=== PATIENT | male | born 1970 | race Caucasian/White ===

== ENCOUNTER → 2019-10-19 17:20 | Outpatient (REF) | payer OTHER, SELFPAY | LOC: ANHLAB 17:20 | PROVIDERS: Visit Provider Surgery Plastic and Reconstructive Surgery | DX: C43.59 Malignant melanoma of other part of trunk (principal) | CPT/HCPCS: 88305; 88342 ==

== ENCOUNTER 2019-11-26 06:32 | Outpatient (CLI) | payer OTHER, SELFPAY ==
--- NOTE | ~2019-11-26 | PE_ITS ---
EXAMINATION: PET whole body melanoma DATE: 11/26/2019 10:06 INDICATION: Malignant melanoma TECHNIQUE: Blood glucose level was 95 mg/dL. 9.778 mCi of 18-fluorodeoxyglucose (18-FDG) was administ ered i.v. Low dose computed tomography (CT) images were acquired from the vertex through the feet for attenuation correction and anatomic localization. Positron emission tomography (PET) images were acq uired in the same distribution beginning 61 minutes after injection. Images including fused PET/CT im ages were reconstructed in axial, coronal, and sagittal planes. Automated exposure control technique was employed. The dose-length product was 1191.40mGy-cm. COMPARISON: None FINDINGS: Head/neck: There is symmetric increased activity in the oral cavity, nares, palatine tonsils, bilateral sublingu al glands, laryngeal muscles and ocular muscles without CT correlate, likely physiologic. No patholog ically enlarged cervical lymphadenopathy or suspicious foci of increased FDG uptake in the visualized head or neck. Chest: There is mild stranding of the subcutaneous fat without significant FDG uptake posteriorly, slightly to the left of midline at the level of T7 which likely represent the site of excisional biopsy of a r eported melanoma. A postoperative minimal FDG uptake at the skin at the left axilla and along the mar gins of an underlying 2.4 x 6.3 cm likely seroma at the left axilla consistent with sequela of report ed prior sentinel lymph node dissection. Respiratory motion with mild dependent atelectasis in the kylah ngs. No suspicious pulmonary nodules or pleural effusion. Heart size is normal. There is focal increa sed FDG uptake at the lateral basilar segment of the left ventricle without radiologic correlate on C T with maximal SUV of 5.4 which is significantly higher than the remainder of the myocardium. No lydia cardial effusion. Thoracic aorta is normal in caliber. No pathologically enlarged or FDG avid thoraci c lymphadenopathy. Abdomen and pelvis: Physiologic renal accumulation and excretion of FDG activity in the kidneys, bladder and along portio ns of ureters. Normal degree and heterogenous pattern of increased uptake throughout the liver withou t radiologic correlate or dominant FDG avid lesion. The gallbladder, pancreas, spleen and bilateral a drenal glands are normal. Mild uptake scattered throughout the bowels without radiologic correlate, a lso likely physiologic. Likely phlebolith within a small fat-containing umbilical hernia. No other ab normal foci of increased FDG uptake or pathologically enlarged lymphadenopathy in the abdomen, pelvis or proximal thighs. Musculoskeletal: No suspicious lytic, blastic or FDG avid bone lesions. There is a focal region of moderate increased FDG uptake with maximal SUV of 6.8 cm within the plantar intrinsic musculature at the central aspect of the right forefoot without evident radiologic correlate. The region of increased FDG uptake measur es approximately 6 cm proximal to distal and 3 x 3 cm maximal orthogonal dimensions. IMPRESSION: 1. Focal region of increased myocardial FDG uptake at the lateral basilar segment of the left ventric le without radiologic correlate. Differential would include with coronary artery disease and metastat ic disease. Could consider further evaluation with pre and postcontrast cardiac MRI. 2. Region of increased FDG uptake within the plantar musculature of the right forefoot, also without radiologic correlate which could be traumatic, inflammatory or metastatic in etiology. Consider furth er evaluation with pre and postcontrast MRI. Reviewed, dictated and finalized at location A. IMPRESSION: 1. Focal region of increased myocardial FDG uptake at the lateral basilar segme nt of the left ve
--- NOTE | ~2019-11-26 | MR_ITS ---
EXAMINATION: MR brain/brain stem wo/w con EXAM DATE: 11/26/2019 07:54 INDICATION: Malignant melanoma. TECHNIQUE: Magnetic resonance imaging (MRI) of the brain/brain stem obtained without contrast. Sagit nixon T1, axial diffusion, gradient echo (T2*), T1, T2, FLAIR sequences obtained. Patient was then inj ected with 19 cc intravenous Multihance contrast. Axial and coronal postcontrast T1 weighted sequence s obtained. There is no prior study for comparison. FINDINGS: There are no areas of restricted diffusion to suggest acute infarction. There is no acute hemorrhage seen on the T2*, a hemosiderin sensitive sequence. No intraparenchymal brain mass. The ve ntricles are normal in size. There are no extra-axial collections. Flow voids are seen in the cereb ral arteries on the T2-weighted sequences consistent with their expected patency. The orbits are unr emarkable. Soft tissue is unremarkable. There are no areas of abnormal enhancement on the postcont rast images. IMPRESSION: Normal brain MRI examination. Reviewed, dictated and finalized at location B.
[2019-11-26 07:08] LABS: Estimated Glomerular Filt Rate > 60
[2019-11-26 07:53] LABS: Glucose Point of Care 95 (65-105)
== END 2019-11-26 06:33 | disposition home or self-care (01) ==
PROVIDERS: PCP Family Medicine; Visit Provider Family Medicine
DX: C43.9 Malignant melanoma of skin, unspecified (principal); L90.5 Scar conditions and fibrosis of skin; R93.89 Abnormal findings on diagnostic imaging of other specified body structures
CPT/HCPCS: 70553; 78816; A9552; A9577

== ENCOUNTER 2019-11-26 10:31 | Outpatient (CLI) | payer OTHER, SELFPAY ==
[2019-11-26 12:03] LABS: Basophils Absolute Auto 0.1 K/mm3 (0.0-0.1); Basophils Percent Auto 0.8 % (0.2-1.2); Eosinophils Absolute Auto 0.3 K/mm3 (0-0.3); Eosinophils Percent Auto 4.3 % (0-4.4); Hemoglobin 14.6 g/dL (14.0-18.0); Immature Granulocyte Absolute 0.02 K/mm3 (0.00-0.031); Immature Granulocyte Percent A 0.3 % (0-0.5); Lymphocytes Absolute Auto 1.73 K/mm3 (0.9-3.2); Lymphocytes Percent Auto 28.8 % (18.3-44.2); Mean Corpuscular HGB Conc 35.6 g/dl (32-36); Mean Corpuscular Volume 84.2 fl (80-100); Mean Platelet Volume 10.8 fl (7.4-10.4); Monocytes Absolute Auto 0.4 K/mm3 (0.1-0.6); Neutrophils Absolute Auto 3.5 K/mm3 (1.3-6.7); Neutrophils Percent Auto 58.8 % (45.5-73.1); Platelet Count Result 209 k/mm3 (150-375); Red Blood Count 4.87 M/mm3 (4.6-6.20); Red Cell Distribution Width 12.6 % (11.5-14.5)
[2019-11-26 12:27] LABS: Alanine Aminotransferase 29 U/L (4-50); Albumin Level 3.9 g/dL (3.5-5.1); Alkaline Phosphatase 58 U/L (38-126); Anion Gap 7 mmol/L (8-16); Aspartate Amino Transferase 27 U/L (17-59); Bilirubin,Total 0.5 mg/dL (0.2-1.3); Blood Urea Nitrogen 18 mg/dL (9-20); Calcium 8.6 mg/dL (8.4-10.2); Carbon Dioxide 28 mmol/L (22-30); Chloride 110 mmol/L (98-107); Estimated Glomerular Filt Rate > 60; Glucose 117 mg/dL (75-110); Potassium 4.1 mmol/L (3.4-5.0); Sodium 145 mmol/L (137-145)
[2019-11-26 12:54] LABS: Lactate Dehydrogenase 380 U/L (313-618)
== END 2019-11-26 10:32 | disposition home or self-care (01) ==
LOC: ANHLAB 10:33
PROVIDERS: PCP Family Medicine; Visit Provider Family Medicine
DX: C43.9 Malignant melanoma of skin, unspecified (principal); R53.83 Other fatigue
CPT/HCPCS: 36415; 80053; 83615; 85025

== ENCOUNTER 2019-12-11 06:46 | Outpatient (CLI) | payer OTHER, SELFPAY ==
[2019-12-11 07:21] LABS: Hematocrit 41.4 % (42.0-52.0); Hemoglobin 14.9 g/dL (14.0-18.0); Mean Corpuscular Hemoglobin 29.9 pg (26-34); Mean Corpuscular Volume 83.1 fl (80-100); Mean Platelet Volume 10.2 fl (7.4-10.4); Platelet Count Result 196 k/mm3 (150-375); Red Blood Count 4.98 M/mm3 (4.6-6.20); Red Cell Distribution Width 12.8 % (11.5-14.5); White Blood Count 6.2 K/mm3 (4.5-10.0)
[2019-12-11 07:29] LABS: Alanine Aminotransferase 36 U/L (4-50); Albumin Level 3.9 g/dL (3.5-5.1); Alkaline Phosphatase 54 U/L (38-126); Anion Gap 6 mmol/L (8-16); Aspartate Amino Transferase 30 U/L (17-59); Bilirubin,Total 0.5 mg/dL (0.2-1.3); Blood Urea Nitrogen 17 mg/dL (9-20); Calcium 8.6 mg/dL (8.4-10.2); Carbon Dioxide 29 mmol/L (22-30); Chloride 106 mmol/L (98-107); Estimated Glomerular Filt Rate > 60; Glucose 112 mg/dL (75-110); Lactate Dehydrogenase 355 U/L (313-618); Potassium 4.2 mmol/L (3.4-5.0); Sodium 141 mmol/L (137-145)
== END 2019-12-11 06:47 | disposition home or self-care (01) ==
PROVIDERS: PCP Family Medicine; Visit Provider Family Medicine
DX: C43.9 Malignant melanoma of skin, unspecified (principal); R53.83 Other fatigue
CPT/HCPCS: 36415; 80053; 83615; 84439; 84443; 85027

== ENCOUNTER 2020-01-07 07:00 | Outpatient (CLI) | payer OTHER, SELFPAY ==
[2020-01-07 07:36] LABS: Basophils Percent Auto 0.6 % (0.2-1.2); Eosinophils Absolute Auto 0.2 K/mm3 (0-0.3); Eosinophils Percent Auto 3.2 % (0-4.4); Hematocrit 45.1 % (42.0-52.0); Hemoglobin 15.9 g/dL (14.0-18.0); Immature Granulocyte Absolute 0.02 K/mm3 (0.00-0.031); Immature Granulocyte Percent A 0.4 % (0-0.5); Lymphocytes Absolute Auto 1.29 K/mm3 (0.9-3.2); Lymphocytes Percent Auto 26.1 % (18.3-44.2); Mean Corpuscular HGB Conc 35.3 g/dl (32-36); Mean Corpuscular Hemoglobin 30.6 pg (26-34); Mean Corpuscular Volume 86.9 fl (80-100); Mean Platelet Volume 9.9 fl (7.4-10.4); Monocytes Absolute Auto 0.4 K/mm3 (0.1-0.6); Monocytes Percent Auto 8.1 % (2.6-8.5); Neutrophils Percent Auto 61.6 % (45.5-73.1); Platelet Count Result 221 k/mm3 (150-375); Red Blood Count 5.19 M/mm3 (4.6-6.20); Red Cell Distribution Width 12.8 % (11.5-14.5); White Blood Count 4.9 K/mm3 (4.5-10.0)
[2020-01-07 07:52] LABS: Alanine Aminotransferase 44 U/L (4-50); Albumin Level 4.4 g/dL (3.5-5.1); Alkaline Phosphatase 59 U/L (38-126); Anion Gap 7 mmol/L (8-16); Aspartate Amino Transferase 38 U/L (17-59); Bilirubin,Total 0.9 mg/dL (0.2-1.3); Blood Urea Nitrogen 17 mg/dL (9-20); Calcium 9.3 mg/dL (8.4-10.2); Carbon Dioxide 32 mmol/L (22-30); Chloride 106 mmol/L (98-107); Estimated Glomerular Filt Rate > 60; Glucose 107 mg/dL (75-110); Lactate Dehydrogenase 412 U/L (313-618); Potassium 4.7 mmol/L (3.4-5.0); Sodium 145 mmol/L (137-145)
[2020-01-07 08:55] LABS: Free T4 Free Thyroxine 0.92 ng/mL (0.78-2.19)
== END 2020-01-07 07:01 | disposition home or self-care (01) ==
LOC: ANHLAB 07:03
PROVIDERS: PCP Family Medicine; Visit Provider Family Medicine
DX: C43.9 Malignant melanoma of skin, unspecified (principal)
CPT/HCPCS: 36415; 80053; 83615; 84439; 84443; 85025

== ENCOUNTER 2020-01-28 07:05 | Outpatient (CLI) | payer OTHER, SELFPAY ==
[2020-01-28 07:26] LABS: Basophils Absolute Auto 0.1 K/mm3 (0.0-0.1); Eosinophils Absolute Auto 0.2 K/mm3 (0-0.3); Hematocrit 41.5 % (42.0-52.0); Hemoglobin 14.7 g/dL (14.0-18.0); Immature Granulocyte Absolute 0.02 K/mm3 (0.00-0.031); Immature Granulocyte Percent A 0.4 % (0-0.5); Lymphocytes Absolute Auto 1.55 K/mm3 (0.9-3.2); Lymphocytes Percent Auto 29.9 % (18.3-44.2); Mean Corpuscular HGB Conc 35.4 g/dl (32-36); Mean Corpuscular Hemoglobin 30.1 pg (26-34); Mean Platelet Volume 10.4 fl (7.4-10.4); Monocytes Absolute Auto 0.5 K/mm3 (0.1-0.6); Neutrophils Absolute Auto 2.8 K/mm3 (1.3-6.7); Neutrophils Percent Auto 54.7 % (45.5-73.1); Platelet Count Result 198 k/mm3 (150-375); Red Blood Count 4.88 M/mm3 (4.6-6.20); Red Cell Distribution Width 12.6 % (11.5-14.5); White Blood Count 5.2 K/mm3 (4.5-10.0)
[2020-01-28 07:40] LABS: Alanine Aminotransferase 38 U/L (4-50); Albumin Level 3.9 g/dL (3.5-5.1); Alkaline Phosphatase 58 U/L (38-126); Anion Gap 3 mmol/L (8-16); Aspartate Amino Transferase 36 U/L (17-59); Bilirubin,Total 0.6 mg/dL (0.2-1.3); Blood Urea Nitrogen 18 mg/dL (9-20); Calcium 8.9 mg/dL (8.4-10.2); Carbon Dioxide 30 mmol/L (22-30); Chloride 108 mmol/L (98-107); Estimated Glomerular Filt Rate > 60; Glucose 105 mg/dL (75-110); Lactate Dehydrogenase 370 U/L (313-618); Potassium 4.6 mmol/L (3.4-5.0); Sodium 141 mmol/L (137-145)
[2020-01-28 08:16] LABS: Free T4 Free Thyroxine 0.77 ng/mL (0.78-2.19)
== END 2020-01-28 07:06 | disposition home or self-care (01) ==
PROVIDERS: PCP Family Medicine; Visit Provider Family Medicine
DX: C43.9 Malignant melanoma of skin, unspecified (principal); Z51.81 Encounter for therapeutic drug level monitoring; Z79.899 Other long term (current) drug therapy
CPT/HCPCS: 36415; 80053; 83615; 84439; 84443; 85025

== ENCOUNTER 2020-03-03 09:03 | Outpatient (CLI) | payer OTHER, SELFPAY ==
--- NOTE | ~2020-03-03 | PE_ITS ---
EXAMINATION: PET skull to mid thigh DATE: 03/03/2020 11:01 INDICATION: Malignant melanoma of the back. TECHNIQUE: Blood glucose level was 117 mg/dL. 10.075 mCi of 18-fluorodeoxyglucose (18-FDG) was admini stered i.v. Low dose computed tomography (CT) images were acquired from the base of the brain to the proximal thighs for attenuation correction and anatomic localization. Automated exposure control was employed. Dose-length product (DLP) was 768 mGy-cm. Positron emission tomography (PET) images were ac quired in the same distribution. COMPARISON: PET/CT 11/26/2019 FINDINGS: Head/neck: There is increased activity in the oral cavity, submandibular glands, and sublingual gland s without CT correlate, likely physiologic. There are no pathologically enlarged lymph nodes. Chest: The lungs demonstrate minimal atelectasis. No pleural effusion. There are right axillary lymph nodes measuring up to 1.7 x 1.3 cm with maximum SUV of 4.8, increased from 1.2 x 1.0 cm. The heart s ize is normal. No pericardial effusion. Abdomen/pelvis/proximal thighs: The liver, gallbladder, spleen, pancreas, adrenal glands, and kidneys are normal. There are no dilated loops of bowel. The appendix is normal. There are no pathologically enlarged lymph nodes. There is no free intraperitoneal fluid. There is no osseous malignancy. IMPRESSION: 1. Increased activity in right axillary lymph nodes, which are normal in size, but increased in size from 11/26/2019. These findings may be reactive lymphadenopathy or metastatic disease. Consider ultras ound-guided core needle biopsy. Reviewed, dictated and finalized at location A. [place] [employer] IMPRESSION: 1. Increased activity in right axillary lymph nodes, which are normal in size, but increased in size from 11/26/2019. These findings may be reactive lymphadeno [place] or metastatic disease. Consider ultrasound-guided core needle biopsy.
[2020-03-03 09:35] LABS: Glucose Point of Care 117 (65-105)
== END 2020-03-03 09:04 | disposition home or self-care (01) ==
PROVIDERS: PCP Family Medicine; Visit Provider Family Medicine
DX: C43.9 Malignant melanoma of skin, unspecified (principal); L90.5 Scar conditions and fibrosis of skin
CPT/HCPCS: 78815; A9552

== ENCOUNTER 2020-03-16 07:24 | Outpatient (CLI) | payer OTHER, SELFPAY ==
[2020-03-16 07:52] LABS: Basophils Absolute Auto 0.1 K/mm3 (0.0-0.1); Basophils Percent Auto 0.6 % (0.2-1.2); Eosinophils Absolute Auto 0.3 K/mm3 (0-0.3); Eosinophils Percent Auto 3.2 % (0-4.4); Hematocrit 43.2 % (42.0-52.0); Hemoglobin 15.4 g/dL (14.0-18.0); Immature Granulocyte Absolute 0.02 K/mm3 (0.00-0.031); Immature Granulocyte Percent A 0.2 % (0-0.5); Lymphocytes Percent Auto 16.2 % (18.3-44.2); Mean Corpuscular HGB Conc 35.6 g/dl (32-36); Mean Corpuscular Hemoglobin 30.6 pg (26-34); Mean Corpuscular Volume 85.7 fl (80-100); Monocytes Absolute Auto 0.7 K/mm3 (0.1-0.6); Monocytes Percent Auto 8.2 % (2.6-8.5); Neutrophils Absolute Auto 5.7 K/mm3 (1.3-6.7); Neutrophils Percent Auto 71.6 % (45.5-73.1); Platelet Count Result 209 k/mm3 (150-375); Red Blood Count 5.04 M/mm3 (4.6-6.20); Red Cell Distribution Width 12.6 % (11.5-14.5)
[2020-03-16 08:06] LABS: Alanine Aminotransferase 40 U/L (4-50); Albumin Level 3.8 g/dL (3.5-5.1); Alkaline Phosphatase 58 U/L (38-126); Anion Gap 4 mmol/L (8-16); Aspartate Amino Transferase 36 U/L (17-59); Bilirubin,Total 0.6 mg/dL (0.2-1.3); Blood Urea Nitrogen 18 mg/dL (9-20); Calcium 8.5 mg/dL (8.4-10.2); Carbon Dioxide 30 mmol/L (22-30); Chloride 106 mmol/L (98-107); Estimated Glomerular Filt Rate > 60; Glucose 105 mg/dL (75-110); Potassium 4.8 mmol/L (3.4-5.0); Sodium 140 mmol/L (137-145)
[2020-03-16 08:11] LABS: Lactate Dehydrogenase 404 U/L (313-618)
[2020-03-16 09:07] LABS: Free T4 Free Thyroxine 0.89 ng/mL (0.78-2.19)
== END 2020-03-16 07:25 | disposition home or self-care (01) ==
PROVIDERS: PCP Family Medicine; Visit Provider Family Medicine
DX: C43.9 Malignant melanoma of skin, unspecified (principal); Z51.81 Encounter for therapeutic drug level monitoring; Z79.899 Other long term (current) drug therapy
CPT/HCPCS: 36415; 80053; 83615; 84439; 84443; 85025

== ENCOUNTER 2020-03-24 07:07 | Outpatient (CLI) | payer OTHER, SELFPAY ==
[2020-03-24 07:41] LABS: Basophils Absolute Auto 0.1 K/mm3 (0.0-0.1); Basophils Percent Auto 1.1 % (0.2-1.2); Eosinophils Absolute Auto 0.3 K/mm3 (0-0.3); Eosinophils Percent Auto 4.9 % (0-4.4); Hematocrit 43.1 % (42.0-52.0); Hemoglobin 15.2 g/dL (14.0-18.0); Immature Granulocyte Absolute 0.03 K/mm3 (0.00-0.031); Immature Granulocyte Percent A 0.5 % (0-0.5); Lymphocytes Absolute Auto 1.47 K/mm3 (0.9-3.2); Lymphocytes Percent Auto 22.7 % (18.3-44.2); Mean Corpuscular HGB Conc 35.3 g/dl (32-36); Mean Corpuscular Hemoglobin 29.6 pg (26-34); Mean Corpuscular Volume 83.9 fl (80-100); Mean Platelet Volume 10.4 fl (7.4-10.4); Monocytes Absolute Auto 0.5 K/mm3 (0.1-0.6); Monocytes Percent Auto 8.3 % (2.6-8.5); Neutrophils Percent Auto 62.5 % (45.5-73.1); Platelet Count Result 225 k/mm3 (150-375); Red Blood Count 5.14 M/mm3 (4.6-6.20); Red Cell Distribution Width 12.3 % (11.5-14.5); White Blood Count 6.5 K/mm3 (4.5-10.0)
[2020-03-24 08:21] LABS: Alanine Aminotransferase 35 U/L (4-50); Alkaline Phosphatase 60 U/L (38-126); Anion Gap 3 mmol/L (8-16); Aspartate Amino Transferase 33 U/L (17-59); Bilirubin,Total 0.6 mg/dL (0.2-1.3); Blood Urea Nitrogen 15 mg/dL (9-20); Calcium 8.7 mg/dL (8.4-10.2); Carbon Dioxide 31 mmol/L (22-30); Chloride 108 mmol/L (98-107); Estimated Glomerular Filt Rate > 60; Glucose 106 mg/dL (75-110); Lactate Dehydrogenase 415 U/L (313-618); Potassium 4.6 mmol/L (3.4-5.0); Sodium 142 mmol/L (137-145)
[2020-03-24 09:16] LABS: Free T4 Free Thyroxine 0.86 ng/mL (0.78-2.19)
== END 2020-03-24 07:08 | disposition home or self-care (01) ==
PROVIDERS: PCP Family Medicine; Visit Provider Family Medicine
DX: C43.9 Malignant melanoma of skin, unspecified (principal)
CPT/HCPCS: 36415; 80053; 83615; 84439; 84443; 85025

== ENCOUNTER 2020-04-14 07:18 | Outpatient (CLI) | payer OTHER, SELFPAY ==
[2020-04-14 08:00] LABS: Basophils Absolute Auto 0.1 K/mm3 (0.0-0.1); Basophils Percent Auto 0.7 % (0.2-1.2); Eosinophils Absolute Auto 0.3 K/mm3 (0-0.3); Eosinophils Percent Auto 4.4 % (0-4.4); Hematocrit 42.5 % (42.0-52.0); Immature Granulocyte Absolute 0.02 K/mm3 (0.00-0.031); Immature Granulocyte Percent A 0.3 % (0-0.5); Lymphocytes Absolute Auto 1.37 K/mm3 (0.9-3.2); Lymphocytes Percent Auto 20.2 % (18.3-44.2); Mean Corpuscular HGB Conc 35.3 g/dl (32-36); Mean Corpuscular Hemoglobin 29.8 pg (26-34); Mean Corpuscular Volume 84.3 fl (80-100); Mean Platelet Volume 10.3 fl (7.4-10.4); Monocytes Absolute Auto 0.6 K/mm3 (0.1-0.6); Neutrophils Absolute Auto 4.4 K/mm3 (1.3-6.7); Neutrophils Percent Auto 65.4 % (45.5-73.1); Platelet Count Result 225 k/mm3 (150-375); Red Blood Count 5.04 M/mm3 (4.6-6.20); Red Cell Distribution Width 12.6 % (11.5-14.5); White Blood Count 6.8 K/mm3 (4.5-10.0)
[2020-04-14 08:11] LABS: Alanine Aminotransferase 37 U/L (4-50); Alkaline Phosphatase 54 U/L (38-126); Anion Gap 5 mmol/L (8-16); Aspartate Amino Transferase 33 U/L (17-59); Bilirubin,Total 0.6 mg/dL (0.2-1.3); Blood Urea Nitrogen 14 mg/dL (9-20); Calcium 8.7 mg/dL (8.4-10.2); Carbon Dioxide 29 mmol/L (22-30); Chloride 109 mmol/L (98-107); Estimated Glomerular Filt Rate > 60; Glucose 108 mg/dL (75-110); Potassium 4.5 mmol/L (3.4-5.0); Sodium 143 mmol/L (137-145)
[2020-04-14 08:58] LABS: Free T4 Free Thyroxine 0.97 ng/mL (0.78-2.19)
[2020-04-14 10:06] LABS: Lactate Dehydrogenase 391 U/L (313-618)
== END 2020-04-14 07:19 | disposition home or self-care (01) ==
PROVIDERS: PCP Family Medicine; Visit Provider Family Medicine
DX: C43.9 Malignant melanoma of skin, unspecified (principal)
CPT/HCPCS: 36415; 80053; 83615; 84439; 84443; 85025

== ENCOUNTER 2020-05-12 07:01 | Outpatient (CLI) | payer OTHER, SELFPAY ==
[2020-05-12 07:36] LABS: Basophils Percent Auto 0.7 % (0.2-1.2); Eosinophils Absolute Auto 0.2 K/mm3 (0-0.3); Eosinophils Percent Auto 3.7 % (0-4.4); Hematocrit 43.5 % (42.0-52.0); Hemoglobin 15.1 g/dL (14.0-18.0); Immature Granulocyte Absolute 0.02 K/mm3 (0.00-0.031); Immature Granulocyte Percent A 0.3 % (0-0.5); Lymphocytes Percent Auto 22.1 % (18.3-44.2); Mean Corpuscular HGB Conc 34.7 g/dl (32-36); Mean Corpuscular Hemoglobin 29.9 pg (26-34); Mean Corpuscular Volume 86.1 fl (80-100); Mean Platelet Volume 10.4 fl (7.4-10.4); Monocytes Absolute Auto 0.5 K/mm3 (0.1-0.6); Monocytes Percent Auto 9.2 % (2.6-8.5); Neutrophils Absolute Auto 3.8 K/mm3 (1.3-6.7); Platelet Count Result 209 k/mm3 (150-375); Red Blood Count 5.05 M/mm3 (4.6-6.20); White Blood Count 5.9 K/mm3 (4.5-10.0)
[2020-05-12 07:41] LABS: Alanine Aminotransferase 50 U/L (4-50); Albumin Level 3.7 g/dL (3.5-5.1); Alkaline Phosphatase 70 U/L (38-126); Anion Gap 4 mmol/L (8-16); Aspartate Amino Transferase 40 U/L (17-59); Bilirubin,Total 0.3 mg/dL (0.2-1.3); Blood Urea Nitrogen 17 mg/dL (9-20); Calcium 8.2 mg/dL (8.4-10.2); Carbon Dioxide 29 mmol/L (22-30); Chloride 109 mmol/L (98-107); Estimated Glomerular Filt Rate > 60; Glucose 128 mg/dL (75-110); Lactate Dehydrogenase 409 U/L (313-618); Potassium 4.3 mmol/L (3.4-5.0); Sodium 142 mmol/L (137-145)
[2020-05-12 08:44] LABS: Free T4 Free Thyroxine 0.79 ng/mL (0.78-2.19)
== END 2020-05-12 07:02 | disposition home or self-care (01) ==
PROVIDERS: PCP Family Medicine; Visit Provider Family Medicine
DX: C43.9 Malignant melanoma of skin, unspecified (principal); Z51.81 Encounter for therapeutic drug level monitoring; Z79.899 Other long term (current) drug therapy
CPT/HCPCS: 36415; 80053; 83615; 84439; 84443; 85025

== ENCOUNTER 2020-06-02 07:04 | Outpatient (CLI) | payer OTHER, SELFPAY ==
[2020-06-02 07:27] LABS: Basophils Absolute Auto 0.1 K/mm3 (0.0-0.1); Basophils Percent Auto 0.9 % (0.2-1.2); Eosinophils Absolute Auto 0.2 K/mm3 (0-0.3); Eosinophils Percent Auto 2.8 % (0-4.4); Hemoglobin 15.7 g/dL (14.0-18.0); Immature Granulocyte Absolute 0.01 K/mm3 (0.00-0.031); Immature Granulocyte Percent A 0.2 % (0-0.5); Lymphocytes Absolute Auto 1.51 K/mm3 (0.9-3.2); Lymphocytes Percent Auto 26.5 % (18.3-44.2); Mean Corpuscular HGB Conc 35.7 g/dl (32-36); Mean Corpuscular Hemoglobin 30.3 pg (26-34); Mean Corpuscular Volume 84.8 fl (80-100); Mean Platelet Volume 9.9 fl (7.4-10.4); Monocytes Absolute Auto 0.6 K/mm3 (0.1-0.6); Monocytes Percent Auto 9.7 % (2.6-8.5); Neutrophils Absolute Auto 3.4 K/mm3 (1.3-6.7); Neutrophils Percent Auto 59.9 % (45.5-73.1); Platelet Count Result 218 k/mm3 (150-375); Red Blood Count 5.19 M/mm3 (4.6-6.20); Red Cell Distribution Width 12.7 % (11.5-14.5); White Blood Count 5.7 K/mm3 (4.5-10.0)
[2020-06-02 07:29] LABS: Alanine Aminotransferase 40 U/L (4-50); Albumin Level 4.2 g/dL (3.5-5.1); Alkaline Phosphatase 56 U/L (38-126); Anion Gap 3 mmol/L (8-16); Aspartate Amino Transferase 35 U/L (17-59); Bilirubin,Total 0.5 mg/dL (0.2-1.3); Blood Urea Nitrogen 19 mg/dL (9-20); Calcium 8.8 mg/dL (8.4-10.2); Carbon Dioxide 31 mmol/L (22-30); Chloride 108 mmol/L (98-107); Estimated Glomerular Filt Rate > 60; Glucose 108 mg/dL (75-110); Lactate Dehydrogenase 370 U/L (313-618); Potassium 4.3 mmol/L (3.4-5.0); Sodium 142 mmol/L (137-145)
[2020-06-02 08:17] LABS: Free T4 Free Thyroxine 0.79 ng/mL (0.78-2.19)
== END 2020-06-02 07:05 | disposition home or self-care (01) ==
PROVIDERS: PCP Family Medicine; Visit Provider Family Medicine
DX: C43.9 Malignant melanoma of skin, unspecified (principal)
CPT/HCPCS: 36415; 80053; 83615; 84439; 84443; 85025

== ENCOUNTER 2020-06-09 08:18 | Outpatient (CLI) | payer OTHER, SELFPAY ==
--- NOTE | ~2020-06-09 | PE_ITS ---
EXAMINATION: PET skull to mid thigh DATE: 06/09/2020 10:02 INDICATION: Malignant melanoma. TECHNIQUE: Blood glucose level was 95 mg/dL. 11.336 mCi of 18-fluorodeoxyglucose (18-FDG) was adminis tered i.v. Low dose computed tomography (CT) images were acquired from the top of the head to the pro ximal thighs for attenuation correction and anatomic localization. Automated exposure control was emp loyed. Dose-length product (DLP) was 788 mGy-cm. Positron emission tomography (PET) images were acqui red in the same distribution. COMPARISON: PET/CT 03/03/2020 FINDINGS: Head/neck: There is increased activity in the oral cavity, oropharynx, major salivary glands, and shon ttis without CT correlate, likely physiologic. There are no pathologically enlarged lymph nodes. Chest: The lungs demonstrate mild atelectasis. No pleural effusion. The heart size is normal. No lydia cardial effusion. There are no pathologically enlarged lymph nodes. Abdomen/pelvis/proximal thighs: The liver, gallbladder, spleen, pancreas, adrenal glands, and kidneys are normal. There are no dilated loops of bowel. Prominent fat in left inguinal canal may be a small hernia. The prostate is mildly enlarged. A mass of fat in anterior abdominal wall in right lower osiris drant may be a lipoma or spigelian hernia. There are no pathologically enlarged lymph nodes. There is no free intraperitoneal fluid. There is no osseous malignancy. IMPRESSION: 1. No evidence of metastatic disease. Reviewed, dictated and finalized at location B.
[2020-06-09 08:48] LABS: Glucose Point of Care 95 (65-105)
== END 2020-06-09 08:19 | disposition home or self-care (01) ==
PROVIDERS: PCP Family Medicine; Visit Provider Family Medicine
DX: C43.59 Malignant melanoma of other part of trunk (principal); L90.5 Scar conditions and fibrosis of skin
CPT/HCPCS: 78815; 82948; A9552

== ENCOUNTER 2020-06-23 12:54 | Outpatient (CLI) | payer OTHER, SELFPAY ==
[2020-06-23 13:27] LABS: Basophils Absolute Auto 0.1 K/mm3 (0.0-0.1); Basophils Percent Auto 0.9 % (0.2-1.2); Eosinophils Absolute Auto 0.2 K/mm3 (0-0.3); Eosinophils Percent Auto 3.8 % (0-4.4); Hematocrit 43.9 % (42.0-52.0); Hemoglobin 15.3 g/dL (14.0-18.0); Immature Granulocyte Absolute 0.03 K/mm3 (0.00-0.031); Immature Granulocyte Percent A 0.5 % (0-0.5); Lymphocytes Absolute Auto 1.63 K/mm3 (0.9-3.2); Lymphocytes Percent Auto 28.2 % (18.3-44.2); Mean Corpuscular HGB Conc 34.9 g/dl (32-36); Mean Corpuscular Hemoglobin 29.9 pg (26-34); Mean Corpuscular Volume 85.7 fl (80-100); Mean Platelet Volume 10.3 fl (7.4-10.4); Monocytes Absolute Auto 0.5 K/mm3 (0.1-0.6); Monocytes Percent Auto 9.2 % (2.6-8.5); Neutrophils Absolute Auto 3.3 K/mm3 (1.3-6.7); Neutrophils Percent Auto 57.4 % (45.5-73.1); Platelet Count Result 209 k/mm3 (150-375); Red Blood Count 5.12 M/mm3 (4.6-6.20); Red Cell Distribution Width 12.9 % (11.5-14.5); White Blood Count 5.8 K/mm3 (4.5-10.0)
[2020-06-23 13:42] LABS: Potassium 3.9 mmol/L (3.4-5.0)
[2020-06-23 13:51] LABS: Alanine Aminotransferase 46 U/L (4-50); Albumin Level 4.1 g/dL (3.5-5.1); Alkaline Phosphatase 56 U/L (38-126); Anion Gap 4 mmol/L (8-16); Aspartate Amino Transferase 41 U/L (17-59); Bilirubin,Total 0.6 mg/dL (0.2-1.3); Blood Urea Nitrogen 14 mg/dL (9-20); Carbon Dioxide 30 mmol/L (22-30); Chloride 107 mmol/L (98-107); Estimated Glomerular Filt Rate > 60; Glucose 95 mg/dL (75-110); Lactate Dehydrogenase 424 U/L (313-618); Sodium 141 mmol/L (137-145)
[2020-06-23 14:29] LABS: Free T4 Free Thyroxine 0.82 ng/mL (0.78-2.19)
== END 2020-06-23 12:55 | disposition home or self-care (01) ==
PROVIDERS: PCP Family Medicine; Visit Provider Family Medicine
DX: C43.9 Malignant melanoma of skin, unspecified (principal)
CPT/HCPCS: 36415; 80053; 83615; 84439; 84443; 85025

== ENCOUNTER 2020-07-14 06:58 | Outpatient (CLI) | payer OTHER, SELFPAY ==
[2020-07-14 07:44] LABS: Basophils Absolute Auto 0.1 K/mm3 (0.0-0.1); Basophils Percent Auto 0.9 % (0.2-1.2); Eosinophils Absolute Auto 0.3 K/mm3 (0-0.3); Hematocrit 43.3 % (42.0-52.0); Hemoglobin 15.1 g/dL (14.0-18.0); Immature Granulocyte Absolute 0.02 K/mm3 (0.00-0.031); Immature Granulocyte Percent A 0.3 % (0-0.5); Lymphocytes Absolute Auto 1.56 K/mm3 (0.9-3.2); Lymphocytes Percent Auto 26.9 % (18.3-44.2); Mean Corpuscular HGB Conc 34.9 g/dl (32-36); Mean Corpuscular Hemoglobin 29.5 pg (26-34); Mean Corpuscular Volume 84.6 fl (80-100); Mean Platelet Volume 10.2 fl (7.4-10.4); Monocytes Absolute Auto 0.5 K/mm3 (0.1-0.6); Monocytes Percent Auto 8.6 % (2.6-8.5); Neutrophils Absolute Auto 3.4 K/mm3 (1.3-6.7); Neutrophils Percent Auto 58.3 % (45.5-73.1); Platelet Count Result 206 k/mm3 (150-375); Red Blood Count 5.12 M/mm3 (4.6-6.20); Red Cell Distribution Width 12.7 % (11.5-14.5); White Blood Count 5.8 K/mm3 (4.5-10.0)
[2020-07-14 07:58] LABS: Alanine Aminotransferase 38 U/L (4-50); Alkaline Phosphatase 54 U/L (38-126); Anion Gap 5 mmol/L (8-16); Aspartate Amino Transferase 33 U/L (17-59); Bilirubin,Total 0.8 mg/dL (0.2-1.3); Blood Urea Nitrogen 16 mg/dL (9-20); Calcium 8.9 mg/dL (8.4-10.2); Carbon Dioxide 28 mmol/L (22-30); Chloride 109 mmol/L (98-107); Estimated Glomerular Filt Rate > 60; Glucose 104 mg/dL (75-110); Lactate Dehydrogenase 356 U/L (313-618); Potassium 4.3 mmol/L (3.4-5.0); Sodium 142 mmol/L (137-145)
[2020-07-14 08:30] LABS: Free T4 Free Thyroxine 0.77 ng/mL (0.78-2.19)
== END 2020-07-14 06:59 | disposition home or self-care (01) ==
LOC: ANHLAB 07:00
PROVIDERS: PCP Family Medicine; Visit Provider Family Medicine
DX: C43.9 Malignant melanoma of skin, unspecified (principal); Z51.81 Encounter for therapeutic drug level monitoring; Z79.899 Other long term (current) drug therapy
CPT/HCPCS: 36415; 80053; 83615; 84439; 84443; 85025

== ENCOUNTER 2020-08-04 07:11 | Outpatient (CLI) | payer OTHER, SELFPAY ==
[2020-08-04 07:50] LABS: Alanine Aminotransferase 35 U/L (4-50); Albumin Level 4.1 g/dL (3.5-5.1); Alkaline Phosphatase 54 U/L (38-126); Anion Gap 9 mmol/L (8-16); Aspartate Amino Transferase 29 U/L (17-59); Bilirubin,Total 0.5 mg/dL (0.2-1.3); Blood Urea Nitrogen 18 mg/dL (9-20); Calcium 9.1 mg/dL (8.4-10.2); Carbon Dioxide 26 mmol/L (22-30); Chloride 109 mmol/L (98-107); Estimated Glomerular Filt Rate > 60; Glucose 105 mg/dL (75-110); Lactate Dehydrogenase 351 U/L (313-618); Potassium 4.5 mmol/L (3.4-5.0); Sodium 144 mmol/L (137-145)
[2020-08-04 07:59] LABS: Basophils Absolute Auto 0.1 K/mm3 (0.0-0.1); Basophils Percent Auto 0.9 % (0.2-1.2); Eosinophils Absolute Auto 0.2 K/mm3 (0-0.3); Eosinophils Percent Auto 3.8 % (0-4.4); Hematocrit 43.1 % (42.0-52.0); Hemoglobin 15.1 g/dL (14.0-18.0); Immature Granulocyte Absolute 0.02 K/mm3 (0.00-0.031); Immature Granulocyte Percent A 0.4 % (0-0.5); Lymphocytes Percent Auto 23.6 % (18.3-44.2); Mean Corpuscular Hemoglobin 29.9 pg (26-34); Mean Corpuscular Volume 85.3 fl (80-100); Mean Platelet Volume 10.4 fl (7.4-10.4); Monocytes Absolute Auto 0.6 K/mm3 (0.1-0.6); Monocytes Percent Auto 10.5 % (2.6-8.5); Neutrophils Absolute Auto 3.3 K/mm3 (1.3-6.7); Neutrophils Percent Auto 60.8 % (45.5-73.1); Platelet Count Result 194 k/mm3 (150-375); Red Blood Count 5.05 M/mm3 (4.6-6.20); Red Cell Distribution Width 12.9 % (11.5-14.5); White Blood Count 5.5 K/mm3 (4.5-10.0)
[2020-08-04 08:42] LABS: Free T4 Free Thyroxine 0.88 ng/mL (0.78-2.19)
== END 2020-08-04 07:12 | disposition home or self-care (01) ==
LOC: ANHLAB 07:14
PROVIDERS: PCP Family Medicine; Visit Provider Family Medicine
DX: C43.9 Malignant melanoma of skin, unspecified (principal)
CPT/HCPCS: 36415; 80053; 83615; 84439; 84443; 85025

== ENCOUNTER 2020-09-22 07:06 | Outpatient (CLI) | payer OTHER, SELFPAY ==
[2020-09-22 07:25] LABS: Basophils Absolute Auto 0.1 K/mm3 (0.0-0.1); Basophils Percent Auto 0.9 % (0.2-1.2); Eosinophils Absolute Auto 0.3 K/mm3 (0-0.3); Eosinophils Percent Auto 4.9 % (0-4.4); Hematocrit 43.4 % (42.0-52.0); Hemoglobin 15.1 g/dL (14.0-18.0); Immature Granulocyte Absolute 0.02 K/mm3 (0.00-0.031); Immature Granulocyte Percent A 0.4 % (0-0.5); Lymphocytes Absolute Auto 1.42 K/mm3 (0.9-3.2); Lymphocytes Percent Auto 26.5 % (18.3-44.2); Mean Corpuscular HGB Conc 34.8 g/dl (32-36); Mean Corpuscular Hemoglobin 29.5 pg (26-34); Mean Corpuscular Volume 84.8 fl (80-100); Mean Platelet Volume 10.4 fl (7.4-10.4); Monocytes Absolute Auto 0.5 K/mm3 (0.1-0.6); Monocytes Percent Auto 9.7 % (2.6-8.5); Neutrophils Absolute Auto 3.1 K/mm3 (1.3-6.7); Neutrophils Percent Auto 57.6 % (45.5-73.1); Platelet Count Result 209 k/mm3 (150-375); Red Blood Count 5.12 M/mm3 (4.6-6.20); Red Cell Distribution Width 12.5 % (11.5-14.5); White Blood Count 5.4 K/mm3 (4.5-10.0)
[2020-09-22 07:39] LABS: Alanine Aminotransferase 44 U/L (4-50); Albumin Level 3.9 g/dL (3.5-5.1); Alkaline Phosphatase 59 U/L (38-126); Anion Gap 6 mmol/L (8-16); Aspartate Amino Transferase 39 U/L (17-59); Bilirubin,Total 0.7 mg/dL (0.2-1.3); Blood Urea Nitrogen 15 mg/dL (9-20); Calcium 9.2 mg/dL (8.4-10.2); Carbon Dioxide 25 mmol/L (22-30); Chloride 109 mmol/L (98-107); Estimated Glomerular Filt Rate > 60; Glucose 98 mg/dL (65-110); Lactate Dehydrogenase 426 U/L (313-618); Potassium 4.4 mmol/L (3.4-5.0); Sodium 140 mmol/L (137-145)
[2020-09-22 08:49] LABS: Free T4 Free Thyroxine 0.87 ng/mL (0.78-2.19)
== END 2020-09-22 07:07 | disposition home or self-care (01) ==
PROVIDERS: PCP Family Medicine; Visit Provider Family Medicine
DX: C43.9 Malignant melanoma of skin, unspecified (principal)
CPT/HCPCS: 36415; 80053; 83615; 84439; 84443; 85025

== ENCOUNTER 2020-09-29 07:58 | Outpatient (CLI) | payer OTHER, SELFPAY ==
--- NOTE | ~2020-09-29 | PE_ITS ---
EXAMINATION: PET skull to mid thigh DATE: 09/29/2020 09:39 INDICATION: Malignant melanoma. TECHNIQUE: Blood glucose level was 86 mg/dL. 9.132 mCi of 18-fluorodeoxyglucose (18-FDG) was administ ered i.v. Low dose computed tomography (CT) images were acquired from the top of the head to the prox imal thighs for attenuation correction and anatomic localization. Automated exposure control was empl oyed. Dose-length product (DLP) was 938 mGy-cm. Positron emission tomography (PET) images were acquir ed in the same distribution. COMPARISON: PET CT 06/09/2020 FINDINGS: Head/neck: There are no pathologically enlarged lymph nodes. Chest: The lungs demonstrate minimal atelectasis. No pleural effusion. The heart size is normal. No p ericardial effusion. There are no pathologically enlarged lymph nodes. Abdomen/pelvis/proximal thighs: There is diffuse hepatic steatosis. The gallbladder, spleen, pancreas , adrenal glands, and kidneys are normal. There are no dilated loops of bowel. There are no pathologi [place] enlarged lymph nodes. There is no free intraperitoneal fluid. A mass of fat in anterior abdomin al wall in right lower quadrant may be a lipoma or spigelian hernia. Prominent fat in left inguinal c anal may be a small hernia. There is a benign bone island in proximal left femur. IMPRESSION: 1. No evidence of metastatic disease. Reviewed, dictated and finalized at location A.
[2020-09-29 08:16] LABS: Glucose Point of Care 86 mg/dl (65-105)
== END 2020-09-29 07:59 | disposition home or self-care (01) ==
LOC: ANHIMG 07:59
PROVIDERS: PCP Family Medicine; Visit Provider Family Medicine
DX: C49.9 Malignant neoplasm of connective and soft tissue, unspecified (principal)
CPT/HCPCS: 78815; A9552

== ENCOUNTER 2020-10-13 07:07 | Outpatient (CLI) | payer OTHER, SELFPAY ==
[2020-10-13 07:26] LABS: Basophils Absolute Auto 0.1 K/mm3 (0.0-0.1); Basophils Percent Auto 1.1 % (0.2-1.2); Eosinophils Absolute Auto 0.2 K/mm3 (0-0.3); Hematocrit 44.5 % (42.0-52.0); Hemoglobin 15.5 g/dL (14.0-18.0); Immature Granulocyte Absolute 0.02 K/mm3 (0.00-0.031); Immature Granulocyte Percent A 0.4 % (0-0.5); Lymphocytes Absolute Auto 1.54 K/mm3 (0.9-3.2); Lymphocytes Percent Auto 27.7 % (18.3-44.2); Mean Corpuscular HGB Conc 34.8 g/dl (32-36); Mean Corpuscular Hemoglobin 29.6 pg (26-34); Mean Corpuscular Volume 85.1 fl (80-100); Monocytes Absolute Auto 0.5 K/mm3 (0.1-0.6); Neutrophils Absolute Auto 3.2 K/mm3 (1.3-6.7); Neutrophils Percent Auto 57.8 % (45.5-73.1); Platelet Count Result 216 k/mm3 (150-375); Red Blood Count 5.23 M/mm3 (4.6-6.20); Red Cell Distribution Width 12.4 % (11.5-14.5); White Blood Count 5.6 K/mm3 (4.5-10.0)
[2020-10-13 08:04] LABS: Free T4 Free Thyroxine 0.91 ng/mL (0.78-2.19)
[2020-10-13 08:05] LABS: Alanine Aminotransferase 40 U/L (4-50); Albumin Level 4.2 g/dL (3.5-5.1); Alkaline Phosphatase 55 U/L (38-126); Anion Gap 6 mmol/L (8-16); Aspartate Amino Transferase 35 U/L (17-59); Bilirubin,Total 0.9 mg/dL (0.2-1.3); Blood Urea Nitrogen 15 mg/dL (9-20); Calcium 8.8 mg/dL (8.4-10.2); Carbon Dioxide 25 mmol/L (22-30); Chloride 109 mmol/L (98-107); Estimated Glomerular Filt Rate > 60; Glucose 107 mg/dL (65-110); Lactate Dehydrogenase 385 U/L (313-618); Potassium 4.2 mmol/L (3.4-5.0); Sodium 140 mmol/L (137-145)
== END 2020-10-13 07:08 | disposition home or self-care (01) ==
PROVIDERS: PCP Family Medicine; Visit Provider Family Medicine
DX: C43.9 Malignant melanoma of skin, unspecified (principal)
CPT/HCPCS: 36415; 80053; 83615; 84439; 84443; 85025

== ENCOUNTER 2020-11-03 07:24 | Outpatient (CLI) | payer OTHER, SELFPAY ==
[2020-11-03 07:42] LABS: Basophils Percent Auto 0.8 % (0.2-1.2); Eosinophils Absolute Auto 0.2 K/mm3 (0-0.3); Eosinophils Percent Auto 3.6 % (0-4.4); Hematocrit 45.8 % (42.0-52.0); Hemoglobin 15.6 g/dL (14.0-18.0); Immature Granulocyte Absolute 0.01 K/mm3 (0.00-0.031); Immature Granulocyte Percent A 0.2 % (0-0.5); Lymphocytes Absolute Auto 1.31 K/mm3 (0.9-3.2); Lymphocytes Percent Auto 25.9 % (18.3-44.2); Mean Corpuscular HGB Conc 34.1 g/dl (32-36); Mean Corpuscular Hemoglobin 29.8 pg (26-34); Mean Corpuscular Volume 87.6 fl (80-100); Monocytes Absolute Auto 0.5 K/mm3 (0.1-0.6); Monocytes Percent Auto 8.9 % (2.6-8.5); Neutrophils Absolute Auto 3.1 K/mm3 (1.3-6.7); Neutrophils Percent Auto 60.6 % (45.5-73.1); Platelet Count Result 205 k/mm3 (150-375); Red Blood Count 5.23 M/mm3 (4.6-6.20); Red Cell Distribution Width 12.6 % (11.5-14.5); White Blood Count 5.1 K/mm3 (4.5-10.0)
[2020-11-03 08:05] LABS: Alanine Aminotransferase 46 U/L (4-50); Albumin Level 4.4 g/dL (3.5-5.1); Alkaline Phosphatase 59 U/L (38-126); Anion Gap 9 mmol/L (8-16); Aspartate Amino Transferase 37 U/L (17-59); Bilirubin,Total 0.6 mg/dL (0.2-1.3); Blood Urea Nitrogen 17 mg/dL (9-20); Calcium 8.9 mg/dL (8.4-10.2); Carbon Dioxide 26 mmol/L (22-30); Chloride 107 mmol/L (98-107); Estimated Glomerular Filt Rate > 60; Glucose 108 mg/dL (65-110); Lactate Dehydrogenase 415 U/L (313-618); Potassium 4.6 mmol/L (3.4-5.0); Sodium 142 mmol/L (137-145)
[2020-11-03 08:55] LABS: Free T4 Free Thyroxine 0.86 ng/mL (0.78-2.19)
== END 2020-11-03 07:25 | disposition home or self-care (01) ==
LOC: ANHLAB 07:26
PROVIDERS: PCP Family Medicine; Visit Provider Family Medicine
DX: C43.9 Malignant melanoma of skin, unspecified (principal)
CPT/HCPCS: 36415; 80053; 83615; 84439; 84443; 85025

== ENCOUNTER 2020-11-21 17:13 | Outpatient (CLI) | payer OTHER, SELFPAY ==
[2020-11-21 17:44] LABS: Basophils Percent Auto 0.5 % (0.2-1.2); Eosinophils Absolute Auto 0.2 K/mm3 (0-0.3); Eosinophils Percent Auto 3.3 % (0-4.4); Hematocrit 42.1 % (42.0-52.0); Hemoglobin 14.9 g/dL (14.0-18.0); Immature Granulocyte Absolute 0.02 K/mm3 (0.00-0.031); Immature Granulocyte Percent A 0.3 % (0-0.5); Lymphocytes Absolute Auto 1.79 K/mm3 (0.9-3.2); Lymphocytes Percent Auto 29.8 % (18.3-44.2); Mean Corpuscular HGB Conc 35.4 g/dl (32-36); Mean Corpuscular Volume 84.9 fl (80-100); Mean Platelet Volume 9.9 fl (7.4-10.4); Monocytes Absolute Auto 0.6 K/mm3 (0.1-0.6); Neutrophils Absolute Auto 3.4 K/mm3 (1.3-6.7); Neutrophils Percent Auto 56.1 % (45.5-73.1); Platelet Count Result 213 k/mm3 (150-375); Red Blood Count 4.96 M/mm3 (4.6-6.20); Red Cell Distribution Width 12.4 % (11.5-14.5)
[2020-11-21 17:59] LABS: Alanine Aminotransferase 40 U/L (4-50); Albumin Level 4.6 g/dL (3.5-5.1); Alkaline Phosphatase 56 U/L (38-126); Anion Gap 6 mmol/L (8-16); Aspartate Amino Transferase 39 U/L (17-59); Bilirubin,Total 0.6 mg/dL (0.2-1.3); Blood Urea Nitrogen 21 mg/dL (9-20); Carbon Dioxide 30 mmol/L (22-30); Chloride 107 mmol/L (98-107); Estimated Glomerular Filt Rate 54; Glucose 90 mg/dL (65-110); Potassium 4.4 mmol/L (3.4-5.0); Sodium 143 mmol/L (137-145)
[2020-11-21 18:47] LABS: Lactate Dehydrogenase 412 U/L (313-618)
[2020-11-21 19:24] LABS: Free T4 Free Thyroxine 0.89 ng/mL (0.78-2.19)
== END 2020-11-21 17:14 | disposition home or self-care (01) ==
PROVIDERS: PCP Family Medicine; Visit Provider Family Medicine
DX: C43.9 Malignant melanoma of skin, unspecified (principal)
CPT/HCPCS: 36415; 80053; 83615; 84439; 84443; 85025

== ENCOUNTER 2020-12-13 17:06 | Outpatient (CLI) | payer OTHER, SELFPAY ==
[2020-12-13 17:26] LABS: Basophils Percent Auto 0.7 % (0.2-1.2); Eosinophils Absolute Auto 0.2 K/mm3 (0-0.3); Eosinophils Percent Auto 3.3 % (0-4.4); Hemoglobin 15.4 g/dL (14.0-18.0); Immature Granulocyte Absolute 0.02 K/mm3 (0.00-0.031); Immature Granulocyte Percent A 0.3 % (0-0.5); Lymphocytes Absolute Auto 1.52 K/mm3 (0.9-3.2); Lymphocytes Percent Auto 25.2 % (18.3-44.2); Mean Corpuscular HGB Conc 34.2 g/dl (32-36); Mean Corpuscular Volume 87.7 fl (80-100); Monocytes Absolute Auto 0.6 K/mm3 (0.1-0.6); Monocytes Percent Auto 9.8 % (2.6-8.5); Neutrophils Absolute Auto 3.7 K/mm3 (1.3-6.7); Neutrophils Percent Auto 60.7 % (45.5-73.1); Platelet Count Result 208 k/mm3 (150-375); Red Blood Count 5.13 M/mm3 (4.6-6.20); Red Cell Distribution Width 12.9 % (11.5-14.5)
[2020-12-13 17:38] LABS: Alanine Aminotransferase 51 U/L (4-50); Albumin Level 4.3 g/dL (3.5-5.1); Alkaline Phosphatase 55 U/L (38-126); Anion Gap 6 mmol/L (8-16); Aspartate Amino Transferase 36 U/L (17-59); Bilirubin,Total 0.7 mg/dL (0.2-1.3); Blood Urea Nitrogen 16 mg/dL (9-20); Calcium 9.1 mg/dL (8.4-10.2); Carbon Dioxide 29 mmol/L (22-30); Chloride 107 mmol/L (98-107); Estimated Glomerular Filt Rate 59; Glucose 94 mg/dL (65-110); Lactate Dehydrogenase 407 U/L (313-618); Potassium 4.2 mmol/L (3.4-5.0); Sodium 142 mmol/L (137-145)
[2020-12-13 18:17] LABS: Free T4 Free Thyroxine 0.79 ng/mL (0.78-2.19)
== END 2020-12-13 17:07 | disposition home or self-care (01) ==
LOC: ANHLAB 17:08
PROVIDERS: PCP Family Medicine; Visit Provider Family Medicine
DX: C43.9 Malignant melanoma of skin, unspecified (principal)
CPT/HCPCS: 36415; 80053; 83615; 84439; 84443; 85025

== ENCOUNTER 2021-01-05 07:14 | Outpatient (CLI) | payer OTHER, SELFPAY ==
[2021-01-05 07:44] LABS: Basophils Absolute Auto 0.1 K/mm3 (0.0-0.1); Basophils Percent Auto 0.9 % (0.2-1.2); Eosinophils Absolute Auto 0.2 K/mm3 (0-0.3); Eosinophils Percent Auto 3.8 % (0-4.4); Hematocrit 42.9 % (42.0-52.0); Hemoglobin 15.3 g/dL (14.0-18.0); Immature Granulocyte Absolute 0.01 K/mm3 (0.00-0.031); Immature Granulocyte Percent A 0.2 % (0-0.5); Lymphocytes Absolute Auto 1.31 K/mm3 (0.9-3.2); Lymphocytes Percent Auto 24.9 % (18.3-44.2); Mean Corpuscular HGB Conc 35.7 g/dl (32-36); Mean Corpuscular Hemoglobin 30.1 pg (26-34); Mean Corpuscular Volume 84.3 fl (80-100); Mean Platelet Volume 10.2 fl (7.4-10.4); Monocytes Absolute Auto 0.4 K/mm3 (0.1-0.6); Monocytes Percent Auto 8.3 % (2.6-8.5); Neutrophils Absolute Auto 3.3 K/mm3 (1.3-6.7); Neutrophils Percent Auto 61.9 % (45.5-73.1); Platelet Count Result 219 k/mm3 (150-375); Red Blood Count 5.09 M/mm3 (4.6-6.20); Red Cell Distribution Width 12.3 % (11.5-14.5); White Blood Count 5.3 K/mm3 (4.5-10.0)
[2021-01-05 08:30] LABS: Alanine Aminotransferase 43 U/L (4-50); Albumin Level 4.2 g/dL (3.5-5.1); Alkaline Phosphatase 55 U/L (38-126); Anion Gap 5 mmol/L (8-16); Aspartate Amino Transferase 32 U/L (17-59); Bilirubin,Total 0.6 mg/dL (0.2-1.3); Blood Urea Nitrogen 17 mg/dL (9-20); Calcium 9.2 mg/dL (8.4-10.2); Carbon Dioxide 29 mmol/L (22-30); Chloride 107 mmol/L (98-107); Estimated Glomerular Filt Rate > 60; Glucose 114 mg/dL (65-110); Lactate Dehydrogenase 390 U/L (313-618); Potassium 4.4 mmol/L (3.4-5.0); Sodium 141 mmol/L (137-145)
== END 2021-01-05 07:15 | disposition home or self-care (01) ==
PROVIDERS: PCP Family Medicine; Visit Provider Family Medicine
DX: C43.9 Malignant melanoma of skin, unspecified (principal)
CPT/HCPCS: 36415; 80053; 83615; 84439; 84443; 85025

== ENCOUNTER 2021-01-10 07:24 | Outpatient (CLI) | payer OTHER, SELFPAY ==
--- NOTE | ~2021-01-10 | PE_ITS ---
EXAMINATION: PET skull to mid thigh DATE: 01/10/2021 09:08 INDICATION: Malignant melanoma TECHNIQUE: Blood glucose level was 86 mg/dL. 9.132 mCi of 18-fluorodeoxyglucose (18-FDG) was administ ered i.v. Low dose computed tomography (CT) images were acquired from the base of the brain to the pr oximal thighs for attenuation correction and anatomic localization. Positron emission tomography (PET ) images were acquired in the same distribution beginning 34 minutes after injection. Images includin g fused PET/CT images were reconstructed in axial, coronal, and sagittal planes. Automated exposure c ontrol technique was employed. The dose-length product was 799.13mGy-cm. COMPARISON: 09/29/2020 and 11/26/2019 FINDINGS: Head/neck: There is symmetric increased activity in the nares and oral cavity, laryngeal muscles and ocular musc les without CT correlate, likely physiologic. No pathologically enlarged cervical lymphadenopathy or suspicious foci of increased FDG uptake in the visualized head or neck. Chest: Small amount respiratory motion and mild dependent atelectasis in the bilateral lungs. Heart size is normal. No pericardial or pleural effusion. No pathologically enlarged thoracic lymphadenopathy or ab normal FDG avid lesions in the thorax. Abdomen/pelvis/proximal thighs: Physiologic renal accumulation and excretion of FDG activity in the kidneys, bladder and along portio ns of ureters. Diffuse hepatic steatosis with normal degree and heterogenous pattern of mild increase d uptake throughout the liver without radiologic correlate or dominant FDG avid lesion. Unchanged 1 c m low-attenuation and photopenic hepatic cyst at the caudal tip of the right hepatic lobe. The gallbl adder, pancreas, spleen and bilateral adrenal glands are normal. Mild uptake scattered throughout the bowels without radiologic correlate, also likely physiologic. Normal appendix. Small umbilical herni a containing fat and tiny heterotopic ossicle. Unchanged homogeneous fat attenuation mass in the ante rior right pelvic wall which could represent either a lipoma or spigelian hernia. No other abnormal f oci of increased FDG uptake or pathologically enlarged lymphadenopathy in the abdomen, pelvis or prox imal thighs. Musculoskeletal: Bone island in the proximal left femur. No other suspicious lytic, blastic or FDG avid bone lesions. IMPRESSION: 1. No evident metastatic disease. Reviewed, dictated and finalized at location A. ET BINDER
[2021-01-10 07:46] LABS: Glucose Point of Care 109 mg/dl (65-105)
== END 2021-01-10 07:25 | disposition home or self-care (01) ==
LOC: ANHIMG 07:25
PROVIDERS: PCP Family Medicine; Visit Provider Family Medicine
DX: C43.9 Malignant melanoma of skin, unspecified (principal)
CPT/HCPCS: 78815; A9552

== ENCOUNTER 2021-02-03 08:28 | Outpatient (CLI) | payer OTHER, SELFPAY ==
--- NOTE | ~2021-02-03 | MR_ITS ---
EXAMINATION: MR brain/brain stem wo/w con DATE: 02/03/2021 09:40 INDICATION: Malignant melanoma. TECHNIQUE: Magnetic resonance imaging (MRI) of the brain and brainstem was performed without and with 19 mL MultiHance intravenous contrast. Sequences included sagittal and axial T1-weighted FSE, axial diffusion-weighted FS EPI, axial T2*-weighted GRE, axial T2-weighted FLAIR Propeller, and axial T2-we ighted Propeller. Postcontrast sequences included axial, sagittal, and coronal T1-weighted FSE. Appar ent diffusion coefficient (ADC) maps were created. COMPARISON: Brain MRI 11/26/2019 FINDINGS: There is no intracranial hemorrhage, acute infarction, or abnormal intracranial mass lesion . The ventricles are normal in size. The orbits are normal. There is mild mucosal thickening in the e thmoid sinuses. There is a trace right mastoid effusion. IMPRESSION: 1. Normal brain. Reviewed, dictated and finalized at location A. [place] TECHNICIAN IMPRESSION: 1. Normal brain.
[2021-02-03 09:11] LABS: Estimated Glomerular Filt Rate > 60
== END 2021-02-03 08:29 | disposition home or self-care (01) ==
LOC: ANHIMG 08:33
PROVIDERS: PCP Family Medicine; Visit Provider Family Medicine
DX: C43.9 Malignant melanoma of skin, unspecified (principal)
CPT/HCPCS: 70553; A9577

== ENCOUNTER 2021-03-31 13:38 | Outpatient (CLI) | payer OTHER, SELFPAY ==
--- NOTE | ~2021-03-31 | CT_ITS ---
EXAMINATION: CT chest abdomen pelvis w con DATE: 03/31/2021 14:11 INDICATION: Metastatic melanoma restaging TECHNIQUE: Computed tomography (CT) of the chest, abdomen, and pelvis was performed with 100 cc Omnip aque 350 intravenous contrast. Automated exposure control and iterative reconstruction technique were employed. Exam dose: 1027.99 mGy-cm total exam DLP. COMPARISON: 01/10/2021 PET/CT scan FINDINGS: CHEST CT: The lungs are clear of infiltrate or consolidation. 2.7 mm right upper lobe ground glass nodule (series 4 image 55). 2.8 mm middle lobe nodule (image 67). No hilar or mediastinal mass lesion or lymphadenopathy. No pericardial or pleural effusion. No thoracic aortic aneurysm or dissection. Small sliding hiatal hernia. ABDOMEN/PELVIS CT: 11.8 mm inferior right hepatic cyst. Indeterminate 3 mm hypoechoic enhancing lesion of the anterolateral aspect of the lateral segment lef t hepatic lobe, too small to definitively characterize. Normal splenic size. No pancreatic mass lesion, calcification or ductal dilatation. The gallbladder is unremarkable. No bile duct dilatation. No adrenal mass lesion. No renal mass lesion or scarring or urinary tract calculus or hydroureteronep hrosis. Normal caliber of the abdominal aorta. No intraperitoneal or retroperitoneal or pelvic mass lesion or adenopathy or ascites. Normal appendix. No bowel obstruction, bowel wall thickening, pneumatosis or intraperitoneal free air. Small fat-containing umbilical hernia with neck up to 2.1 cm. A small bowel segment extends slightly into the hernia without obstruction or strangulation. No suspicious osteolytic or osteoblastic lesions. IMPRESSION: There are 2 smaller than 3 mm groundglass nodules of the right lung; six-month follow-up CT is recommended. 3 mm indeterminate hypoenhancing lesion of the lateral segment of the liver tibial recommend attentio n to this area at 6 month follow-up Lumbar millimeter right hepatic cyst Reviewed, dictated and finalized at Location A. Reviewed, dictated and finalized at location A. [employer] ASSOCIATE IMPRESSION: There are 2 smaller than 3 mm groundglass nodules of the right patti g; six-month follow-up CT is recommended. 3 mm indeterminate hypoenhancing lesion of the lateral segment of the liver tib ial recommend attention to this area at 6 month follow-up Lumbar millimeter right hepatic cyst
[2021-03-31 14:06] LABS: Estimated Glomerular Filt Rate > 60
== END 2021-03-31 13:39 | disposition home or self-care (01) ==
LOC: ANHIMG 13:41
PROVIDERS: PCP Family Medicine; Visit Provider Family Medicine
DX: C79.89 Secondary malignant neoplasm of other specified sites (principal); R91.8 Other nonspecific abnormal finding of lung field; K76.89 Other specified diseases of liver
CPT/HCPCS: 71260; 74177; Q9967

== ENCOUNTER 2021-04-13 07:16 | Outpatient (CLI) | payer OTHER, SELFPAY ==
--- NOTE | ~2021-04-13 | PE_ITS ---
EXAMINATION: PET skull to mid thigh DATE: 04/13/2021 09:14 INDICATION: Metastatic melanoma TECHNIQUE: Blood glucose level was 104 mg/dL. 11.842 mCi of 18-fluorodeoxyglucose (18-FDG) was admini stered i.v. Low dose computed tomography (CT) images were acquired from the base of the brain to the proximal thighs for attenuation correction and anatomic localization. Positron emission tomography (P ET) images were acquired in the same distribution beginning 62 minutes after injection. Images includ ing fused PET/CT images were reconstructed in axial, coronal, and sagittal planes. Automated exposure control technique was employed. The dose-length product was 829.28 mGy-cm. COMPARISON: PET CT studies dated 01/10/2021 and 03/03/2020 FINDINGS: Head/neck: There is symmetric increased activity in the nares, oral cavity, laryngeal muscles and ocular muscles without CT correlate, likely physiologic. No pathologically enlarged cervical lymphadenopathy or yumi picious foci of increased FDG uptake in the visualized head or neck. Chest: Again seen are a couple 3 mm groundglass nodules in the right upper and middle lobes as described on the prior CT which are without discernible FDG uptake and without interval change since 03/03/2020. No other suspicious pulmonary nodules, pneumonia, pulmonary edema or pleural effusion. Heart size is no rmal. No pericardial effusion. Atherosclerotic aorta is normal in caliber. No pathologically enlarged or FDG avid thoracic lymphadenopathy. Small sliding-type hiatal hernia. Abdomen/pelvis/proximal thighs: Physiologic renal accumulation and excretion of FDG activity in the kidneys, bladder and along portio ns of ureters. Diffuse hepatic steatosis with 100 chronic low-attenuation hepatic cyst in segment 6 o f the liver which is without abnormal increased FDG uptake. Normal degree and heterogenous pattern of increased uptake throughout the liver without radiologic correlate or dominant FDG avid lesion. The gallbladder, pancreas, spleen and bilateral adrenal glands are normal. There are few scattered clonic diverticula without adjacent inflammatory change to suggest diverticulitis. Mild uptake scattered th roughout the bowels without radiologic correlate, also likely physiologic. Small umbilical hernia con taining fat and a tiny heterotopic ossicle. No other abnormal foci of increased FDG uptake or patholo gically enlarged lymphadenopathy in the abdomen, pelvis or proximal thighs. Musculoskeletal: Unchanged homogeneous fat attenuation mass in the anterior right pelvic wall which could represent ei ther a lipoma or spigelian hernia. 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 Bone island in the proximal left femur. No suspicious lytic, blastic or FDG avid bone lesions. IMPRESSION: 1. No evident metastatic disease. Reviewed, dictated and finalized at location A. [employer]
[2021-04-13 07:49] LABS: Glucose Point of Care 104 mg/dl (65-105)
== END 2021-04-13 07:17 | disposition home or self-care (01) ==
LOC: ANHIMG 07:20
PROVIDERS: PCP Family Medicine; Visit Provider Family Medicine
DX: C43.9 Malignant melanoma of skin, unspecified (principal); L90.5 Scar conditions and fibrosis of skin; C79.2 Secondary malignant neoplasm of skin
CPT/HCPCS: 78815; A9552

== ENCOUNTER 2021-07-28 08:05 | Outpatient (CLI) | payer OTHER, SELFPAY ==
--- NOTE | ~2021-07-28 | CT_ITS ---
EXAMINATION: CT chest abdomen pelvis wo con DATE: 07/28/2021 08:26 INDICATION: Malignant melanoma of skin TECHNIQUE: Computed tomography (CT) of the chest, abdomen, and pelvis was performed without intraveno us contrast. Automated exposure control and iterative reconstruction technique were employed. Exam do se: 1085.48 mGy-cm total exam DLP. COMPARISON: April 13, 2021 PET/CT scan FINDINGS: CHEST CT: Normal size and density of the thyroid gland. Normal size of the thoracic aorta; no evidence of thora cic aortic aneurysm. Normal heart size. No pericardial effusion. No hilar or mediastinal or axillary mass lesion or lymphadenopathy. 3 mm groundglass nodule, anterolateral right upper lobe (series 4 image 58) 3.2 mm soft tissue nodule in the region of minor fissure suggesting small fissural node (series 4 anurag ge 69; coronal reconstruction image 45 series 601).. Small sliding hiatal hernia. ABDOMEN/PELVIS CT: Approximately 12 mm lower right hepatic lobe cyst. The liver, gallbladder, bile ducts, spleen, pancre as, pancreatic duct, and adrenal glands and kidneys are otherwise unremarkable. No urinary tract calc ulus or hydroureteronephrosis. The urinary bladder and prostate gland are unremarkable. Normal appendix. Occasional diverticula of the sigmoid colon; no CT evidence of diverticulitis. No [place] wel obstruction, bowel wall thickening, pneumatosis or intraperitoneal free air. All fat-containing u mbilical hernia. No suspicious osteolytic or osteoblastic lesions. IMPRESSION: Small likely benign minor fissure fissural node and 3 mm groundglass right upper lobe no dule Small sliding hiatal hernia Occasional sigmoid diverticula; no evidence of diverticulitis 12 mm right hepatic cyst Reviewed, dictated and finalized at Location A. Reviewed, dictated and finalized at location A. IMPRESSION: Small likely benign minor fissure fissural node and 3 mm groundgla ss right upper lobe nodule Small sliding hiatal hernia Occasional sigmoid diverticula; no evidence of diverticulitis 12 mm right hepatic cyst
== END 2021-07-28 08:06 | disposition home or self-care (01) ==
PROVIDERS: PCP Family Medicine; Visit Provider Family Medicine
DX: C43.9 Malignant melanoma of skin, unspecified (principal); R91.8 Other nonspecific abnormal finding of lung field; K44.9 Diaphragmatic hernia without obstruction or gangrene; K57.30 Diverticulosis of large intestine without perforation or abscess without bleeding; K76.89 Other specified diseases of liver
CPT/HCPCS: 71250; 74176

== ENCOUNTER 2021-09-28 07:28 | Outpatient (CLI) | payer OTHER, SELFPAY ==
[2021-09-28 07:59] LABS: Alanine Aminotransferase 45 U/L (6-50); Albumin Level 4.1 g/dL (3.5-5.1); Alkaline Phosphatase 58 U/L (38-126); Anion Gap 9 mmol/L (8-16); Aspartate Amino Transferase 37 U/L (17-59); Bilirubin,Total 0.7 mg/dL (0.2-1.3); Blood Urea Nitrogen 17 mg/dL (9-20); Carbon Dioxide 27 mmol/L (22-30); Chloride 105 mmol/L (98-107); Estimated Glomerular Filt Rate > 60; Glucose 118 mg/dL (65-110); Lactate Dehydrogenase 165 U/L (120-246); Potassium 4.6 mmol/L (3.4-5.0); Sodium 141 mmol/L (137-145)
== END 2021-09-28 07:29 | disposition home or self-care (01) ==
LOC: ANHLAB 07:30
PROVIDERS: PCP Family Medicine; Visit Provider Family Medicine
DX: C43.9 Malignant melanoma of skin, unspecified (principal)
CPT/HCPCS: 36415; 80053; 83615

== ENCOUNTER 2021-10-27 08:43 | Outpatient (CLI) | payer OTHER, SELFPAY ==
--- NOTE | ~2021-10-27 | XR_ITS ---
EXAMINATION: XR foot RT min 3V DATE: 10/27/2021 09:04 INDICATION: Right foot pain. TECHNIQUE: 4 views of right foot were obtained. COMPARISON: None. FINDINGS: Bone alignment is normal. No fracture. Joint spaces are well maintained. IMPRESSION: 1. Normal right foot. Reviewed, dictated and finalized at location A. IMPRESSION: 1. Normal right foot.
== END 2021-10-27 08:44 | disposition home or self-care (01) ==
PROVIDERS: PCP Family Medicine; Visit Provider Family Medicine
DX: M79.671 Pain in right foot (principal)
CPT/HCPCS: 73630

== ENCOUNTER 2021-11-03 06:54 | Outpatient (CLI) | payer OTHER, SELFPAY ==
--- NOTE | ~2021-11-03 | CT_ITS ---
EXAMINATION: CT chest abdomen pelvis w con DATE: 11/03/2021 07:18 INDICATION: Malignant melanoma TECHNIQUE: Transaxial computed tomographic images of the chest, abdomen, and pelvis were obtained aft er the administration of 100 cc of Omnipaque 350 intravenous contrast. The dose-length product (DLP) was 1208.99 mGy-cm. Automated exposure control and iterative reconstruction technique were employed. COMPARISON: 07/28/2021 FINDINGS: CHEST CT: There are stable small lymph nodes of the major fissures. There is a stable 2 mm nodule in the left l albin apex. The lungs are free of acute opacities. No pleural effusion or pneumothorax. No pathological ly enlarged thoracic lymph nodes are identified. The heart size is normal. ABDOMEN/PELVIS CT: There is a 12 mm cyst of the right hepatic lobe. The spleen, pancreas, gallbladder, and adrenal gland s are normal. The kidneys are unremarkable. No pathologically enlarged abdominal or pelvic lymph node s are identified. There is no free intraperitoneal gas or evidence of bowel obstruction. The appendix is normal. There is an umbilical hernia containing fat. IMPRESSION: 1. No evidence of metastatic disease. Reviewed, dictated and finalized at location B.
[2021-11-03 07:14] LABS: Estimated Glomerular Filt Rate 58
== END 2021-11-03 06:55 | disposition home or self-care (01) ==
LOC: ANHIMG 06:58
PROVIDERS: PCP Family Medicine; Visit Provider Family Medicine
DX: C80.1 Malignant (primary) neoplasm, unspecified (principal); C43.9 Malignant melanoma of skin, unspecified; K76.89 Other specified diseases of liver
CPT/HCPCS: 71260; 74177; Q9967

== ENCOUNTER 2021-12-22 01:25 | Day surgery (SDC) | payer OTHER, SELFPAY ==
[2021-12-15 09:00] VITALS: BMI 30.9
--- NOTE | 2021-12-21 15:11 | PM.HPGS ---
History of Present Illness History of Present Illness Consent: Risks, benefits, and alternatives have been discussed and questions answered. Patient agrees to proceed with procedure. Chief complaint: GERD, neoplasm screening Narrative: Matt Bean is a 51 year old male Referred for colon cancer screening investigation of chronic acid reflux symptoms, to rule out Hernández's esophagus. He has long history of heartburn for which she has been on PPIs for many years. He denies dysphagia. Review of Systems Review of Systems: All systems reviewed & are unremarkable except as noted in HPI and below PMFSH Past Medical History Medical History GERD (gastroesophageal reflux disease) Hypertension Surgical History Surgical History History of tonsillectomy History of vasectomy Family History Family History Father Hypertension Social History Social History Smoking status: Never smoker Alcohol intake: current Alcohol use details: socially Substance use: never Substance use type: does not use Living arrangements: with family Spiritual care concerns: No Meds Home Medications and Allergies Home Medications Medication Instructions Recorded Confirmed Type nebivolol 10 mg tablet (Bystolic) 10 mg PO DAILY #90 tabs 09/21/20 12/15/21 Rx tadalafil 5 mg tablet 5 mg PO DAILY #90 tabs 05/10/21 12/15/21 Rx amlodipine 5 mg tablet 5 mg PO DAILY #90 tabs 06/15/21 12/15/21 Rx bupropion HCl 150 mg 24 hr tablet, 150 mg PO QAM #90 tabs 06/15/21 12/15/21 Rx extended release (Wellbutrin XL) olmesartan 40 mg tablet 40 mg PO DAILY #90 tabs 06/15/21 12/15/21 Rx pantoprazole 40 mg tablet,delayed 40 mg PO QAM #90 tabs 06/15/21 12/15/21 Rx release (Protonix) Allergies Allergy/AdvReac Type Severity Reaction Status Date / Time minocycline Allergy Unknown Verified 12/22/21 07:49 Exam Const: General: alert Orientation/consciousness: patient oriented x3 Resp: Auscultation: clear to auscultation bilaterally Cardio: Rhythm: regular rhythm GI: GI Palp: Yes Soft to palpation and No Tenderness to palpation present (GI) Neuro: General: patient oriented x3 Assessment and Plan Assessment and plan (1) GERD (gastroesophageal reflux disease): Code(s): K21.9 - Gastro-esophageal reflux disease without esophagitis Status: Acute Assessment and Plan: EGD with possible biopsy or dilatation or cautery. (2) Colon cancer screening: Code(s): Z12.11 - Encounter for screening for malignant neoplasm of colon Status: Acute Assessment and Plan: Colonoscopy with possible biopsy or polypectomy or cautery or injection of substances.
[2021-12-22 07:39] VITALS: BP 142/92; PULSE 52; RESP 18; TEMP 36.3; O2SAT 99
[2021-12-22] MEDS: LACTATED RINGERS 1,000 ML 150 ML IV CONT (07:47)
--- NOTE | 2021-12-22 08:02 | P.PNAN_ITS ---
Anes - Initial Pre Proc Eval Procedure: Operation Date: 12/22/21 08:30 Proposed Procedures p Esophagogastroduodenoscopy & Screening Colonoscopy - Marshall Haynes MD Date/Time: 12/22/21 08:02 Surgeon: Marshall Haynes MD Pre Op Diagnosis: GERD, neoplasm screening Patient Data Age: 51 Gender: M Height: 1.78 m Weight: 96.3 kg Last Vital Signs Temp 97.3 F L 12/22/21 07:39 Pulse 52 L 12/22/21 07:39 Resp 18 12/22/21 07:39 BP 142/92 H 12/22/21 07:39 Pulse Ox 99 12/22/21 07:39 O2 Del Method Room Air 12/22/21 07:39 Allergies Allergy/AdvReac Type Severity Reaction Status Date / Time minocycline Allergy Unknown Verified 12/22/21 07:49 Home Medications Medication Instructions Recorded Confirmed Type nebivolol 10 mg tablet (Bystolic) 10 mg PO DAILY #90 tabs 09/21/20 12/15/21 Rx tadalafil 5 mg tablet 5 mg PO DAILY #90 tabs 05/10/21 12/15/21 Rx amlodipine 5 mg tablet 5 mg PO DAILY #90 tabs 06/15/21 12/15/21 Rx bupropion HCl 150 mg 24 hr tablet, 150 mg PO QAM #90 tabs 06/15/21 12/15/21 Rx extended release (Wellbutrin XL) olmesartan 40 mg tablet 40 mg PO DAILY #90 tabs 06/15/21 12/15/21 Rx pantoprazole 40 mg tablet,delayed 40 mg PO QAM #90 tabs 06/15/21 12/15/21 Rx release (Protonix) Patient hx anesthesia problems: none Family hx anesthesia problems: none Results Review: All pre-operative results and documents have been reviewed as part of the pre- operative evaluation. [facility] Past Medical History Medical History GERD (gastroesophageal reflux disease) Hypertension Surgical History Surgical History History of tonsillectomy History of vasectomy Family History Family History Father Hypertension Social History Social History Smoking status: Never smoker Alcohol intake: current Alcohol use details: socially Substance use: never Substance use type: does not use Living arrangements: with family Spiritual care concerns: No Anes - Eval Final PreProcedure Day of Procedure 12/22/21 08:02 Patient weight: normal Heart: regular rate and rhythm Lungs: clear to auscultation Airway: Mallampati scale class II Neurological: alert and oriented Last oral intake: >/= 8 hours ASA classification: II Emergent: no Anesthetic plan: proceed Anesthesia type and monitoring: general GIVS and standard monitoring Results Review: All pre-operative results and documents have been reviewed as part of the pre- operative evaluation. Informed Consent: The patient's anesthetic plan and its attendant risks and benefits were discussed with the patient/family/POA. Questions were solicited and answers provided to the satisfaction of the patient/family/POA.
--- NOTE | 2021-12-22 08:43 | SUR.OPER ---
EGD end 837 COLONOSCOPY start 843
[2021-12-22 09:00] VITALS: BP 111/76; PULSE 60; RESP 17; O2SAT 97
[2021-12-22 09:10] VITALS: BP 129/85; PULSE 56; RESP 16; O2SAT 99
[2021-12-22 09:20] VITALS: BP 121/87; PULSE 52; RESP 15; O2SAT 100
== END 2021-12-22 09:22 | disposition home or self-care (01) ==
PROVIDERS: PCP Family Medicine; Visit Provider Internal Medicine Gastroenterology
PROC: 0DJ08ZZ Inspection of Upper Intestinal Tract, Via Natural or Artificial Opening Endoscopic (ICD-10-PCS; CPT 43235; principal; 2021-12-22 08:30)
DX: Z12.11 Encounter for screening for malignant neoplasm of colon (principal); D17.5 Benign lipomatous neoplasm of intra-abdominal organs; K21.9 Gastro-esophageal reflux disease without esophagitis; K29.70 Gastritis, unspecified, without bleeding; I10 Essential (primary) hypertension
CPT/HCPCS: 43239; 45380; 87081; 88304; 88305; J2001; J2704; J7120

== ENCOUNTER 2022-01-12 07:00 | Outpatient (CLI) | payer OTHER, SELFPAY ==
--- NOTE | ~2022-01-12 | CT_ITS ---
EXAMINATION: CT chest abdomen pelvis w con DATE: 01/12/2022 09:22 INDICATION: Metastatic melanoma. TECHNIQUE: Computed tomography (CT) of the chest, abdomen, and pelvis was performed with 100 mL Omnip aque 350 intravenous contrast. Automated exposure control and iterative reconstruction technique were employed. The dose-length product was 921.78 mGy-cm. COMPARISON: CT 11/03/2021, 03/31/2021, PET/CT 06/09/2020 FINDINGS: CHEST CT: There is a 3 mm nodule in right upper lobe, stable from 06/09/20, likely benign. There is a 4 mm nodul e right middle lobe, stable from 06/09/20, likely benign. No pleural effusion. The heart size is holly l. No pericardial effusion. There is a small sliding hiatal hernia. There are no pathologically enlar ged lymph nodes. There is mild thoracic spondylosis. ABDOMEN/PELVIS CT: There is a 16 mm cyst in the liver. The gallbladder, spleen, pancreas, adrenal glands, and kidneys ar e normal. There is an umbilical hernia containing fat. The prostate is mildly enlarged. There are no dilated loops of bowel. The appendix is normal. There are no pathologically enlarged lymph nodes. The re is no free intraperitoneal fluid. There is mild lumbar spondylosis. IMPRESSION: 1. No evidence of metastatic disease. Reviewed, dictated and finalized at location A. [facility]
[2022-01-12 07:21] LABS: Hematocrit 45.6 % (42.0-52.0); Hemoglobin 16.3 g/dL (14.0-18.0); Mean Corpuscular HGB Conc 35.7 g/dl (32-36); Mean Corpuscular Hemoglobin 30.6 pg (26-34); Mean Corpuscular Volume 85.6 fl (80-100); Mean Platelet Volume 9.7 fl (7.4-10.4); Platelet Count Result 206 k/mm3 (150-375); Red Blood Count 5.33 M/mm3 (4.6-6.20); Red Cell Distribution Width 12.6 % (11.5-14.5); White Blood Count 6.2 K/mm3 (4.5-10.0)
[2022-01-12 07:42] LABS: Alanine Aminotransferase 36 U/L (6-50); Albumin Level 4.4 g/dL (3.5-5.1); Alkaline Phosphatase 61 U/L (38-126); Anion Gap 9 mmol/L (8-16); Aspartate Amino Transferase 29 U/L (17-59); Bilirubin,Total 0.5 mg/dL (0.2-1.3); Blood Urea Nitrogen 15 mg/dL (9-20); Calcium 8.6 mg/dL (8.4-10.2); Carbon Dioxide 28 mmol/L (22-30); Chloride 106 mmol/L (98-107); Cholesterol 141 mg/dL (0-200); Estimated Glomerular Filt Rate > 60; Glucose 116 mg/dL (65-110); HDL Direct 38 mg/dL; Lactate Dehydrogenase 178 U/L (120-246); Potassium 4.3 mmol/L (3.4-5.0); Sodium 143 mmol/L (137-145); Triglycerides 139 mg/dL (<150)
[2022-01-12 07:53] LABS: LDL Cholesterol Direct 80 mg/dL
[2022-01-16 22:22] LABS: PSA, Free 0.08 ng/mL; PSA, Total 0.3 ng/mL (<=4.0)
== END 2022-01-12 07:01 | disposition home or self-care (01) ==
LOC: ANHIMG 07:02
PROVIDERS: PCP Family Medicine; Visit Provider Family Medicine
DX: E03.9 Hypothyroidism, unspecified (principal); N40.1 Benign prostatic hyperplasia with lower urinary tract symptoms; I10 Essential (primary) hypertension; E78.2 Mixed hyperlipidemia; D49.2 Neoplasm of unspecified behavior of bone, soft tissue, and skin; C43.9 Malignant melanoma of skin, unspecified
CPT/HCPCS: 36415; 71260; 74177; 80053; 80061; 83615; 84153; 84154; 84443; 85027; Q9967

== ENCOUNTER 2022-04-19 06:56 | Outpatient (CLI) | payer OTHER, SELFPAY ==
[2022-04-19 07:47] LABS: Alanine Aminotransferase 37 U/L (6-50); Albumin Level 4.2 g/dL (3.5-5.1); Alkaline Phosphatase 51 U/L (38-126); Anion Gap 6 mmol/L (8-16); Aspartate Amino Transferase 30 U/L (17-59); Bilirubin,Total 0.8 mg/dL (0.2-1.3); Blood Urea Nitrogen 17 mg/dL (9-20); Calcium 8.3 mg/dL (8.4-10.2); Carbon Dioxide 28 mmol/L (22-30); Chloride 105 mmol/L (98-107); Estimated Glomerular Filt Rate > 60; Glucose 103 mg/dL (65-110); Lactate Dehydrogenase 206 U/L (120-246); Potassium 4.2 mmol/L (3.4-5.0); Sodium 139 mmol/L (137-145)
== END 2022-04-19 06:57 | disposition home or self-care (01) ==
LOC: ANHLAB 06:58
PROVIDERS: PCP Family Medicine; Visit Provider Family Medicine
DX: C43.9 Malignant melanoma of skin, unspecified (principal)
CPT/HCPCS: 36415; 80053; 83615

== ENCOUNTER 2022-04-20 06:55 | Outpatient (CLI) | payer OTHER, SELFPAY ==
--- NOTE | ~2022-04-20 | CT_ITS ---
Clinical Indication: Melanoma CT Scan of the Chest, Abdomen, and Pelvis with Contrast: Technique: Contiguous sections were acquired throughout the chest, abdomen, and pelvis after intraven ous administration of 100 cc of Omnipaque 350. Dose reduction technique was used on this scan by kathy ramos automated exposure control and iterative reconstruction technique. The dose-length product (DL P) was 1323.80 mGy-cm. COMPARISON: 01/12/2022 Findings: There is no evidence of any significant mediastinal, hilar or axillary lymphadenopathy. The mediastin al soft tissues and vascular structures appear normal. There is no evidence of pleural or pericardial effusion. The lungs are clear. No pulmonary nodules or infiltrates are noted. Stable small probable inferior right hepatic lobe cyst. The spleen, pancreas, gallbladder, adrenals a nd kidneys are within normal limits. No evidence of aortic aneurysm. No lymphadenopathy. No bowel obstruction or bowel wall thickening. There is no evidence to suggest acute appendicitis. Sm all fat-containing umbilical hernia noted. Urinary bladder is unremarkable. Prostate gland and seminal vesicles are unremarkable. Impression: No evidence for active malignancy or metastatic disease. Small fat-containing umbilical hernia. Reviewed, dictated and finalized at location . 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 Small fat-containing umbilical hernia.
== END 2022-04-20 06:56 | disposition home or self-care (01) ==
PROVIDERS: PCP Family Medicine; Visit Provider Family Medicine
DX: C43.9 Malignant melanoma of skin, unspecified (principal); K42.9 Umbilical hernia without obstruction or gangrene
CPT/HCPCS: 71260; 74177; Q9967

== ENCOUNTER 2022-05-11 13:50 | Outpatient (CLI) | payer OTHER, SELFPAY ==
--- NOTE | ~2022-05-11 | MR_ITS ---
EXAMINATION: MR foot RT wo con DATE: 05/11/2022 14:37 INDICATION: Right foot pain. TECHNIQUE: Magnetic resonance imaging (MRI) of the right foot was performed without intravenous contr ast. COMPARISON: Right foot radiographs 10/27/2021 FINDINGS: Bone alignment is normal. No fracture. There is mild osteoarthritis of first metatarsophala ngeal joint. There is a small effusion of first metatarsophalangeal joint. There is a skin marker prasad ntar to the second and third metacarpophalangeal joints. Lisfranc ligament is normal. The flexor and extensor tendons are normal. There is no Black neuroma. IMPRESSION: 1. Mild osteoarthritis of first metatarsophalangeal joint with small joint effusion. Reviewed, dictated and finalized at location A. IMPRESSION: 1. Mild osteoarthritis of first metatarsophalangeal joint with small joint effu celia.
== END 2022-05-11 13:51 | disposition home or self-care (01) ==
LOC: ANHIMG 13:59
PROVIDERS: PCP Family Medicine; Visit Provider Podiatrist Foot & Ankle Surgery
DX: S92.309D Fracture of unspecified metatarsal bone(s), unspecified foot, subsequent encounter for fracture with routine healing (principal); M19.071 Primary osteoarthritis, right ankle and foot; M25.474 Effusion, right foot
CPT/HCPCS: 73718

== ENCOUNTER 2022-08-02 06:54 | Outpatient (CLI) | payer OTHER, SELFPAY ==
[2022-08-02 07:17] LABS: Basophils Percent Auto 0.8 % (0.2-1.2); Eosinophils Absolute Auto 0.2 K/mm3 (0-0.3); Eosinophils Percent Auto 2.8 % (0-4.4); Hematocrit 44.2 % (42.0-52.0); Hemoglobin 15.7 g/dL (14.0-18.0); Immature Granulocyte Absolute 0.02 K/mm3 (0.00-0.031); Immature Granulocyte Percent A 0.4 % (0-0.5); Lymphocytes Absolute Auto 1.41 K/mm3 (0.9-3.2); Lymphocytes Percent Auto 26.8 % (18.3-44.2); Mean Corpuscular HGB Conc 35.5 g/dl (32-36); Mean Corpuscular Hemoglobin 30.3 pg (26-34); Mean Corpuscular Volume 85.3 fl (80-100); Monocytes Absolute Auto 0.5 K/mm3 (0.1-0.6); Monocytes Percent Auto 8.9 % (2.6-8.5); Neutrophils Absolute Auto 3.2 K/mm3 (1.3-6.7); Neutrophils Percent Auto 60.3 % (45.5-73.1); Platelet Count Result 207 k/mm3 (150-375); Red Blood Count 5.18 M/mm3 (4.6-6.20); Red Cell Distribution Width 12.7 % (11.5-14.5); White Blood Count 5.3 K/mm3 (4.5-10.0)
[2022-08-02 09:27] LABS: Lactate Dehydrogenase 165 U/L (120-246)
== END 2022-08-02 06:55 | disposition home or self-care (01) ==
PROVIDERS: PCP Family Medicine; Visit Provider Family Medicine
DX: C43.9 Malignant melanoma of skin, unspecified (principal)
CPT/HCPCS: 36415; 83615; 85025

== ENCOUNTER 2022-08-03 06:35 | Outpatient (CLI) | payer OTHER, SELFPAY ==
--- NOTE | ~2022-08-03 | CT_ITS ---
EXAMINATION: CT chest abdomen pelvis w con DATE: 08/03/2022 07:19 INDICATION: Malignant melanoma of the skin TECHNIQUE: Transaxial computed tomographic images of the chest, abdomen, and pelvis were obtained aft er the administration of 100 cc of Omnipaque 350 intravenous contrast. The dose-length product (DLP) was 1109.27 mGy-cm. Automated exposure control and iterative reconstruction technique were employed. COMPARISON: 04/20/2022, 01/12/2022 FINDINGS: CHEST CT: No pathologically enlarged thoracic lymph nodes are identified. The heart size is normal. There is st able nodules in association with the fissures, consistent with fissural lymph nodes. There is mild th oracic spondylosis. ABDOMEN/PELVIS CT: There is a small sliding hiatal hernia. Cysts of the liver measure up to 13 mm. The spleen, pancreas, gallbladder, and adrenal glands are normal. The kidneys are unremarkable. No pathologically enlarged abdominal or pelvic lymph nodes are identified. No free intraperitoneal gas or evidence of bowel obs truction. There is a small umbilical hernia containing fat. The appendix is normal. There is mild lum bar spondylosis. IMPRESSION: 1. No evidence of metastatic disease. Reviewed, dictated and finalized at location A.
[2022-08-03 07:12] LABS: Estimated Glomerular Filt Rate > 60
== END 2022-08-03 06:36 | disposition home or self-care (01) ==
PROVIDERS: PCP Family Medicine; Visit Provider Family Medicine
DX: C43.9 Malignant melanoma of skin, unspecified (principal)
CPT/HCPCS: 71260; 74177; Q9967

== ENCOUNTER 2022-11-09 07:07 | Outpatient (CLI) | payer OTHER, SELFPAY ==
[2022-11-09 07:28] LABS: Hematocrit 45.1 % (42.0-52.0); Hemoglobin 15.8 g/dL (14.0-18.0); Mean Corpuscular Hemoglobin 30.3 pg (26-34); Mean Corpuscular Volume 86.4 fl (80-100); Platelet Count Result 204 k/mm3 (150-375); Red Blood Count 5.22 M/mm3 (4.6-6.20); Red Cell Distribution Width 12.4 % (11.5-14.5); White Blood Count 5.7 K/mm3 (4.5-10.0)
[2022-11-09 07:38] LABS: Alanine Aminotransferase 43 U/L (6-50); Albumin Level 4.3 g/dL (3.5-5.1); Alkaline Phosphatase 56 U/L (38-126); Anion Gap 5 mmol/L (8-16); Aspartate Amino Transferase 31 U/L (17-59); Bilirubin,Total 0.7 mg/dL (0.2-1.3); Blood Urea Nitrogen 16 mg/dL (9-20); Calcium 8.6 mg/dL (8.4-10.2); Carbon Dioxide 29 mmol/L (22-30); Chloride 107 mmol/L (98-107); Cholesterol 141 mg/dL (0-200); Estimated Glomerular Filt Rate > 60; Glucose 108 mg/dL (65-110); HDL Direct 35 mg/dL; Lactate Dehydrogenase 168 U/L (120-246); Potassium 4.4 mmol/L (3.4-5.0); Sodium 141 mmol/L (137-145); Triglycerides 93 mg/dL (<150)
[2022-11-09 07:50] LABS: LDL Cholesterol Direct 88 mg/dL
[2022-11-12 20:36] LABS: PSA, Free 0.09 ng/mL; PSA, Total 0.4 ng/mL (<=4.0)
== END 2022-11-09 07:08 | disposition home or self-care (01) ==
LOC: ANHLAB 07:10
PROVIDERS: PCP Family Medicine; Visit Provider Family Medicine
DX: Z00.00 Encounter for general adult medical examination without abnormal findings (principal); C43.9 Malignant melanoma of skin, unspecified; I10 Essential (primary) hypertension; N40.1 Benign prostatic hyperplasia with lower urinary tract symptoms; E03.9 Hypothyroidism, unspecified; E78.2 Mixed hyperlipidemia
CPT/HCPCS: 36415; 80053; 80061; 83615; 84153; 84154; 84443; 85027

== ENCOUNTER 2022-11-15 13:40 | Outpatient (CLI) | payer OTHER, SELFPAY ==
--- NOTE | ~2022-11-15 | CT_ITS ---
EXAMINATION: CT chest abdomen pelvis w con DATE: 11/15/2022 14:08 INDICATION: Malignant melanoma of skin, unspecified. TECHNIQUE: Computed tomography (CT) of the chest, abdomen, and pelvis was performed with 100 mL Omnip aque 350 intravenous contrast. Automated exposure control and iterative reconstruction technique were employed. The dose-length product was 1358.56 mGy-cm. COMPARISON: CT chest, abdomen, and pelvis 08/03/2022 FINDINGS: CHEST CT: There is minimal atelectasis bilaterally. No pleural effusion. The heart size is normal. No pericardi al effusion. There are no pathologically enlarged lymph nodes. There is mild thoracic spondylosis. ABDOMEN/PELVIS CT: There is a 15 mm cyst in the liver. The gallbladder, spleen, pancreas, adrenal glands, and kidneys ar e normal. There is an umbilical hernia containing fat. There is a right-sided spigelian hernia contai chapo fat. There is a left inguinal hernia containing fat. The prostate is mildly enlarged. There are no dilated loops of bowel. The appendix is normal. There is a chronic left L5 pars defect. There is m ild lumbar spondylosis. IMPRESSION: 1. No evidence of metastatic disease. Reviewed, dictated and finalized at location E.
== END 2022-11-15 13:41 | disposition home or self-care (01) ==
LOC: ANHIMG 13:41
PROVIDERS: PCP Family Medicine; Visit Provider Family Medicine
DX: C43.9 Malignant melanoma of skin, unspecified (principal)
CPT/HCPCS: 71260; 74177; Q9967

== ENCOUNTER 2023-05-30 07:09 | Outpatient (CLI) | payer OTHER, SELFPAY ==
[2023-05-30 07:30] LABS: Basophils Absolute Auto 0.1 K/mm3 (0.0-0.1); Basophils Percent Auto 0.8 % (0.2-1.2); Eosinophils Absolute Auto 0.3 K/mm3 (0-0.3); Eosinophils Percent Auto 4.7 % (0-4.4); Hematocrit 46.6 % (42.0-52.0); Hemoglobin 16.1 g/dL (14.0-18.0); Immature Granulocyte Absolute 0.03 K/mm3 (0.00-0.031); Immature Granulocyte Percent A 0.5 % (0-0.5); Lymphocytes Absolute Auto 1.54 K/mm3 (0.9-3.2); Lymphocytes Percent Auto 24.3 % (18.3-44.2); Mean Corpuscular HGB Conc 34.5 g/dl (32-36); Mean Corpuscular Volume 86.8 fl (80-100); Mean Platelet Volume 10.1 fl (7.4-10.4); Monocytes Absolute Auto 0.5 K/mm3 (0.1-0.6); Monocytes Percent Auto 7.6 % (2.6-8.5); Neutrophils Percent Auto 62.1 % (45.5-73.1); Platelet Count Result 212 k/mm3 (150-375); Red Blood Count 5.37 M/mm3 (4.6-6.20); Red Cell Distribution Width 12.7 % (11.5-14.5); White Blood Count 6.4 K/mm3 (4.5-10.0)
[2023-05-30 07:51] LABS: Alanine Aminotransferase 48 U/L (6-50); Albumin Level 4.3 g/dL (3.5-5.1); Alkaline Phosphatase 64 U/L (38-126); Anion Gap 6 mmol/L (4-12); Aspartate Amino Transferase 35 U/L (17-59); Bilirubin,Total 0.6 mg/dL (0.2-1.3); Blood Urea Nitrogen 19 mg/dL (9-20); Calcium 9.3 mg/dL (8.4-10.2); Carbon Dioxide 27 mmol/L (22-30); Chloride 109 mmol/L (98-107); Estimated Glomerular Filt Rate > 60; Glucose 117 mg/dL (65-110); Lactate Dehydrogenase 178 U/L (120-246); Potassium 4.3 mmol/L (3.4-5.0); Sodium 142 mmol/L (137-145)
== END 2023-05-30 07:10 | disposition home or self-care (01) ==
LOC: ANHLAB 07:10
PROVIDERS: PCP Family Medicine; Visit Provider Family Medicine
DX: C43.9 Malignant melanoma of skin, unspecified (principal)
CPT/HCPCS: 36415; 80053; 83615; 85025

== ENCOUNTER 2023-05-31 06:59 | Outpatient (CLI) | payer OTHER, SELFPAY ==
--- NOTE | ~2023-05-31 | CT_ITS ---
EXAMINATION: CT chest abdomen pelvis w con DATE: 05/31/2023 07:16 INDICATION: Malignant melanoma of skin TECHNIQUE: Computed tomography (CT) of the chest, abdomen, and pelvis was performed with 100 mL Omnip aque-350 intravenous contrast. Automated exposure control and iterative reconstruction technique were employed. The dose-length product was 1293.84 mGy-cm. COMPARISON: 11/15/2022 FINDINGS: CHEST CT: Unchanged small lenticular likely intrafissural lymph node along the right major fissure measuring up to 3 mm in maximal length. No other suspicious pulmonary nodules, pneumonia, pulmonary edema or pleu ral effusion. Heart size is normal. No pericardial effusion. Thoracic aorta is normal in caliber with no dissection. No pathologically enlarged thoracic lymphadenopathy. Bones are unremarkable. ABDOMEN/PELVIS CT: Unchanged 1.5 cm cyst at the caudal tip of the right hepatic lobe. Gallbladder, spleen, pancreas, leana ateral adrenal glands and kidneys are normal. Bowels including the appendix are normal. Bladder is no rmal. Small fat-containing umbilical and left inguinal hernias. Mild lumbar spondylosis. Chronic left -sided L5 pars intra-articular is defect with likely developmental nonfusion of the right lamina with the spinous process. IMPRESSION: 1. No evident metastatic disease. Reviewed, dictated and finalized at location B.
== END 2023-05-31 07:00 | disposition home or self-care (01) ==
PROVIDERS: PCP Family Medicine; Visit Provider Family Medicine
DX: C43.9 Malignant melanoma of skin, unspecified (principal)
CPT/HCPCS: 71260; 74177; Q9967

== ENCOUNTER 2023-09-26 07:22 | Outpatient (CLI) | payer OTHER, SELFPAY ==
--- NOTE | ~2023-09-26 | MR_ITS ---
MRI of the right shoulder Technique: Axial proton-density fat-sat images, coronal proton density fat-sat and T2 fat-sat images, and sagittal T1-weighted and T2 fat-sat images were acquired. Clinical History: Arm weakness Findings: There is minimal AC joint degenerative change. Coracoclavicular, coracoacromial, and coraco humeral ligaments are intact. There is a 5 mm linear low-grade articular surface partial tear at the distal supraspinatus tendon in sertion. No high-grade partial or full-thickness tear is seen. There is moderate supraspinatus and in fraspinatus tendinosis. Subscapularis tendon intact, with moderate to advanced tendinosis. Tendon of the long head of the biceps is intact. No labral tear evident. Inferior glenohumeral ligament is intact. No significant degenerative change or effusion of the gleno humeral joint. There is mild fluid distention of the subacromial/subdeltoid bursa. No muscle atrophy or edema. Impression: 5 mm linear low-grade articular surface partial tear of the distal supraspinatus tendon insertion. Ba ckground rotator cuff tendinosis, as above. Mild subacromial/subdeltoid bursitis. Reviewed, dictated and finalized at location . Impression: 5 mm linear low-grade articular surface partial tear of the distal supraspinatu s tendon insertion. Background rotator cuff tendinosis, as above. Mild subacromial/subdeltoid bursitis.
== END 2023-09-26 07:23 | disposition home or self-care (01) ==
PROVIDERS: PCP Family Medicine; Visit Provider Family Medicine
DX: M75.41 Impingement syndrome of right shoulder (principal); M75.111 Incomplete rotator cuff tear or rupture of right shoulder, not specified as traumatic; M75.51 Bursitis of right shoulder; M75.31 Calcific tendinitis of right shoulder; C43.9 Malignant melanoma of skin, unspecified
CPT/HCPCS: 73221

== ENCOUNTER 2023-11-01 07:26 | Outpatient (CLI) | payer OTHER, SELFPAY ==
[2023-11-01 07:51] LABS: Basophils Absolute Auto 0.1 K/mm3 (0.0-0.1); Eosinophils Absolute Auto 0.2 K/mm3 (0-0.3); Hematocrit 45.3 % (42.0-52.0); Immature Granulocyte Absolute 0.02 K/mm3 (0.00-0.031); Immature Granulocyte Percent A 0.3 % (0-0.5); Lymphocytes Absolute Auto 1.54 K/mm3 (0.9-3.2); Lymphocytes Percent Auto 25.6 % (18.3-44.2); Mean Corpuscular HGB Conc 35.3 g/dl (32-36); Mean Corpuscular Hemoglobin 30.6 pg (26-34); Mean Corpuscular Volume 86.6 fl (80-100); Mean Platelet Volume 9.8 fl (7.4-10.4); Monocytes Absolute Auto 0.5 K/mm3 (0.1-0.6); Monocytes Percent Auto 8.2 % (2.6-8.5); Neutrophils Absolute Auto 3.7 K/mm3 (1.3-6.7); Neutrophils Percent Auto 60.9 % (45.5-73.1); Platelet Count Result 202 k/mm3 (150-375); Red Blood Count 5.23 M/mm3 (4.6-6.20); Red Cell Distribution Width 12.4 % (11.5-14.5)
[2023-11-01 08:37] LABS: Alanine Aminotransferase 46 U/L (6-50); Albumin Level 4.2 g/dL (3.5-5.1); Alkaline Phosphatase 53 U/L (38-126); Anion Gap 7 mmol/L (4-12); Aspartate Amino Transferase 32 U/L (17-59); Bilirubin,Total 0.7 mg/dL (0.2-1.3); Blood Urea Nitrogen 19 mg/dL (9-20); Calcium 8.7 mg/dL (8.4-10.2); Carbon Dioxide 29 mmol/L (22-30); Chloride 104 mmol/L (98-107); Estimated Glomerular Filt Rate > 60; Glucose 114 mg/dL (65-110); Lactate Dehydrogenase 166 U/L (120-246); Potassium 4.3 mmol/L (3.4-5.0); Sodium 140 mmol/L (137-145)
== END 2023-11-01 07:27 | disposition home or self-care (01) ==
LOC: ANHLAB 07:27
PROVIDERS: PCP Family Medicine; Visit Provider Family Medicine
DX: C43.9 Malignant melanoma of skin, unspecified (principal); I10 Essential (primary) hypertension
CPT/HCPCS: 36415; 80053; 83615; 85025

== ENCOUNTER 2023-11-22 08:36 | Outpatient (CLI) | payer OTHER, SELFPAY ==
--- NOTE | ~2023-11-22 | CT_ITS ---
Clinical Indication: Malignant melanoma CT Scan of the Chest, Abdomen, and Pelvis with Contrast: Technique: Contiguous sections were acquired throughout the chest, abdomen, and pelvis after intraven ous administration of 100 cc of Omnipaque 350. Dose reduction technique was used on this scan by kathy pachecoing automated exposure control and iterative reconstruction technique. The dose-length product (DL P) was 1274.25 mGy-cm. Comparison: 05/31/2023 Findings: There is no evidence of any significant mediastinal, hilar or axillary lymphadenopathy. The mediastin al soft tissues and vascular structures appear normal. There is no evidence of pleural or pericardial effusion. Stable 2 mm right upper lobe pulmonary nodule (axial image 72). There is diffuse hepatic steatosis. Stable inferior right hepatic lobe cyst. The spleen, pancreas, ga llbladder, adrenals and kidneys are within normal limits. No evidence of aortic aneurysm. No lympha denopathy. No bowel obstruction or bowel wall thickening. There is no evidence to suggest acute appendicitis. Sm all fat-containing umbilical hernia noted. Urinary bladder is unremarkable. No pelvic mass seen. No ascites. Impression: No evidence for active malignancy or metastatic disease. Diffuse hepatic steatosis. Reviewed, dictated and finalized at location . Impression: No evidence for active malignancy or metastatic disease. Diffuse hepatic steatosis.
== END 2023-11-22 08:37 | disposition home or self-care (01) ==
PROVIDERS: PCP Family Medicine; Visit Provider Family Medicine
DX: C43.9 Malignant melanoma of skin, unspecified (principal); K76.0 Fatty (change of) liver, not elsewhere classified
CPT/HCPCS: 71260; 74177; Q9967

== ENCOUNTER 2024-01-13 00:09 | Day surgery (SDC) | payer OTHER, SELFPAY ==
[2024-01-07 08:12] VITALS: BMI 32.3
--- NOTE | 2024-01-07 08:13 | PC.NURSE ---
Report to the Outpatient Waiting Room, entrance under the green pavilion located off [facility], at time _1000_ on date _[id number]_. Planned Procedure Time: _1200_.? Time changes happen often and if your time is changed the preop area will call you the afternoon before. - You and your visitor will be asked to self-screen and do not enter if you have any COVID symptoms. Please call surgeon if you need to reschedule. - A mask is optional within the hospital at this time. Patients may have clear liquids (water, carbonated beverages, clear teas, apple juice) until 3 hours prior to surgery with a maximum of 20 ounces. - No food from midnight until time of surgery and no smoking. This includes no chewing gum, candy or mints. Take only the following medications with a SIP of water on the morning of surgery: __Amlodipine, Bupropion and Nebivolol____ DO NOT STOP ANY OF YOUR OTHER PRESCRIPTION MEDICATIONS PRIOR TO SURGERY EXCEPT THE FOLLOWING Medications to discontinue per physician ___None____ Please no make-up, nail indonesian, hairspray, perfume, deodorant, or body powder the day of surgery.? No jewelry (including any body piercings) or valuables the day of surgery, leave them at home.? Please take a shower or bath the night before, or the morning of, surgery with an antibacterial soap.? Wear comfortable, loose fitting clothing.? - Jewelry must be removed prior to entering the operating room.? Rings and piercings that are not removed may be cut off. - The hospital will not accept responsibility for valuables.? - Please leave all valuables, including medications, at home the day of surgery. If you are going home after surgery, a licensed truck driver teamster must drive you home.? - NO public transportation without another adult if you receive anesthesia. - We recommend that an adult stay with you for 24 hours following discharge. - We also recommend that you do not drive, make important decision, drink alcoholic beverages, or take any drugs that were not prescribed by your health care provider for at least 24 hours after your discharge time. Follow any additional instructions given to you from your surgeon. Telephone instructions given to _Dr Matt Bean__and asked if any additional questions and then verbalized understanding. Patient advised to call surgeon office or pre surgery nurse liaison [phone] if any additional questions.
[2024-01-13] VITALS (9 sets, daily range): BP systolic 119–141; BP diastolic 75–98; PULSE 69–98; RESP 12–20; TEMP 36.3–36.6; O2SAT 92–100; BMI 32.5
[2024-01-13] MEDS: ACETAMINOPHEN 500 MG TABLET 1000 MG PO (10:42)
[2024-01-13] MEDS: KETOROLAC 15 MG/ML VIAL (*BKC) IV PUSH (10:43)
[2024-01-13] MEDS: LACTATED RINGERS 1,000 ML 30 ML IV CONT ×2 (10:48→14:06)
--- NOTE | 2024-01-13 11:51 | P.PNAN_ITS ---
Anes - Initial Pre Proc Eval Procedure: Operation Date: 01/13/24 12:00 Proposed Procedures p Right Shoulder Arthroscopic Rotator Cuff Repair with Subacromial Decompression - Alfa Barnett MD Date/Time: 01/13/24 11:51 Surgeon: Alfa Barnett MD Pre Op Diagnosis: Partial Thickness Right Rot Cuff Tear Patient Data Age: 53 Gender: M Height: 1.78 m Weight: 102.3 kg Allergies Allergy/AdvReac Type Severity Reaction Status Date / Time minocycline Allergy Unknown Verified 01/07/24 08:08 Home Medications Medication Instructions Recorded Confirmed Type tadalafil 5 mg tablet 5 mg PO DAILY #90 tabs 10/09/22 01/13/24 Rx amlodipine 5 mg tablet See Rx Instructions .Route 03/12/23 01/13/24 Rx .COMPLEX #90 tabs nebivolol 10 mg tablet (Bystolic) 10 mg PO DAILY #90 tabs 04/30/23 01/13/24 Rx bupropion HCl 150 mg 24 hr tablet, See Rx Instructions .Route 06/25/23 01/13/24 Rx extended release .COMPLEX #90 tabs olmesartan 40 mg tablet See Rx Instructions .Route 06/25/23 01/13/24 Rx .COMPLEX #90 tabs pantoprazole 40 mg tablet,delayed See Rx Instructions .Route 06/25/23 01/13/24 Rx release .COMPLEX #90 tabs Patient hx anesthesia problems: none Family hx anesthesia problems: none Results Review: All pre-operative results and documents have been reviewed as part of the pre- operative evaluation. [facility] Past Medical History Medical History GERD (gastroesophageal reflux disease) Hypertension Surgical History Surgical History History of tonsillectomy History of vasectomy Family History Family History Father Hypertension Social History Social History Smoking status: Never smoker Alcohol intake: current Drinks per week: 6 Alcohol use details: socially Substance use: never Substance use type: does not use Living arrangements: with family Spiritual care concerns: No Anes - Eval Final PreProcedure Day of Procedure 01/13/24 11:51 Patient weight: obese Heart: regular rate and rhythm Lungs: clear to auscultation Airway: Mallampati scale class II Neurological: alert and oriented Last oral intake: >/= 8 hours ASA classification: II Emergent: no Anesthetic plan: proceed Anesthesia type and monitoring: general ETT and standard monitoring Results Review: All pre-operative results and documents have been reviewed as part of the pre- operative evaluation. HTN on multiple meds, no known CAD. Pt and recently were hiking in [place] at elevation, no cp or sob. Informed Consent: The patient's anesthetic plan and its attendant risks and benefits were discussed with the patient/family/POA. Questions were solicited and answers provided to the satisfaction of the patient/family/POA.
--- NOTE | 2024-01-13 12:07 | WPDHPUPDATE1 ---
History and Physical Update Update Date/Time: 01/13/24 12:07 History and Physical has been reviewed, including an updated exam of the patient. There are NO changes in the patient's condition. Risks, benefits, and alternatives have been discussed and questions answered. Patient agrees to proceed with procedure.
[2024-01-13] MEDS: ceFAZolin 2 GM/D5W 50 ML 2 GM/50 ML BAG IVPB (12:22)
--- NOTE | 2024-01-13 12:22 | WPDANESPNB ---
Anes - Peripheral Nerve Block Date/Time: 01/13/24 12:22 I have discussed with the patient/family/POA the placement of a peripheral nerve block for post-operative pain management, including associated risks, benefits, complications, and side effects. Alternative methods of post-operative analgesia were detailed. Questions were solicited and answers provided to the satisfaction of the patient/family/POA. Time-Out: A pre-procedural Time-Out was completed immediately before starting the procedure and confirmed: Patient Identification, Site, Procedure, Patient Position and the Availability of Requisite Equipment. Clinical Indications: Acute post-operative pain management requested by the operative surgeon. Nerve Block Insertion Note Anes-nerve block: interscalene right Patient position: supine Skin prep: chlorhexidine Needle: 22 gauge, stimulating, insulated echogenic needle. Needle length: 80 mm Technique: ultrasound Injectate: other (Bupiv 0.5% 15 mls. ) Observations: tolerated well Complications: none Procedure start time:: 1210 Procedure end time:: 1217
[2024-01-13] MEDS: TRANEXAMIC ACID 1,000 MG/10 ML AMPUL 1000 MG IV PUSH (13:04)
--- NOTE | 2024-01-13 14:05 | W.PM.PROC2 ---
Procedure Note - Detailed Date of Procedure 01/13/24 Pre-op Diagnosis Partial Thickness Right Rotator Cuff Tear Post-op Diagnosis Other (Right shoulder 1. Partial thickness rotator cuff tear 2. Subacromial impingement) Procedure Performed Right shoulder 1. Arthroscopic rotator cuff repair 2. Arthroscopic subacromial decompression Surgeon Alfa Barnett MD Barrel Dedenting Machine Operator Riana Vergara PA-C Anesthesia General and Regional ( interscalene block) Findings Low to mid grade articular side tear of the anterior supraspinatus with intratendon extension. Bursal fraying with evidence for subacromial impingement. Rotator cuff tendon hyperemia without capsule contracture. Description of Procedure Preoperative antibiotics were given. An interscalene block was administered in the preoperative area. The patient was bought brought to the operating room. A general anesthetic was administered. The patient was carefully positioned in the beach chair position. The head and neck were carefully positioned. The non operative extremity was also carefully positioned. The shoulder was prepped and draped in the usual sterile fashion. Examination was performed. Standard posterior and anterior arthroscopic portals were established. Inflow achieved with the arthroscopic pump using saline and epinephrine. The glenohumeral joint was carefully inspected. The cartilage was normal. All structures were normal except the anterior supraspinatus, which had a low to mid approximately 15 percent tear. However, the tear extended mildly into the more posterior tendon. There was hyperemia of the tendon, but the overall quality appeared very good. The torn tissue was gently debrided. Attention was turned to the subacromial space. A complete bursectomy was performed. There was a small area of bursal fraying on the supraspinatus, and hyperemia of the tendon consistent with the tendinosis seen on the MRI. The anterolateral acromion was prominent, creating a tight appearing subacromial space. An acromioplasty was performed. The tendon was repaired with the large Regeneten graft, 6 CHRISTI anchors, and 2 PEEK bone anchors. The arthroscopic instruments were removed. The wounds were closed with 3-0 Monocryl subcuticular suture and steri strips. There were no complications. A sling was applied and the patient brought to the recovery room. Physician registered medical assistant, Riana Vergara PA-C, required for surgery; including patient positioning, draping, arthroscopic camera operation, maintaining instrument position, implant positioning, anchor placement, wound closure, and dressing sling placement. Implants Regeneten large collagen implant. 6 CHRISTI soft tissue anchors. 2 PEEK bone anchors. Estimated Blood Loss 30 Pathology None sent Complications No immediate complications Condition Stable Disposition PACU [facility] Billing Surgery - Charge Forward: Surgery Billing
--- NOTE | 2024-01-13 14:33 | SUR.PHASEI ---
1432: Simple mask removed.
== END 2024-01-13 15:58 | disposition home or self-care (01) ==
PROVIDERS: PCP Family Medicine; Visit Provider Orthopaedic Surgery
PROC: (CPT 29805; principal; 2024-01-13 12:00)
DX: M75.111 Incomplete rotator cuff tear or rupture of right shoulder, not specified as traumatic (principal); M75.41 Impingement syndrome of right shoulder; G89.18 Other acute postprocedural pain; I10 Essential (primary) hypertension; K21.9 Gastro-esophageal reflux disease without esophagitis; E66.9 Obesity, unspecified; Z68.32 Body mass index [BMI] 32.0-32.9, adult
CPT/HCPCS: 29827; 29826; 64415; A4565; A9270; C1713; J0171; J0690; J1100; J1885; J2003; J2250; J2371; J2405; J2704; J3010; J7120

== ENCOUNTER 2024-02-20 07:17 | Outpatient (CLI) | payer OTHER, SELFPAY ==
[2024-02-20 08:22] LABS: Cholesterol 137 mg/dL (0-200); HDL Direct 36 mg/dL; Triglycerides 128 mg/dL (<150)
[2024-02-20 08:32] LABS: LDL Cholesterol Direct 72 mg/dL
[2024-02-20 10:33] LABS: Hemoglobin A1C 5.3 % (<5.7)
[2024-02-24 14:34] LABS: PSA, Free 0.1 ng/mL; PSA, Total 0.4 ng/mL (< OR = 4.0); Percent Free Prostate Spec Ag 25 % (calc) (>25)
== END 2024-02-20 07:18 | disposition home or self-care (01) ==
LOC: ANHLAB 07:19
PROVIDERS: PCP Family Medicine; Visit Provider Family Medicine
DX: Z00.00 Encounter for general adult medical examination without abnormal findings (principal)
CPT/HCPCS: 36415; 80061; 82652; 83036; 84153; 84154; 84402; 84403; 84443

== ENCOUNTER 2024-03-20 15:30 | Outpatient (RCR) | payer OTHER, SELFPAY ==
[2024-01-23 15:35] VITALS: BP_SYST 155
--- NOTE | 2024-01-23 16:18 | OPREHPOC ---
Outpatient Therapy Plan of Care This is a Multidisciplinary Plan of Care that may contain components documented by all disciplines (PT, OT, and ST.) PT Problem 1 PT Problem #1 Knowledge Deficit PT Goal 1 Goal / Goal Update *indep with HEP Target Visit 8 PT Goal 2 Goal / Goal Update * correct shoulder position with exercises Target Visit 8 PT Problem 2 PT Problem #2 Pain PT Goal 1 Goal / Goal Update * pt report pain at worst of 3/10 with increased activity Target Visit 8 PT Problem 3 PT Problem #3 Impaired Range of Motion PT Goal 1 Goal / Goal Update *increase R shoulder ROM to improve use of R arm for home and work tasks: standing active: 1* flexion 155' 2* abduction 155; Target Visit 8 PT Problem 4 PT Problem #4 Impaired Strength PT Goal 1 Goal / Goal Update * increase strength of R shoulder, to return to prior activity level and use of R arm: pt perform in standing, 5 reps with hand weight 1* flexion to 90' with 3# 2* abduction to 90' with 3# 3* elbow flexion/extension with 10# Target Visit 8
--- NOTE | 2024-01-23 16:18 | PTOPEVAL1 ---
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 Bean is s/p R rotator cuff repair with collagen patch and subacromial decompression. Self assessment with Quick DASH rating of 41% limitation in activity level. 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 With the evaluation: R shoulder ROM: active/ passive: flexion 115'/ 155'; abduction 130'/ 155' standing IR- reach behind back, palm to above waist; ER- reaching behind head, palm to neck; Most pain reported with IR. Skilled PT is indicated for modalities to decrease pain, therapeutic exercises to increase ROM and strength of R shoulder, with education for HEP. Plan of Care Interventions Electrical Stimulation,Hot Pack/Cold Pack,Manual Therapy,Neuro Re-education,Patient Education,Therapeutic Activities,Therapeutic Exercise,Ultrasound,Other Other Interventions taping PT Services Indicated Yes Treatment Frequency and 1-2x/wk for 8 visits Duration These treatments will address the objective and functional deficits as defined above. The patient will be advanced safely and appropriately in order for the patient to progress towards his/her prior level of function. Additional exercises will be introduced and as well as a comprehensive home exercise program upon discharge, if needed, ?to ensure carryover of functional gains achieved in the clinic. This treatment plan has been reviewed and agreement upon by the patient.
--- NOTE | 2024-03-20 16:07 | PTOPDC ---
Assessment and note entered by Jodi Ko, PT Assessment Status Discharge ICD-10 Condition Codes (PT) Pain in right shoulder M25.511,Encounter for other orthopedic aftercare Z47.89 Onset 01-13-24 Subjective Information shoulder is doing well; have been doing the strengthening and stretching at home; saw and he released me, call if need something and increase strength as tolerated; have returned to full work and doing everything at home, but not heavy lifting, have carried bag of dog food to back of house. agree with discharge from PT and continue exercises at home. Reported Pain Level Pain Score Self Report Additional Pain Score Comments pain range of 0-3/10; sore on top of GH joint; with sleeping, some problems getting comfortable for falling asleep--tend to have R arm abducted to 90 and lie on R side; use ice PRN and tylenol PRN-- not very often Assessment PT Clinical Summary Dr. Bean has received 7 PT sessions. He has improved with strength and ROM of R shoulder, with shoulder IR motion reports feel a little , decreased pain to 3/10 at worst, has returned to full work and home tasks, except heavy lifting; he has good posture and body mechanics with the exercises. Education completed for HEP. The goals were achieved. Discharge PT. He is to continue with the HEP and progression of strengthening and lifting as tolerated. Plan of Care PT Services Indicated No
== END 2024-03-23 09:55 | disposition home or self-care (01) ==
LOC: ANHPT 15:30
PROVIDERS: PCP Family Medicine; Visit Provider Orthopaedic Surgery
DX: Z47.89 Encounter for other orthopedic aftercare (principal); M25.511 Pain in right shoulder
CPT/HCPCS: 97110; 97140; 97161; 97530

== ENCOUNTER 2024-05-08 07:08 | Outpatient (CLI) | payer OTHER, SELFPAY ==
[2024-05-08 08:12] LABS: Basophils Percent Auto 0.6 % (0.2-1.2); Eosinophils Absolute Auto 0.2 K/mm3 (0-0.3); Eosinophils Percent Auto 3.8 % (0-4.4); Hematocrit 44.5 % (42.0-52.0); Hemoglobin 15.7 g/dL (14.0-18.0); Immature Granulocyte Absolute 0.02 K/mm3 (0.00-0.031); Immature Granulocyte Percent A 0.4 % (0-0.5); Lymphocytes Absolute Auto 1.31 K/mm3 (0.9-3.2); Lymphocytes Percent Auto 26.3 % (18.3-44.2); Mean Corpuscular HGB Conc 35.3 g/dl (32-36); Mean Corpuscular Hemoglobin 29.9 pg (26-34); Mean Corpuscular Volume 84.8 fl (80-100); Mean Platelet Volume 10.4 fl (7.4-10.4); Monocytes Absolute Auto 0.5 K/mm3 (0.1-0.6); Monocytes Percent Auto 9.2 % (2.6-8.5); Neutrophils Percent Auto 59.7 % (45.5-73.1); Platelet Count Result 206 k/mm3 (150-375); Red Blood Count 5.25 M/mm3 (4.6-6.20); Red Cell Distribution Width 12.6 % (11.5-14.5)
[2024-05-08 08:32] LABS: Alanine Aminotransferase 56 U/L (6-50); Albumin Level 4.3 g/dL (3.5-5.1); Alkaline Phosphatase 62 U/L (38-126); Anion Gap 8 mmol/L (4-12); Aspartate Amino Transferase 33 U/L (17-59); Bilirubin,Total 0.6 mg/dL (0.2-1.3); Blood Urea Nitrogen 14 mg/dL (9-20); Calcium 8.7 mg/dL (8.4-10.2); Carbon Dioxide 28 mmol/L (22-30); Chloride 107 mmol/L (98-107); Estimated Glomerular Filt Rate > 60; Glucose 109 mg/dL (65-110); Lactate Dehydrogenase 191 U/L (120-246); Sodium 143 mmol/L (137-145)
== END 2024-05-08 07:09 | disposition home or self-care (01) ==
PROVIDERS: PCP Family Medicine; Visit Provider Family Medicine
DX: C43.9 Malignant melanoma of skin, unspecified (principal)
CPT/HCPCS: 36415; 80053; 83615; 85025

== ENCOUNTER 2024-05-15 13:28 | Outpatient (CLI) | payer OTHER, SELFPAY ==
--- NOTE | ~2024-05-15 | CT_ITS ---
Clinical Indication: Right tongue elevation, malignant melanoma CT Scan of the Neck, Chest, Abdomen, and Pelvis with Contrast: Technique: Contiguous sections were acquired throughout the chest, abdomen, and pelvis after intraven ous administration of 100 cc of Omnipaque 350. Dose reduction technique was used on this scan by kathy pachecoing automated exposure control and iterative reconstruction technique. The dose-length product (DL P) was 2138.59 mGy-cm. Findings: No soft tissue mass or lymphadenopathy seen in the neck. Parapharyngeal fat preserved bilat erally. Parotid and submandibular glands are unremarkable. Visualized aerodigestive tract unremarkabl e. Thyroid gland unremarkable. Vascular structures enhance normally. There is no evidence of any significant mediastinal, hilar or axillary lymphadenopathy. The mediastin al soft tissues and vascular structures appear normal. There is no evidence of pleural or pericardial effusion. The lungs are clear. No pulmonary nodules or infiltrates are noted. There is probable diffuse hepatic steatosis. Small inferior right hepatic lobe cyst present. The sple en, pancreas, gallbladder, adrenals and kidneys are within normal limits. No evidence of aortic aneu rysm. No lymphadenopathy. No bowel obstruction or bowel wall thickening. There is no evidence to suggest acute appendicitis. Sm all fat-containing umbilical hernia present. Urinary bladder is unremarkable. No pelvic mass seen. No ascites. Impression: No evidence of metastatic disease. Diffuse hepatic steatosis. Small fat-containing umbilical hernia. Reviewed, dictated and finalized at [facility]. Impression: No evidence of metastatic disease. Diffuse hepatic steatosis. Small fat-containing umbilical hernia.
--- OUTSIDE RECORDS SUMMARY | 2024-05-15 13:38 | XMS_ITS | Encounter Summary ---
Author Organization [facility] Address [address] [place] [address] Phone Care Team Providers Care Credit Specialist Name Role Phone Ciara Ho MD Primary Care Provider Sanjiv Alvarez MD Unavailable [phone] Marco Chong MD Unavailable Shilo Benitez DO Unavailable [phone] Jordon Murcia MD Unavailable [phone] Encounter Details Date Type Department Care Team (Latest Contact Info) Description 06/09/2020 Orders Only [facility] Scanning, Provider Social History Tobacco Use Types Packs/Day Years Used Date Smoking Tobacco: Never Smokeless Tobacco: Never Alcohol Use Standard Drinks/Week Comments Yes 5 (1 standard drink = 0.6 oz pur e alcohol) Sex and Gender Information Value Date Recorded Sex Assigned at Not on file 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 Gender Identity Not on file Sexual Orientation Not on file documented as of this encounter Plan of Treatment Not on file documented as of this encounter Procedures Procedure Name Priority Date/Time Associated Diagnosis Comments SCAN - RADIOLOGY/IMAGING 06/09/2020 documented in this encounter Results * SCAN - RADIOLOGY/IMAGING (06/09/2020) Anatomical Region Laterality Modality Other us Provider Scanning Edited Result - Final documented in this encounter Visit Diagnoses Not on filedocumented in this encounter Care Teams Credit Specialist Relationship Specialty Start Date End Date Ciara Ho MD [address] [place] [address] PCP - General Family Medicine 10/27/19 Sanjiv Alvarez MD [address] [place] [address] Referring Physician Plastic Surgery 10/29/19 Marco Chong MD [address] [place] [address] Medical Oncologist/Display Coordinator Medical Oncology 03/03/20 11/03/20 Shilo Benitez DO [address] [place] [address] Medical Oncologist/Display Coordinator Hematology and Oncology 09/16/20 Jordon Murcia MD [address] [place] [address] Supervisor Drying And Winding Dermatology 11/04/20 documented as of this encounter
--- OUTSIDE RECORDS SUMMARY | 2024-05-15 13:38 | XMS_ITS | Clinical Summary ---
Author Organization [facility] [place] [address] Address [address] [place] [address] Care Team Providers Care Assortment Planner Name Role Phone Ciara Ho MD Primary Care Provider Sanjiv Alvarez MD Unavailable [phone] Shilo Benitez DO Unavailable [phone] Jordon Murcia MD Unavailable [phone] Allergies Active Allergy Reactions Criticality Noted Date Comments Minocycline Rash Medium 02/02/2019 Medications olmesartan (BENICAR) 40 mg tabletIndications :hypertension Take 1 tablet (40 mg total) by mouth daily before breakfast [address] (PROTONIX) 40 mg EC tabletIndications :Treatment of Non-Bleeding Gastric Disorder Take 1 tablet (40 mg total) by mouth daily before breakfast 3 9 Active buPROPion XL (WELLBUTRIN XL) 150 mg 24 hr tabletIndications :Anxiety with Depression Take 1 tablet (150 mg total) by mouth every morning 3 9 Active nebivolol (BYSTOLIC) 10 mg tabletIndications :Essential hypertension Take 1 tablet (10 mg total) by mouth daily 30 tablet 11 9 Active amLODIPine (NORVASC) 5 mg tabletIndications :Essential hypertension Take 1 tablet (5 mg total) by mouth daily 30 tablet 11 0 Active tadalafiL (CIALIS) 5 mg tablet Take 1 tablet (5 mg total) by mouth daily 3 Active Active Problems Problem Noted Date Diagnosed Date 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 Staging:Clinical stage from 11/13/2019:Stage III(cT2b, cN1a, cM0) - Signed by Shilo Benitez DO on 09/23/2020 Essential hypertension 02/02/2019 GERD without esophagitis 02/02/2019 Immunizations Immunization Administration Dates Next Due Influenza, Trivalent, IM (MDV) 11/17/2018 Influenza, Unspecified 12/07/2022,01/12/2021 Pfizer SARS-CoV-2 Monovalent Vaccination (12+ Yrs) PURPLE 12/23/2020,02/29/2020,02/08/2020 Surgical History Surgery Date Site/Laterality Comments TONSILLECTOMY VASECTOMY Medical History Medical History Date Comments Hypertension Acid indigestion Melanoma of back (HCC) 10/29/2019 GERD (gastroesophageal reflux disease) Family History Medical History Relation Name Comments Cancer Father Lam Hyperlipidemia Father Lam Hypertension Father Lam No Known Problems Mother Anesthesia problems Neg Hx Relation Name Status Comments Father Lam Alive Mother Alive Social History Tobacco Use Types Packs/Day Years Used Date Smoking Tobacco: Never Smokeless Tobacco: Never Tobacco Cessation:Counseling Given: Not Answered Alcohol Use Standard Drinks/Week Comments Yes 5 (1 standard drink = 0.6 oz pur e alcohol) Sex and Gender Information Value Date Recorded Sex Assigned at Not on file Legal Sex Male 2:33 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 Gender Identity Not on file Sexual Orientation Not on file Obstetrics History Last Filed Vital Signs Vital Sign Reading Time Taken Comments Blood Pressure 120/82 12/27/2023 8:12 AM REGISTERED RESPIRATORY TECHNICIAN Pulse 67 12/27/2023 8:12 AM REGISTERED RESPIRATORY TECHNICIAN Temperature 36.9 C (98.4 F) 12/06/2023 9:04 AM CDT Respiratory Rate 16 12/06/2023 9:04 AM CDT Oxygen Saturation 97% 12/27/2023 8:12 AM REGISTERED RESPIRATORY TECHNICIAN Inhaled Oxygen Concentration - - Weight 104.7 kg (230 lb 12.8 oz) 12/27/2023 8:12 AM REGISTERED RESPIRATORY TECHNICIAN Height 180.3 cm (5' 11 ) 12/27/2023 8:12 AM REGISTERED RESPIRATORY TECHNICIAN Body Mass Index 32.19 12/27/2023 8:12 AM REGISTERED RESPIRATORY TECHNICIAN Plan of Treatment Health Maintenance Due Date Last Done Comments Colon Cancer Screening-Colonoscopy 1970 Depression Screening 1970 Hepatitis C Screening 1970 Prostate Cancer Screening-PSA 1970 DTaP/Tdap/Td Vaccine (1 - Tdap) 1981 Hepatitis B Screening 1988 Regular Well Visit/Exam 18-64 1988 Pneumococcal vaccine <65 (1 of 2 - PCV) 1989 Zoster Vaccine (1 of 2) 1989 Covid-19 Vaccine (4 - season) 2023 12/23/2020, 02/29/2020, 02/08/2020 Influenza Vaccine (#1) 2023 , 01/12/2021, 11/17/2018 Insurance [facility] Address: [address] [address] [facility]/PPO Address: [address] [address] [place] [address] R [facility] Address: [address] [address] [place] [address] Care Teams Assortment Planner Relationship Specialty Start Date End Date Ciara Ho MD [address] [place] [address] PCP - General Family Medicine 10/27/19 Sanjiv Alvarez MD [address] [place] [address] Referring Physician Plastic Surgery 10/29/19 Shilo Benitez DO [address] [place] [address] Medical Oncologist/Store Facility Technician Hematology and Oncology 09/16/20 Jordon Murcia MD [address] [place] [address] Puller Machine Dermatology 11/04/20
--- OUTSIDE RECORDS SUMMARY | 2024-05-15 13:38 | XMS_ITS ---
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 Past Treatment and Therapy Plans Oncology Chemotherapy Treatment Plan Name Start Date Discontinue Date Treatment Medications Discontinue Reason Plan Provider Cycles Pembrolizumab 21 Day Cycles 12/14/19 20 01/20/2021 pembrolizumab (KEYTRUDA)pembr olizumab (KEYTRUDA) IVPB in 100 mL Therapy Complete Shilo Benitez DO 18 of 24 cycles started Oncology Supportive Care Plan Name Start Date Discontinue Date Treatment Medications Discontinue Reason Plan Provider IV Maintenance Therapy Plan 0 04/30/2023 No medications scheduled. Automatic discontinuation of dormant plans Marco Chong MD
--- OUTSIDE RECORDS SUMMARY | 2024-05-15 13:38 | XMS_ITS | Encounter Summary ---
Author Organization [facility] Address [address] [place] [address] Care Team Providers Care Airplane Electrical Repairer Name Role Phone Ciara Ho MD Primary Care Provider Sanjiv Alvarez MD Unavailable [phone] Marco Chong MD Unavailable Shilo Benitez DO Unavailable [phone] Jordon Murcia MD Unavailable [phone] Encounter Details Date Type Department Care Team (Late st Contact Info) Description 07/07/2020 Telephone [facility] [address] [place] [address] Elodia Malone, Social History Tobacco Use Types Packs/Day Years Used Date Smoking Tobacco: Never Smokeless Tobacco: Never Alcohol Use Standard Drinks/Week Comments Yes 5 (1 standard drink = 0.6 oz pur e alcohol) Sex and Gender Information Value Date Recorded Sex Assigned at Not on file 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 Gender Identity Not on file Sexual Orientation Not on file documented as of this encounter Plan of Treatment Not on file documented as of this encounter Visit Diagnoses Not on filedocumented in this encounter Care Teams Airplane Electrical Repairer Relationship Specialty Start Date End Date Ciara Ho MD [address] [facility] [address] [place] [address] PCP - General Family Medicine 10/27/19 Sanjiv Alvarez MD [address] [place] [address] Referring Physician Plastic Surgery 10/29/19 Marco Chong MD [address] [place] [address] Medical Oncologist/Research Development Manager Medical Oncology 03/03/20 11/03/20 Shilo Benitez DO [address] [place] [id number] Medical Oncologist/Research Development Manager Hematology and Oncology 09/16/20 Jordon Murcia MD [address] [place] [address] Jewel Bearing Turner Dermatology 11/04/20 documented as of this encounter
--- OUTSIDE RECORDS SUMMARY | 2024-05-15 13:38 | XMS_ITS | Referral Summary ---
Author Organization [facility] [place] [address] Address [address] [place] [address] Care Team Providers Care Roll Press Operator Name Role Phone Ciara Ho MD Primary Care Provider Sanjiv Alvarez MD Unavailable [phone] Shilo Benitez DO Unavailable [phone] Jordon Murcia MD Unavailable [phone] Allergies Active Allergy Reactions Criticality Noted Date [...] SARS-CoV-2 Monovalent Vaccination (12+ Yrs) PURPLE 12/23/2020,02/29/2020,02/08/2020 Social History Tobacco Use Types Packs/Day Years Used Date Smoking Tobacco: Never Smokeless Tobacco: Never Tobacco Cessation:Counseling Given: Not Answered Alcohol Use Standard Drinks/Week Comments Yes 5 (1 standard drink = 0.6 oz pur e alcohol) Sex and Gender Information Value Date Recorded Sex Assigned at Not on file Legal Sex Male 2:33 PM HEAD BUTLER Gender Identity Not on file Sexual Orientation Not on file Last Filed Vital Signs Vital Sign Reading Time Taken Comments Blood Pressure 120/82 12/27/2023 8:12 AM HEAD BUTLER Pulse 67 12/27/2023 8:12 AM HEAD BUTLER Temperature 36.9 C (98.4 F) 12/06/2023 9:04 AM CDT Respiratory Rate 16 12/06/2023 9:04 AM CDT Oxygen Saturation 97% 12/27/2023 8:12 AM HEAD BUTLER Inhaled Oxygen Concentration - - Weight 104.7 kg (230 lb 12.8 oz) 12/27/2023 8:12 AM HEAD BUTLER Height 180.3 cm (5' 11 ) 12/27/2023 8:12 AM HEAD BUTLER Body Mass Index 32.19 12/27/2023 8:12 AM HEAD BUTLER Plan of Treatment Not on file Insurance [facility] Care Teams Roll Press Operator Relationship Specialty Start Date End Date Ciara Ho MD [address] [facility] [address] [place] [address] PCP - General Family Medicine [facility]27[facility]19 [facility] [address] [place] [id number] Referring Physician Plastic Surgery 10/29/19 Shilo Benitez DO [address] [place] [id number] Medical Oncologist/Payroll Auditor Hematology and Oncology 09/16/20 Jordon Murcia MD [address] [place] [id number] Joint Creaser Dermatology 11/04/20
== END 2024-05-15 13:29 | disposition home or self-care (01) ==
PROVIDERS: PCP Family Medicine; Visit Provider Family Medicine
DX: C43.9 Malignant melanoma of skin, unspecified (principal); Q38.3 Other congenital malformations of tongue; K76.0 Fatty (change of) liver, not elsewhere classified; K42.9 Umbilical hernia without obstruction or gangrene
CPT/HCPCS: 70491; 71260; 74177; Q9967

== ENCOUNTER 2024-10-01 07:08 | Outpatient (CLI) | payer OTHER, SELFPAY ==
--- NOTE | ~2024-10-01 | PE_ITS ---
EXAMINATION: PET skull to mid thigh DATE: 10/01/2024 14:22 INDICATION: Left axillary swelling TECHNIQUE: Blood glucose level was 98 mg/dL. 9.984 mCi of 18-fluorodeoxyglucose (18-FDG) was administ ered i.v. Low dose computed tomography (CT) images were acquired from the base of the brain to the pr oximal thighs for attenuation correction and anatomic localization. Positron emission tomography (PET ) images were acquired in the same distribution beginning 43 minutes after injection. Images includin g fused PET/CT images were reconstructed in axial, coronal, and sagittal planes. Automated exposure c ontrol technique was employed. The dose-length product was 1679.50mGy-cm. COMPARISON: CT dated 05/15/2024 and 12/11 and PET/CT dated 04/13/2021 FINDINGS: Head/neck: There is symmetric increased activity in the oral cavity, palatine tonsils and ocular muscles without CT correlate, likely physiologic. No pathologically enlarged cervical lymphadenopathy or suspicious foci of increased FDG uptake in the visualized head or neck. Chest: Lungs are clear with no suspicious pulmonary nodules or other pulmonary infiltrates. No pleural effus ion. Heart size is normal. No pericardial effusion. Thoracic aorta is normal in caliber. There is str anding at the left axilla surrounding a 5.8 x 6.2 x 4.1 cm FDG avid mass likely representing a conglo meration of metastatic lymph nodes with maximal SUV of 25.1. No other pathologically enlarged or abno rmally FDG avid thoracic lymphadenopathy. Abdomen/pelvis/proximal thighs: Physiologic renal accumulation and excretion of FDG activity in the kidneys, bladder and along portio ns of ureters. Normal degree and heterogenous pattern of increased uptake throughout the liver withou t radiologic correlate or dominant FDG avid lesion. The gallbladder, pancreas, spleen and bilateral a drenal glands are normal. Mild uptake scattered throughout the bowels without radiologic correlate, a lso likely physiologic. Small fat-containing umbilical and left inguinal hernias. No other abnormal f oci of increased FDG uptake or pathologically enlarged lymphadenopathy in the abdomen, pelvis or prox imal thighs. Musculoskeletal: Chronic bone islands at the intratrochanteric left femur and left iliac wing. No suspicious lytic, bl astic or abnormally FDG avid bone lesions. IMPRESSION: 1. 5.8 x 6.2 x 4.1 cm FDG avid mass with surrounding stranding at the left axilla concerning for recu rrent metastatic disease. No other lesions concerning for malignancy/metastatic disease throughout th e remainder of the neck, chest, abdomen or pelvis. Reviewed, dictated and finalized at location A. IMPRESSION: 1. 5.8 x 6.2 x 4.1 cm FDG avid mass with surrounding stranding at the left axil la concerning for recurrent metastatic disease. No other lesions concerning for malignancy/metastatic disease throughout the remainder of the neck, chest, abd omen or pelvis.
--- OUTSIDE RECORDS SUMMARY | 2024-10-01 07:11 | XMS_ITS ---
Author Organization [facility] [place] [address] Address [address] [place] [address] Care Team Providers Care Helper Coordinator Name Role Phone Shilo Benitez DO Unavailable [phone] Jordon Murcia MD Unavailable [phone] Hugo Lara MD Primary Care Provider [phone] Active Problems Problem Noted Date Diagnosed Date [...] of 24 cycles started Oncology Supportive Care Therapy Plan Plan Name Start Date Discontinue Date Treatment Medications Discontinue Reason Plan Provider IV Maintenance Therapy Plan 0 04/30/2023 No medications scheduled. Automatic discontinuation of dormant plans Marco Chong MD
--- OUTSIDE RECORDS SUMMARY | 2024-10-01 07:11 | XMS_ITS | Clinical Summary ---
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 Gender Identity Not on file Sexual Orientation Not on file Obstetrics History Last Filed Vital Signs Vital Sign Reading Time Taken Comments Blood Pressure 122/82 06/05/2024 1:53 PM CDT Pulse 66 06/05/2024 1:53 PM CDT Temperature 36.4 C (97.5 F) 06/05/2024 1:53 PM CDT Respiratory Rate 16 06/05/2024 1:53 PM CDT Oxygen Saturation 98% 06/05/2024 1:5 3 PM CDT Inhaled Oxygen Concentration - - Weight 107.4 kg (236 lb 12.8 oz) 06/05/2024 1:53 PM CDT Height 181.6 cm (5' 11.5) 06/05/2024 1 :53 PM CDT pt refused to remove shoes Body Mass Index 32.57 06/05/2024 1:53 PM CDT Plan of Treatment Health Maintenance Due Date [...] 2023 12/23/2020, 02/29/2020, 02/08/2020 Influenza Vaccine (#1) 2024 , 01/12/2021, 11/17/2018 Insurance [facility] Care Teams Drilling Inspector Relationship Specialty Start Date End Date Hugo Lara MD [address] [place] [address] PCP - General Family Medicine 06/05/24 Shilo Benitez DO Medical Oncologist/Sustainability Analyst Hematology and Oncology 09/16/20 Jordon Murcia MD Record Clerk Dermatology 11/04/20
--- OUTSIDE RECORDS SUMMARY | 2024-10-01 07:11 | XMS_ITS | Encounter Summary ---
Author Organization [facility] Address [address] [place] [address] Care Team Providers Care Marine Mammal Trainer Name Role Phone Sanjiv Alvarez MD Unavailable [phone] Marco Chong MD Unavailable Shilo Benitez DO Unavailable [phone] Jordon Murcia MD Unavailable [phone] Hugo Lara MD Primary Care Provider + [phone] Encounter Details Date Type Department Care Team (Late st Contact Info) Description 07/07/2020 Telephone [facility] [address] [place], [place] [id number] Elodia Malone, RT Social History Tobacco Use Types Packs/Day Years Used Date Smoking Tobacco: Never Smokeless Tobacco: Never Alcohol Use Standard Drinks/Week Comments Yes 5 (1 standard drink = 0.6 oz pur e alcohol) Sex and Gender Information Value Date Recorded Sex Assigned at Not on file 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 Gender Identity Not on file Sexual Orientation Not on file documented as of this encounter Plan of Treatment Not on file documented as of this encounter Visit Diagnoses Not on filedocumented in this encounter Care Teams Marine Mammal Trainer Relationship Specialty Start Date End Date Hugo Lara MD [address] [place] [address] [place] [address] PCP - General Family Medicine 06/05/24 Sanjiv Alvarez MD [address] [place] [address] [place] [address] Referring Physician Plastic Surgery 10/29/19 06/04/24 Marco Chong MD [address] [place] [address] [place] [address] [place] [address] Medical Oncologist/Munitions Handler Medical Oncology 03/03/20 11/03/20 Shilo Benitez DO [address] [place] [address] [place] [address] Medical Oncologist/Munitions Handler Hematology and Oncology 09/16/20 Jordon Murcia MD [address] [place] [address] [place] [place] [address] Brim Buster Dermatology 11/04/20 documented as of this encounter
--- OUTSIDE RECORDS SUMMARY | 2024-10-01 07:12 | XMS_ITS | Encounter Summary ---
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 Gender Identity Not on file Sexual Orientation [...] on filedocumented in this encounter Care Teams Derivatives Trader Relationship Specialty Start Date End Date Hugo Lara MD [address] [place] [address] PCP - General Family Medicine 06/05/24 Sanjiv Alvarez MD [address] [address] [place] [address] Referring Physician Plastic Surgery 10/29/19 06/04/24 Marco Chong MD [address] [place] [address] [place] [address] Medical Oncologist/Industrial Electrician Medical Oncology 03/03/20 11/03/20 Shilo Benitez DO [address] [place] [address] [place] [address] Medical Oncologist/Industrial Electrician Hematology and Oncology 09/16/20 Jordon Murcia MD [address] [place] [address] [place] [address] Director General Dermatology 11/04/20 documented as of this encounter
[2024-10-01 08:23] LABS: Hematocrit 43.6 % (42.0-52.0); Hemoglobin 14.3 g/dL (14.0-18.0); Immature Granulocyte Percent A 0.6 % (0-0.5); Lymphocytes Absolute Auto 1.16 K/mm3 (0.9-3.2); Mean Corpuscular HGB Conc 32.8 g/dl (32-36); Mean Corpuscular Hemoglobin 27.9 pg (26-34); Mean Corpuscular Volume 85.0 fl (80-100); Nucleated Red Blood Cells Absolute Auto 0.000 K/mm3 (0.0-0.012); Nucleated Red Blood Cells Perc 0.0 % (0.0-0.2); Platelet Count Result 314 k/mm3 (150-375); Red Blood Count 5.13 M/mm3 (4.6-6.20); White Blood Count 7.3 K/mm3 (4.5-10.0)
[2024-10-01 08:46] LABS: Alanine Aminotransferase 25 U/L (6-50); Albumin Level 3.5 g/dL (3.5-5.1); Alkaline Phosphatase 69 U/L (38-126); Anion Gap 5 mmol/L (4-12); Aspartate Amino Transferase 30 U/L (17-59); Bilirubin,Total 0.4 mg/dL (0.2-1.3); Blood Urea Nitrogen 16 mg/dL (9-20); Calcium 8.6 mg/dL (8.4-10.2); Carbon Dioxide 29 mmol/L (22-30); Chloride 106 mmol/L (98-107); Estimated Glomerular Filt Rate > 60; Glucose 150 mg/dL (65-110); Potassium 4.0 mmol/L (3.4-5.0); Sodium 140 mmol/L (137-145); Total Protein 6.8 g/dL (6.3-8.2)
== END 2024-10-01 07:09 | disposition home or self-care (01) ==
LOC: ANHIMG 07:09
PROVIDERS: PCP Family Medicine; Visit Provider Family Medicine
DX: C43.59 Malignant melanoma of other part of trunk (principal); C43.9 Malignant melanoma of skin, unspecified
CPT/HCPCS: 36415; 78815; 80053; 83615; 85025; A9552

== ENCOUNTER 2024-10-07 07:09 | Outpatient (CLI) | payer OTHER, SELFPAY ==
[2024-10-07 08:20] LABS: INR 1.0; Prothrombin Time 13.8 Seconds (11.1-14.7)
[2024-10-07 08:23] LABS: Partial Thromboplastin Time 29.2 Seconds (22.3-36.8)
== END 2024-10-07 07:10 | disposition home or self-care (01) ==
LOC: ANHLAB 07:10
PROVIDERS: PCP Family Medicine; Visit Provider Family Medicine
DX: C43.59 Malignant melanoma of other part of trunk (principal)
CPT/HCPCS: 36415; 85610; 85730

== ENCOUNTER 2024-11-19 09:36 | Outpatient (CLI) | payer OTHER, SELFPAY ==
--- OUTSIDE RECORDS SUMMARY | 2024-11-19 10:08 | XMS_ITS | Encounter Summary ---
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 Gender Identity Not on file Sexual Orientation [...] on filedocumented in this encounter Care Teams Fisheries Diver Relationship Specialty Start Date End Date Hugo Lara MD [address] [place] [address] PCP - General Family Medicine 06/05/24 Sanjiv Alvarez MD [address] [address] [place] [address] Referring Physician Plastic Surgery 10/29/19 06/04/24 Marco Chong MD [address] [place] [address] [place] [place] [address] Medical Oncologist/Electrical Accessories Ii Assembler Medical Oncology 03/03/20 11/03/20 Shilo Benitez DO [address] [place] [address] [place] [address] Medical Oncologist/Electrical Accessories Ii Assembler Hematology and Oncology 09/16/20 Jordon Murcia MD [address] [place] [address] [place] [address] Rn Complex Care Dermatology 11/04/20 documented as of this encounter
--- OUTSIDE RECORDS SUMMARY | 2024-11-19 10:08 | XMS_ITS | Encounter Summary ---
Author Organization [facility] Address [address] [place] [address] Care Team Providers Care Hvac Mechanic Name Role Phone Sanjiv Alvarez MD Unavailable [phone] Marco Chong MD Unavailable Shilo Benitez DO Unavailable [phone] Jordon Murcia MD Unavailable [phone] Hugo Lara MD Primary Care Provider + [phone] Encounter Details Date Type Department Care Team (Late st Contact Info) Description 07/07/[address] 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 Gender Identity Not on file Sexual Orientation Not on file documented as of this encounter Plan of Treatment Not on file documented as of this encounter Visit Diagnoses Not on filedocumented in this encounter Care Teams Hvac Mechanic Relationship Specialty Start Date End Date Hugo Lara MD [address] [place] [address] [place] [address] PCP - General Family Medicine 06/05/24 Sanjiv Alvarez MD [address] [place] [address] [place] [place] [address] Referring Physician Plastic Surgery 10/29/19 06/04/24 Marco Chong MD [address] [place] [address] [place] [address] [place] [address] Medical Oncologist/Top Icer Medical Oncology 03/03/20 11/03/20 Shilo Benitez DO [address] [place] [address] [place] [address] [place] [address] Medical Oncologist/Top Icer Hematology and Oncology 09/16/20 Jordon Murcia MD [address] [place] [address] [place] [place] [address] Lacquer Sizer Dermatology 11/04/20 documented as of this encounter
--- OUTSIDE RECORDS SUMMARY | 2024-11-19 10:08 | XMS_ITS | Encounter Summary ---
Author Organization [facility] Address [address] [place] [address] Phone Care Team Providers Care Dumper Mold Cleaner Name Role Phone Shilo Benitez DO Unavailable [phone] Jordon Murcia MD Unavailable [phone] Hugo Lara MD Primary Care Provider [phone] Encounter Details Date Type Department Care Team (Late st Contact Info) Description 10/23/2024 Results Follow-Up [facility] Medicine Physicians 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
--- OUTSIDE RECORDS SUMMARY | 2024-11-19 10:08 | XMS_ITS ---
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 Staging:Clinical stage from 11/13/2019:Stage III(cT2b, cN1a, cM0) - Signed by Shilo Benitez DO on 09/23/2020 Essential hypertension 02/02/2019 GERD without esophagitis 02/02/2019 Current Treatment and Therapy Plans Nivolumab 1 mg/kg / Ipilimumab 3 mg/kg 21 Day Cycles* Plan Start Date:10/23/2024 Plan Provider:Shilo Benitez DO Linked Problems Melanoma of back (HCC) Treatment Medications Current Day (Day 1 , Cycle 2 - Planned for 11/13/2024) Next Day (Day 1, Cycle 3 - Planned for 12/04/2024) ipilimumab (YERVOY)ipilimumab (YERVOY) IVPB in 250 mLnivolumab (OPDIVO)nivolumab (OPDIVO) in 50 mL IVPB ipilimumab (YERVOY) 305 mg in sodium chloride 0.9% 250 mL IVPBnivolumab (OPDIVO) 100 mg in sodium chloride 0.9% 50 mL IVPB ipilimumab (YERVOY) 305 mg in sodium chloride 0.9% 250 mL IVPBnivolumab (OPDIVO) 100 mg in sodium chloride 0.9% 50 mL IVPB Other Current Plans IV Maintenance Therapy Plan* Plan Start Date:10/23/2024 Plan Provider:Shilo Benitez DO Linked Problems Encounter for adjustment and management of unspecified implanted device Treatment Medications No medications scheduled. Past Treatment and Therapy Plans Oncology Chemotherapy [...] discontinuation of dormant plans Marco Chong MD Lifetime Dose Tracking * Chemical Lifetime Dose Automatic Entry Manual Entr y DLP 430 mGycm 430 mGycm 0 mGycm
--- OUTSIDE RECORDS SUMMARY | 2024-11-19 10:08 | XMS_ITS | Encounter Summary ---
Author Organization [facility] Address [address] [place] [address] Phone Care Team Providers Care Apartment Leasing Consultant Name Role Phone Shilo Benitez DO Unavailable [phone] Jordon Murcia MD Unavailable [phone] Hugo Lara MD Primary Care Provider [phone] Encounter Details Date Type Department Care Team (Late st Contact Info) Description 10/26/2024 Results Follow-Up [facility] Medicine Physicians [facility] Oncology [address] [place] [phone] Radha Hallman, AMY Tempus xT DNA and RNA - Tumor Only Social History Tobacco Use Types Packs/Day Years Used Date Smoking Tobacco: Never Smokeless Tobacco: Never Alcohol Use Standard Drinks/Week Comments Yes 5 (1 standard drink = 0.6 oz pur e alcohol) Sex and Gender Information Value Date Recorded Sex Assigned at Not on file 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
--- OUTSIDE RECORDS SUMMARY | 2024-11-19 10:08 | XMS_ITS | Encounter Summary ---
Author Organization [facility] Address [address] [place] [address] Phone Care Team Providers Care Legal Officer Name Role Phone Shilo Benitez DO Unavailable [phone] Jordon Murcia MD Unavailable [phone] Hugo Lara MD Primary Care Provider [phone] Encounter Details Date Type Department Care Team (Late st Contact Info) Description 10/22/2024 Telephone [facility] Medicine Surgery [address] [facility] [address] [place] [address] Shilo Pace Jr., MD [address] [facility] [phone] [place] [address] Social History Tobacco Use Types Packs/Day Years Used Date Smoking Tobacco: Never Smokeless Tobacco: Never Alcohol Use Standard Drinks/Week Comments Yes 5 (1 standard drink = 0.6 oz pur e alcohol) Sex and Gender Information Value Date Recorded Sex Assigned at Not on file Legal Sex Male 2:[address] Gender Identity Not on file Sexual Orientation Not on file documented as of this encounter Miscellaneous Notes * Telephone Encounter - Eze Jara - 10/22/2024 9:06 AM CDT Patient Query: Was an attempt to transfer to the assigned clinical staff or backline? No Reason for call?: Pt was hoping to be seen sooner as he is starting immunotherapy next week and was advised by referring provider that he should get a marker in the tumor as it may shrink from therapy. Is it possible/necessary to get him in any sooner than 11/27? Who is the caller: Matt Bean What is the best number for them to contact for a call back: [phone] Last office visit: 10/15/2024 Date of Surgery: 11/13/2019 documented in this encounter Plan of Treatment Not on file documented as of this encounter Visit Diagnoses Not on filedocumented in this encounter Care Teams Legal Officer Relationship Specialty Start Date End Date Hugo Lara MD [address] [place] [address] PCP - General Family Medicine 06/05/24 Shilo Benitez DO Medical Oncologist/Teacher Education Director Hematology and Oncology 09/16/20 Jordon Murica MD Bandmill Operator Dermatology 11/04/20 documented as of this encounter
--- OUTSIDE RECORDS SUMMARY | 2024-11-19 10:08 | XMS_ITS | Clinical Summary ---
Author Organization [facility] [address] Address [address] [place] [address] Care Team Providers Care Program Review Director Name Role Phone Shilo Benitez DO Unavailable [phone] Jordon Murcia MD Unavailable [phone] Hugo Lara MD Primary Care Provider [phone] Allergies Active Allergy Reactions Criticality Noted Date Comments Ipilimumab Other (See comments),Fever,Chills Medium Rigors Minocycline Rash Medium 02/02/2019 Medications olmesartan (BENICAR) 40 mg tabletIndication s:hypertension Take 1 tablet (40 mg total) by mouth daily before breakfast [address] (PROTONIX) 40 mg EC tabletIndication s:Treatment of Non-Bleeding Gastric Disorder Take 1 tablet (40 mg total) by mouth daily before breakfast 3 9 Active buPROPion XL (WELLBUTRIN XL) 150 mg 24 hr tabletIndication s:Anxiety with Depression Take 1 tablet (150 mg total) by mouth every morning 3 9 Active nebivolol (BYSTOLIC) 10 mg tabletIndication s:Essential hypertension Take 1 tablet (10 mg total) by mouth daily 30 tablet 11 9 Active amLODIPine (NORVASC) 5 mg tabletIndication s:Essential hypertension Take 1 tablet (5 mg total) by mouth daily 30 tablet 11 0 Active tadalafiL (CIALIS) 5 mg tablet Take 1 tablet (5 mg total) by mouth daily 3 Active ondansetron (ZOFRAN) 4 mg tablet Take 1 tablet (4 mg total) by mouth every 6 (six) hours as needed for nausea or vomiting 30 tablet 2 5 Active oxyCODONE (ROXICODONE) 5 mg immediate release tablet Take 1 tablet (5 mg total) by mouth every 4 (four) hours as needed for pain 5 Active morphine ER (MS CONTIN) 15 mg 12 hr tablet Take 1 tablet (15 mg total) by mouth every 12 (twelve) hours 5 Active amoxicillin-clav ulanate (AUGMENTIN) 875-125 mg per tablet Take 1 tablet (875 mg of amoxicillin total) by mouth 2 (two) times a day for 10 days 20 tablet 5 11/24/19 25 Active Active Problems Problem Noted Date Diagnosed Date Encounter for adjustment and management of unspecified implanted device 10/21/2024 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 Staging:Clinical stage from 11/13/2019:Stage III(cT2b, cN1a, cM0) - Signed by Shilo Benitez DO on 09/23/2020 Essential hypertension 02/02/2019 GERD without esophagitis 02/02/2019 Encounters Date Type Department Care Team Description 11/17/2024 Orders Only [facility] Medicine Surgery [address] [place] [phone] Shilo Pace Jr., MD Melanoma of back (HCC) (Primary Dx) 11/13/2024 8:30 AM CDT Infusion [address] [phone] Encounter for adjustment and management of unspecified implanted device (Primary Dx); Melanoma of back (HCC) 11/13/2024 8:00 AM CDT Office Visit [facility] [address] [place] [phone] Shilo Benitez DO Melanoma of back (HCC) (Primary Dx) 11/13/2024 7:30 AM CDT Lab [address] [place] [address] Melanoma of back (HCC) 10/26/2024 Results Follow-Up [facility] [address] [place] [phone] Radha Hallman, RN Tempus xT DNA and RNA - Tumor Only 10/23/2024 11:00 AM CDT Infusion [address] [phone] Melanoma of back (HCC) (Primary Dx); Encounter for adjustment and management of unspecified implanted device 10/23/2024 10:30 AM CDT Lab [address] [address] Melanoma of back (HCC) 10/23/2024 Results Follow-Up [facility] [address] [place] [phone] Radha Hallman, AMY Comprehensive metabolic panel, CBC with auto differential, Differential, auto, eGFR 10/23/2024 Orders Only [facility] [address] [place] [phone] Shilo Benitez, 10/22/2024 Orders Only [facility] [address] [place] [phone] Shilo Benitez, 10/22/2024 Telephone [facility] Surgery [address] [place] [phone] Shilo Pace Jr., MD 10/21/2024 8:30 AM CDT Office Visit [facility] [address] [place] [phone] Shilo Benitez, Melanoma of back (HCC) (Primary Dx); 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) 10/20/2024 Telephone [facility] [address] [place] [address] Vianca Ardon 10/20/2024 Orders Only [facility] [address] [place] [phone] Candida Guardado RN 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) (Primary Dx) 10/20/2024 Orders Only [facility] Medicine Surgery [address] [place] [address] [address] [place] [phone] Shilo Pace Jr., MD Malignant melanoma of trunk (Primary Dx) 10/16/2024 9:34 AM CDT - 10/16/2024 11:59 PM CDT Hospital Encounter [facility] [address] [place] [phone] Shilo Pace Jr., MD 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); Melanoma of back (HCC) Discharge Disposition: Discharge to home or self care 10/15/2024 Telephone [facility] Surgery [address] [place] [address] [address] [place] [phone] Shilo Pace Jr., MD Establish Care 10/14/2024 Results Follow-Up [facility] [address] [place] [phone] Radha Hallman RN Surgical pathology 10/14/2024 Orders Only [facility] [address] [place] [phone] Shilo Benitez DO Melanoma of back (HCC) (Primary Dx) 10/09/2024 7:40 AM CDT - 10/09/2024 11:59 PM CDT Hospital Encounter [facility] [address] [place] [address] Melanoma of back (HCC); 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) Discharge Disposition: Discharge to home or self care 10/07/2024 Orders Only [facility] [address] [place] [address] [address] [place] [phone] Candida Guardado RN Melanoma of back (HCC) (Primary Dx); 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) 10/05/2024 Orders Only [facility] [address] [place] [address] [address] [place] [phone] Candida Guardado RN Melanoma of back (HCC) (Primary Dx); 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) 10/05/2024 Orders Only [facility] [address] [place] [address] [address] [place] [phone] ProviderBetito MD 10/02/2024 Documentation [facility] [address] [place] [address] [address] [place] [phone] Shilo Benitez DO 10/01/2024 12:35 PM CDT - 10/01/2024 11:59 PM CDT Hospital Encounter [facility] [employer] [address] [place] [address] Discharge Disposition: Discharge to home or self care from Last 3 Months Immunizations Immunization Administration Dates Next Due Influenza, Trivalent, IM (MDV) 11/17/2018 Influenza, Unspecified 12/07/2022,01/12/2021 Pfizer SARS-CoV-2 Monovalent Vaccination (12+ Yrs) PURPLE 12/23/2020,02/29/2020,02/08/2020 Surgical History Surgery Date Site/Laterality Comments TONSILLECTOMY VASECTOMY US GUIDED BIOPSY LYMPH NODE SUPERFICIAL LEFT 10/09/2024 N/A Medical History Medical History Date Comments Hypertension [...] file Legal Sex Male 2:33 PM [employer] Gender Identity Not on file Sexual Orientation Not on file Obstetrics History Last Filed Vital Signs Vital Sign Reading Time Taken Comments Blood Pressure 113/80 11/13/2024 1:08 PM CDT Pulse 92 11/13/2024 1:08 PM CDT Temperature 38 C (100.4 F) 11/13/2024 1:08 PM CDT Respiratory Rate 18 11/13/2024 1:08 PM CDT Oxygen Saturation 97% 11/13/2024 1:08 PM CDT Inhaled Oxygen Concentration - - Weight 99.8 kg (220 lb 0.3 oz) 11/13/2024 8:57 A M CDT W/SHOES Height 178.2 cm (5' 10.16) 10/23/2024 10:24 AM CDT Body Mass Index 31.43 10/23/2024 10:24 AM CDT Plan of Treatment Health Maintenance Due Date Last Done Comments Colon Cancer Screening-Colonoscopy 1970 Depression Screening 1970 Hepatitis C Screening 1970 Prostate Cancer Screening-PSA 1970 DTaP/Tdap/Td Vaccine (1 - Tdap) 1981 Hepatitis B Screening 1988 Regular Well Visit/Exam 18-64 1988 Pneumococcal vaccine <65 (1 of 2 - PCV) 1989 Zoster Vaccine (1 of 2) 1989 Covid-19 Vaccine (4 - season) 2024 12/23/2020, 02/29/2020, 02/08/2020 Influenza Vaccine (#1) 2024 , 01/12/2021, 11/17/2018 Procedures Procedure Name Priority Date/Time Associated Diagnosis Comments EGFR STAT 11/13/2024 7:38 AM CDT Melanoma of back (HCC) DIFFERENTIAL AUTO Routine 11/13/2024 7:3 8 AM CDT Melanoma of back (HCC) CBC WITH AUTO DIFFERENTIAL Routine 11/13/2024 7:38 AM CDT Melanoma of back (HCC) COMPREHENSIVE METABOLIC PANEL STAT 11/13/2024 7:38 AM CDT Melanoma of back (HCC) EGFR STAT 10/23/2024 10:22 AM CDT Melanoma of back (HCC) DIFFERENTIAL AUTO Routine 10/23/2024 10: 22 AM CDT Melanoma of back (HCC) THYROID FUNCTION CASCADE Routine 10/23/2024 10:22 AM CDT Melanoma of back (HCC) CBC WITH AUTO DIFFERENTIAL Routine 10/23/2024 10:22 AM CDT Melanoma of back (HCC) COMPREHENSIVE METABOLIC PANEL STAT 10/23/2024 10:22 AM CDT Melanoma of back (HCC) CT CHEST W CONTRAST Schedule Routine, Read Routine (OP Routine) 10/16/2024 10:45 AM CDT 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) Melanoma of back (HCC) TEMPUS XT DNA AND RNA SOLID TUMOR Routine 10/14/2024 2:15 PM CDT Melanoma of back (HCC) US GUIDED BIOPSY LYMPH NODE SUPERFICIAL LEFT Schedule Routine, Read Routine (OP Routine) 10/09/2024 8:49 AM CDT Melanoma of back (HCC) 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 73 m2 Comment: Interpretive Data Reference Interval Normal >/= 90 mL/min/1.73m2 Mildly decreased* 60 - 89 mL/min/1.73m2 Mildly to moderately decreased 45 - 59 mL/min/1.73m2 Moderately to severely decreased 30 - 44 mL/min/1.73m2 Severely decreased 15 - 29 mL/min/1.73m2 Kidney Failure < 15 mL/min/1.73m2 *Relative to young adult level Estimated glomerular filtration rate is determined by the 2020 CKD-EPI equation recommended by the National Kidney Foundation (A Unifying Approach to GFR Estimation: Recommendations of the NKF-ASK Task Force on Reassessing the Inclusion of Race in Diagnosing Kidney Disease, JASN 2020). The CKD-EPI equation should not be used for patients with unstable renal function and has not been validated in children and those over 70. Current interpretive data was last reviewed 2020. Testing performed by: [address] [address] Blood 11/13/2024 7:38 AM CDT 11/13/2024 7:41 AM CDT us Shilo Benitez DO LAB BLOOD ORDERABLES Final R esult [facility] [address] [facility] Department [place] [address] * (ABNORMAL) Differential, auto (11/13/2024 7:38 AM CDT) Neutrophil abs 16.89(H) 1.50 - 6.50 K/cumm Comment:Testing performed by : [address] [address] Imm gran abs 0.11(H) 0.00 - 0.10 K/cumm [facility] Comment:Testing performed by : [address] [address] Lymphocyte abs 1.44 0.80 - 3.30 K/cumm [facility] Comment:Testing performed by : [address] [address] Monocyte abs 1.76(H) 0.20 - 0.80 K/cumm [facility] Comment:Testing performed by : [address], [place]., [address] Eosinophil abs 0.07 0.00 - 0.50 K/cumm [facility] Comment:Testing performed by : [address], [place]., [address] Basophil abs 0.03 0.00 - 0.10 K/cumm [facility] Comment:Testing performed by : [address] [address] Neutrophil pct 83.3 % [facility] Comment: Interpretive Data Percent cell count reference ranges are not reported, since discordance with absolute values may lead to misinterpretation of CBC data. Current Interpretive Data was last revised on 2017. Testing performed by: [address] [address] Imm gran pct 0.5 % [facility] Comment: Interpretive Data Percent cell count reference ranges are not reported, since discordance with absolute values may lead to misinterpretation of CBC data. Current Interpretive Data was last revised on 2017. Testing performed by: [address] [address] Lymphocyte pct 7.1 % [facility] Comment: Interpretive Data Percent cell count reference ranges are not reported, since discordance with absolute values may lead to misinterpretation of CBC data. Current Interpretive Data was last revised on 2017. Testing performed by: [address] [address] Monocyte pct 8.7 % [facility] Comment: Interpretive Data Percent cell count reference ranges are not reported, since discordance with absolute values may lead to misinterpretation of CBC data. Current Interpretive Data was last revised on 2017. Testing performed by: [address] [address] Eosinophil pct 0.3 % [facility] Comment: Interpretive Data Percent cell count reference ranges are not reported, since discordance with absolute values may lead to misinterpretation of CBC data. Current Interpretive Data was last revised on 2017. Testing performed by: [address] [address] Basophil pct 0.1 % [facility] Comment: Interpretive Data Percent cell count reference ranges are not reported, since discordance with absolute values may lead to misinterpretation of CBC data. Current Interpretive Data was last revised on 2017. Testing performed by: [address] [address] Blood 11/13/2024 7:38 AM CDT 11/13/2024 7:41 AM CDT Shilo Benitez DO LAB BLOOD ORDERABLES Final R esult [facility] [address] [facility] Department [place] [address] * (ABNORMAL) CBC with auto differential (11/13/2024 7:38 AM CDT) WBC 20.30(H) 3.80 - 9.90 K/cumm Comment:Testing performed by : [address] [address] Hgb 13.9 13.0 - 17.5 g/dL [facility] Comment:Testing performed by : [address] [address] Hct 40.6 38.9 - 50.3 % [facility] Comment:Testing performed by : [address] [address] Plt 292 150 - 400 K/cumm [facility] Comment:Testing performed by : [address] [address] MPV 9.7 9.1 - 12.3 fL [facility] Comment:Testing performed by : [address] [address] RBC 5.24 4.30 - 5.80 M/cumm [facility] Comment:Testing performed by : [address] [address] MCV 77.5(L) 81.3 - 96.4 fL [facility] Comment:Testing performed by : [address] [address] MCH 26.5(L) 27.1 - 33.3 pg [facility] Comment:Testing performed by : [address] [address] MCHC 34.2 32.3 - 35.7 g/dL [facility] Comment:Testing performed by : [address] [address] RDW CV 15.4(H) 11.1 - 14.9 % [facility] Comment:Testing performed by : [address] [address] RDW SD 41.3 35.7 - 48.1 fL [facility] Comment:Testing performed by : [address] [address] NRBC abs 0.00 0.00 - 0.01 K/cumm [facility] Comment:Testing performed by : [address] [address] ANC Prelim 16.89(H) 1.50 - 6.50 K/cumm [facility] Comment: Interpretive Data The rapid ANC is a preliminary automated count and may vary from the final ANC (Neut Abs) reported in the WBC differential that follows. Current interpretive data was last revised 2024. Testing performed by: [address] [address] Blood 11/13/2024 7:38 AM CDT 11/13/2024 7:41 AM CDT us Shilo Benitez DO LAB BLOOD ORDERABLES Final R esult [facility] [address] [facility] Department [place] [address] * (ABNORMAL) Comprehensive metabolic panel (11/13/2024 7:38 AM CDT) Sodium 138 135 - 145 mmol/L Comment:Testing performed by : [address] [address] Potassium, pl 3.3 3.3 - 4.9 mmol/L [facility] Comment:Testing performed by : [address] [address] Chloride 106 97 - 110 mmol/L [facility] Comment:Testing performed by : [address] [address] CO2 20(L) 22 - 32 mmol/L [facility] Comment:Testing performed by : [address] [address] Anion gap 12 2 - 15 mmol/L [facility] Comment:Testing performed by : [address] [address] BUN 21 6 - 25 mg/dL [facility] Comment:Testing performed by : [address] [address] Creatinine 1.80(H) 0.80 - 1.30 mg/dL [facility] Comment:Testing performed by : [address] [address] Glucose 154 70 - 199 mg/dL [facility] Comment: Interpretive Data Fasting glucose >/= 126 mg/dl is diagnostic for diabetes. Fasting is defined as no caloric intake for at least 8 hours. Fasting glucose between 100 mg/dl to 125 mg/dl is diagnostic of prediabetes. In a patient with classic symptoms of hyperglycemia or hyperglycemic crisis, a random glucose >/= 200 mg/dl is diagnostic for diabetes. In the absence of unequivocal hyperglycemia, results should be confirmed by repeat testing. The classification and Diagnosis of Diabetes Diabetes Care 202; 46: S19-S40. Current interpretive data was last revised 2022. Testing performed by: [address] [address] Calcium 8.0(L) 8.5 - 10.3 mg/dL [facility] Comment:Testing performed by : [address] [address] Bilirubin, total 0.5 0.1 - 1.2 mg/dL [facility] Comment:Testing performed by : [address] [address] Protein, pl 6.5 6.5 - 8.5 g/dL [facility] Comment:Testing performed by : [address] [address] Albumin 2.6(L) 3.5 - 5.0 g/dL [facility] Comment:Testing performed by : [address] [address] Alk phos 101 40 - 130 Units/L [facility] Comment:Testing performed by : [address], [address] ALT 25 7 - 55 Units/L [facility] Comment:Testing performed by : [address], [address] AST 22 10 - 50 Units/L [facility] Comment:Testing performed by : [address] [address] Blood 11/13/2024 7:38 AM CDT 11/13/2024 7:41 AM CDT Shilo Benitez DO LAB BLOOD ORDERABLES Final R esult [facility] [address] [facility] Department of Laboratories [place], [place] [id number] * eGFR (10/23/2024 10:22 AM CDT) eGFR 60 >=60 mL/min/1. 73 m2 Comment: Interpretive Data Reference Interval Normal >/= 90 mL/min/1.73m2 Mildly decreased* 60 - 89 mL/min/1.73m2 Mildly to moderately decreased 45 - 59 mL/min/1.73m2 Moderately to severely decreased 30 - 44 mL/min/1.73m2 Severely decreased 15 - 29 mL/min/1.73m2 Kidney Failure < 15 mL/min/1.73m2 *Relative to young adult level Estimated glomerular filtration rate is determined by the 2020 CKD-EPI equation recommended by the National Kidney Foundation (A Unifying Approach to GFR Estimation: Recommendations of the NKF-ASK Task Force on Reassessing the Inclusion of Race in Diagnosing Kidney Disease, JASN 2020). The CKD-EPI equation should not be used for patients with unstable renal function and has not been validated in children and those over 70. Current interpretive data was last reviewed 2020. Testing performed by: [address] [address] Blood 10/23/2024 10:2 2 AM CDT 10/23/2024 10:24 AM CDT Shilo Benitez DO LAB BLOOD ORDERABLES Final R esult [facility] [facility] Department [place] [address] * (ABNORMAL) Differential, auto (10/23/2024 10:22 AM CDT) Neutrophil abs 8.61(H) 1.50 - 6.50 K/cumm Comment:Testing performed by : [address] [address] Imm gran abs 0.05 0.00 - 0.10 K/cumm [facility] Comment:Testing performed by : [address] [address] Lymphocyte abs 1.23 0.80 - 3.30 K/cumm [facility] Comment:Testing performed by : [address] [address] Monocyte abs 1.18(H) 0.20 - 0.80 K/cumm [facility] Comment:Testing performed by : [address] [address] Eosinophil abs 0.18 0.00 - 0.50 K/cumm [facility] Comment:Testing performed by : [address] [address] Basophil abs 0.07 0.00 - 0.10 K/cumm [facility] Comment:Testing performed by : [address] [address] Neutrophil pct 76.1 % [facility] Comment: Interpretive Data Percent cell count reference ranges are not reported, since discordance with absolute values may lead to misinterpretation of CBC data. Current Interpretive Data was last revised on 2017. Testing performed by: [address] [address] Imm gran pct 0.4 % [facility] Comment: Interpretive Data Percent cell count reference ranges are not reported, since discordance with absolute values may lead to misinterpretation of CBC data. Current Interpretive Data was last revised on 2017. Testing performed by: [address] [address] Lymphocyte pct 10.9 % [facility] Comment: Interpretive Data Percent cell count reference ranges are not reported, since discordance with absolute values may lead to misinterpretation of CBC data. Current Interpretive Data was last revised on 2017. Testing performed by: [address] [address] Monocyte pct 10.4 % [facility] Comment: Interpretive Data Percent cell count reference ranges are not reported, since discordance with absolute values may lead to misinterpretation of CBC data. Current Interpretive Data was last revised on 2017. Testing performed by: [address] [address] Eosinophil pct 1.6 % [facility] Comment: Interpretive Data Percent cell count reference ranges are not reported, since discordance with absolute values may lead to misinterpretation of CBC data. Current Interpretive Data was last revised on 2017. Testing performed by: [address] [address] Basophil pct 0.6 % [facility] Comment: Interpretive Data Percent cell count reference ranges are not reported, since discordance with absolute values may lead to misinterpretation of CBC data. Current Interpretive Data was last revised on 2017. Testing performed by: [address] [address] Blood 10/23/2024 10:2 2 AM CDT 10/23/2024 10:24 AM CDT Shilo Spence Eli DO LAB BLOOD ORDERABLES Final R esult Performing Organization Address City/[facility] Co de Phone Number [facility] [place] [address] * Thyroid Function [place] (10/23/2024 10:22 AM CDT) TSH 1.67 0.30 - 4.20 mcIUnit/mL Comment:Testing performed by : [address] [address] Blood 10/23/2024 10:2 2 AM CDT 10/23/2024 11:45 AM CDT Shilo WagnerPedro Benitez DO LAB BLOOD ORDERABLES Final R esult Performing Organization Address [facility] de Phone Number [facility] [address] [place] [address] * (ABNORMAL) CBC with auto differential (10/23/2024 10:22 AM CDT) WBC 11.32(H) 3.80 - 9.90 K/cumm Comment:Testing performed by : [address] [address] Hgb 15.0 13.0 - 17.5 g/dL [facility] Comment:Testing performed by : [address] [address] Hct 43.8 38.9 - 50.3 % [facility] Comment:Testing performed by : [address] [address] Plt 269 150 - 400 K/cumm [facility] Comment:Testing performed by : [address] [address] MPV 9.7 9.1 - 12.3 fL [facility] Comment:Testing performed by : [address] [address] RBC 5.48 4.30 - 5.80 M/cumm [facility] Comment:Testing performed by : [address] [address] MCV 79.9(L) 81.3 - 96.4 fL [facility] Comment:Testing performed by : [address] [address] MCH 27.4 27.1 - 33.3 pg [facility] Comment:Testing performed by : [address] [address] MCHC 34.2 32.3 - 35.7 g/dL [facility] Comment:Testing performed by : [address] [address] RDW CV 13.5 11.1 - 14.9 % [facility] Comment:Testing performed by : [address] [address] RDW SD 38.8 35.7 - 48.1 fL [facility] Comment:Testing performed by : [address] [address] NRBC abs 0.00 0.00 - 0.01 K/cumm FRANSICO Comment:Testing performed by : [address] [address] ANC Prelim 8.61(H) 1.50 - 6.50 K/cumm [place] Comment: Interpretive Data The rapid ANC is a preliminary automated count and may vary from the final ANC (Neut Abs) reported in the WBC differential that follows. Current interpretive data was last revised 2024. Testing performed by: [address] [address] Blood 10/23/2024 10:2 2 AM CDT 10/23/2024 10:24 AM CDT us Shilo Benitez DO LAB BLOOD ORDERABLES Final R esult [facility] [address] [facility] Department [place] [address] * (ABNORMAL) Comprehensive metabolic panel (10/23/2024 10:22 AM CDT) Sodium 141 135 - 145 mmol/L Comment:Testing performed by : [address], [place]., [address] Potassium, pl 4.2 3.3 - 4.9 mmol/L [place] Comment:Testing performed by : [address], [place]., [address] Chloride 110 97 - 110 mmol/L [place] Comment:Testing performed by : [address], [place]., [address] CO2 22 22 - 32 mmol/L [place] Comment:Testing performed by : [address], [place]., [address] Anion gap 9 2 - 15 mmol/L [place] Comment:Testing performed by : [address], [place]., [address] BUN 20 6 - 25 mg/dL [place] Comment:Testing performed by : [address], [place]., [address] Creatinine 1.40(H) 0.80 - 1.30 mg/dL [place] Comment:Testing performed by : [address], [place]., [address] Glucose 145 70 - 199 mg/dL [facility] Comment: Interpretive Data Fasting glucose >/= 126 mg/dl is diagnostic for diabetes. Fasting is defined as no caloric intake for at least 8 hours. Fasting glucose between 100 mg/dl to 125 mg/dl is diagnostic of prediabetes. In a patient with classic symptoms of hyperglycemia or hyperglycemic crisis, a random glucose >/= 200 mg/dl is diagnostic for diabetes. In the absence of unequivocal hyperglycemia, results should be confirmed by repeat testing. The classification and Diagnosis of Diabetes Diabetes Care 202; 46: S19-S40. Current interpretive data was last revised 2022. Testing performed by: [address] [address] Calcium 8.8 8.5 - 10.3 mg/dL [place] Comment:Testing performed by : [address], [place]., [address] Bilirubin, total 0.4 0.1 - 1.2 mg/dL [place] Comment:Testing performed by : [address] [address] Protein, pl 6.9 6.5 - 8.5 g/dL [place] Comment:Testing performed by : [address] [address] Albumin 3.6 3.5 - 5.0 g/dL FRANSICO SIMMONS Comment:Testing performed by : [address] [address] Alk phos 107 40 - 130 Units/L [place] Comment:Testing performed by : [address] [address] ALT 79(H) 7 - 55 Units/L [place] Comment:Testing performed by : [address] [address] AST 27 10 - 50 Units/L [place] Comment:Testing performed by : [address] [address] Blood 10/23/2024 10:2 2 AM CDT 10/23/2024 10:24 AM CDT us Shilo Benitez DO LAB BLOOD ORDERABLES Final R esult [place] SIMMONS [address] [facility] Department of Laboratories [place], [place] [id number] * CT Chest W Contrast (10/16/2024 10:45 AM CDT) Anatomical Region Laterality Modality Body N/A Computed Tomogra phy 10/16/2024 11:0 4 AM CDT Impressions 10/16/2024 11:05 AM CDT Enlarging infiltrative multilobulated left axillary mass representing patient's biopsy-proven metastatic melanoma, with vascular involvement as detailed above. Dictated by: Adria Cunningham MD PHD The radiology attending physician has personally reviewed this study, and had reviewed and/or edited this written report and agrees with it. Electronically signed by: George Sutton M.D. Narrative 10/16/2024 11:05 AM CDT EXAMINATION: CT CHEST W CONTRAST HISTORY: 53-year-old with metastatic melanoma involving the left axilla. TECHNIQUE: Transaxial computed tomographic images of the chest were obtained with intravenous contrast according to the standard protocol after the uneventful administration of 95 mL Opti-Ray 350 intravenous contrast. COMPARISON: PET/CT dated 10/01/2024. FINDINGS: There is a infiltrative multilobulated left axillary mass which appears to be increased in extent compared to the prior PET/CT dated 10/01/2024. The inferior portion of this mass measures 5.9 x 5.8 cm (TP 229.5). The superior portion of this mass which involves multiple vascular structures measures 8.2 x 4.2 cm (TP 195.5). There is encasement of the left axillary artery (series 5, image 28/144). The lateral thoracic artery is also encased (TP 185.5). The thoracodorsal artery is abutted by this mass (TP 197.5). The left axillary vein is likely encased at the anterior aspect of this mass (TP 189.5) and poorly opacified. No supraclavicular, axillary, or mediastinal lymphadenopathy. The heart size is normal without pericardial effusion. The great vessels are normal in course and caliber. Central airways are clear. No pleural effusion, pulmonary edema, pulmonary consolidation, or pneumothorax. Unchanged 4 mm right middle lobe pulmonary nodule likely represents a lydia-fissural lymph node (TP 313.5). Esophagus is nondistended. Small hiatal hernia. Within the partially imaged superior abdomen, a hypoattenuating hepatic lesion likely represents a simple hepatic cyst. The gallbladder and pancreas are normal. No intra or extrahepatic biliary ductal dilatation. The spleen is unremarkable, with splaying is noted at the anterior margin. Adrenal glands are normal. The imaged portion of the kidneys enhance symmetrically, without hydronephrosis or nephrolithiasis. No suspicious osseous lesion. Procedure Note George Sutton MD - 10/16/2024 EXAMINATION: CT CHEST W CONTRAST HISTORY: 53-year-old with metastatic melanoma involving the left axilla. TECHNIQUE: Transaxial computed tomographic images of the chest were obtained with intravenous contrast according to the standard protocol after the uneventful administration of 95 mL Opti-Ray 350 intravenous contrast. COMPARISON: PET/CT dated 10/01/2024. FINDINGS: There is a infiltrative multilobulated left axillary mass which appears to be increased in extent compared to the prior PET/CT dated 10/01/2024. The inferior portion of this mass measures 5.9 x 5.8 cm (TP 229.5). The superior portion of this mass which involves multiple vascular structures measures 8.2 x 4.2 cm (TP 195.5). There is encasement of the left axillary artery (series 5, image 28/144). The lateral thoracic artery is also encased (TP 185.5). The thoracodorsal artery is abutted by this mass (TP 197.5). The left axillary vein is likely encased at the anterior aspect of this mass (TP 189.5) and poorly opacified. No supraclavicular, axillary, or mediastinal lymphadenopathy. The heart size is normal without pericardial effusion. The great vessels are normal in course and caliber. Central airways are clear. No pleural effusion, pulmonary edema, pulmonary consolidation, or pneumothorax. Unchanged 4 mm right middle lobe pulmonary nodule likely represents a lydia-fissural lymph node (TP 313.5). Esophagus is nondistended. Small hiatal hernia. Within the partially imaged superior abdomen, a hypoattenuating hepatic lesion likely represents a simple hepatic cyst. The gallbladder and pancreas are normal. No intra or extrahepatic biliary ductal dilatation. The spleen is unremarkable, with splaying is noted at the anterior margin. Adrenal glands are normal. The imaged portion of the kidneys enhance symmetrically, without hydronephrosis or nephrolithiasis. No suspicious osseous lesion. IMPRESSION: Enlarging infiltrative multilobulated left axillary mass representing patient's biopsy-proven metastatic melanoma, with vascular involvement as detailed above. Dictated by: Adria Cunningham MD PHD The radiology attending physician has personally reviewed this study, and had reviewed and/or edited this written report and agrees with it. Electronically signed by: George Sutton M.D. Shilo Pace Jr., MD IM CT PROCEDURES Final Re sult * [facility] xT DNA and RNA - Tumor Only (10/14/2024 2:15 PM CDT) Pathologist [facility] Reason for Study To identify somatic and germline mutations relevant to patient's cancer. 10/29/2024 5:33 PM CDT [facility] Genetic Diseases Assessed Cancer 10/29/2024 5:33 PM CDT [facility] Description of Ranges of DNA Sequences Examined 648 gene panel 10/29/2024 5:33 PM CDT [facility] Overall Interpretation positive 10/29/2024 5:33 PM CDT [facility] MSI Stable 10/29/2024 5:33 PM CDT [facility] TMB 9.5 m/MB 10/29/2024 5:33 PM CDT [facility] Portal [email or web address] 10/29/2024 5:33 PM CDT [facility] Comment:[facility] link MMR Overall Result normal 10/29/2024 5:33 PM CDT [facility] MLH1 Presence or Absence present 10/29/2024 5:33 PM CDT [facility] PMS2 Presence or Absence present 10/29/2024 5:33 PM CDT [facility] MSH2 Presence or Absence present 10/29/2024 5:33 PM CDT [facility] MSH6 Presence or Absence present 10/29/2024 5:33 PM CDT [facility] PD-L1 (22C3) Combined Positive Score 4 10/29/2024 5:33 PM CDT [facility] PD-L1 (22C3) Tumor Proportion Score 4 % 10/29/2024 5:33 PM CDT [facility] Pertinent Negatives NRAS, KIT 10/29/2024 5:33 PM CDT [facility] Therapy Count 9 10/29/2024 5:33 PM CDT [facility]: Potential Therapy 1 Gene: 1097^BRAF^HGNC Variant: p.V600E Match Type: snvIndel Match Type Description: BRAF p.V600E Agent: Dabrafenib + Trametinib Drug Class: Combination (BRAF Inhibitor + MEK Inhibitor) Tissue: Melanoma Association: Response Evidence Status: Consensus Evidence ID: NCCN KDB Variant: V600E - GOF NCCN Associated Evidence: Consensus, Melanoma MSK Associated Evidence: MSK OncoKB, Level 1 Label: FDA On Label FDA Approved?: Yes On label?: Yes 10/29/2024 5:33 PM CDT [facility] Tempus: Potential Therapy 2 Gene: 1097^BRAF^HGNC Variant: p.V600E Match Type: snvIndel Match Type Description: BRAF p.V600E Agent: Encorafenib + Binimetinib Drug Class: Combination (BRAF Inhibitor + MEK Inhibitor) Tissue: Melanoma Association: Response Evidence Status: Consensus Evidence ID: NCCN KDB Variant: V600E - GOF NCCN Associated Evidence: Consensus, Melanoma MSK Associated Evidence: MSK OncoKB, Level 1 Label: FDA On Label FDA Approved?: Yes On label?: Yes 10/29/2024 5:33 PM CDT [facility] Tempus: Potential Therapy 3 Gene: 1097^BRAF^HGNC Variant: p.V600E Match Type: snvIndel Match Type Description: BRAF p.V600E Agent: Trametinib Drug Class: MEK Inhibitor Tissue: Melanoma Association: Response Evidence Status: Consensus Evidence ID: NCCN KDB Variant: Jess-iz-btporcmb NCCN Associated Evidence: Consensus, Melanoma Label: FDA On Label FDA Approved?: Yes On label?: Yes 10/29/2024 5:33 PM CDT [facility] Tempus: Potential Therapy 4 Gene: 1097^BRAF^HGNC Variant: p.V600E Match Type: snvIndel Match Type Description: BRAF p.V600E Agent: Vemurafenib Drug Class: BRAF V600 Inhibitor Tissue: Melanoma Association: Response Evidence Status: Consensus Evidence ID: NCCN KDB Variant: V600E - GOF NCCN Associated Evidence: Consensus, Melanoma MSK Associated Evidence: MSK OncoKB, Level 1 Label: FDA On Label FDA Approved?: Yes On label?: Yes 10/29/2024 5:33 PM CDT [facility] Tempus: Potential Therapy 5 Gene: 1097^BRAF^HGNC Variant: p.V600E Match Type: snvIndel Match Type Description: BRAF p.V600E Agent: Vemurafenib + Cobimetinib Drug Class: Combination (BRAF V600 Inhibitor + MAPK1 Inhibitor) Tissue: Melanoma Association: Response Evidence Status: Consensus Evidence ID: NCCN KDB Variant: V600E - GOF NCCN Associated Evidence: Consensus, Melanoma MSK Associated Evidence: MSK OncoKB, Level 1 Label: FDA On Label FDA Approved?: Yes On label?: Yes 10/29/2024 5:33 PM CDT [facility] Tempus: Potential Therapy 6 Gene: 1097^BRAF^HGNC Variant: p.V600E Match Type: snvIndel Match Type Description: BRAF p.V600E Agent: Vemurafenib + Cobimetinib + Atezolizumab Drug Class: Combination (BRAF V600 Inhibitor + MAPK1 Inhibitor + Anti-PD-L1 MAb) Tissue: Melanoma Association: Response Evidence Status: Consensus Evidence ID: NCCN KDB Variant: V600E - GOF NCCN Associated Evidence: Consensus, Melanoma MSK Associated Evidence: MSK OncoKB, Level 1 Label: FDA On Label FDA Approved?: Yes On label?: Yes 10/29/2024 5:33 PM CDT [facility] Tempus: Potential Therapy 7 Gene: 1097^BRAF^HGNC Variant: p.V600E Match Type: snvIndel Match Type Description: BRAF p.V600E Agent: Dabrafenib Drug Class: BRAF Inhibitor Tissue: Melanoma Association: Response Evidence Status: Consensus Evidence ID: FDA KDB Variant: V600E - GOF MSK Associated Evidence: MSK OncoKB, Level 1 Label: FDA On Label FDA Approved?: Yes On label?: Yes 10/29/2024 5:33 PM CDT [facility] Tempus: Potential Therapy 8 Gene: 1097^BRAF^HGNC Variant: p.V600E Match Type: snvIndel Match Type Description: BRAF p.V600E Agent: Dabrafenib + Trametinib + Pembrolizumab Drug Class: Combination (BRAF Inhibitor + MEK Inhibitor + Anti-PD-1 MAb) Tissue: Melanoma Association: Response Evidence Status: Consensus Evidence ID: NCCN KDB Variant: V600 - GOF Label: FDA Off Label FDA Approved?: Yes On label?: No 10/29/2024 5:33 PM CDT [facility]: Potential Therapy 9 Gene: 43380^TERT^HGNC 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 Match Type: snvIndel Match Type Description: TERT c.-124C>T Drug Class: Unfavorable prognosis Tissue: Cutaneous Melanoma Evidence Status: Clinical research Evidence ID: [id number] Evidence URL: http://www.ncbi.n lm.nih.gov/pubmed /[email or web address] Evidence Title: 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 - PubMed KDB Variant: Promoter mutation Label: Additional Indicators FDA Approved?: No On label?: No 10/29/2024 5:33 PM CDT [facility] Trial Count 3 10/29/2024 5:33 PM CDT [facility]: Clinical Trial Match 1 Clinical Trial NCT ID: [id number] Clinical Trial Title: A Phase II/III Trial of Nivolumab, Ipilimumab, and GM-CSF in Patients With Advanced Melanoma Clinical Trial URL: [email or web address]://clinicalt [facility].gov/ct2/ruddy w/[email or web address] Clinical Phase: Phase 2/Phase 3 Clinical Trial Matches: BRAF p.V600E mutation Clinical Trial Distance and Location: [address] [place], [place] 10/29/2024 5:33 PM CDT [facility]: Clinical Trial Match 2 Clinical Trial NCT ID: [id number] Clinical Trial Title: A Study of [id number] as a Single Agent and in Combination With Tislelizumab in Adult Patients With Advanced Solid Tumors Clinical Trial URL: [email or web address]://clinicalt rials.gov/ct2/ruddy w/[email or web address] Clinical Phase: Phase 1 Clinical Trial Matches: BRAF p.V600E mutation Clinical Trial Distance and Location: [address] [place], [place] 10/29/2024 5:33 PM CDT [facility]: Clinical Trial Match 3 Clinical Trial NCT ID: [id number] Clinical Trial Title: Study of IK-595 in DEIDRA- or TARIQ-altered Advanced Tumors Clinical Trial URL: [email or web address]://clinicalt rials.gov/ct2/ruddy w/[email or web address] Clinical Phase: Phase 1 Clinical Trial Matches: BRAF p.V600E mutation Clinical Trial Distance and Location: [address] [place], [place] 10/29/2024 5:33 PM CDT [facility] xR Result 1 NEGATIVE Negative - This report is being issued to report the results of gene rearrangement and altered splicing analysis from RNA sequencing. No gene rearrangements nor reportable altered splicing events were identified from RNA sequencing. 10/29/2024 5:33 PM CDT [facility] Germline Variant Note No normal sample was received, therefore tumor/normal matched analysis was not performed. 10/29/2024 5:33 PM CDT [facility] HLA-A Typing A*24:02,A*24:02 5:33 PM CDT [facility] HLA-B Typing B*07:02,B*07:02 5:33 PM CDT [facility] HLA-C Typing C*07:02,C*07:02 5:33 PM CDT [facility] HLA-A Ambiguous Alleles No 10/29/2024 5:33 PM CDT [facility] HLA-B Ambiguous Alleles No 10/29/2024 5:33 PM CDT [facility] HLA-C Ambiguous Alleles No 10/29/2024 5:33 PM CDT [facility] HLA-A Sample Type Tumor Only 5:33 PM CDT [facility] HLA-B Sample Type Tumor Only 5:33 PM CDT [facility] HLA-C Sample Type Tumor Only 5:33 PM CDT [facility] Tissue specimen (specimen) 10/14/2024 2:15 PM CDT 10/22/2024 2:06 PM CDT Narrative This result has genomic variants that were not included in this document. Shilo Benitez DO LAB GENETIC TESTING Edited R esult - Final [facility] [address] [facility], [address] [place] [address], [facility] [phone] [facility] [address] [facility], [address] [place] [address] * US Guided Biopsy Lymph Node Superficial Left (10/09/2024 8:49 AM CDT) Anatomical Region Laterality Modality Entire body N/A Ultrasound, Comp uted Radiography 10/09/2024 9:10 AM CDT Narrative 10/09/2024 9:12 AM CDT EXAM DESCRIPTION: US GUIDED BIOPSY LYMPH NODE SUPERFICIAL LEFT HISTORY: increasing lymph nodes concerning for recurrent melanoma COMPARISON: Outside PET-CT 10/01/2024 TECHNIQUE/FINDINGS: The procedure and risks were discussed with the patient and/or patient's family/medical decision maker, and verbal and written informed consent was obtained. Preprocedural imaging demonstrates large irregular left axillary lymph node corresponding to FDG avid lymph node on recent PET-CT. Timeout was performed. The skin was prepped using standard aseptic technique. Local anesthesia was achieved with 1% lidocaine. Under ultrasound guidance, a 17 gauge introducer and 18 gauge biopsy device was advanced to the lymph node by coaxial technique. Needle placement was documented with sonographic images. A total of 5 core biopsy samples were obtained. Intra-procedural and post-procedure US imaging demonstrates no significant hematoma. A sterile bandage was applied to the site. The patient tolerated the procedure well without complication. Estimated blood loss: <5 mL IMPRESSION: Technically successful ultrasound-guided core needle biopsy of a left axillary lymph node. THIS IS AN ELECTRONICALLY VERIFIED FINAL REPORT 10/09/2024 9:12 AM - Electronically signed by Cisco CAN T: Report ID: [id number] Reading Location: [id number] Procedure Note Cisco Moya MD - 10/09/2024 EXAM DESCRIPTION: US GUIDED BIOPSY LYMPH NODE SUPERFICIAL LEFT HISTORY: increasing lymph nodes concerning for recurrent melanoma COMPARISON: Outside PET-CT 10/01/2024 TECHNIQUE/FINDINGS: The procedure and risks were discussed with thepatient and/or patient's family/medical decision maker, and verbal and written informed consent was obtained. Preprocedural imaging demonstrates large irregular left axillary lymphnode corresponding to FDG avid lymph node on recent PET-CT. Timeout was performed. The skin was prepped using standard aseptictechnique. Local anesthesia was achieved with 1% lidocaine. Under ultrasoundguidance, a 17 gauge introducer and 18 gauge biopsy device was advanced to the lymphnode by coaxial technique. Needle placement was documented with sonographic images. A total of 5 core biopsy samples were obtained.Intra-procedural and post-procedure US imaging demonstrates no significant hematoma. Asterile bandage was applied to the site. The patient tolerated the procedure well without complication. Estimated blood loss: <5 mL IMPRESSION: Technically successful ultrasound-guided core needle biopsy ofa left axillary lymph node. THIS IS AN ELECTRONICALLY VERIFIED FINAL REPORT 10/09/2024 9:12 AM - Electronically signed by Cisco CAN T: Report ID: [id number] Reading Location: [place] [address] Shilo Benitez DO [facility] US PROCEDURES Final Resu lt * Surgical pathology (10/09/2024 7:47 AM CDT) Tissue (Lymph node, needle biopsy) 10/09/2024 7:47 AM CDT Narrative PATHOLOGY [facility] - 10/14/2024 9:34 AM CDT [facility] Department of Pathology [address] [place] [address] Note to Patients: This report may contain a detailed description of human tissue sent by a health care provider to the laboratory for pathologic evaluation. The content of this report is essential for diagnosis and may provide important critical findings. This information may be unfamiliar to patients to review without a medical professional present. It is advised that the patient review this report in the presence of a health care provider who can answer questions and explain the details. Final Report with Addendum Patient Name: MATT SPANGLER : 1970 (Age: 53) Gender: M Address: [address] [place] [id number] Hospital #: [id number] Service: DEFAULT Location: Patient Type: [facility] ANCILLARY Taken: 10/09/2024 Received: 10/09/2024 Accessioned: 10/09/2024 Reported: 10/14/2024 Physician(s): MD Dr. Shilo Phan D.O. Hugo Genny Cao M.D. Diagnosis: Lymph node, left axillary, biopsy: METASTATIC MELANOMA Note: Lesional cells stain positive for Sox-10 and [place]-1 by immunohistochemistry, confirming the histologic impression. Kathrin Herrera M.D. Report Electronically Reviewed and Signed Out By Kathrin Herrera M.D. 10/14/2024 09:34:14 Addenda: Archive Tissue Molecular Test [facility] Addendum Comment A request for Molecular Archived Tissue Testing was received, to be performed on tissue from the attached case. The report, slides, and blocks for the case were retrieved from the archives. The pathologist whose signature appears below reviewed the original pathology report, examined H&E slides, and selected the blocks appropriate to the specifications of the ordered molecular analysis. Materials will be sent to [facility] where the xT,xR,648 Gene DNA, PD-L-1 and MMR test will be performed. An addendum report will be issued when the results of this molecular test are available. Addendum - 1 Addendum Comment Testing for multiple IHC's was requested by Shilo Benitez Returned results: Block A1 was selected and sent for testing at [facility]. A digital scan of the original reference lab report is attached to this addendum Addendum - 1 Addendum Comment Testing for xT 648 gene panel was requested by Shilo Benitez Returned results: Block A1 was selected and sent for testing at [facility]. A digital scan of the original reference lab report is attached to this addendum Specimen(s) Received: A: Lymph node, left axillary, biopsy Intraoperative Diagnosis: Rapid On-Site Evaluation A. Left axillary lymph node, core biopsy touch prep Evaluation Episode #1: Adequate Preliminary Diagnosis if Provided: N/A Total Evaluation Episodes: 1 Dr. Wil Smiley 10/09/2024 at 8:33 AM Wil Smiley MD Microscopic Description: This core needle biopsy specimen contains malignant epithelioid cells. 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 Operative procedure: Ultrasound-guided left axillary lymph node needle core biopsies. Gross Description Received in formalin, labeled with the patient s identifiers and left axillary lymph node; lymphoma workup if indicated and consists of five harmon-pink tissue cores each measuring 0.1 cm in diameter, and ranging from 1.4-1.8 cm in length. Entirely submitted. Labeled A1 to A2. Jar 0. jjmhb/10/09/2024 10:34 KATIE Ochoa, PA [facility] Microscopic slide review and interpretation for this case was performed at [facility], Department of Surgical Pathology, [address] [facility] [place] [id number], [place] [address] CLIA # [id number] The SOX-10 test was performed at [facility] Department of Surgical Pathology, [address] [facility], [place] [address]. The [facility] test was performed at [facility] [address] [place] [address]. Shilo Benitez DO LAB PATHOLOGY ORDERABLES Fin al Result Performing Organization Address [facility] de Phone Number PATHOLOGY [facility] * PET Outside Reference (10/01/2024 12:35 PM CDT) Narrative RAD_GEORGE_TROYB_MHE - 10/05/2024 10:16 AM CDT This order has been auto-finalized and does not contain a result. us Provider Transcribed Order IMG PET PROCEDURES Fi nal Result Performing Organization Address [facility] Co de Phone Number [email or web address] * CMP (10/01/2024 9:05 AM CDT) Historical Provider LAB BLOOD ORDERABLES Heather l Result Performing Organization Address [facility] de Phone Number EXTERNAL LAB * CBC with auto differential (10/01/2024 9:04 AM CDT) Blood Historical Provider LAB BLOOD ORDERABLES Heather l Result * PET/CT FDG Skull to Thigh (10/01/2024 9:02 AM CDT) Anatomical Region Laterality Modality N/A Positron Emissio n Tomography (PET) us Historical Provider MD MENDOZA PET PROCEDURES Final Result from Last 3 Months Insurance [facility] [employer] Address: [place] [id number] [facility] [employer] Address: [place] [address] [facility] [employer] Address: [address] [address] Care Teams Program Review Director Relationship Specialty Start Date End Date Hugo Lara MD [address] [place] [address] PCP - General Family Medicine 06/05/24 Shilo Benitez DO Medical Oncologist/Dermatology Sales Representative Hematology and Oncology 09/16/20 Jordon Murcia MD Licensed Midwife Dermatology 11/04/20
--- OUTSIDE RECORDS SUMMARY | 2024-11-19 10:08 | XMS_ITS | Encounter Summary ---
Author Organization [facility] Address [address] [place] [address] Phone Care Team Providers Care Digital Ad Trafficker Name Role Phone Shilo Benitez DO Unavailable [phone] Jordon Murcia MD Unavailable [phone] Hugo Lara MD Primary Care Provider [phone] Encounter Details Date Type Department Care Team (Late st Contact Info) Description 10/14/2024 Results Follow-Up 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
[2024-11-19 10:09] LABS: Hematocrit 39.3 % (42.0-52.0); Hemoglobin 13.0 g/dL (14.0-18.0); Immature Granulocyte Percent A 0.8 % (0-0.5); Lymphocytes Absolute Auto 1.45 K/mm3 (0.9-3.2); Mean Corpuscular HGB Conc 33.1 g/dl (32-36); Mean Corpuscular Hemoglobin 26.7 pg (26-34); Mean Corpuscular Volume 80.7 fl (80-100); Nucleated Red Blood Cells Absolute Auto 0.000 K/mm3 (0.0-0.012); Nucleated Red Blood Cells Perc 0.0 % (0.0-0.2); Red Blood Count 4.87 M/mm3 (4.6-6.20); White Blood Count 22.4 K/mm3 (4.5-10.0)
[2024-11-19 10:36] LABS: Alanine Aminotransferase 30 U/L (6-50); Albumin Level 2.6 g/dL (3.5-5.1); Alkaline Phosphatase 128 U/L (38-126); Anion Gap 6 mmol/L (4-12); Aspartate Amino Transferase 34 U/L (17-59); Bilirubin,Total 0.7 mg/dL (0.2-1.3); Blood Urea Nitrogen 19 mg/dL (9-20); Calcium 7.7 mg/dL (8.4-10.2); Carbon Dioxide 27 mmol/L (22-30); Chloride 105 mmol/L (98-107); Estimated Glomerular Filt Rate 41; Glucose 67 mg/dL (65-110); Potassium 3.0 mmol/L (3.4-5.0); Sodium 138 mmol/L (137-145); Total Protein 6.2 g/dL (6.3-8.2)
[2024-11-19 10:44] LABS: Platelet Count Result 104 k/mm3 (150-375)
== END 2024-11-19 09:37 | disposition home or self-care (01) ==
LOC: ANHLAB 09:40
PROVIDERS: PCP Family Medicine; Visit Provider Family Medicine
DX: M79.629 Pain in unspecified upper arm (principal); I10 Essential (primary) hypertension
CPT/HCPCS: 36415; 80053; 85025

== ENCOUNTER 2024-11-26 08:17 | Outpatient (CLI) | payer OTHER, SELFPAY ==
[2024-11-26 08:48] LABS: Hematocrit 38.2 % (42.0-52.0); Hemoglobin 12.4 g/dL (14.0-18.0); Immature Granulocyte Percent A 1.1 % (0-0.5); Immature Platelet Fraction Pct 12.1 % (0.9-11.2); Lymphocytes Absolute Auto 1.51 K/mm3 (0.9-3.2); Mean Corpuscular HGB Conc 32.5 g/dl (32-36); Mean Corpuscular Hemoglobin 26.4 pg (26-34); Mean Corpuscular Volume 81.4 fl (80-100); Nucleated Red Blood Cells Absolute Auto 0.020 K/mm3 (0.0-0.012); Nucleated Red Blood Cells Perc 0.1 % (0.0-0.2); Red Blood Count 4.69 M/mm3 (4.6-6.20); White Blood Count 19.5 K/mm3 (4.5-10.0)
[2024-11-26 09:05] LABS: Alanine Aminotransferase 19 U/L (6-50); Albumin Level 2.4 g/dL (3.5-5.1); Alkaline Phosphatase 169 U/L (38-126); Anion Gap 6 mmol/L (4-12); Aspartate Amino Transferase 29 U/L (17-59); Bilirubin,Total 0.6 mg/dL (0.2-1.3); Blood Urea Nitrogen 29 mg/dL (9-20); Calcium 7.7 mg/dL (8.4-10.2); Carbon Dioxide 28 mmol/L (22-30); Chloride 104 mmol/L (98-107); Estimated Glomerular Filt Rate 32; Glucose 131 mg/dL (65-110); Potassium 2.9 mmol/L (3.4-5.0); Sodium 138 mmol/L (137-145); Total Protein 6.1 g/dL (6.3-8.2)
[2024-11-26 09:06] LABS: Platelet Count Result < 3 k/mm3 (150-375)
[2024-11-26 09:07] LABS: Anisocytosis 1+; Burr Cells 2+; Schistocytes None Seen
== END 2024-11-26 08:18 | disposition home or self-care (01) ==
LOC: ANHLAB 08:19
PROVIDERS: PCP Family Medicine; Visit Provider Physician Assistant
DX: M79.629 Pain in unspecified upper arm (principal); I10 Essential (primary) hypertension; C43.59 Malignant melanoma of other part of trunk
CPT/HCPCS: 36415; 80053; 85025; 85055

== ENCOUNTER 2025-01-11 07:13 | Outpatient (CLI) | payer OTHER, SELFPAY ==
--- OUTSIDE RECORDS SUMMARY | 2025-01-11 07:17 | XMS_ITS | Encounter Summary ---
Author Organization [facility] Address [address] [place] [address] Phone Care Team Providers Care Semiconductor Packages Sealer Name Role Phone Shilo Benitez DO Unavailable [phone] Jordon Murcia MD Unavailable [phone] Hugo Lara MD Primary Care Provider [phone] Encounter Details Date Type Department Care Team (Late st Contact Info) Description 12/02/2024 Results Follow-Up [facility] Medicine Physicians [facility] Oncology [address] [facility] [address] [place] [phone] Radha Hallman, AMY Transthoracic Echo (TTE) Complete W Doppler/CF Social History Tobacco Use Types Packs/Day Years Used Date Smoking Tobacco: Never Smokeless Tobacco: Never Alcohol Use Standard Drinks/Week Comments Yes 5 (1 standard drink = 0.6 oz pur e alcohol) AUDIT-C Answer Date Recorded Frequency of Alcohol Consumption Not on file 12/04/2024 Q2: How many drinks containi ng alcohol do you have on a typical day when you are drinking? 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 Patient does not drink 12/04/2024 8:45 AM CDT Jane Giraldo documented as of this encounter Plan of Treatment Not on file documented as of this encounter Visit Diagnoses Not on filedocumented in this encounter Care Teams Semiconductor Packages Sealer Relationship Specialty Start Date End Date Hugo Lara MD [address] [place] [address] PCP - General Family Medicine 06/05/24 Shilo Benitez DO Medical Oncologist/Telephone Information Clerk Hematology and Oncology 09/16/20 Jordon Murcia MD Rn Endoscopy Dermatology 11/04/20 documented as of this encounter
--- OUTSIDE RECORDS SUMMARY | 2025-01-11 07:17 | XMS_ITS | Clinical Summary ---
Author Organization [facility] [place] [address] Address [address] [place] [address] Care Team Providers Care Building Custodian Name Role Phone Hadley Benitez DO Unavailable [phone] Jordon Murcia MD Unavailable [phone] Hugo Lara MD Primary Care Provider [phone] Allergies Active Allergy Reactions Criticality Noted Date Comments Ipilimumab Other (See comments),Fever,Chills Medium Rigors Minocycline Rash Medium 02/02/2019 Medications olmesartan (BENICAR) 40 mg tabletIndication s:hypertension Take 1 tablet (40 mg total) by mouth daily before breakfast [address] (PROTONIX) 20 mg EC tabletIndication s:Treatment of Non-Bleeding Gastric Disorder Take 1 tablet (20 mg total) by mouth daily before breakfast 3 9 Active BUPROPION HCL ORALIndications: Anxiety with Depression Take 300 mg by mouth every morning 3 9 Active [...] mg total) by mouth daily 3 Active oxyCODONE (ROXICODONE) 5 mg immediate release tablet Take 1 tablet (5 mg total) by mouth every 4 (four) hours as needed for pain 5 Active trametinib dimethyl sulfoxide (MEKINIST) 2 mg tabletIndication s: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 Do not place tablets in a pill box. Keep in the original bottle with desiccant. 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 Do not open, crush, or break. 120 capsule 2 5 Active spironolactone (ALDACTONE) 25 mg tablet Take 1 tablet (25 mg total) by mouth 2 (two) times a day 60 tablet 5 Active ondansetron (ZOFRAN) 4 mg tablet Take 1 tablet (4 mg total) by mouth every 6 (six) hours as needed for nausea or vomiting 30 tablet 5 Active predniSONE (DELTASONE) 10 mg tablet Take by mouth Active UNABLE TO FIND Mektovia Activ e binimetinib (MEKTOVI ORAL) Take 75 mg by mouth 2 (two) times a day Active clobetasoL (CLOBEX) 0.05 % lotionIndication s:Contact Dermatitis Apply topically 2 (two) times a day 59 mL 2 5 01/09/20 25 Discontin ued(Thera py completed ) morphine ER (MS CONTIN) 15 mg 12 hr tablet Take 1 tablet (15 mg total) by mouth every 12 (twelve) hours 60 tablet 5 01/09/20 25 Discontin ued(Thera py completed ) potassium chloride ER (KLOR-CON) 20 mEq CR tablet Take 1 tablet (20 mEq total) by mouth daily 30 tablet 5 01/09/20 25 Discontin ued(Thera py completed ) predniSONE (DELTASONE) 20 mg tablet Take 4 tablets (80 mg) by mouth daily 120 tablet 5 01/09/20 25 Discontin ued(Thera py completed ) Active Problems Problem Noted Date Diagnosed Date Hyperkalemia 01/08/2025 Idiopathic thrombocytopenic purpura (ITP) 2024 Encounter for adjustment and management of unspecified implanted device 10/21/2024 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 Staging:Clinical stage from 11/13/2019:Stage III(cT2b, cN1a, cM0) - Signed by Hadley Benitez DO on 09/23/2020 Essential hypertension 02/02/2019 GERD without esophagitis 02/02/2019 Encounters Date Type Department Care Team Description 01/08/2025 8:00 AM CONSTRUCTION AREA MANAGER Office Visit [facility] Cardiology [address] [facility] [address] [place] [phone] Damir Canas MD Hyperkalemia (Primary Dx); Essential hypertension; Idiopathic thrombocytopenic purpura (ITP) (HCC); Melanoma of back (HCC); 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); GERD without esophagitis; Lipid screening 01/08/2025 Orders Only [facility] Medical [facility] Cardiology [facility] [address] [place] [phone] Betito Thorpe MD 01/06/2025 8:00 AM CONSTRUCTION AREA MANAGER Lab [facility] at [address] [address] Idiopathic thrombocytopenic purpura (ITP) (HCC); Anemia, unspecified type; Melanoma of back (HCC) 01/06/2025 Results Follow-Up [facility] Oncology [address] [place] [address] [place] [phone] Radha Hallman RN T4, free, TSH, Comprehensive metabolic panel, Additional followed-up results: 3 12/31/2024 8:45 AM CONSTRUCTION AREA MANAGER Clinical Support [address] 1st [place] [address] Elle Cheung, PhD Melanoma of back (HCC); Idiopathic thrombocytopenic purpura (ITP) (HCC); 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) 12/30/2024 12:30 PM CONSTRUCTION AREA MANAGER Infusion [facility] at [address] [place] [address] Idiopathic thrombocytopenic purpura (ITP) (HCC) 12/30/2024 12:00 PM CONSTRUCTION AREA MANAGER Lab [facility] at [address] [address] Idiopathic thrombocytopenic purpura (ITP) (HCC) 12/30/[address] [phone] Maxine Cook 12/29/2024 Orders Only [facility] [address] [place] [address] [address] [place] [address] Hadley Benitez, 12/23/2024 10:45 AM CONSTRUCTION AREA MANAGER Infusion [facility] at [address] [place] [address] Idiopathic thrombocytopenic purpura (ITP) (HCC) (Primary Dx) 12/23/2024 10:15 AM CONSTRUCTION AREA MANAGER Lab [facility] at [address] [address] Idiopathic thrombocytopenic purpura (ITP) (HCC) 12/23/2024 Orders Only [facility] [address] [place] [address] [address] [place] [address] Hadley Benitez, 12/23/2024 Orders Only [facility] [address] [place] [address] [address] [place] [address] Hadley Benitez, 12/22/2024 Orders Only [facility] [address] [place] [address] [address] [place] [address] Hadley Benitez DO 12/22/2024 Orders Only [facility] Oncology [address] [place] [address] [address] [place] [address] Hadley Benitez, Idiopathic thrombocytopenic purpura (ITP) (HCC) (Primary Dx) 12/21/2024 10:00 AM CONSTRUCTION AREA MANAGER Lab [facility] at [facility] [address] [place] [address] Melanoma of back (HCC) 12/21/2024 Results Follow-Up [facility] Oncology [address] [place] [address] [address] [place] [address] Radha Hallman RN CBC with auto differential, Differential, auto, Comprehensive metabolic panel, eGFR 12/21/2024 Orders Only [facility] Oncology [address] [place] [phone] Hadley Benitez, Melanoma of back (HCC) (Primary Dx) 12/18/2024 Orders Only [facility] Oncology [address] [place] [phone] Hadley Benitez DO Melanoma of back (HCC) (Primary Dx); Idiopathic thrombocytopenic purpura (ITP) (HCC) 12/10/2024 Results Follow-Up [facility] Cardiology [address] [place] [phone] Damir Canas MD Pro B-type natriuretic peptide, Magnesium 12/07/2024 Documentation [facility] Physicians [facility] Oncology [address] [place] [phone] Hadley Benitez, 12/04/2024 10:30 AM CDT - 12/04/2024 11:59 PM CDT Hospital Encounter [facility] [address] [place] [address] Hadley Benitez, Melanoma of back (HCC); 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); Pain and swelling of left upper extremity Discharge Disposition: Discharge to home or self care 12/04/2024 8:45 AM CDT [facility] [address] [place] [address] [address] [place] [address] Hadley Benitez DO Melanoma of back (HCC) (Primary Dx); 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); Pain and swelling of left upper extremity; Idiopathic thrombocytopenic purpura (ITP) (HCC) 12/04/2024 8:15 AM CDT Lab [facility] at [address] [address] Melanoma of back (HCC); Edema, unspecified type 12/03/2024 Telephone [facility] [address] [place] [phone] Lita Mahoney CMA 12/02/2024 10:15 AM CDT Ancillary Procedure [facility] Cardiology [address] [place] [phone] Melanoma of back (HCC); Encounter for antineoplastic chemotherapy 12/02/2024 Telephone [facility] Cardiology [address] [place] [phone] Damir Canas MD 12/02/2024 Results Follow-Up [facility] [address] [place] [phone] Radha Hallman, RN Transthoracic Echo (TTE) Complete W Doppler/CF 12/02/2024 Orders Only [facility] [address] [place] [phone] Hadley Benitez DO 11/30/2024 10:45 AM CDT Infusion [address] [phone] Melanoma of back (HCC) (Primary Dx); Thrombocytopenia, unspecified 11/30/2024 7:45 AM CDT Lab [facility] at [address] [address] Melanoma of back (HCC); Thrombocytopenia, unspecified 11/30/2024 Documentation [facility] [address] [facility] [address] [place] [address] Ai Haley, Wilner Prior Auth (TAFINLAR) 11/30/2024 Documentation [facility] [address] [facility] [address] [place] [address] Ai Haley, research methodologist Prior Auth (MEKINIST) 11/30/2024 Orders Only [facility] [address] [place] [address] [address] [place] [address] Hadley Benitez DO Idiopathic thrombocytopenic purpura (ITP) (HCC) (Primary Dx) 11/30/2024 Documentation [facility] [address] [place] [address] [address] [place] [address] Hadley Benitez DO 11/27/2024 Orders Only [facility] [address] [place] [phone] Hadley Benitez DO Melanoma of back (HCC) (Primary Dx); Thrombocytopenia, unspecified 11/26/2024 1:45 PM CDT Infusion [facility] at [address] [phone] Melanoma of back (HCC) 11/26/2024 12:00 PM CDT Infusion [facility] at [address] [place] [address] Melanoma of back (HCC) (Primary Dx) 11/26/2024 9:45 AM CDT Lab [facility] at [address] [address] Melanoma of back (HCC) 11/26/2024 Orders Only [facility] [address] [place] [phone] Hadley Benitez DO Melanoma of back (HCC) (Primary Dx); Encounter for antineoplastic chemotherapy; 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) 11/26/2024 Results Follow-Up [facility] [address] [place] [phone] Radha Hallman, RN CBC with auto differential, ABO / Rh Confirmation Testing, ABO/Rh, Additional followed-up results: 6 11/20/2024 Telephone [facility] [address] [place] [phone] Lita Mahoney CMA 11/20/2024 Orders Only [facility] [address] [place] [phone] Candida Guardado, AMY 11/19/2024 Orders Only [facility] [address] [place] [phone] ProviderBetito MD 11/17/2024 Orders Only [facility] Surgery [address] [place] [phone] Hadley Pace Jr., MD Melanoma of back (HCC) (Primary Dx) 11/13/2024 8:30 AM CDT Infusion [address] [phone] Encounter for adjustment and management of unspecified implanted device (Primary Dx); Melanoma of back (HCC) 11/13/2024 8:00 AM CDT Office Visit [facility] [address] [place] [phone] Hadley Benitez DO Melanoma of back (HCC) (Primary Dx) 11/13/2024 7:30 AM CDT Lab [address] [address] Melanoma of back (HCC) 10/26/2024 Results Follow-Up [facility] [address] [place] [address] [address] [place] [address] Radha Hallman, RN Tempus xT DNA and RNA - Tumor Only 10/23/2024 11:00 AM CDT Infusion [facility] at [address] [place] [address] Melanoma of back (HCC) (Primary Dx); Encounter for adjustment and management of unspecified implanted device 10/23/2024 10:30 AM CDT Lab [facility] at [address] [address] Melanoma of back (HCC) 10/23/2024 Results Follow-Up [facility] [address] [place] [address] [address] [place] [address] Radha Hallman, AMY Comprehensive metabolic panel, CBC with auto differential, Differential, auto, eGFR 10/23/2024 Orders Only [facility] [address] [place] [address] [address] [place] [address] Hadley Benitez, 10/22/2024 Orders Only [facility] [address] [place] [address] [address] [place] [address] Hadley Benitez, 10/22/2024 Telephone [facility] [address] [phone] Hadley Pace Jr., MD 10/21/2024 8:30 AM CDT Office Visit [facility] [address] [place] [address] [address] [place] [address] Hadley Benitez, Melanoma of back (HCC) (Primary Dx); 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) 10/20/2024 Telephone [facility] Oncology [address] [place] [phone] Vianca Ardon 10/20/2024 Orders Only [facility] [address] [place] [phone] Candida Guardado RN 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) (Primary Dx) 10/20/2024 Orders Only [facility] [address] [place] [address] [address] [place] [address] Hadley Pace Jr., MD Malignant melanoma of trunk (Primary Dx) 10/16/2024 9:34 AM CDT - 10/16/2024 11:59 PM CDT Hospital Encounter [facility] [address] [place] [address] Hadley Pace Jr., MD 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); Melanoma of back (HCC) Discharge Disposition: Discharge to home or self care 10/15/2024 Telephone [facility] Surgery [address] [place] [address] [address] [place] [address] Hadley Pace Jr., MD Establish Care 10/14/2024 Results Follow-Up [facility] [address] [place] [phone] Radha Hallman RN Surgical pathology 10/14/2024 Orders Only [facility] [address] [place] [phone] Hadley Benitez DO Melanoma of back (HCC) (Primary Dx) from Last 3 Months Immunizations Immunization Administration [...] on file Legal Sex Male 2:33 PM CONSTRUCTION AREA MANAGER Gender Identity Not on file Sexual Orientation Not on file Last Filed Vital Signs Vital Sign Reading Time Taken Comments Blood Pressure 120/80 01/08/2025 7:39 AM CONSTRUCTION AREA MANAGER Pulse 91 01/08/2025 7:39 AM CONSTRUCTION AREA MANAGER Temperature 36.7 C (98 F) 12/23/2024 10:54 AM CONSTRUCTION AREA MANAGER Respiratory Rate 18 12/23/2024 10:54 AM CONSTRUCTION AREA MANAGER Oxygen Saturation 97% 01/08/2025 7:39 AM CONSTRUCTION AREA MANAGER Inhaled Oxygen Concentration - - Weight 89.9 kg (198 lb 3.2 oz) 01/08/2025 7:39 A M CONSTRUCTION AREA MANAGER Height 180.3 cm (5' 11) 01/08/2025 7:39 AM CONSTRUCTION AREA MANAGER Body Mass Index 27.64 01/08/2025 7:39 AM CONSTRUCTION AREA MANAGER Plan of Treatment Health Maintenance Due Date Last Done Comments Colon Cancer Screening-Colonoscopy 1970 Depression Screening 1970 Hepatitis C Screening 1970 Prostate Cancer Screening-PSA 1970 DTaP/Tdap/Td Vaccine (1 - Tdap) 1981 Hepatitis B Screening 1988 Regular Well Visit/Exam 18-64 1988 Pneumococcal vaccine <65 (1 of 2 - PCV) 1989 Zoster Vaccine (1 of 2) 1989 Covid-19 Vaccine ( season) 2024 12/23/2020, 02/29/2020, 02/08/2020 Influenza Vaccine (#1) 2024 3, 01/12/2021, 11/17/2018 Procedures Procedure Name Priority Date/Time Associated Diagnosis Comments POCT LIPID PANEL Routine 01/08/2025 7:31 AM CONSTRUCTION AREA MANAGER Lipid screening EGFR Routine 01/06/2025 8:25 AM CONSTRUCTION AREA MANAGER Melanoma of back (HCC) DIFFERENTIAL AUTO STAT 01/06/2025 8:2 5 AM CONSTRUCTION AREA MANAGER Idiopathic thrombocytopenic purpura (ITP) (HCC) CBC WITH AUTO DIFFERENTIAL STAT 01/06/2025 8:25 AM CONSTRUCTION AREA MANAGER Idiopathic thrombocytopenic purpura (ITP) (HCC) COMPREHENSIVE METABOLIC PANEL Routine 01/06/2025 8:25 AM CONSTRUCTION AREA MANAGER Melanoma of back (HCC) TSH Routine 01/06/2025 8:25 AM CONSTRUCTION AREA MANAGER Anemia, unspecified type T4, FREE Routine 01/06/2025 8:25 AM CONSTRUCTION AREA MANAGER Anemia, unspecified type DIFFERENTIAL AUTO STAT 12/30/2024 12:11 PM CONSTRUCTION AREA MANAGER Idiopathic thrombocytopenic purpura (ITP) (HCC) CBC WITH AUTO DIFFERENTIAL STAT 12/30/2024 12:11 PM CONSTRUCTION AREA MANAGER Idiopathic thrombocytopenic purpura (ITP) (HCC) DIFFERENTIAL AUTO STAT 12/23/2024 10:34 AM CONSTRUCTION AREA MANAGER Idiopathic thrombocytopenic purpura (ITP) (HCC) CBC WITH AUTO DIFFERENTIAL STAT 12/23/2024 10:34 AM CONSTRUCTION AREA MANAGER Idiopathic thrombocytopenic purpura (ITP) (HCC) EGFR Routine 12/21/2024 10:15 AM CONSTRUCTION AREA MANAGER Melanoma of back (HCC) COMPREHENSIVE METABOLIC PANEL Routine 12/21/2024 10:15 AM CONSTRUCTION AREA MANAGER Melanoma of back (HCC) DIFFERENTIAL AUTO Routine 12/21/2024 10:13 AM CONSTRUCTION AREA MANAGER Melanoma of back (HCC) CBC WITH AUTO DIFFERENTIAL Routine 12/21/2024 10:13 AM CONSTRUCTION AREA MANAGER Melanoma of back (HCC) ECG 12-LEAD Routine 12/11/2024 11:53 AM CDT US VEIN DUPLEX UPPER EXTREMITY LEFT LIMITED Schedule LILY, Read LILY (Appt Today, Awaiting Results) 12/04/2024 11:16 AM CDT Melanoma of back (HCC) 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) Pain and swelling of left upper extremity BLOOD SMEAR REVIEW Routine 12/04/2024 8: 08 AM CDT Melanoma of back (HCC) EGFR STAT 12/04/2024 8:08 AM CDT Melanoma of back (HCC) DIFFERENTIAL AUTO Routine 12/04/2024 8:0 8 AM CDT Melanoma of back (HCC) MAGNESIUM Routine 12/04/2024 8:08 AM CDT Edema, unspecified type PRO B-TYPE NATRIURETIC PEPTIDE Routine 12/04/2024 8:08 AM CDT Edema, unspecified type CBC WITH AUTO DIFFERENTIAL Routine 12/04/2024 8:08 AM CDT Melanoma of back (HCC) COMPREHENSIVE METABOLIC PANEL STAT 12/04/2024 8:08 AM CDT Melanoma of back (HCC) TRANSTHORACIC ECHO (TTE) COMPLETE W DOPPLER/CF WO CONTRAST Routine 12/02/2024 11:24 AM CDT Melanoma of back (HCC) Encounter for antineoplastic chemotherapy TRANSFUSE PLATELETS Timed 11/30/2024 10:15 AM CDT Melanoma of back (HCC) PREPARE PLATELETS STAT 11/30/2024 9:2 7 AM CDT Melanoma of back (HCC) BLOOD SMEAR REVIEW Routine 11/30/2024 8: 07 AM CDT Melanoma of back (HCC) Thrombocytopenia, unspecified IMMATURE PLATELET FRACTION Routine 11/30/2024 8:07 AM CDT Melanoma of back (HCC) Thrombocytopenia, unspecified EGFR Routine 11/30/2024 8:07 AM CDT Melanoma of back (HCC) Thrombocytopenia, unspecified DIFFERENTIAL AUTO Routine 11/30/2024 8:0 7 AM CDT Melanoma of back (HCC) Thrombocytopenia, unspecified CBC WITH AUTO DIFFERENTIAL Routine 11/30/2024 8:07 AM CDT Melanoma of back (HCC) Thrombocytopenia, unspecified COMPREHENSIVE METABOLIC PANEL Routine 11/30/2024 8:07 AM CDT Melanoma of back (HCC) Thrombocytopenia, unspecified IMMATURE PLATELET FRACTION Routine 11/26/2024 2:04 PM CDT Melanoma of back (HCC) PLATELET COUNT Routine 11/26/2024 2:04 PM CDT Melanoma of back (HCC) RBC ANTIGEN SEROLOGIC PHENOTYPING STAT 11/26/2024 2:00 PM CDT ANTIBODY IDENTIFICATION SO STAT 11/26/2024 2:00 PM CDT TRANSFUSE PLATELETS Timed 11/26/2024 12:13 PM CDT Melanoma of back (HCC) PREPARE PLATELETS Routine 11/26/2024 11:29 AM CDT Melanoma of back (HCC) B ABO / RH CONFIRMATION TESTING Routine 11/26/2024 10:08 AM CDT BLOOD SMEAR REVIEW Routine 11/26/2024 10:07 AM CDT Melanoma of back (HCC) IMMATURE PLATELET FRACTION Routine 11/26/2024 10:07 AM CDT Melanoma of back (HCC) DIFFERENTIAL AUTO Routine 11/26/2024 10:07 AM CDT Melanoma of back (HCC) ANTIBODY SCREEN Routine 11/26/2024 10:07 AM CDT Melanoma of back (HCC) ABO/RH Routine 11/26/2024 10:07 AM CDT Melanoma of back (HCC) CBC WITH AUTO DIFFERENTIAL Routine 11/26/2024 10:07 AM CDT Melanoma of back (HCC) TYPE AND SCREEN Routine 11/26/2024 10:07 AM CDT Melanoma of back (HCC) CBC WITH AUTO DIFFERENTIAL Routine 11/19/2024 11:25 AM CDT CMP Routine 11/19/2024 11:25 AM CDT EGFR STAT 11/13/2024 7:38 AM CDT Melanoma of back (HCC) DIFFERENTIAL AUTO Routine 11/13/2024 7:3 8 AM CDT Melanoma of back (HCC) CBC WITH AUTO DIFFERENTIAL Routine 11/13/2024 7:38 AM CDT Melanoma of back (HCC) COMPREHENSIVE METABOLIC PANEL STAT 11/13/2024 7:38 AM CDT Melanoma of back (HCC) EGFR STAT 10/23/2024 10:22 AM CDT Melanoma of back (HCC) DIFFERENTIAL AUTO Routine 10/23/2024 10:22 AM CDT Melanoma of back (HCC) THYROID [...] 2:15 PM CDT Melanoma of back (HCC) from Last 3 Months Results * (ABNORMAL) POCT lipid panel (01/08/2025 7:31 AM CONSTRUCTION AREA MANAGER) Cholesterol, POC 173 <200 MG/DL HDL, POC 41 >=40 mg/dL Triglycerides, POC 370(A) <=149 mg/dL LDL Cholesterol POC 57 <=129 mg/dL Chol/HDL Ratio, POC 1.4 NONE Non-HDL Cholesterol, POC 131 NONE mg/dL Cholesterol Total, POC 173 30 - 199 mg/dL Capillary blood 01/08/2025 7 :31 AM CONSTRUCTION AREA MANAGER Damir Canas MD POINT OF CARE TEST ORDERA BLES Final Result * eGFR (01/06/2025 8:25 AM CONSTRUCTION AREA MANAGER) eGFR 65 >=60 mL/min/1. 73 m2 Comment: Interpretive Data [...] of Race in Diagnosing Kidney Disease, JASN 2021). The CKD-EPI equation should not be used for patients with unstable renal function and has not been validated in children and those over 70. Current interpretive data was last reviewed 2020. Testing performed by: [address] [address] Blood 01/06/2025 8:25 AM CONSTRUCTION AREA MANAGER 01/06/2025 8:35 AM CONSTRUCTION AREA MANAGER Hadley Benitez DO LAB BLOOD ORDERABLES Final R esult [facility] [address] [facility] [place] [address] * (ABNORMAL) Differential, auto (01/06/2025 8:25 AM CONSTRUCTION AREA MANAGER) Neutrophil abs 9.46(H) 1.50 - 6.50 K/cumm Comment:Testing performed by : [address] [address] Imm gran abs 0.48(H) 0.00 - 0.10 K/cumm FRANSICO Comment:Testing performed by : [address] [address] Lymphocyte abs 1.32 0.80 - 3.30 K/cumm FRANSICO Comment:Testing performed by : [address] [address] Monocyte abs 0.81(H) 0.20 - 0.80 K/cumm FRANSICO Comment:Testing performed by : [address] [address] Eosinophil abs 0.15 0.00 - 0.50 K/cumm FRANSICO Comment:Testing performed by : [address] [address] Basophil abs 0.17(H) 0.00 - 0.10 K/cumm FRANSICO Comment:Testing performed by : [address] [address] Neutrophil pct 76.3 % FRANSICO Comment: Interpretive Data Percent cell count reference ranges are not reported, since discordance with absolute values may lead to misinterpretation of CBC data. Current Interpretive Data was last revised on 2017. Testing performed by: [address] [address] Imm gran pct 3.9 % [facility] Comment: Interpretive Data Percent cell count reference ranges are not reported, since discordance with absolute values may lead to misinterpretation of CBC data. Current Interpretive Data was last revised on 2017. Testing performed by: [address] [address] Lymphocyte pct 10.7 % [facility] Comment: Interpretive Data Percent cell count reference ranges are not reported, since discordance with absolute values may lead to misinterpretation of CBC data. Current Interpretive Data was last revised on 2017. Testing performed by: [address] [address] Monocyte pct 6.5 % [facility] Comment: Interpretive Data Percent cell count reference ranges are not reported, since discordance with absolute values may lead to misinterpretation of CBC data. Current Interpretive Data was last revised on 2017. Testing performed by: [address] [address] Eosinophil pct 1.2 % [facility] Comment: Interpretive Data Percent cell count reference ranges are not reported, since discordance with absolute values may lead to misinterpretation of CBC data. Current Interpretive Data was last revised on 2017. Testing performed by: [address] [address] Basophil pct 1.4 % [facility] Comment: Interpretive Data Percent cell count reference ranges are not reported, since discordance with absolute values may lead to misinterpretation of CBC data. Current Interpretive Data was last revised on 2017. Testing performed by: [address] [address] Blood 01/06/2025 8:25 AM CONSTRUCTION AREA MANAGER 01/06/2025 8:35 AM CONSTRUCTION AREA MANAGER Hadley Benitez DO LAB BLOOD ORDERABLES Final R esult [facility] [address] [facility] [place] [address] * (ABNORMAL) CBC with auto differential (01/06/2025 8:25 AM CONSTRUCTION AREA MANAGER) WBC 12.39(H) 3.80 - 9.90 K/cumm Comment:Testing performed by : [address] [address] Hgb 12.8(L) 13.0 - 17.5 g/dL [facility] Comment:Testing performed by : [address] [address] Hct 40.0 38.9 - 50.3 % [facility] Comment:Testing performed by : [address] [address] Plt 228 150 - 400 K/cumm [facility] Comment:Testing performed by : [address] [address] MPV 8.8(L) 9.1 - 12.3 fL [facility] Comment:Testing performed by : [address] [address] RBC 4.45 4.30 - 5.80 M/cumm [facility] Comment:Testing performed by : [address] [address] MCV 89.9 81.3 - 96.4 fL [facility] Comment:Testing performed by : [address] [address] MCH 28.8 27.1 - 33.3 pg [facility] Comment:Testing performed by : [address] [address] MCHC 32.0(L) 32.3 - 35.7 g/dL [facility] Comment:Testing performed by : [address] [address] RDW CV 20.1(H) 11.1 - 14.9 % [facility] Comment:Testing performed by : [address], [address] RDW SD 65.5(H) 35.7 - 48.1 fL [facility] Comment:Testing performed by : [address] [address] NRBC abs 0.00 0.00 - 0.01 K/cumm [facility] Comment:Testing performed by : [address] [address] ANC Prelim 9.46(H) 1.50 - 6.50 K/cumm [facility] Comment: Interpretive Data The rapid ANC is a preliminary automated count and may vary from the final ANC (Neut Abs) reported in the WBC differential that follows. Current interpretive data was last revised 2024. Testing performed by: [address] [address] Blood 01/06/2025 8:25 AM CONSTRUCTION AREA MANAGER 01/06/2025 8:35 AM CONSTRUCTION AREA MANAGER Hadley Benitez DO LAB BLOOD ORDERABLES Final R esult Performing Organization Address City/[facility]/ZIP Co de Phone Number [address] [place] [address] * TSH (01/06/2025 8:25 AM CONSTRUCTION AREA MANAGER) Thyroid Stimulating Hormone 0.50 0.30 - 4.20 mcIUnit/mL Comment:Testing performed by : [address] [address] Blood 01/06/2025 8:25 AM CONSTRUCTION AREA MANAGER 01/06/2025 9:45 AM CONSTRUCTION AREA MANAGER Hadley Benitez DO LAB BLOOD ORDERABLES Final R esult Performing Organization Address City/[facility] Co de Phone Number [address] [place] [address] * T4, free (01/06/2025 8:25 AM CONSTRUCTION AREA MANAGER) Free T4 1.25 0.90 - 1.70 ng/dL Comment:Testing performed by : [address] [address] Blood 01/06/2025 8:25 AM CONSTRUCTION AREA MANAGER 01/06/2025 9:45 AM CONSTRUCTION AREA MANAGER Hadley Benitez DO LAB BLOOD ORDERABLES Final R esult [facility] [address] [facility] Department [place] [address] * (ABNORMAL) Comprehensive metabolic panel (01/06/2025 8:25 AM CONSTRUCTION AREA MANAGER) Sodium 141 135 - 145 mmol/L Comment:Testing performed by : [address] [address] Potassium, pl 5.3(H) 3.3 - 4.9 mmol/L [facility] Comment:Testing performed by : [address] [address] Chloride 109 97 - 110 mmol/L [facility] Comment:Testing performed by : [address] [address] CO2 22 22 - 32 mmol/L [facility] Comment:Testing performed by : [address] [address] Anion gap 10 2 - 15 mmol/L [facility] Comment:Testing performed by : [address] [address] BUN 30(H) 6 - 25 mg/dL [facility] Comment:Testing performed by : [address] [address] Creatinine 1.30 0.80 - 1.30 mg/dL [facility] Comment:Testing performed by : [address] [address] Glucose 128 70 - 199 mg/dL [facility] Comment: Interpretive Data Fasting glucose >/= 126 [...] was last revised 2022. Testing performed by: [address] [address] Calcium 9.0 8.5 - 10.3 mg/dL [facility] Comment:Testing performed by : [address] [address] Bilirubin, total 0.2 0.1 - 1.2 mg/dL [facility] Comment:Testing performed by : [address] [address] Protein, pl 6.3(L) 6.5 - 8.5 g/dL [facility] Comment:Testing performed by : [address] [address] Albumin 3.6 3.5 - 5.0 g/dL [facility] Comment:Testing performed by : [address] [address] Alk phos 67 40 - 130 Units/L [facility] Comment:Testing performed by : [address] [address] ALT 16 7 - 55 Units/L [facility] Comment:Testing performed by : [address] [address] AST 13 10 - 50 Units/L [facility] Comment:Testing performed by : [address] [address] Blood 01/06/2025 8:25 AM CONSTRUCTION AREA MANAGER 01/06/2025 8:35 AM CONSTRUCTION AREA MANAGER us Hadley Benitez DO LAB BLOOD ORDERABLES Final R esult [facility] [address] [facility] Department of Laboratories [place], [place] [id number] * (ABNORMAL) Differential, auto (12/30/2024 12:11 PM CONSTRUCTION AREA MANAGER) Neutrophil abs 8.52(H) 1.50 - 6.50 K/cumm Comment:Testing performed by : [facility], [address] [place] [address], [place]., [address] Imm gran abs 0.44(H) 0.00 - 0.10 K/cumm [facility] Comment:Testing performed by : [facility], [address] [place] [address], [place]., [address] Lymphocyte abs 2.03 0.80 - 3.30 K/cumm [facility] Comment:Testing performed by : [address], [place]., [address] Monocyte abs 0.75 0.20 - 0.80 K/cumm [facility] Comment:Testing performed by : [address], [place]., [address] Eosinophil abs 0.19 0.00 - 0.50 K/cumm [facility] Comment:Testing performed by : [address], [place]., [address] Basophil abs 0.14(H) 0.00 - 0.10 K/cumm [facility] Comment:Testing performed by : [address] [address] Neutrophil pct 70.6 % [facility] Comment: Interpretive Data Percent cell count reference ranges are not reported, since discordance with absolute values may lead to misinterpretation of CBC data. Current Interpretive Data was last revised on 2017. Testing performed by: [address] [address] Imm gran pct 3.6 % [facility] Comment: Interpretive Data Percent cell count reference ranges are not reported, since discordance with absolute values may lead to misinterpretation of CBC data. Current Interpretive Data was last revised on 2017. Testing performed by: [address] [address] Lymphocyte pct 16.8 % [facility] Comment: Interpretive Data Percent cell count reference ranges are not reported, since discordance with absolute values may lead to misinterpretation of CBC data. Current Interpretive Data was last revised on 2017. Testing performed by: [address] [address] Monocyte pct 6.2 % [facility] Comment: Interpretive Data Percent cell count reference ranges are not reported, since discordance with absolute values may lead to misinterpretation of CBC data. Current Interpretive Data was last revised on 2017. Testing performed by: [address] [address] Eosinophil pct 1.6 % [facility] Comment: Interpretive Data Percent cell count reference ranges are not reported, since discordance with absolute values may lead to misinterpretation of CBC data. Current Interpretive Data was last revised on 2017. Testing performed by: [address] [address] Basophil pct 1.2 % [facility] Comment: Interpretive Data Percent cell count reference ranges are not reported, since discordance with absolute values may lead to misinterpretation of CBC data. Current Interpretive Data was last revised on 2017. Testing performed by: [address] [address] Blood 12/30/2024 12:1 1 PM CONSTRUCTION AREA MANAGER 12/30/2024 12:12 PM CONSTRUCTION AREA MANAGER us Hadley Benitez DO LAB BLOOD ORDERABLES Final R esult [facility] [address] [facility] Department [place] [address] * (ABNORMAL) CBC with auto differential (12/30/2024 12:11 PM CONSTRUCTION AREA MANAGER) WBC 12.07(H) 3.80 - 9.90 K/cumm Comment:Testing performed by : [address] [address] Hgb 12.2(L) 13.0 - 17.5 g/dL [facility] Comment:Testing performed by : [address] [address] Hct 40.3 38.9 - 50.3 % [facility] Comment:Testing performed by : [address] [address] Plt 413(H) 150 - 400 K/cumm [facility] Comment:Testing performed by : [address] [address] MPV 9.6 9.1 - 12.3 fL [facility] Comment:Testing performed by : [address] [address] RBC 4.39 4.30 - 5.80 M/cumm [facility] Comment:Testing performed by : [address] [address] MCV 91.8 81.3 - 96.4 fL [facility] Comment:Testing performed by : [address] [address] MCH 27.8 27.1 - 33.3 pg [facility] Comment:Testing performed by : [address] [address] MCHC 30.3(L) 32.3 - 35.7 g/dL [facility] Comment:Testing performed by : [address] [address] RDW CV 21.3(H) 11.1 - 14.9 % [facility] Comment:Testing performed by : [address] [address] RDW SD 72.1(H) 35.7 - 48.1 fL [facility] Comment:Testing performed by : [address] [address] NRBC abs 0.00 0.00 - 0.01 K/cumm [facility] Comment:Testing performed by : [address] [address] ANC Prelim 8.52(H) 1.50 - 6.50 K/cumm [facility] Comment: Interpretive Data The rapid ANC is a preliminary automated count and may vary from the final ANC (Neut Abs) reported in the WBC differential that follows. Current interpretive data was last revised 2024. Testing performed by: [address] [address] Blood 12/30/2024 12:1 1 PM CONSTRUCTION AREA MANAGER 12/30/2024 12:12 PM CONSTRUCTION AREA MANAGER Hadley Benitez DO LAB BLOOD ORDERABLES Final R esult [facility] [address] [facility] Department [place] [address] * (ABNORMAL) Differential, auto (12/23/2024 10:34 AM CONSTRUCTION AREA MANAGER) Neutrophil abs 8.73(H) 1.50 - 6.50 K/cumm Comment:Testing performed by : [address] [address] Imm gran abs 0.24(H) 0.00 - 0.10 K/cumm [facility] Comment:Testing performed by : [address] [address] Lymphocyte abs 1.16 0.80 - 3.30 K/cumm [facility] Comment:Testing performed by : [address] [address] Monocyte abs 0.32 0.20 - 0.80 K/cumm [facility] Comment:Testing performed by : [address] [address] Eosinophil abs 0.05 0.00 - 0.50 K/cumm [facility] Comment:Testing performed by : [address] [address] Basophil abs 0.04 0.00 - 0.10 K/cumm [facility] Comment:Testing performed by : [address] [address] Neutrophil pct 82.8 % [facility] Comment: Interpretive Data Percent cell count reference ranges are not reported, since discordance with absolute values may lead to misinterpretation of CBC data. Current Interpretive Data was last revised on 2017. Testing performed by: [address] [address] Imm gran pct 2.3 % [facility] Comment: Interpretive Data Percent cell count reference ranges are not reported, since discordance with absolute values may lead to misinterpretation of CBC data. Current Interpretive Data was last revised on 2017. Testing performed by: [address] [address] Lymphocyte pct 11.0 % [facility] Comment: Interpretive Data Percent cell count reference ranges are not reported, since discordance with absolute values may lead to misinterpretation of CBC data. Current Interpretive Data was last revised on 2017. Testing performed by: [address] [address] Monocyte pct 3.0 % [facility] Comment: Interpretive Data Percent cell count reference ranges are not reported, since discordance with absolute values may lead to misinterpretation of CBC data. Current Interpretive Data was last revised on 2017. Testing performed by: [address] [address] Eosinophil pct 0.5 % [facility] Comment: Interpretive Data Percent cell count reference ranges are not reported, since discordance with absolute values may lead to misinterpretation of CBC data. Current Interpretive Data was last revised on 2017. Testing performed by: [address] [address] Basophil pct 0.4 % [facility] Comment: Interpretive Data Percent cell count reference ranges are not reported, since discordance with absolute values may lead to misinterpretation of CBC data. Current Interpretive Data was last revised on 2017. Testing performed by: [address] [address] Blood 12/23/2024 10:3 4 AM CONSTRUCTION AREA MANAGER 12/23/2024 10:35 AM CONSTRUCTION AREA MANAGER Hadley Benitez DO LAB BLOOD ORDERABLES Final R esult [facility] [address] [facility] Department [place] [address] * (ABNORMAL) CBC with auto differential (12/23/2024 10:34 AM CONSTRUCTION AREA MANAGER) WBC 10.54(H) 3.80 - 9.90 K/cumm Comment:Testing performed by : [address] [address] Hgb 10.1(L) 13.0 - 17.5 g/dL [facility] Comment:Testing performed by : [address] [place] [address] Hct 32.2(L) 38.9 - 50.3 % [facility] Comment:Testing performed by : [address] [address] Plt 237 150 - 400 K/cumm [facility] Comment:Testing performed by : [address] [address] MPV 11.4 9.1 - 12.3 fL [facility] Comment:Testing performed by : [address] [address] RBC 3.60(L) 4.30 - 5.80 M/cumm [facility] Comment:Testing performed by : [address], [address] MCV 89.4 81.3 - 96.4 fL [facility] Comment:Testing performed by : [address] [address] MCH 28.1 27.1 - 33.3 pg [facility] Comment:Testing performed by : [address] [address] MCHC 31.4(L) 32.3 - 35.7 g/dL [facility] Comment:Testing performed by : [address] [address] RDW CV 22.8(H) 11.1 - 14.9 % [facility] Comment:Testing performed by : [address], [address] RDW SD 73.6(H) 35.7 - 48.1 fL [facility] Comment:Testing performed by : [address] [address] NRBC abs 0.00 0.00 - 0.01 K/cumm [facility] Comment:Testing performed by : [address] [address] ANC Prelim 8.73(H) 1.50 - 6.50 K/cumm [facility] Comment: Interpretive Data The rapid ANC is a preliminary automated count and may vary from the final ANC (Neut Abs) reported in the WBC differential that follows. Current interpretive data was last revised 2024. Testing performed by: [facility], [address] [place] [address]., [address] Blood 12/23/2024 10:3 4 AM CONSTRUCTION AREA MANAGER 12/23/2024 10:35 AM CONSTRUCTION AREA MANAGER Hadley TatePedro Benitez DO LAB BLOOD ORDERABLES Final R esult Performing Organization Address [facility] Co de Phone Number [facility] [address] [place] [address] * eGFR (12/21/2024 10:15 AM CONSTRUCTION AREA MANAGER) eGFR 65 >=60 mL/min/1. 73 m2 Comment: Interpretive Data [...] was last reviewed 2020. Testing performed by: [facility], [address] [place] [address]., [address] Blood 12/21/2024 10:1 5 AM CONSTRUCTION AREA MANAGER 12/21/2024 12:33 PM CONSTRUCTION AREA MANAGER Hadley Jordy Benitez DO LAB BLOOD ORDERABLES Final R esult Performing Organization Address City/[facility]/ZIP Co de Phone Number [facility] [place] [address] * (ABNORMAL) Comprehensive metabolic panel (12/21/2024 10:15 AM CONSTRUCTION AREA MANAGER) Sodium 140 135 - 145 mmol/L Comment:Testing performed by : [address] [address] Potassium, pl 4.5 3.3 - 4.9 mmol/L [facility] Comment:Testing performed by : [address], [place]., [address] Chloride 109 97 - 110 mmol/L [facility] Comment:Testing performed by : [address], [place]., [address] CO2 21(L) 22 - 32 mmol/L [facility] Comment:Testing performed by : [address], [place]., [address] Anion gap 10 2 - 15 mmol/L [facility] Comment:Testing performed by : [address], [place]., [address] BUN 17 6 - 25 mg/dL [facility] Comment:Testing performed by : [address] [address] Creatinine 1.30 0.80 - 1.30 mg/dL [facility] Comment:Testing performed by : [address] [address] Glucose 127 70 - 199 mg/dL [facility] Comment: Interpretive Data Fasting glucose >/= 126 [...] classification and Diagnosis of Diabetes Diabetes Care 2021; 46: S19-S40. Current interpretive data was last revised 2022. Testing performed by: [address] [address] Calcium 8.1(L) 8.5 - 10.3 mg/dL [facility] Comment:Testing performed by : [address] [address] Bilirubin, total 0.2 0.1 - 1.2 mg/dL [facility] Comment:Testing performed by : [address] [address] Protein, pl 6.0(L) 6.5 - 8.5 g/dL [facility] Comment:Testing performed by : [address] [address] Albumin 2.9(L) 3.5 - 5.0 g/dL [facility] Comment:Testing performed by : [address] [address] Alk phos 98 40 - 130 Units/L [facility] Comment:Testing performed by : [address] [address] ALT 22 7 - 55 Units/L [facility] Comment:Testing performed by : [address] [address] AST 24 10 - 50 Units/L [facility] Comment:Testing performed by : [address] [address] Blood 12/21/2024 10:1 5 AM CONSTRUCTION AREA MANAGER 12/21/2024 12:33 PM CONSTRUCTION AREA MANAGER Hadley Benitez DO LAB BLOOD ORDERABLES Final R esult [facility] Department of Laboratories [place], [place] [id number] * (ABNORMAL) Differential, auto (12/21/2024 10:13 AM CONSTRUCTION AREA MANAGER) Neutrophil abs 8.67(H) 1.50 - 6.50 K/cumm Comment:Testing performed by : [address] [address] Imm gran abs 0.30(H) 0.00 - 0.10 K/cumm [facility] Comment:Testing performed by : [address] [address] Lymphocyte abs 0.90 0.80 - 3.30 K/cumm [facility] Comment:Testing performed by : [address] [address] Monocyte abs 0.40 0.20 - 0.80 K/cumm [facility] Comment:Testing performed by : [address] [address] Eosinophil abs 0.05 0.00 - 0.50 K/cumm [facility] Comment:Testing performed by : [address] [address] Basophil abs 0.02 0.00 - 0.10 K/cumm [facility] Comment:Testing performed by : [address] [address] Neutrophil pct 83.8 % [facility] Comment: Interpretive Data Percent cell count reference ranges are not reported, since discordance with absolute values may lead to misinterpretation of CBC data. Current Interpretive Data was last revised on 2017. Testing performed by: [address] [address] Imm gran pct 2.9 % [facility] Comment: Interpretive Data Percent cell count reference ranges are not reported, since discordance with absolute values may lead to misinterpretation of CBC data. Current Interpretive Data was last revised on 2017. Testing performed by: [address] [address] Lymphocyte pct 8.7 % [facility] Comment: Interpretive Data Percent cell count reference ranges are not reported, since discordance with absolute values may lead to misinterpretation of CBC data. Current Interpretive Data was last revised on 2017. Testing performed by: [address] [address] Monocyte pct 3.9 % [facility] Comment: Interpretive Data Percent cell count reference ranges are not reported, since discordance with absolute values may lead to misinterpretation of CBC data. Current Interpretive Data was last revised on 2017. Testing performed by: [address] [address] Eosinophil pct 0.5 % [facility] Comment: Interpretive Data Percent cell count reference ranges are not reported, since discordance with absolute values may lead to misinterpretation of CBC data. Current Interpretive Data was last revised on 2017. Testing performed by: [address] [address] Basophil pct 0.2 % [facility] Comment: Interpretive Data Percent cell count reference ranges are not reported, since discordance with absolute values may lead to misinterpretation of CBC data. Current Interpretive Data was last revised on 2017. Testing performed by: [address] [address] Blood 12/21/2024 10:1 3 AM CONSTRUCTION AREA MANAGER 12/21/2024 10:18 AM CONSTRUCTION AREA MANAGER us Hadley Benitez DO LAB BLOOD ORDERABLES Final R esult [facility] [address] [facility] [place] [address] * (ABNORMAL) CBC with auto differential (12/21/2024 10:13 AM CONSTRUCTION AREA MANAGER) WBC 10.34(H) 3.80 - 9.90 K/cumm Comment:Testing performed by : [address] [address] Hgb 9.6(L) 13.0 - 17.5 g/dL [facility] Comment:Testing performed by : [address] [address] Hct 31.0(L) 38.9 - 50.3 % [facility] Comment:Testing performed by : [address] [address] Plt 162 150 - 400 K/cumm [facility] Comment:Testing performed by : [address] [address] MPV 11.0 9.1 - 12.3 fL [facility] Comment:Testing performed by : [address] [address] RBC 3.47(L) 4.30 - 5.80 M/cumm [facility] Comment:Testing performed by : [address] [address] MCV 89.3 81.3 - 96.4 fL [facility] Comment:Testing performed by : [address], [address] MCH 27.7 27.1 - 33.3 pg [facility] Comment:Testing performed by : [address] [address] MCHC 31.0(L) 32.3 - 35.7 g/dL [facility] Comment:Testing performed by : [address] [address] RDW CV 23.4(H) 11.1 - 14.9 % [facility] Comment:Testing performed by : [address] [address] RDW SD 74.1(H) 35.7 - 48.1 fL [facility] Comment:Testing performed by : [address] [address] NRBC abs 0.00 0.00 - 0.01 K/cumm [facility] Comment:Testing performed by : [address], [address] ANC Prelim 8.67(H) 1.50 - 6.50 K/cumm [facility] Comment: Interpretive Data The rapid ANC is a preliminary automated count and may vary from the final ANC (Neut Abs) reported in the WBC differential that follows. Current interpretive data was last revised 2024. Testing performed by: [address] [address] Blood 12/21/2024 10:1 3 AM CONSTRUCTION AREA MANAGER 12/21/2024 10:18 AM CONSTRUCTION AREA MANAGER us Hadley Benitez DO LAB BLOOD ORDERABLES Final R esult [facility] [address] [facility] [place] [address] * ECG 12 lead (12/11/2024 11:53 AM CDT) us Historical Provider ECG ORDERABLES Final Res ult * US Vein Duplex Upper Extremity Left Limited (12/04/2024 11:16 AM CDT) Anatomical Region Laterality Modality Vascular Left Ultrasound 12/04/2024 10:5 2 AM CDT Narrative 12/05/2024 11:07 AM CDT Upper Extremity Venous Ultrasound Report Patient Name: MATT SPANGLER E : 1970 (53y 11m) Sex: M Study Date: 12/04/2024 10:52:04 AM Chair Inspector And Leveler: Ai Triana RDMS,RVT Order Provider: HADLEY BENITEZ Quality: Adequate Ref Provider: HADLEY BENITEZ PROCEDURES: Vascular Report: Venous Duplex imaging was performed in the left upper extremity. The internal jugular, subclavian and axillary veins were evaluated for patency, spontaneity and phasicity with Doppler, compression and augmentation maneuvers. The brachial, basilic and cephalic veins were also evaluated with compression maneuvers. 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 HISTORY: Left arm swelling H/O melanoma. COMPARISONS: No prior exams. FINDINGS: Left: Venous Doppler signals in the left upper extremity are within normal limits for spontaneity and phasicity; normal response to compression maneuvers. No evidence of superficial vein thrombus in the left upper extremity. The subclavian and axillary veins technically difficult to image to due tumor compressing the veins. Comments: Contralateral subclavian vein is imaged for comparison and is patent. Provider Notification: Prelim results given to Candida Guardado RN at Dr. Benitez's office. CONCLUSIONS: 1. No evidence of acute deep vein thrombosis in the left upper extremity. ATTESTATION: I have reviewed and interpreted the pertinent images and measurements of this study. I attest to the conclusions in the final report that is provided above. Electronically Signed By: Jan Cheema MD 12/05/2024 11:06:02 AM CDT Procedure Note Jan Cheema MD - 12/05/2024 Upper Extremity Venous Ultrasound Report Patient Name: MATT SPANGLER E : 1970 (53y 11m) Sex: M Study Date: 12/04/2024 10:52:04 AM Chair Inspector And Leveler: Ai Triana RDMS,RVT Order Provider: HADLEY BENITEZ Quality: Adequate Ref Provider: HADLEY BENITEZ PROCEDURES: Vascular Report: Venous Duplex imaging was performed in the left upperextremity. The internal jugular, subclavian and axillary veins were evaluated forpatency, spontaneity and phasicity with Doppler, compression and augmentation maneuvers. Thebrachial, basilic and cephalic veins were also evaluated with compression maneuvers. 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 HISTORY: Left arm swelling H/O melanoma. COMPARISONS: No prior exams. FINDINGS: Left: Venous Doppler signals in the left upper extremity are within normallimits for spontaneity and phasicity; normal response to compression maneuvers. Noevidence of superficial vein thrombus in the left upper extremity. The subclavian andaxillary veins technically difficult to image to due tumor compressing the veins. Comments: Contralateral subclavian vein is imaged for comparison and ispatent. Provider Notification: Prelim results given to Candida Guardado RN at 's office. CONCLUSIONS: 1. No evidence of acute deep vein thrombosis in the left upperextremity. ATTESTATION: I have reviewed and interpreted the pertinent images and measurements ofthis study. I attest to the conclusions in the final report that is provided above. Electronically Signed By: Jan Cheema MD 12/05/2024 11:06:02 AM CDT us Hadley Benitez DO IMG US PROCEDURES Final Resu lt * (ABNORMAL) Blood smear review (12/04/2024 8:08 AM CDT) RBC morphology Consistent with RBC Indicies Comment:Testing performed by : [address] [address] Anisocytosis Slight(A) [facility] SIMMONS Comment:Testing performed by : [address] [address] Platelet estimate Decreased(A) [facility] SIMMONS Comment:Testing performed by : [address] [address] Blood 12/04/2024 8:08 AM CDT 12/04/2024 8:12 AM CDT us Hadley Benitez DO LAB BLOOD ORDERABLES Final R esult [facility]ICO SIMMONS [address] [facility] [place] [address] * (ABNORMAL) eGFR (12/04/2024 8:08 AM CDT) eGFR 51(L) >=60 mL/min/1. 73 m2 Comment: Interpretive Data [...] was last reviewed 2020. Testing performed by: [address] [address] Blood 12/04/2024 8:08 AM CDT 12/04/2024 8:12 AM CDT us Hadley Benitez DO LAB BLOOD ORDERABLES Final R esult [facility] [address] [facility] [place] [address] * (ABNORMAL) Differential, auto (12/04/2024 8:08 AM CDT) Neutrophil abs 24.96(H) 1.50 - 6.50 K/cumm Comment:Testing performed by : [address] [address] Imm gran abs 0.31(H) 0.00 - 0.10 K/cumm [facility] SIMMONS Comment:Testing performed by : [address] [address] Lymphocyte abs 1.71 0.80 - 3.30 K/cumm [facility] Comment:Testing performed by : [address], [place]., [address] Monocyte abs 2.22(H) 0.20 - 0.80 K/cumm [facility] Comment:Testing performed by : [address], [place]., [address] Eosinophil abs 0.01 0.00 - 0.50 K/cumm [facility] Comment:Testing performed by : [address], [place]., [address] Basophil abs 0.04 0.00 - 0.10 K/cumm [facility] Comment:Testing performed by : [address] [address] Neutrophil pct 85.4 % [facility] Comment: Interpretive Data Percent cell count reference ranges are not reported, since discordance with absolute values may lead to misinterpretation of CBC data. Current Interpretive Data was last revised on 2017. Testing performed by: [address] [address] Imm gran pct 1.1 % [facility] Comment: Interpretive Data Percent cell count reference ranges are not reported, since discordance with absolute values may lead to misinterpretation of CBC data. Current Interpretive Data was last revised on 2017. Testing performed by: [address] [address] Lymphocyte pct 5.8 % [facility] Comment: Interpretive Data Percent cell count reference ranges are not reported, since discordance with absolute values may lead to misinterpretation of CBC data. Current Interpretive Data was last revised on 2017. Testing performed by: [address] [address] Monocyte pct 7.6 % [facility] Comment: Interpretive Data Percent cell count reference ranges are not reported, since discordance with absolute values may lead to misinterpretation of CBC data. Current Interpretive Data was last revised on 2017. Testing performed by: [address] [address] Eosinophil pct 0.0 % [facility] Comment: Interpretive Data Percent cell count reference ranges are not reported, since discordance with absolute values may lead to misinterpretation of CBC data. Current Interpretive Data was last revised on 2017. Testing performed by: [facility], [address] [place] [address]., [address] Basophil pct 0.1 % FR[facility]ICO SIMMONS Comment: Interpretive Data Percent cell count reference ranges are not reported, since discordance with absolute values may lead to misinterpretation of CBC data. Current Interpretive Data was last revised on 2017. Testing performed by: [facility], [address] [place] [address]., [address] Blood 12/04/2024 8:08 AM CDT 12/04/2024 8:12 AM CDT us Hadley Benitez DO LAB BLOOD ORDERABLES Final R esult [facility] SIMMONS [address] [facility] [place] [address] * (ABNORMAL) Pro B-type natriuretic peptide (12/04/2024 8:08 AM CDT) NT-proBNP 3,071(H) <=300 pg/mL Comment: Interpretive Comments: A. Dyspnea in Acute Care Setting All Ages: < 300 pg/ml, acute heart failure unlikely. < 50 yrs: 300 - 450 pg/ml, further investigation warranted. > 450 pg/ml, acute heart failure likely. 50 - 74 yrs: 300 - 900 pg/ml, further investigation warranted. > 900 pg/ml, acute heart failure likely . > or = 75 yrs: 450 - 1800 pg/ml, further investigation warranted. > 1800 pg/ml, acute heart failure likely. B. Non-acute Setting < 75 yrs < 125 pg/ml, rules out heart failure. > or = 125 pg/ml, further investigation warranted. > or = 75 yrs < 450 pg/ml, rules out heart failure. > or = 450 pg/ml, further investigation warranted. - Knowledge of each individual patient's NT-proBNP range may be more useful than using similar cut-points for every patient. Please note that marked elevations in NT-proBNP levels may be observed in state other than Left Ventricular Congestive Failure, including: acute coronary syndromes, right heart strain/failure (including pulmonary embolism and cor pulmonale), critical illness, renal failure, as well as advanced age. - References: 1. Iveth ESCALERA et.al. Eur Heart J. 2006:27:330-337. 2. Solo ANGEL, Gisela ESTEVES. J. AM Ginger Cardiol: Cardiovasc Imag. 2009;2: 216- 225. Interpretive Data Last Revised Date: 2017. Testing performed by: [address] [address] Blood 12/04/2024 8:08 AM CDT 12/04/2024 9:28 AM CDT us Damir Canas MD LAB BLOOD ORDERABLES Heather tate Result [facility] [address] [facility] [place] [address] * (ABNORMAL) CBC with auto differential (12/04/2024 8:08 AM CDT) WBC 29.25(H) 3.80 - 9.90 K/cumm Comment:Testing performed by : [address] [address] Hgb 11.7(L) 13.0 - 17.5 g/dL [facility] Comment:Testing performed by : [address] [address] Hct 35.4(L) 38.9 - 50.3 % [facility] Comment:Testing performed by : [address] [address] Plt 58(L) 150 - 400 K/cumm [facility] Comment:Testing performed by : [address] [address] MPV Not Measured 9.1 - 12.3 fL [facility] SIMMONS Comment:Testing performed by : [address] [address] RBC 4.37 4.30 - 5.80 M/cumm FRANSICO SIMMONS Comment:Testing performed by : [address] [address] MCV 81.0(L) 81.3 - 96.4 fL [facility] Comment:Testing performed by : [address] [address] MCH 26.8(L) 27.1 - 33.3 pg [facility] Comment:Testing performed by : [address] [address] MCHC 33.1 32.3 - 35.7 g/dL [facility] Comment:Testing performed by : [address] [address] RDW CV 20.5(H) 11.1 - 14.9 % [facility] Comment:Testing performed by : [address] [address] RDW SD 57.1(H) 35.7 - 48.1 fL [facility] Comment:Testing performed by : [address] [address] NRBC abs 0.02(H) 0.00 - 0.01 K/cumm [facility] Comment:Testing performed by : [address] [address] ANC Prelim 24.96(H) 1.50 - 6.50 K/cumm [facility] Comment: Interpretive Data The rapid ANC is a preliminary automated count and may vary from the final ANC (Neut Abs) reported in the WBC differential that follows. Current interpretive data was last revised 2024. Testing performed by: [address] [address] Blood 12/04/2024 8:08 AM CDT 12/04/2024 8:12 AM CDT us Hadley Benitez DO LAB BLOOD ORDERABLES Edited Result - Final [facility] SIMMONS [address] [facility] Department [place] [address] * Magnesium (12/04/2024 8:08 AM CDT) Magnesium 1.7 1.4 - 2.5 mg/dL Comment:Testing performed by : [address] [address] Blood 12/04/2024 8:08 AM CDT 12/04/2024 8:12 AM CDT us Damir Canas MD LAB BLOOD ORDERABLES Heather bebeto Result [facility] [address] [facility] [place] [address] * (ABNORMAL) Comprehensive metabolic panel (12/04/2024 8:08 AM CDT) Sodium 148(H) 135 - 145 mmol/L Comment:Testing performed by : [address] [address] Potassium, pl 2.9(L) 3.3 - 4.9 mmol/L [facility] Comment:Testing performed by : [address] [address] Chloride 112(H) 97 - 110 mmol/L [facility] Comment:Testing performed by : [address] [address] CO2 25 22 - 32 mmol/L [facility] Comment:Testing performed by : [address] [address] Anion gap 11 2 - 15 mmol/L [facility] Comment:Testing performed by : [address] [address] BUN 31(H) 6 - 25 mg/dL [facility] Comment:Testing performed by : [address] [address] Creatinine 1.60(H) 0.80 - 1.30 mg/dL [facility] Comment:Testing performed by : [address] [address] Glucose 143 70 - 199 mg/dL [facility] Comment: Interpretive Data Fasting glucose >/= 126 [...] was last revised 2022. Testing performed by: [address] [address] Calcium 8.2(L) 8.5 - 10.3 mg/dL [facility] Comment:Testing performed by : [address] [address] Bilirubin, total 0.6 0.1 - 1.2 mg/dL [facility] Comment:Testing performed by : [address] [address] Protein, pl 5.5(L) 6.5 - 8.5 g/dL [facility] Comment:Testing performed by : [address] [address] Albumin 2.5(L) 3.5 - 5.0 g/dL [facility] Comment:Testing performed by : [address] [address] Alk phos 127 40 - 130 Units/L [facility] Comment:Testing performed by : [address] [address] ALT 21 7 - 55 Units/L [facility] Comment:Testing performed by : [address] [address] AST 22 10 - 50 Units/L [facility] Comment:Testing performed by : [address] [address] Blood 12/04/2024 8:08 AM CDT 12/04/2024 8:12 AM CDT us Hadley Benitez DO LAB BLOOD ORDERABLES Final R esult [facility] [address] [facility] Department of Laboratories [place], [place] [id number] * TRANSTHORACIC ECHO (TTE) COMPLETE W DOPPLER/CF WO CONTRAST (12/02/2024 11:24 AM CDT) EF Mod BP 65 % CONS SCIMAGE Anatomical Region Laterality Modality Ultrasound 12/02/2024 10:4 0 AM CDT Narrative 12/02/2024 12:42 PM CDT [facility] [address] [facility] [address], [place] [address] [address] [facility] [address], [place] [address] P:[phone] P:[phone] Echocardiographic Report Patient Name: MATT SPANGLER E : 1970 Study Date: 12/02/2024 10:40:33 AM Sex: M Chair Inspector And Leveler: Judy Ortega)(CT), [facility] Location: [place] Ref Provider: HADLEY BENITEZ Height(Cm): 178 BSA: 2.29 Weight(Kg): 106.1 Heart Rate: 122 BP: 144 / 90 Quality: Good Order Provider: HADLEY BENITEZ PROCEDURES: Echocardiographic Report: Transthoracic echocardiogram with complete 2D, M-Mode, and color Doppler examination. With Strain Analysis. Definity/Optison could not be used due to: patient refused. 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 MEASUREMENTS: 2D/MM Value Range Doppler Value Range EF Mod BP 65 % [ 52 - 72 ] FRANCINE Vmax 2.43 cm2 [ 2.00 - 4.00 ] LV GLS -16.83 % AV Mean PG 4 mmHg LVIDd 2D 4.80 cm [ 4.20 - 5.80 ] AV Peak Leonard 1.42 m/s [ 1.00 - 1.70 ] LVIDs 2D 2.95 cm [ 2.50 - 4.00 ] AV Peak PG 8 mmHg LVPWd 2D 1.10 cm [ 0.60 - 1.00 ] AV VTI 27.40 cm IVSd 2D 1.06 cm [ 0.60 - 1.00 ] LVOT Diam 1.99 cm [ 1.70 - 2.10 ] AoR Diam 2D 3.91 cm [ 3.10 - 3.70 ] LVOT Peak Leonard 1.12 m/s [ 0.70 - 1.10 ] LA Volume 38.38 ml [ 18.00 - 58.00 ] LVOT VTI 22.41 cm LA Volume [place] 17 cc/m2 [ 16 - 28 ] MV E Peak Leonard 0.66 m/s [ 0.60 - 1.30 ] RA Volume 20.20 ml MV A Peak Leonard 0.69 m/s [ 1.00 - 1.20 ] MV Decel Time 203 msec [ 104 - 258 ] PV Peak Leonard 1.03 m/s [ 0.40 - 0.80 ] RV S` 14.03 mmHg Lateral E` 0.10 m/s [ 0.10 - 0.15 ] Septal E` 0.09 m/s [ 0.08 - 0.15 ] E` 0.09 m/s E/E` 7 Tapse 2.14 cm [ 1.71 - 5.00 ] 2D/MM Value Range Doppler Value Range - FINDINGS: Interpretation Site: Exam was interpreted at [facility]. Left Ventricle: Normal left ventricular size. Mild concentric left ventricular hypertrophy. Normal global left ventricular systolic function. Normal left ventricular diastolic function. Ejection fraction is measured at 65 %. Global Longitudinal Strain is -17 %. Right Ventricle: Normal right ventricular size. Normal right ventricular systolic function. Left Atrium: The left atrium is normal in size. Right Atrium: The right atrium is normal in size. Atrial Septum: The atrial septum is not well visualized. Mitral Valve: Normal appearance of the mitral valve. Trivial regurgitation of the mitral valve. Aortic Valve: Normal appearance of the aortic valve. No evidence of hemodynamically significant aortic stenosis by Doppler. Tricuspid Valve: Normal appearance of the tricuspid valve. Right ventricular systolic pressure could not be estimated due to inadequate visualization of the tricuspid regurgitation jet. Pulmonic Valve: Normal appearance of the pulmonic valve. Trivial regurgitation in the pulmonic valve. Pericardium: Normal pericardium with no significant pericardial effusion. There is an anterior echo free space consistent with epicardial fat pad. Aorta: Sinus of Valsalva is mildly dilated. Sinus of Valsalva 3.9 cm. IVC: Normal size and normal respiratory collapse consistent with normal right atrial pressure (<5 mmHg). CONCLUSIONS: Normal left ventricular size. Mild LVH. Normal LV systolic and diastolic function. Ejection fraction is measured at 65 %. Global Longitudinal Strain is -17 %. Normal right ventricular size and systolic function. Normal appearance of the mitral valve. Trivial regurgitation of the mitral valve. Normal appearance of the aortic valve. No evidence of hemodynamically significant aortic stenosis by Doppler. Right ventricular systolic pressure could not be estimated due to inadequate visualization of the tricuspid regurgitation jet. Electronically Signed By: Venancio Kevin MD, [facility] 12/02/2024 12:41:36 PM CDT Procedure Note Venancio Kevin MD - 12/02/2024 [facility] [address] [facility] [address], [place] [address] [address] [facility] [address], [place] [address] P:[phone] P:[phone] Echocardiographic Report Patient Name: MATT SPANGLER E : 1970 Study Date: 12/02/2024 10:40:33 AM Sex: M Chair Inspector And Leveler: Judy Wu (Juan)(CT), [facility] Location: [facility] Provider: HADLEY BENITEZ Height(Cm): 178 BSA: 2.29 Weight(Kg): 106.1 Heart Rate: 122 BP: 144 / 90 Quality: Good Order Provider: HADLEY BENITEZ PROCEDURES: Echocardiographic Report: Transthoracic echocardiogram with complete 2D, M-Mode, and color Dopplerexamination. With Strain Analysis. Definity/Optison could not be used due to: patientrefused. 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 MEASUREMENTS: 2D/MM Value Range Doppler ValueRange EF Mod BP 65 % [ 52 - 72 ] FRANCINE Vmax 2.43cm2 [ 2.00 - 4.00 ] LV GLS -16.83 % AV Mean PG 4mmHg LVIDd 2D 4.80 cm [ 4.20 - 5.80 ] AV Peak Leonard 1.42m/s [ 1.00 - 1.70 ] LVIDs 2D 2.95 cm [ 2.50 - 4.00 ] AV Peak PG 8mmHg LVPWd 2D 1.10 cm [ 0.60 - 1.00 ] AV VTI 27.40cm IVSd 2D 1.06 cm [ 0.60 - 1.00 ] LVOT Diam 1.99cm [ 1.70 - 2.10 ] AoR Diam 2D 3.91 cm [ 3.10 - 3.70 ] LVOT Peak Leonard 1.12m/s [ 0.70 - 1.10 ] LA Volume 38.38 ml [ 18.00 - 58.00 ] LVOT VTI 22.41cm LA Volume [place] 17 cc/m2 [ 16 - 28 ] MV E Peak Leonard 0.66m/s [ 0.60 - 1.30 ] RA Volume 20.20 ml MV A Peak Leonard 0.69m/s [ 1.00 - 1.20 ] MV Decel Time 203 msec [ 104 - 258 ] PV Peak Leonard 1.03 m/s [ 0.40 - 0.80 ] RV S` 14.03 mmHg Lateral E` 0.10 m/s [ 0.10 - 0.15 ] Septal E` 0.09 m/s [ 0.08 - 0.15 ] E` 0.09 m/s E/E` 7 Tapse 2.14 cm [ 1.71 - 5.00 ] 2D/MM Value Range Doppler ValueRange - FINDINGS: Interpretation Site: Exam was interpreted at [facility]. Left Ventricle: Normal left ventricular size. Mild concentric left ventricularhypertrophy. Normal global left ventricular systolic function. Normal left ventricular diastolicfunction. Ejection fraction is measured at 65 %. Global Longitudinal Strain is -17 %. Right Ventricle: Normal right ventricular size. Normal right ventricular systolicfunction. Left Atrium: The left atrium is normal in size. Right Atrium: The right atrium is normal in size. Atrial Septum: The atrial septum is not well visualized. Mitral Valve: Normal appearance of the mitral valve. Trivial regurgitation of the mitralvalve. Aortic Valve: Normal appearance of the aortic valve. No evidence of hemodynamicallysignificant aortic stenosis by Doppler. Tricuspid Valve: Normal appearance of the tricuspid valve. Right ventricular systolicpressure could not be estimated due to inadequate visualization of the tricuspidregurgitation jet. Pulmonic Valve: Normal appearance of the pulmonic valve. Trivial regurgitation in thepulmonic valve. Pericardium: Normal pericardium with no significant pericardial effusion. There is ananterior echo free space consistent with epicardial fat pad. Aorta: Sinus of Valsalva is mildly dilated. Sinus of Valsalva 3.9 cm. IVC: Normal size and normal respiratory collapse consistent with normal rightatrial pressure (<5 mmHg). CONCLUSIONS: Normal left ventricular size. Mild LVH. Normal LV systolic and diastolicfunction. Ejection fraction is measured at 65 %. Global Longitudinal Strain is -17%. Normal right ventricular size and systolic function. Normal appearance of the mitral valve. Trivial regurgitation of the mitralvalve. Normal appearance of the aortic valve. No evidence of hemodynamicallysignificant aortic stenosis by Doppler. Right ventricular systolic pressure could not be estimated due toinadequate visualization of the tricuspid regurgitation jet. Electronically Signed By: Venancio Kevin MD, FACC 12/02/2024 12:41:36 PM CDT Hadley Benitez DO CV ECHO PROCEDURES Final Res ult * Transfuse platelets (11/30/2024 11:49 AM CDT) Blood Hadley Benitez DO BLOOD TRANSFUSION ORDERABLES Final Result * Prepare platelets: 1 Units (11/30/2024 9:27 AM CDT) Platelets # of units / Ready 1 Comment:Testing performed by : [address] [address] Platelets # of units / Ready Ready [place] Comment:Testing performed by : [address] [address] Unit Number [id number] Product code [id number] [facility] Blood Expiration Date [id number] [facility] Product Blood Type (for scanning) [address] [facility] Product Blood Type OPOS [facility] Dispense Status DISPENSED [facility] Blood Venous blood specimen / Unknown 11/30/2024 9:27 AM CDT 11/30/2024 9:27 AM CDT Hadley Benitez DO BLOOD BANK PRODUCT ORDERABLE S Final Result Performing Organization Address [facility] Co de Phone Number [place] [phone] [facility] [place] [address] * (ABNORMAL) Immature platelet fraction (11/30/2024 8:07 AM CDT) [facility] IPF 21.2(H) 1.6 - 10.1 % Comment:Testing performed by : [address] [address] Blood 11/30/2024 8:07 AM CDT 11/30/2024 8:10 AM CDT Hadley Benitez DO LAB BLOOD ORDERABLES Final R esult Performing Organization Address City/[facility]/ZIP Co de Phone Number [address] [place] [address] * (ABNORMAL) Blood smear review (11/30/2024 8:07 AM CDT) [facility] RBC morphology Consistent with RBC Indicies Comment:Testing performed by : [address] [address] Anisocytosis Slight(A) [place] Comment:Testing performed by : [address] [address] Platelet estimate Decreased(A) [facility] Comment:Testing performed by : [facility], [address] [place] [address]., [address] Blood 11/30/2024 8:07 AM CDT 11/30/2024 8:10 AM CDT Hadley Jordy Benitez DO LAB BLOOD ORDERABLES Final R esult Performing Organization Address [facility] Co de Phone Number [facility] [address] [facility] [place] [address] * (ABNORMAL) eGFR (11/30/2024 8:07 AM CDT) eGFR 55(L) >=60 mL/min/1. 73 m2 Comment: Interpretive Data [...] was last reviewed 2020. Testing performed by: [facility], [address] [place] [address]., [address] Blood 11/30/2024 8:07 AM CDT 11/30/2024 8:10 AM CDT Hadley Benitez DO LAB BLOOD ORDERABLES Final R esult Performing Organization Address City/[facility]/ZIP Co de Phone Number [place] [phone] [facility] [place] [place] [address] * (ABNORMAL) Differential, auto (11/30/2024 8:07 AM CDT) Neutrophil abs 18.85(H) 1.50 - 6.50 K/cumm Comment:Testing performed by : [address] [address] Imm gran abs 0.90(H) 0.00 - 0.10 K/cumm [facility] Comment:Testing performed by : [address] [address] Lymphocyte abs 2.18 0.80 - 3.30 K/cumm [facility] Comment:Testing performed by : [address] [address] Monocyte abs 1.80(H) 0.20 - 0.80 K/cumm [facility] Comment:Testing performed by : [address] [address] Eosinophil abs 0.00 0.00 - 0.50 K/cumm [facility] Comment:Testing performed by : [address] [address] Basophil abs 0.05 0.00 - 0.10 K/cumm [facility] Comment:Testing performed by : [address] [address] Neutrophil pct 79.2 % [facility] Comment: Interpretive Data Percent cell count reference ranges are not reported, since discordance with absolute values may lead to misinterpretation of CBC data. Current Interpretive Data was last revised on 2017. Testing performed by: [address] [address] Imm gran pct 3.8 % [facility] Comment: Interpretive Data Percent cell count reference ranges are not reported, since discordance with absolute values may lead to misinterpretation of CBC data. Current Interpretive Data was last revised on 2017. Testing performed by: [address] [address] Lymphocyte pct 9.2 % [facility] Comment: Interpretive Data Percent cell count reference ranges are not reported, since discordance with absolute values may lead to misinterpretation of CBC data. Current Interpretive Data was last revised on 2017. Testing performed by: [address] [address] Monocyte pct 7.6 % [facility] Comment: Interpretive Data Percent cell count reference ranges are not reported, since discordance with absolute values may lead to misinterpretation of CBC data. Current Interpretive Data was last revised on 2017. Testing performed by: [address] [address] Eosinophil pct 0.0 % [facility] Comment: Interpretive Data Percent cell count reference ranges are not reported, since discordance with absolute values may lead to misinterpretation of CBC data. Current Interpretive Data was last revised on 2017. Testing performed by: [address] [address] Basophil pct 0.2 % [facility] Comment: Interpretive Data Percent cell count reference ranges are not reported, since discordance with absolute values may lead to misinterpretation of CBC data. Current Interpretive Data was last revised on 2017. Testing performed by: [address] [address] Blood 11/30/2024 8:07 AM CDT 11/30/2024 8:10 AM CDT us Hadley Benitez DO LAB BLOOD ORDERABLES Final R esult [facility] [address] [facility] [place] [address] * (ABNORMAL) CBC with auto differential (11/30/2024 8:07 AM CDT) WBC 24.14(H) 3.80 - 9.90 K/cumm Comment:Testing performed by : [address] [address] Hgb 11.7(L) 13.0 - 17.5 g/dL [facility] Comment:Testing performed by : [address] [address] Hct 34.2(L) 38.9 - 50.3 % [facility] Comment:Testing performed by : [address] [address] Plt 2(C) 150 - 400 K/cumm [facility] Comment: This result has been called to Linda Corona RN by [id number] on 11/30/2024 08:50:04, and has been read back. Testing performed by: [address] [address] MPV Not Measured 9.1 - 12.3 fL [facility] Comment:Testing performed by : [address] [address] RBC 4.38 4.30 - 5.80 M/cumm [facility] Comment:Testing performed by : [address] [address] MCV 78.1(L) 81.3 - 96.4 fL [facility] Comment:Testing performed by : [address] [address] MCH 26.7(L) 27.1 - 33.3 pg [facility] Comment:Testing performed by : [address] [address] MCHC 34.2 32.3 - 35.7 g/dL [facility] Comment:Testing performed by : [address] [address] RDW CV 18.6(H) 11.1 - 14.9 % [facility] Comment:Testing performed by : [address] [address] RDW SD 48.5(H) 35.7 - 48.1 fL [facility] Comment:Testing performed by : [address] [address] NRBC abs 0.07(H) 0.00 - 0.01 K/cumm [facility] Comment:Testing performed by : [address] [address] ANC Prelim 18.85(H) 1.50 - 6.50 K/cumm [facility] Comment: Interpretive Data The rapid ANC is a preliminary automated count and may vary from the final ANC (Neut Abs) reported in the WBC differential that follows. Current interpretive data was last revised 2024. Testing performed by: [address] [address] Blood 11/30/2024 8:07 AM CDT 11/30/2024 8:10 AM CDT Hadley Benitez DO LAB BLOOD ORDERABLES Edited Result - Final [facility] [address] [facility] [place] [address] * (ABNORMAL) Comprehensive metabolic panel (11/30/2024 8:07 AM CDT) Sodium 145 135 - 145 mmol/L Comment:Testing performed by : [address] [address] Potassium, pl 2.8(L) 3.3 - 4.9 mmol/L [facility] Comment:Testing performed by : [address] [address] Chloride 111(H) 97 - 110 mmol/L [facility] Comment:Testing performed by : [address] [address] CO2 23 22 - 32 mmol/L [facility] Comment:Testing performed by : [address] [address] Anion gap 11 2 - 15 mmol/L [facility] Comment:Testing performed by : [address] [address] BUN 30(H) 6 - 25 mg/dL [facility] Comment:Testing performed by : [address] [address] Creatinine 1.50(H) 0.80 - 1.30 mg/dL [facility] Comment:Testing performed by : [address] [address] Glucose 204(H) 70 - 199 mg/dL [facility] Comment: Interpretive Data Fasting glucose >/= 126 [...] was last revised 2022. Testing performed by: [address] [address] Calcium 8.3(L) 8.5 - 10.3 mg/dL [facility] Comment:Testing performed by : [address] [address] Bilirubin, total 0.5 0.1 - 1.2 mg/dL [facility] Comment:Testing performed by : [address] [address] Protein, pl 5.5(L) 6.5 - 8.5 g/dL [facility] Comment:Testing performed by : [address] [address] Albumin 2.3(L) 3.5 - 5.0 g/dL [facility] Comment:Testing performed by : [address] [address] Alk phos 131(H) 40 - 130 Units/L [facility] Comment:Testing performed by : [address] [address] ALT 21 7 - 55 Units/L [facility] Comment:Testing performed by : [address] [address] AST 25 10 - 50 Units/L [facility] Comment:Testing performed by : [address] [address] Blood 11/30/2024 8:07 AM CDT 11/30/2024 8:10 AM CDT us Hadley Benitez DO LAB BLOOD ORDERABLES Final R esult [facility] [address] [place] [address] Department [place] [address] * Immature platelet fraction (11/26/2024 2:04 PM CDT) [facility] IPF 2.2 1.6 - 10.1 % Comment:Testing performed by : [address] [address] Blood 11/26/2024 2:04 PM CDT 11/26/2024 2:06 PM CDT Hadley Benitez DO LAB BLOOD ORDERABLES Final R esult Performing Organization Address City/[facility]/ZIP Co de Phone Number [facility] [address] [address] * (ABNORMAL) Platelet count (11/26/2024 2:04 PM CDT) [facility] Plt 1(C) 150 - 400 K/cumm Comment: This result has been called to Jimmy Hallman RN by [id number] on 11/26/2024 14:23:49, and has been read back. Testing performed by: [address] [address] Morphologic Screen Results confirmed by manual morphology review. [facility] Comment:Testing performed by : [address] [address] Blood 11/26/2024 2:04 PM CDT 11/26/2024 2:06 PM CDT Hadley Benitez DO LAB BLOOD ORDERABLES Edited Result - Final [facility] [address] [address] * Antibody Identification SO (11/26/2024 2:00 PM CDT) [facility] Antibody ID Reference Lab/Send Out ARC Comment:Testing performed by : [address] [address] Antibody ID Reference Lab/Send Out Cold Autoantibody [facility] Comment:Testing performed by : [address] [address] Blood 11/26/2024 2:00 PM CDT 11/26/2024 3:23 PM CDT Result [facility] Hadley Benitez DO LAB BLOOD BANK TEST ORDERABL ES Final Result Performing Organization Address [facility] de Phone Number [facility] [address] [place] [address] * RBC Antigen Serologic Phenotyping (11/26/2024 2:00 PM CDT) Erythrocyte ag c Positive Comment:Testing performed by : [address] [address] Erythrocyte ag E Negative [facility] Comment:Testing performed by : [address] [address] Erythrocyte ag C Positive [facility] Comment:Testing performed by : [address] [address] Erythrocyte ag e Positive [facility] Comment:Testing performed by : [address] [address] Blood 11/26/2024 2:00 PM CDT 11/28/2024 4:13 PM CDT Result [facility] Hadley Benitez LAB BLOOD BANK TEST ORDERABL ES Final Result Performing Organization Address [facility] de Phone Number [address] [address] * Transfuse platelets (11/26/2024 1:03 PM CDT) Blood Hadley Benitez DO BLOOD TRANSFUSION ORDERABLES Final Result * Prepare platelets: 1 Units (11/26/2024 11:29 AM CDT) Platelets # of units / Ready 1 Comment:Testing performed by : [address] [address] Platelets # of units / Ready Ready [facility] Comment:Testing performed by : [address] [address] Unit Number [id number] Product code [id number] [facility] Blood Expiration Date [id number] [facility] Product Blood Type (for scanning) [address] [facility] Product Blood Type OPOS [facility] Dispense Status DISPENSED [facility] Blood Venous blood specimen / Unknown 11/26/2024 11:29 AM CDT 11/26/2024 11:29 AM CDT Hadley Benitez DO BLOOD BANK PRODUCT ORDERABLE S Final Result Performing Organization Address [facility] Co de Phone Number [facility] [address] [place] [address] * ABO / Rh Confirmation Testing (11/26/2024 10:08 AM CDT) Pathologist [facility] ABO/Rh Confirmation A Positive [facility] Comment:Testing performed by : [address] [address] Blood 11/26/2024 10:0 8 AM CDT 11/26/2024 10:45 AM CDT Hadley Benitez DO LAB BLOOD ORDERABLES Final R esult Performing Organization Address City/[facility]/ZIP Co de Phone Number [address] [place] [address] [facility] * (ABNORMAL) Immature platelet fraction (11/26/2024 10:07 AM CDT) IPF 14.3(H) 1.6 - 10.1 % Comment:Testing performed by : [address] [address] Blood 11/26/2024 10:0 7 AM CDT 11/26/2024 10:10 AM CDT Hadley Fuentesnti LAB BLOOD ORDERABLES Final R esult Performing Organization Address [facility] Co de Phone Number [facility] [place] [address] * (ABNORMAL) Blood smear review (11/26/2024 10:07 AM CDT) RBC morphology Consistent with RBC Indicies Comment:Testing performed by : [address] [address] RBC Agglutination 1 [facility] Comment:Testing performed by : [address] [address] Platelet estimate Decreased(A) [facility] Comment:Testing performed by : [address] [address] Blood 11/26/2024 10:0 7 AM CDT 11/26/2024 10:10 AM CDT Hadley TatePedro Eli [facility] BLOOD ORDERABLES Final R esult Performing Organization Address [facility] de Phone Number [place] [id number] [facility] [place] [address] * (ABNORMAL) Differential, auto (11/26/2024 10:07 AM CDT) Pathologist [facility] Neutrophil abs 16.03(H) 1.50 - 6.50 K/cumm Comment:Testing performed by : [address] [address] Imm gran abs 0.19(H) 0.00 - 0.10 K/cumm [facility] Comment:Testing performed by : [address] [address] Lymphocyte abs 1.79 0.80 - 3.30 K/cumm [facility] Comment:Testing performed by : [address] [address] Monocyte abs 1.54(H) 0.20 - 0.80 K/cumm [facility] Comment:Testing performed by : [address] [address] Eosinophil abs 0.27 0.00 - 0.50 K/cumm [facility] Comment:Testing performed by : [address] [address] Basophil abs 0.07 0.00 - 0.10 K/cumm [facility] Comment:Testing performed by : [address] [address] Neutrophil pct 80.5 % [facility] Comment: Interpretive Data Percent cell count reference ranges are not reported, since discordance with absolute values may lead to misinterpretation of CBC data. Current Interpretive Data was last revised on 2017. Testing performed by: [address] [address] Imm gran pct 1.0 % [facility] Comment: Interpretive Data Percent cell count reference ranges are not reported, since discordance with absolute values may lead to misinterpretation of CBC data. Current Interpretive Data was last revised on 2017. Testing performed by: [address] [address] Lymphocyte pct 9.0 % [facility] Comment: Interpretive Data Percent cell count reference ranges are not reported, since discordance with absolute values may lead to misinterpretation of CBC data. Current Interpretive Data was last revised on 2017. Testing performed by: [address] [address] Monocyte pct 7.7 % [facility] Comment: Interpretive Data Percent cell count reference ranges are not reported, since discordance with absolute values may lead to misinterpretation of CBC data. Current Interpretive Data was last revised on 2017. Testing performed by: [address] [address] Eosinophil pct 1.4 % [facility] Comment: Interpretive Data Percent cell count reference ranges are not reported, since discordance with absolute values may lead to misinterpretation of CBC data. Current Interpretive Data was last revised on 2017. Testing performed by: [address] [address] Basophil pct 0.4 % [facility] Comment: Interpretive Data Percent cell count reference ranges are not reported, since discordance with absolute values may lead to misinterpretation of CBC data. Current Interpretive Data was last revised on 2017. Testing performed by: [address] [address] Blood 11/26/2024 10:0 7 AM CDT 11/26/2024 10:10 AM CDT Hadley Benitez DO LAB BLOOD ORDERABLES Final R esult [facility] [address] [facility] [place] [address] * (ABNORMAL) CBC with auto differential (11/26/2024 10:07 AM CDT) WBC 19.96(H) 3.80 - 9.90 K/cumm Comment:Testing performed by : [address] [address] Hgb 11.9(L) 13.0 - 17.5 g/dL [facility] Comment:Testing performed by : [address] [address] Hct 35.4(L) 38.9 - 50.3 % [facility] Comment:Testing performed by : [address] [address] Plt 1(C) 150 - 400 K/cumm [facility] Comment: This result has been called to Jimmy Hallman RN by [id number] on 11/26/2024 10:26:15, and has been read back. Testing performed by: [address] [address] MPV Not Measured 9.1 - 12.3 fL [facility] Comment:Testing performed by : [address] [address] RBC 4.50 4.30 - 5.80 M/cumm [facility] Comment:Testing performed by : [address] [address] MCV 78.7(L) 81.3 - 96.4 fL [facility] Comment:Testing performed by : [address] [address] MCH 26.4(L) 27.1 - 33.3 pg [facility] Comment:Testing performed by : [address] [address] MCHC 33.6 32.3 - 35.7 g/dL [facility] Comment:Testing performed by : [address] [address] RDW CV 18.1(H) 11.1 - 14.9 % [facility] Comment:Testing performed by : [address] [address] RDW SD 47.7 35.7 - 48.1 fL [facility] Comment:Testing performed by : [address] [address] NRBC abs 0.02(H) 0.00 - 0.01 K/cumm [facility] Comment:Testing performed by : [address] [address] ANC Prelim 16.03(H) 1.50 - 6.50 K/cumm [facility] Comment: Interpretive Data The rapid ANC is a preliminary automated count and may vary from the final ANC (Neut Abs) reported in the WBC differential that follows. Current interpretive data was last revised 2024. Testing performed by: [address] [address] Blood 11/26/2024 10:0 7 AM CDT 11/26/2024 10:10 AM CDT us Hadley Benitez DO LAB BLOOD ORDERABLES Edited Result - Final [facility] [address] [facility] Department [place] [address] * ABO/Rh (11/26/2024 10:07 AM CDT) ABO/Rh A Positive Comment:Testing performed by : [address] [address] Blood 11/26/2024 10:0 7 AM CDT 11/26/2024 10:45 AM CDT Narrative [facility] 11/26/2024 11:27 AM CDT Has the patient had Daratumumab or Isatuximab in the past 6 months?->No Result [facility] Hadley Fuentesnti LAB BLOOD BANK TEST ORDERABL ES Final Result Performing Organization Address [facility] de Phone Number [address] [place] [address] * (ABNORMAL) Antibody screen (11/26/2024 10:07 AM CDT) Pathologist [facility] Rehana, indirect, Gel Interpretation Positive( A) Comment:Testing performed by : [facility], [address] [place] [address]., [address] Blood 11/26/2024 10:0 7 AM CDT 11/26/2024 10:45 AM CDT Narrative [facility] 11/26/2024 11:47 AM CDT Has the patient had Daratumumab or Isatuximab in the past 6 months?->No Result [facility] Hadley TatePedro Eli LAB BLOOD BANK TEST ORDERABL ES Final Result Performing Organization Address [facility] de Phone Number [address] [address] * CMP (11/19/2024 11:25 AM CDT) Historical Provider MD LAB BLOOD ORDERABLES Heather l Result * CBC with auto differential (11/19/2024 11:25 AM CDT) Blood Result [facility] Historical Provider MD LAB BLOOD ORDERABLES Heather l Result * (ABNORMAL) eGFR (11/13/2024 7:38 AM CDT) Pathologist [facility] eGFR 44(L) >=60 mL/min/1. 73 m2 Comment: [...] was last reviewed 2020. Testing performed by: [address] [address] Blood 11/13/2024 7:38 AM CDT 11/13/2024 7:41 AM CDT us Hadley Benitez DO LAB BLOOD ORDERABLES Final R esult [facility] [address] [facility] Department [place] [address] * (ABNORMAL) Differential, auto (11/13/2024 7:38 AM CDT) Neutrophil abs 16.89(H) 1.50 - 6.50 K/cumm Comment:Testing performed by : [address] [address] Imm gran abs 0.11(H) 0.00 - 0.10 K/cumm [facility] Comment:Testing performed by : [address] [address] Lymphocyte abs 1.44 0.80 - 3.30 K/cumm [facility] Comment:Testing performed by : [address] [address] Monocyte abs 1.76(H) 0.20 - 0.80 K/cumm [facility] Comment:Testing performed by : [address] [address] Eosinophil abs 0.07 0.00 - 0.50 K/cumm [facility] Comment:Testing performed by : [address] [address] Basophil abs 0.03 0.00 - 0.10 K/cumm [facility] Comment:Testing performed by : [address] [address] Neutrophil pct 83.3 % [facility] Comment: Interpretive Data Percent cell count reference ranges are not reported, since discordance with absolute values may lead to misinterpretation of CBC data. Current Interpretive Data was last revised on 2017. Testing performed by: [address] [address] Imm gran pct 0.5 % [facility] Comment: Interpretive Data Percent cell count reference ranges are not reported, since discordance with absolute values may lead to misinterpretation of CBC data. Current Interpretive Data was last revised on 2017. Testing performed by: [address] [address] Lymphocyte pct 7.1 % [facility] Comment: Interpretive Data Percent cell count reference ranges are not reported, since discordance with absolute values may lead to misinterpretation of CBC data. Current Interpretive Data was last revised on 2017. Testing performed by: [address] [address] Monocyte pct 8.7 % [facility] Comment: Interpretive Data Percent cell count reference ranges are not reported, since discordance with absolute values may lead to misinterpretation of CBC data. Current Interpretive Data was last revised on 2017. Testing performed by: [address] [address] Eosinophil pct 0.3 % [facility] Comment: Interpretive Data Percent cell count reference ranges are not reported, since discordance with absolute values may lead to misinterpretation of CBC data. Current Interpretive Data was last revised on 2017. Testing performed by: [address] [address] Basophil pct 0.1 % [facility] Comment: Interpretive Data Percent cell count reference ranges are not reported, since discordance with absolute values may lead to misinterpretation of CBC data. Current Interpretive Data was last revised on 2017. Testing performed by: [address] [address] Blood 11/13/2024 7:38 AM CDT 11/13/2024 7:41 AM CDT Hadley Benitez DO LAB BLOOD ORDERABLES Final R esult [facility] [address] [facility] [place] [address] * (ABNORMAL) CBC with auto differential (11/13/2024 7:38 AM CDT) WBC 20.30(H) 3.80 - 9.90 K/cumm Comment:Testing performed by : [address] [address] Hgb 13.9 13.0 - 17.5 g/dL [facility] Comment:Testing performed by : [address] [address] Hct 40.6 38.9 - 50.3 % [facility] Comment:Testing performed by : [address] [address] Plt 292 150 - 400 K/cumm [facility] Comment:Testing performed by : [address] [address] MPV 9.7 9.1 - 12.3 fL [facility] Comment:Testing performed by : [address] [address] RBC 5.24 4.30 - 5.80 M/cumm [facility] Comment:Testing performed by : [address] [address] MCV 77.5(L) 81.3 - 96.4 fL [facility] Comment:Testing performed by : [address] [address] MCH 26.5(L) 27.1 - 33.3 pg [facility] Comment:Testing performed by : [address] [address] MCHC 34.2 32.3 - 35.7 g/dL [facility] Comment:Testing performed by : [address] [address] RDW CV 15.4(H) 11.1 - 14.9 % [facility] Comment:Testing performed by : [address] [address] RDW SD 41.3 35.7 - 48.1 fL [facility] Comment:Testing performed by : [address] [address] NRBC abs 0.00 0.00 - 0.01 K/cumm [facility] Comment:Testing performed by : [address] [address] ANC Prelim 16.89(H) 1.50 - 6.50 K/cumm [facility] Comment: Interpretive Data The rapid ANC is a preliminary automated count and may vary from the final ANC (Neut Abs) reported in the WBC differential that follows. Current interpretive data was last revised 2024. Testing performed by: [address] [address] Blood 11/13/2024 7:38 AM CDT 11/13/2024 7:41 AM CDT Hadley Benitez DO LAB BLOOD ORDERABLES Final R esult [facility] [address] [facility] [place] [address] * (ABNORMAL) Comprehensive metabolic panel (11/13/2024 7:38 AM CDT) Sodium 138 135 - 145 mmol/L Comment:Testing performed by : [address] [address] Potassium, pl 3.3 3.3 - 4.9 mmol/L [facility] Comment:Testing performed by : [address] [address] Chloride 106 97 - 110 mmol/L [facility] Comment:Testing performed by : [address], [place]., [address] CO2 20(L) 22 - 32 mmol/L [facility] Comment:Testing performed by : [address], [place]., [address] Anion gap 12 2 - 15 mmol/L [facility] Comment:Testing performed by : [address] [address] BUN 21 6 - 25 mg/dL [facility] Comment:Testing performed by : [address], [place]., [address] Creatinine 1.80(H) 0.80 - 1.30 mg/dL [facility] Comment:Testing performed by : [address], [place]., [address] Glucose 154 70 - 199 mg/dL [facility] Comment: Interpretive Data Fasting glucose >/= 126 [...] classification and Diagnosis of Diabetes Diabetes Care 2021; 46: S19-S40. Current interpretive data was last revised 2022. Testing performed by: [address] [address] Calcium 8.0(L) 8.5 - 10.3 mg/dL [facility] Comment:Testing performed by : [address] [address] Bilirubin, total 0.5 0.1 - 1.2 mg/dL [facility] Comment:Testing performed by : [address] [address] Protein, pl 6.5 6.5 - 8.5 g/dL [facility] Comment:Testing performed by : [address] [address] Albumin 2.6(L) 3.5 - 5.0 g/dL [facility] Comment:Testing performed by : [address] [address] Alk phos 101 40 - 130 Units/L [facility] Comment:Testing performed by : [address] [address] ALT 25 7 - 55 Units/L [facility] Comment:Testing performed by : [address] [address] AST 22 10 - 50 Units/L [facility] Comment:Testing performed by : [address] [address] Blood 11/13/2024 7:38 AM CDT 11/13/2024 7:41 AM CDT Hadley Benitez DO LAB BLOOD ORDERABLES Final R esult [facility] [address] [facility] [place] [address] * eGFR (10/23/2024 10:22 AM CDT) eGFR [...] was last reviewed 2020. Testing performed by: [address] [address] Blood 10/23/2024 10:2 2 AM CDT 10/23/2024 10:24 AM CDT Hadley Benitez DO LAB BLOOD ORDERABLES Final R esult [facility] [address] [facility] [place] [address] * (ABNORMAL) Differential, auto (10/23/2024 10:22 AM CDT) Neutrophil abs 8.61(H) 1.50 - 6.50 K/cumm Comment:Testing performed by : [address] [address] Imm gran abs 0.05 0.00 - 0.10 K/cumm [facility] Comment:Testing performed by : [address] [address] Lymphocyte abs 1.23 0.80 - 3.30 K/cumm [facility] Comment:Testing performed by : [address] [address] Monocyte abs 1.18(H) 0.20 - 0.80 K/cumm [facility] Comment:Testing performed by : [address] [address] Eosinophil abs 0.18 0.00 - 0.50 K/cumm [facility] Comment:Testing performed by : [address] [address] Basophil abs 0.07 0.00 - 0.10 K/cumm [place] Comment:Testing performed by : [address] [address] Neutrophil pct 76.1 % [facility] Comment: Interpretive Data Percent cell count reference ranges are not reported, since discordance with absolute values may lead to misinterpretation of CBC data. Current Interpretive Data was last revised on 2017. Testing performed by: [address] [address] Imm gran pct 0.4 % CERNER [facility] Comment: Interpretive Data Percent cell count reference ranges are not reported, since discordance with absolute values may lead to misinterpretation of CBC data. Current Interpretive Data was last revised on 2017. Testing performed by: [address] [address] Lymphocyte pct 10.9 % [facility] Comment: Interpretive Data Percent cell count reference ranges are not reported, since discordance with absolute values may lead to misinterpretation of CBC data. Current Interpretive Data was last revised on 2017. Testing performed by: [address] [address] Monocyte pct 10.4 % [facility] Comment: Interpretive Data Percent cell count reference ranges are not reported, since discordance with absolute values may lead to misinterpretation of CBC data. Current Interpretive Data was last revised on 2017. Testing performed by: [address] [address] Eosinophil pct 1.6 % [facility] Comment: Interpretive Data Percent cell count reference ranges are not reported, since discordance with absolute values may lead to misinterpretation of CBC data. Current Interpretive Data was last revised on 2017. Testing performed by: [address] [address] Basophil pct 0.6 % [facility] Comment: Interpretive Data Percent cell count reference ranges are not reported, since discordance with absolute values may lead to misinterpretation of CBC data. Current Interpretive Data was last revised on 2017. Testing performed by: [address] [address] Blood 10/23/2024 10:2 2 AM CDT 10/23/2024 10:24 AM CDT us Hadley Benitez DO LAB BLOOD ORDERABLES Final R esult [facility] SIMMONS [address] [facility] [place] [address] * Thyroid Function [place] (10/23/2024 10:22 AM CDT) [facility] TSH 1.67 0.30 - 4.20 mcIUnit/mL Comment:Testing performed by : [address] [address] Blood 10/23/2024 10:2 2 AM CDT 10/23/2024 11:45 AM CDT Hadley Benitez DO LAB BLOOD ORDERABLES Final R esult [facility] [address] [facility] [place] [address] * (ABNORMAL) CBC with auto differential (10/23/2024 10:22 AM CDT) [facility] WBC 11.32(H) 3.80 - 9.90 K/cumm Comment:Testing performed by : [address] [address] Hgb 15.0 13.0 - 17.5 g/dL [place] Comment:Testing performed by : [address] [address] Hct 43.8 38.9 - 50.3 % [facility] Comment:Testing performed by : [address] [address] Plt 269 150 - 400 K/cumm [place] Comment:Testing performed by : [address] [address] MPV 9.7 9.1 - 12.3 fL [place] Comment:Testing performed by : [address] [address] RBC 5.48 4.30 - 5.80 M/cumm [place] Comment:Testing performed by : [address] [address] MCV 79.9(L) 81.3 - 96.4 fL [place] Comment:Testing performed by : [address] [address] MCH 27.4 27.1 - 33.3 pg [facility] Comment:Testing performed by : [address] [place]., [address] MCHC 34.2 32.3 - 35.7 g/dL [facility] SIMMONS Comment:Testing performed by : [address] [address] RDW CV 13.5 11.1 - 14.9 % [facility] SIMMONS Comment:Testing performed by : [address] [address] RDW SD 38.8 35.7 - 48.1 fL [place] Comment:Testing performed by : [address] [address] NRBC abs 0.00 0.00 - 0.01 K/cumm [facility] Comment:Testing performed by : [address] [address] ANC Prelim 8.61(H) 1.50 - 6.50 K/cumm [facility] Comment: Interpretive Data The rapid ANC is a preliminary automated count and may vary from the final ANC (Neut Abs) reported in the WBC differential that follows. Current interpretive data was last revised 2024. Testing performed by: [address] [address] Blood 10/23/2024 10:2 2 AM CDT 10/23/2024 10:24 AM CDT Hadley Benitez DO LAB BLOOD ORDERABLES Final R esult [facility] [address] [facility] Department of Laboratories [place], [place] [id number] * (ABNORMAL) Comprehensive metabolic panel (10/23/2024 10:22 AM CDT) Sodium 141 135 - 145 mmol/L Comment:Testing performed by : [address] [address] Potassium, pl 4.2 3.3 - 4.9 mmol/L [facility] SIMMONS Comment:Testing performed by : [address] [address] Chloride 110 97 - 110 mmol/L [facility] Comment:Testing performed by : [address] [address] CO2 22 22 - 32 mmol/L [facility] Comment:Testing performed by : [address] [address] Anion gap 9 2 - 15 mmol/L [facility] Comment:Testing performed by : [address], [place]., [address] BUN 20 6 - 25 mg/dL [facility] Comment:Testing performed by : [address], [place]., [address] Creatinine 1.40(H) 0.80 - 1.30 mg/dL [facility] Comment:Testing performed by : [address] [address] Glucose 145 70 - 199 mg/dL [facility] Comment: Interpretive Data Fasting glucose >/= 126 [...] classification and Diagnosis of Diabetes Diabetes Care 2021; 46: S19-S40. Current interpretive data was last revised 2022. Testing performed by: [address] [address] Calcium 8.8 8.5 - 10.3 mg/dL [facility] Comment:Testing performed by : [address] [address] Bilirubin, total 0.4 0.1 - 1.2 mg/dL [facility] Comment:Testing performed by : [address] [address] Protein, pl 6.9 6.5 - 8.5 g/dL [facility] Comment:Testing performed by : [address] [address] Albumin 3.6 3.5 - 5.0 g/dL [place] Comment:Testing performed by : [address] [address] Alk phos 107 40 - 130 Units/L [facility] Comment:Testing performed by : [facility], [address] [place] [address]., [address] ALT 79(H) 7 - 55 Units/L [place] Comment:Testing performed by : [facility], [address] [place] [address]., [address] AST 27 10 - 50 Units/L [place] Comment:Testing performed by : [address] [address] Blood 10/23/2024 10:2 2 AM CDT 10/23/2024 10:24 AM CDT us Hadley Benitez DO LAB BLOOD ORDERABLES Final R esult [facility] [address] [facility] Department [place] [address] * CT Chest W Contrast (10/16/2024 10:45 [...] it. Electronically signed by: George Sutton M.D. Hadley Pace Jr., MD IM CT PROCEDURES Final Re sult * [facility] xT DNA and RNA - Tumor Only (10/14/2024 2:15 PM CDT) Reason for Study To identify somatic and [...] PM CDT [facility] Portal [email or web address] 10/29/2024 5:33 PM CDT [facility] Comment:[facility] [...] Status: Consensus Evidence ID: NCCN KDB Variant: [id number] NCCN Associated Evidence: Consensus, Melanoma Label: FDA [...] Association: Response Evidence Status: Consensus Evidence ID: GUADALUPEN KDB Variant: V600E - GOF NCCN Associated [...] Association: Response Evidence Status: Consensus Evidence ID: JANETT KDB Variant: V600 - GOF Label: FDA Off Label FDA Approved?: Yes On label?: No 10/29/2024 5:33 PM CDT [facility]: Potential Therapy 9 Gene: [id number]^TERT^HGNC 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 Match Type: snvIndel Match Type Description: TERT c.-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>T Drug Class: Unfavorable prognosis Tissue: Cutaneous Melanoma Evidence Status: Clinical research Evidence ID: [id number] Evidence URL: http://www.ncbi.n lm.nih.gov/pubmed /[email or web address] Evidence Title: 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 - PubMed KDB Variant: Promoter mutation Label: Additional Indicators FDA Approved?: No On label?: No 10/29/2024 5:33 PM CDT [facility] Trial Count 3 10/29/2024 5:33 PM CDT [facility]: Clinical Trial Match 1 Clinical Trial NCT ID: [id number] Clinical Trial Title: A Phase II/III Trial of Nivolumab, Ipilimumab, and GM-CSF in Patients With Advanced Melanoma Clinical Trial URL: [email or web address].gov/[email or web address] [email or web address] Clinical Phase: Phase 2/Phase 3 Clinical Trial Matches: BRAF p.V600E mutation Clinical Trial Distance and Location: [address] [place], [place] 10/29/2024 5:33 PM CDT [facility]: Clinical Trial Match 2 Clinical Trial NCT ID: [id number] Clinical Trial Title: A Study of [id number] as a Single Agent and in Combination With Tislelizumab in Adult Patients With Advanced Solid Tumors Clinical Trial URL: [email or web address].gov/[email or web address] [email or web address] Clinical Phase: Phase 1 Clinical Trial Matches: BRAF p.V600E mutation Clinical Trial Distance and Location: [address] [place] [address] 10/29/2024 5:33 PM CDT [facility]: Clinical Trial Match 3 Clinical Trial NCT ID: [id number] Clinical Trial Title: Study of IK-595 in DEIDRA- or TARIQ-altered Advanced Tumors Clinical Trial URL: [email or web address].gov/ct2/ruddy w/[email or web address] Clinical Phase: Phase 1 Clinical Trial Matches: BRAF p.V600E mutation Clinical Trial Distance and Location: [address] [place], [place] 10/29/2024 5:33 PM CDT [facility] [...] PM CDT [facility] HLA-A Typing A*24:02,A*24:02 025 5:33 PM CDT [facility] HLA-B Typing B*07:02,B*07:02 025 5:33 PM CDT [facility] HLA-C Typing C*07:02,C*07:02 025 5:33 PM CDT [facility] HLA-A Ambiguous Alleles No 10/29/2024 5:33 PM CDT [facility] HLA-B Ambiguous Alleles No 10/29/2024 5:33 PM CDT [facility] HLA-C Ambiguous Alleles No 10/29/2024 5:33 PM CDT [facility] HLA-A Sample Type Tumor Only 025 5:33 PM CDT [facility] HLA-B Sample Type Tumor Only 025 5:33 PM CDT [facility] HLA-C Sample Type Tumor Only 025 5:33 PM CDT [facility] Tissue specimen (specimen) 10/14/2024 2:15 PM CDT 10/22/2024 2:06 PM CDT Narrative This result has genomic variants that were not included in this document. Hadley Benitez DO LAB GENETIC TESTING Edited R esult - Final [facility] [address] [facility], [address] [phone] [facility] [address] [facility], [place] [address] from Last 3 Months Insurance [facility] Care Teams Building Custodian Relationship Specialty Start Date End Date Hugo Lara MD [address] [place] [address] PCP - General Family Medicine 06/05/24 Hadley Benitez DO Medical Oncologist/Transferrer Hematology and Oncology 09/16/20 Jordon Murcia MD Conductor Yard Dermatology 11/04/20
--- OUTSIDE RECORDS SUMMARY | 2025-01-11 07:17 | XMS_ITS | Encounter Summary ---
Author Organization [facility] Address [address] [place] [address] Phone Care Team Providers Care Clinical Biochemical Geneticist Name Role Phone Shilo Benitez DO Unavailable [phone] Jordon Murcia MD Unavailable [phone] Hugo Lara MD Primary Care Provider [phone] Encounter Details Date Type Department Care Team (Late st Contact Info) Description 01/06/2025 Results Follow-Up [facility] Medicine Physicians [facility] Oncology [address] [facility] [address] [place] [phone] Radha Hallman RN T4, free, TSH, Comprehensive metabolic panel, Additional followed-up results: 3 Social History Tobacco Use Types Packs/Day Years [...] on file 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 Gender Identity Not on file Sexual Orientation Not on file documented as of this encounter Functional Status * BP Location Answer Date of Assessment Author Right arm 01/08/2025 7:39 AM CABIN FURNISHINGS INSTALLER Ai Carvajal MA * BP Location Answer Date of Assessment Author Right arm 01/08/2025 7:39 AM CABIN FURNISHINGS INSTALLER Ai Carvajal MA documented as of this encounter Plan of Treatment Not on file documented as of this encounter Visit Diagnoses Not on filedocumented in this encounter Care Teams Clinical Biochemical Geneticist Relationship Specialty Start Date End Date Hugo Lara MD [address] [place] [address] PCP - General Family Medicine 06/05/24 Shilo Benitez DO Medical Oncologist/Electromechanical Inspector Hematology and Oncology 09/16/20 Jordon Murcia MD Fitness Club Manager Dermatology 11/04/20 documented as of this encounter
--- OUTSIDE RECORDS SUMMARY | 2025-01-11 07:17 | XMS_ITS | Encounter Summary ---
Author Organization [facility] Address [address] [place] [address] Phone Care Team Providers Care Livestock Broker Name Role Phone Shilo Benitez DO Unavailable [phone] Jordon Murcia MD Unavailable [phone] Hugo Lara MD Primary Care Provider [phone] Encounter Details Date Type Department Care Team (Late st Contact Info) Description 12/21/2024 Results Follow-Up [facility] Medicine Physicians [facility] Oncology [address] [facility] [address] [place] [phone] Radha Hallman RN CBC with auto differential, Differential, auto, Comprehensive metabolic panel, eGFR Social History Tobacco Use Types Packs/Day [...] on file 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 Gender Identity Not on file Sexual Orientation Not on file documented as of this encounter Functional Status documented as of this encounter Plan of Treatment Not on file documented as of this encounter Visit Diagnoses Not on filedocumented in this encounter Care Teams Livestock Broker Relationship Specialty Start Date End Date Hugo Lara MD [address] [place] [address] PCP - General Family Medicine 06/05/24 Shilo Benitez DO Medical Oncologist/Churner Hematology and Oncology 09/16/20 Jordon Murcia MD Process Line Operator Dermatology 11/04/20 documented as of this encounter
--- OUTSIDE RECORDS SUMMARY | 2025-01-11 07:17 | XMS_ITS ---
Author Organization [facility] [address] Address [address] [place] [address] Care Team Providers Care Hospital Account Manager Name Role Phone Shilo Benitez DO Unavailable [phone] Jordon Murcia MD Unavailable [phone] Hugo Lara MD Primary Care Provider [phone] Active Problems Problem Noted Date Diagnosed Date [...] esophagitis 02/02/2019 Current Treatment and Therapy Plans Adult BMT/ONC - Blood and/or Platelet Administration for Outpatient* Plan Start Date:11/26/2024 Plan Provider:Shilo Benitez DO Linked Problems Melanoma of back (HCC) Treatment Medications No medications scheduled. 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 Nivolumab 1 mg/kg / Ipilimumab 3 mg/kg [...] 0.9% 50 mL IVPB Other Current Plans Immune Globulin (GAMMAGARD S-D) 5%* Plan Start Date:12/07/2024 Plan Provider:Shilo Benitez DO Linked Problems Idiopathic thrombocytopenic purpura (ITP) (HCC) Treatment Medications immune globulin (GAMMAGARD S -D) 5 % IV Maintenance Therapy Plan* Plan Start Date:10/23/2024 Plan Provider:Shilo Benitez DO Linked Problems Encounter for adjustment and management of unspecified implanted device Treatment Medications No medications scheduled. Romiplostim Weekly 28 Day Cycles* Plan Start Date:12/23/2024 Plan Provider:Shilo Benitez DO Linked Problems Idiopathic thrombocytopenic purpura (ITP) (HCC) Treatment Medications Current Day (Day 8 , Cycle 1 - Planned for 12/30/2024) Next Day (Day 15, Cycle 1 - Planned for 01/06/2025) No medications scheduled. No medications schedul ed. No medications scheduled. Past Treatment and Therapy [...]
--- OUTSIDE RECORDS SUMMARY | 2025-01-11 07:18 | XMS_ITS | Encounter Summary ---
Author Organization [facility] Address [address] [place] [address] Phone Care Team Providers Care Leather Novelty Parts Cutter Name Role Phone Shilo Benitez DO Unavailable [phone] Jordon Murcia MD Unavailable [phone] Hugo Lara MD Primary Care Provider [phone] Encounter Details Date Type Department Care Team (Late st Contact Info) Description 11/26/2024 Results Follow-Up 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 Gender Identity Not on file Sexual Orientation Not on file documented as of this encounter Functional Status documented as of this encounter Plan of Treatment Not on file documented as of this encounter Visit Diagnoses Not on filedocumented in this encounter Care Teams Leather Novelty Parts Cutter Relationship Specialty Start Date End Date Hugo Lara MD [address] [place] [address] PCP - General Family Medicine 06/05/24 Shilo Benitez DO Medical Oncologist/Ceiling Installer Hematology and Oncology 09/16/20 Jordon Murcia MD [employer] Professor Dermatology 11/04/20 documented as of this encounter
--- OUTSIDE RECORDS SUMMARY | 2025-01-11 07:18 | XMS_ITS | Encounter Summary ---
Author Organization [facility] Address [address] [place] [address] Care Team Providers Care Baccarat Dealer Name Role Phone Sanjiv Alvarez MD Unavailable [phone] Marco Chong MD Unavailable [phone] Shilo Benitez DO Unavailable [phone] Jordon Murcia MD Unavailable [phone] Hugo Lara MD Primary Care Provider [phone] Encounter Details Date Type Department Care Team (Late st Contact Info) Description 07/07/2020 Telephone [facility] [address] [place], [place] [id number] Elodia Malone, RT Social History Tobacco Use Types Packs/Day Years Used Date Smoking Tobacco: Never Smokeless Tobacco: Never Alcohol Use Standard Drinks/Week Comments Yes 5 (1 standard drink = 0.6 oz pur e alcohol) Sex and Gender Information Value Date Recorded Sex Assigned at Not on file 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 Gender Identity Not on file Sexual Orientation Not on file documented as of this encounter Plan of Treatment Not on file documented as of this encounter Visit Diagnoses Not on filedocumented in this encounter Care Teams Baccarat Dealer Relationship Specialty Start Date End Date Hugo Lara MD [address] [place] [address] [place] [address] PCP - General Family Medicine 06/05/24 Sajniv Alvarez MD [address] [place] 1 [place] 1 [place] [address] Referring Physician Plastic Surgery 10/29/19 06/04/24 Marco Chong MD [address] [place] 1 [place] 1 [place] [id number] Medical Oncologist/Fruit Harvester Medical Oncology 03/03/20 11/03/20 Shilo Benitez DO [address] [place] 1 [place] 1 [place] [address] Medical Oncologist/Fruit Harvester Hematology and Oncology 09/16/20 Jordon Murcia MD [address] [place] 1 [place] 1 [place] [address] Drum Worker Dermatology 11/04/20 documented as of this encounter
--- OUTSIDE RECORDS SUMMARY | 2025-01-11 07:18 | XMS_ITS | Encounter Summary ---
Author Organization [facility] Address [address] [place] [address] Care Team Providers Care Microsoft Dynamics Consultant Name Role Phone Shilo Benitez DO Unavailable [phone] Jordon Murcia MD Unavailable [phone] Hugo Lara MD Primary Care Provider [phone] Reason for Referral * Cardiology (Routine) - Closed Specialty Diagnoses / Procedures Referred By Contac t Referred To Contact Procedures ECG 12 lead Betito Thorpe MD [address] [place] [address] Phone: tel: Referral ID Status Reason Start Date Expiration Date Visits Re quested Visits Authorized [id number] Closed 01/08/2025 02/07/2026 1 1 [facility]IBUT[facility] CENTER ASSOCIATE Encounter Details Date Type Department Care Team (Late st Contact Info) Description 01/08/2025 Orders Only [facility] Cardiology [address] [place] [phone] Betito Thorpe MD [address] [place] [address] Social History Tobacco Use Types Packs/Day Years [...] on file Legal 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 Gender Identity Not on file Sexual Orientation Not on file documented as of this encounter Functional Status * BP Location Answer Date of Assessment Author Right arm 01/08/2025 7:39 AM DISTRIBUTION CENTER ASSOCIATE Ai Carvajal MA * BP Location Answer Date of Assessment Author Right arm 01/08/2025 7:39 AM DISTRIBUTION CENTER ASSOCIATE Ai Carvajal MA documented as of this encounter Plan of Treatment Not on file documented as of this encounter Procedures Procedure Name Priority Date/Time Associated Diagnosis Comments ECG 12-LEAD Routine 12/11/2024 11:53 AM CDT documented in this encounter Results * ECG 12 lead (12/11/2024 11:53 AM CDT) us Historical Provider ECG ORDERABLES Final Res ult documented in this encounter Visit Diagnoses Not on filedocumented in this encounter Care Teams Microsoft Dynamics Consultant Relationship Specialty Start Date End Date Hugo Lara MD [address] [place] [address] PCP - General Family Medicine 06/05/24 Shilo Benitez DO Medical Oncologist/Executive Vice President Business Development Hematology and Oncology 09/16/20 Jordon Murcia MD Mailroom Associate Dermatology 11/04/20 documented as of this encounter
--- OUTSIDE RECORDS SUMMARY | 2025-01-11 07:18 | XMS_ITS | Patient Health Record ---
Author Organization [facility] [employer] Address [address] [facility] [address] [place] [address] Care Team Providers Care Golf Club Head Inspector Name Role Phone Jersey Cisse Unavailable [phone] Allergies No Known Allergies Reason For Referral No Information Medications Medication SIG (Take, Route, Frequency, Duration) Notes Start Date End Date Status Pantoprazole Sodium 40 MG Tablet Delayed Release TAKE 1 TABLET EVERY MORNING Oral; Duration: 90 Days Active Mekinist 2 MG Tablet Oral; Duration: 30 Days Active Acyclovir 400 MG Tablet Oral; Duration: 30 Days Active Olmesartan Medoxomil 40 MG Tablet Oral; Duration: 90 Days Active Tadalafil 5 MG Tablet TAKE 1 TABLET BY M OUTH ONCE DAILY Oral; Duration: 90 Days Active Levothyroxine Sodium 125 MCG Tablet Oral; Duration: 90 Days Active clonazePAM 0.5 MG Tablet Oral; Duration: 45 Days Active Morphine Sulfate ER 15 MG Tablet Extended Release Oral; Duration: 5 Days Not-Taking predniSONE 10 MG Tablet 1 tablet with fo od or milk Oral Once a day; Duration: 30 days Active Potassium Chloride ER 20 MEQ Tablet Extended Release Oral; Duration: 30 Days Active Tafinlar 75 MG Capsule Oral; Duration: 3 0 Days Active Spironolactone 25 MG Tablet Oral; Duration: 30 Days Active buPROPion HCl ER (XL) 300 MG Tablet Extended Release 24 Hour 1 tablet in the morning Orally Once a day; Duration: 90 days 01/04/2025 Active Social History Tobacco Use: Social History Observation Description Date Details (start date - stop date) Never Smoker NA - NA Sex Assigned At : Social History Observation Description Sex Assigned At Male Social History Tobacco Use: Social Info Question Answer Notes Tobacco Control (Standard) Tobacco use: Nonsmoker Section Notes: 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 , 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, 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 Problems Problem Type SNOMED Code ICD Code Onset Dates Problem Status W/U Status Risk Notes Problem Malignant melanoma of skin (23340229) Malignant melanoma of skin, unspecified (C43.9) Active confirmed Problem Anemia (025169150) Anemia, unspecified (D64.9) Active confirmed Problem Thrombocytopenic purpura (disorder) (475409542) Immune thrombocytopenic purpura (D69.3) Active confirmed Problem Hypothyroidism (01272097) Hypothyroidism, unspecified (E03.9) Active confirmed Problem Hypoglycemia (326410809) Hypoglycemia, unspecified (E16.2) Active confirmed Problem Severe recurrent major depression without psychotic features (39900933) Major depressive disorder, recurrent severe without psychotic features (F33.2) Active confirmed Problem Insomnia (997458086) Insomnia, unspecified (G47.00) Active confirmed Problem Pain due to neoplastic disease (60621720291891) 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) Active confirmed Vital Signs Heart Rate 74 /min 01/04/2025 Blood pressure diastolic 87 mm Hg 01/04/2025 Weight-kg 86.18 kg 01/04/2025 Blood pressure systolic 126 mm Hg 01/04/2025 Weight 190 lbs 01/04/2025 Encounters Encounter Location Date Provider Diagnosis [facility] [address] [place] [address] 12/21/2024 Jersey Betito Major depressive disorder, recurrent severe without psychotic features F33.2 ; Malignant melanoma of skin, unspecified C43.9 ; Immune thrombocytopenic purpura D69.3 ; Hypothyroidism, unspecified E03.9 ; Hypoglycemia, unspecified E16.2 ; Generalized skin eruption due to drugs and medicaments L27.0 ; Neoplasm related pain (acute) (chronic) G89.3 and Anemia, unspecified D64.9 [facility] [address] [place] [address] 01/04/2025 Jersey Betito Major depressive disorder, recurrent severe without psychotic features F33.2 and Insomnia, unspecified G47.00 Assessments Encounter Date Diagnosis (ICD Code) Assessment Notes Treatment Notes Treatment Clinical Notes Section Notes 12/21/2024 Major depressive disorder, recurrent severe without psychotic features (ICD-10 - F33.2) Longstanding mild depression, worsened after melanoma recurrence. Symptoms include anxiety, hopelessness, crying spells, passive suicidal thoughts. Mood disorder possibly exacerbated by steroids. Sleep and appetite changes, hallucinations reported. Clonazepam used for sleep, Wellbutrin dose increased. - Continue Wellbutrin at current higher dose. - Continue Clonazepam at bedtime, may repeat if needed. - Monitor mood and suicidal ideation. - Consider Rexulti samples for augmentation if needed. - Discussed option for TMS if medication augmentation not desired. Mood changes, depression, anxiety, and hallucinations temporally related to steroid use. Steroid taper ongoing to reduce activation and mood symptoms. - Continue slow taper of Prednisone. 01/04/2025 Major depressive disorder, recurrent severe without psychotic features (ICD-10 - F33.2) Longstanding mild depression, worsened after melanoma recurrence. Symptoms include anxiety, hopelessness, crying spells, passive suicidal thoughts. Mood disorder possibly exacerbated by steroids. Sleep and appetite changes, hallucinations reported. Clonazepam used for sleep, Wellbutrin dose increased. - Continue Wellbutrin at current higher dose. - Continue Clonazepam at bedtime, may repeat if needed. - Monitor mood and suicidal ideation. - Consider Rexulti samples for augmentation if needed. - Discussed option for TMS if medication augmentation not desired. Mood changes, depression, anxiety, and hallucinations temporally related to steroid use. Steroid taper ongoing to reduce activation and mood symptoms. - Continue slow taper of Prednisone. Patient reports mood much improved, with occasional days of feeling down or anxious. Expresses stress about future health and upcoming medical evaluations. Engaged in counseling sessions to address mood and sleep issues. - Recommended continuation of counseling sessions. - Discussed option for PRN medication for travel-related anxiety. 01/04/2025 Insomnia, unspecified (ICD-10 - G47.00) Patient reports ongoing difficulty falling and staying asleep, with restless nights and occasional good sleep. Pattern of poor sleep followed by one or two good nights. Has tried multiple medications and sleep hygiene strategies with limited benefit. Prefers to minimize use of Clonazepam due to side effects. Started sleep diary with counselor and open to yoga and breathing exercises. - Belsomra samples were not available - Recommended continuation of sleep hygiene strategies including yoga and breathing exercises. - Advised patient to monitor sleep and consider starting Belsomra if sleep does not improve. 12/21/2024 Malignant melanoma of skin, unspecified (ICD-10 - C43.9) Recurrence of melanoma confirmed by imaging and biopsy in August. Mass causing pain, swelling, and loss of arm function. Ongoing immunotherapy and Prednisone for management. Platelet issues and anemia monitored with CBC and CMP. Colonoscopy performed for spots in colon, results negative. Care coordinated locally and at [facility]. - Continue immunotherapy as previously prescribed. - Continue Prednisone, dose recently reduced. - Monitor with CBC and CMP. - Colonoscopy performed for evaluation of colon spots. - Referral to Oncology (Dr. Benitez) for ongoing management. - Imaging with ultrasound, CT chest with contrast, and PET scan for mass evaluation. 12/21/2024 Immune thrombocytopenic purpura (ICD-10 - D69.3) Platelet count dropped to zero during immunotherapy. Platelet levels monitored and normalized recently. - Monitor platelet count with CBC. 12/21/2024 Hypothyroidism, unspecified (ICD-10 - E03.9) Thyroid function dropped during steroid therapy. Started on Synthroid for management. - Continue Synthroid as prescribed. 12/21/2024 Hypoglycemia, unspecified (ICD-10 - E16.2) Prednisone therapy associated with elevated glucose. Glucose monitored and currently normal. - Monitor glucose levels. 12/21/2024 Generalized skin eruption due to drugs and medicaments (ICD-10 - L27.0) Significant dermatitis reaction occurred during immunotherapy. Dermatitis monitored, no new medications started. 12/21/2024 Neoplasm related pain (acute) (chronic) (ICD-10 - G89.3) Pain in mass managed with pain medications, recently stopped. - Pain medications discontinued. 12/21/2024 Anemia, unspecified (ICD-10 - D64.9) CBC showed anemia with hemoglobin 9.8. Anemia monitored during ongoing therapy. - Monitor hemoglobin with CBC. 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 Major depressive episode with suicidal ideation Assessment: Patient presents with significant depression and suicidal ideation in the context of stage 3B melanoma diagnosis. night represented a crisis point where patient contemplated taking multiple medications but was unable to open bottles due to functional limitations from cancer. Patient attempted to open alprazolam bottles and took a few tablets for calming effect. Depression manifests with crying spells, easy tearing, and feelings of helplessness regarding cancer prognosis and functional decline. Patient has three children ages 20, 18, and 16 who serve as protective factors. Currently on bupropion 300 mg with recent increase. No history of yamila or psychosis. Patient made safety contract and does not appear to have imminent risk currently. Plan: - Continue bupropion 300 mg, monitor for 1-2 weeks to assess response - Clonazepam 0.5 mg at bedtime, may take additional 0.5 mg if needed for sleep - Rexulti samples offered as potential augmentation if bupropion insufficient after 1-2 weeks - TMS therapy discussed as non-medication alternative if needed - Safety contract established with patient - Medication security discussed - patient and spouse to determine if locking away more concerning medications is necessary - 2-week follow-up scheduled Steroid-induced mood symptoms and hallucinations Assessment: Patient experiencing visual hallucinations including seeing bugs or mice in peripheral vision, sensation of being on a boat, and seeing small figurines on the ground. These symptoms appear temporally related to prednisone use, which is known to cause mood disorders and psychiatric symptoms. Prednisone also causing elevated glucose levels. Patient reports improvement in mood symptoms as prednisone dose has been reduced. 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 Recent imaging shows no change from original staging. Tumor is causing significant functional impairment including enveloping blood vessels in arm, making vascular access difficult and limiting arm use. Patient experienced aspiration requiring emergency room visits and hospitalization. Lower extremity edema was severe enough to prevent wearing shoes. Recent colonoscopy was normal despite concerning spots. Patient's functional decline and cancer prognosis are major contributors to depression and suicidal ideation. Plan: - Continue oncology care and treatment as directed by oncology team - Pain management with oxycodone 15 mg long-acting as prescribed by [facility] [employer] Screening material was printed 01/04/2025 Other Patient is currently tapering Prednisone, on 10 mg. Plan to stop Prednisone in 4 weeks for adrenal study. - Continue Prednisone taper as planned. - Plan to stop Prednisone in 4 weeks for adrenal study. Plan Of Treatment Next Appt Details Provider Name:Jersey Cisse , 01/25/2025 05:00:00 PM, [address], [address], [place], [address], Insurance Providers Payer Name Payer Address Payer Phone Subscriber Number Group Number Insured Name Patient Relationship to Insured Coverage Start Date Coverage End Date [facility] [address] [address] [place] [address] [id number] Matt Bean Self - patient is the insured Medical (General) History Medical History History ICD Code Major depressive disorder Sleep disturbance Long-term steroid use
--- OUTSIDE RECORDS SUMMARY | 2025-01-11 07:18 | XMS_ITS | Encounter Summary ---
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 Gender Identity Not on file Sexual Orientation [...] on filedocumented in this encounter Care Teams Research Animal Facility Supervisor Relationship Specialty Start Date End Date Hugo Lara MD [address] [place] [address] PCP - General Family Medicine 06/05/24 Sanjiv Alvarez MD [address] [place] [address] Referring Physician Plastic Surgery 10/29/19 06/04/24 Marco Chong MD [address] [place] [address] Medical Oncologist/Health Care Assistant Medical Oncology 03/03/20 11/03/20 Shilo Benitez DO [address] [place] [address] Medical Oncologist/Health Care Assistant Hematology and Oncology 09/16/20 Jordon Murcia MD [address] [place] [address] Kiln Burner Helper Dermatology 11/04/20 documented as of this encounter
[2025-01-11 09:01] LABS: Anion Gap 7 mmol/L (4-12); Blood Urea Nitrogen 34 mg/dL (9-20); Calcium 9.1 mg/dL (8.4-10.2); Carbon Dioxide 23 mmol/L (22-30); Chloride 109 mmol/L (98-107); Estimated Glomerular Filt Rate 59; Glucose 104 mg/dL (65-110); Potassium 4.4 mmol/L (3.4-5.0); Sodium 139 mmol/L (137-145)
== END 2025-01-11 07:14 | disposition home or self-care (01) ==
LOC: ANHLAB 07:15
PROVIDERS: PCP Family Medicine; Visit Provider Internal Medicine Cardiovascular Disease
DX: E87.5 Hyperkalemia (principal); I10 Essential (primary) hypertension
CPT/HCPCS: 36415; 80048

== ENCOUNTER 2025-01-30 09:27 | Outpatient (CLI) | payer OTHER, SELFPAY ==
--- OUTSIDE RECORDS SUMMARY | 2025-01-29 07:45 | XMS_ITS | Encounter Summary ---
Author Organization [facility] Healthcare Address [address] [place] [address] Care Team Providers Care Vocal Music Instructor Name Role Phone Shilo Benitez DO Unavailable [phone] Jordon Murcia MD Unavailable [phone] Hugo Lara MD Primary Care Provider [phone] Reason for Visit * Reason Comments Follow-up Hypertension Encounter Details Date Type Department Care Team (Latest Contact Info) Description 01/29/2025 7:45 AM PIPING MANAGER Office Visit [facility] Cardiology [address] [place] [address] Damir Canas MD [address] [facility] [address] [facility], [address] [place] [address] Essential hypertension (Primary Dx); Idiopathic thrombocytopenic purpura (ITP) (HCC); GERD without esophagitis; Hyperkalemia; Melanoma of back (HCC) Social History Tobacco Use Types Packs/Day Years [...] on file 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 Gender Identity Not on file Sexual Orientation Not on file documented as of this encounter Last Filed Vital Signs Vital Sign Reading Time Taken Comments Blood Pressure 150/90 01/29/2025 7:42 AM PIPING MANAGER Pulse 96 01/29/2025 7:42 AM PIPING MANAGER Temperature - - Respiratory Rate - - Oxygen Saturation 97% 01/29/2025 7:42 AM PIPING MANAGER Inhaled Oxygen Concentration - - Weight 94 kg (207 lb 3.2 oz) 01/29/2025 7:42 AM PIPING MANAGER Height 180.3 cm (5' 11) 01/29/2025 7:42 AM PIPING MANAGER Body Mass Index 28.9 01/29/2025 7:42 AM PIPING MANAGER documented in this encounter Functional Status * BP Location Answer Date of Assessment Author Right arm 01/29/2025 7:42 AM PIPING MANAGER Ai Carvajal MA * BP Location Answer Date of Assessment Author Right arm 01/29/2025 7:42 AM PIPING MANAGER Ai Carvajal MA documented as of this encounter Ordered Prescriptions Prescription Sig Dispense Quantity Refills Last Filled Start Date End Date nebivoloL (BYSTOLIC) 20 mg tabletIndications: Essential hypertension Take 1 tablet (20 mg total) by mouth daily 90 tablet 3 01/29/2025 01/29/2026 documented in this encounter Progress Notes * Damir Canas MD - 01/29/2025 7:45 AM CST [facility] DATE OF VISIT: 01/08/2025 CHIEF COMPLAINT Chief Complaint Patient presents with Established Hypertension HPI Matt Bean is a 48 y.o. male with hypertension. He started notice some high blood pressure readings about a year or so ago. His dentist checked his blood pressure and it was elevated. He then periodically checked his blood pressure and it was noted to be high. He was started on losartan and thentransitioned to olmesartan due to lack of affect. Olmesartan did help his blood pressure initially.He was having headaches also with his high blood pressure. With the decrease in blood pressure witholmesartan use, his headaches did improve but not completely go away. More recently, however, his blood pressure spiked back up to a level similar to today's reading of around 160/110. His headaches have once again become more prominent. He does snore but no witnessed apnea. He is tired of an evening and can fall asleep easily. He denies other cardiac symptoms such as chest pain, shortness of breath, syncope, presyncope, paroxysmal nocturnal dyspnea, orthopnea, edema or palpitations. Follow-up note 02/23/2019: He still has some headaches but otherwise denies any chest pain, shortness breath, syncope, presyncope, paroxysmal nocturnal dyspnea, orthopnea, edema or palpitations. Blood pressure is better but is still having some issues with diastolic hypertension in particular bloodpressure on occasion over 100 Follow-up note 12/27/2023 He denies any chest pain, shortness breath, syncope, presyncope, paroxysmal nocturnal dyspnea, orthopnea, edema or palpitations. Follow-up note 01/08/2025: Unfortunately since last visit, he has had recurrence of his melanoma. Metastasis to the axillary lymph nodes. He did develop ITP. Steroids were given and ultimately he washaving some issues with volume overload, renal failure. Ended up at [facility] where he was hospitalized. Started on new medications for treatment of his melanoma. Has had response. His potassium was also very low and was started on spironolactone and potassium supplement. He was briefly on furosemide also. Edema has essentially resolved. Potassium most recently was elevated at 5.3 and he has reduce his potassium from twice daily down to once daily. Most recent renal panel shows a creatinine of 1.3. No chest pain, shortness breath, syncope, presyncope, paroxysmal nocturnal dyspnea, orthopneaor edema. Follow-up note 01/29/2025: He is feeling much better overall. Still responding nicely to new treatment regimen. He has noticed his blood pressure being a bit elevated as of late. He denies any chest pain, shortness breath, syncope, presyncope, paroxysmal nocturnal dyspnea, orthopnea, edema palpitations. Potassium levels have been with the upper limits of normal. Kidney function is a bit better MEDICAL HISTORY Medical History Past Medical History: Diagnosis Date Acid indigestion Hypertension Social History Tobacco Use Smoking status: Never Smoker Smokeless tobacco: Never Used Substance Use Topics Alcohol use: Yes Alcohol/week: 10.0 standard drinks Types: 10 Standard drinks or equivalent per week Drug use: Never Family History Problem Relation Age of Onset No Known Problems Mother No Known Problems Father MEDICATIONS Home Medications BUPROPION XL (WELLBUTRIN XL) 150 MG 24 HR TABLET TK 1 T PO QD OLMESARTAN (BENICAR) 40 MG TABLET TK 1 T PO QD PANTOPRAZOLE DR (PROTONIX) 40 MG EC TABLET TK 1 T PO QD Amlodipine 5 mg daily, Bystolic 10 mg p.o. daily ALLERGIES Allergies Allergen Reactions Minocycline Rash REVIEW OF SYSTEMS Review of Systems Constitution: Negative for weight gain and weight loss. HENT: Negative for hearing loss. Eyes: Negative for blurred vision and visual disturbance. Cardiovascular: Negative for chest pain, claudication, dyspnea on exertion, irregular heartbeat, leg swelling, near-syncope, orthopnea, palpitations, paroxysmal nocturnal dyspnea and syncope. Respiratory: Negative for cough, hemoptysis, shortness of breath, snoring, sputum production and wheezing. Endocrine: Negative for cold intolerance, heat intolerance and polyuria. Hematologic/Lymphatic: Does not bruise/bleed easily. Skin: Bruisability Musculoskeletal: Minor swelling left arm Gastrointestinal: Negative for abdominal pain, heartburn, nausea and vomiting. Genitourinary: Negative for dysuria. Neurological: No headaches. Negative for dizziness, focal weakness, light- headedness, numbness and weakness. Psychiatric/Behavioral: Negative for depression. The patient is not nervous/anxious. Allergic/Immunologic: Negative for environmental allergies. PHYSICAL EXAM Blood pressure 150/90 heart rate 96 respiratory rate 14 Physical Exam Constitutional: He is oriented to person, place, and time. He appears well-nourished. HENT: Head: Normocephalic and atraumatic. Nose: Nose normal. Eyes: Sclerae anicteric Neck: No gross abnormalities Cardiovascular: Heart rate normal Pulmonary/Chest: Effort normal Abdominal: No distention Musculoskeletal: Normal range of motion. General: Trivial edema left hand Neurological: He is alert and oriented to person, place, and time. Skin: Minor bruising noted right forearm Psychiatric: He has a normal mood and affect. LABS AND OTHER DIAGNOSTIC TESTS No results found for: WBC, HGB, HCT, MCV, PLT Chemistry No results found for: SODIUM, POTASSIUM, CHLORIDE, CO2, BUNSER, CREATININE, GLUCOSE No results found for: CALCIUM, ALKPHOS, AST, ALT, BILITOT No results found for: CHOL No results found for: HDL No results found for: LDL] No results found for: LDLCALC No results found for: TRIG No results found for: CHOLHDL EKG 02/02/2019: Normal sinus rhythm, intraventricular conduction delay. Abnormal EKG Echo 02/06/2019:Normal left ventricular systolic function. No focal wall motion abnormalities. Normal left ventricular size. Mild concentric left ventricular hypertrophy. Normal left ventricular diastolic function. Ejection fraction is visually estimated at 70-75 %. Ejection fraction is measured at 72 %. There is mild enlargement of left atrium. Mitral valve leaflets appear mildly thickened. Mild mitral valve regurgitation. Normal sinus rhythm. Echo 12/02/2024 Normal left ventricular size. Mild LVH. Normal [...] inadequate visualization of the tricuspid regurgitation jet. Echo 12/11/2024 Normal left ventricular size and systolic function. LV ejection fraction (LVEF) is in the range of 62% (calculated by method of discs). The right ventricle is normal in size and function. There is no pericardial effusion. ASSESSMENT Diagnoses and all orders for this visit: Essential hypertension (Primary) Above goal GERD without esophagitis on PPI Hyperkalemia Resolved. At the upper limits of normal. On spironolactone 25 mg daily which is a reduced dose ITP Resolved Melanoma of back Undergoing treatment through Dr. 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 Continue spironolactone, olmesartan and hypertension for hypertension Remains on pantoprazole for GERD We will need to continue to watch his potassium levels closely over time but at this point, continue spironolactone Follow-up in 3 weeks or sooner as clinically indicated. Damir Canas MD, FAC NG MANAGER documented in this encounter Plan of Treatment Not on file documented as of this encounter Visit Diagnoses Diagnosis Essential hypertension- Primary Unspecified essential hypertension Idiopathic thrombocytopenic purpura (ITP) (HCC) Immune thrombocytopenic purpura GERD without esophagitis Esophageal reflux Hyperkalemia Hyperpotassemia Melanoma of back (HCC) documented in this encounter Discontinued Medications Medication Sig Discontinue Reason Start Date End Da te spironolactone (ALDACTONE) 25 mg tablet Take 1 tablet (25 mg total) by mouth 2 (two) times a day Patient Reported 12/04/2024 01/29/2025 nebivolol (BYSTOLIC) 10 mg tabletIndications:Essenti al hypertension Take 1 tablet (10 mg total) by mouth daily Therapy completed 02/02/2019 01/29/2025 documented as of this encounter Historical Medications * This list may reflect changes made after this encounter. spironolactone (ALDACTONE) 25 mg tablet Take 1 tablet (25 mg total) by mouth daily added in this encounter Care Teams Vocal Music Instructor Relationship Specialty Start Date End Date Hugo Lara MD [address] [place] [address] PCP - General Family Medicine 06/05/24 Shilo Benitez DO Medical Oncologist/Director Of Maternity Services Hematology and Oncology 09/16/20 Jordon Murcia MD Explosives Engineer Dermatology 11/04/20 documented as of this encounter
--- OUTSIDE RECORDS SUMMARY | 2025-01-30 09:32 | XMS_ITS | Encounter Summary ---
Author Organization [facility] Address [address] [place] [address] Phone Care Team Providers Care Pecan Sheller Name Role Phone Shilo Benitez DO Unavailable [phone] Jordon Murcia MD Unavailable [phone] Hugo Lara MD Primary Care Provider [phone] Encounter Details Date Type Department Care Team (Late st Contact Info) Description 01/26/2025 Orders Only [facility] Medicine [facility] Oncology [address] [address] Shilo Benitez DO [address] [facility] [address] [place] [address] Social History Tobacco Use Types Packs/Day Years [...] on file Legal 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 Gender Identity Not on file Sexual Orientation Not on file documented as of this encounter Functional Status * BP Location Answer Date of Assessment Author Right arm 01/29/2025 7:42 AM Ai Brothers MA * BP Location Answer Date of Assessment Author Right arm 01/29/2025 7:42 AM Ai Brothers MA documented as of this encounter Plan of Treatment Not on file documented as of this encounter Visit Diagnoses Not on filedocumented in this encounter Care Teams Pecan Sheller Relationship Specialty Start Date End Date uHgo Lara MD [address] [place] [address] PCP - General Family Medicine 06/05/24 Shilo Benitez DO Medical Oncologist/Filament Maker Hematology and Oncology 09/16/20 Jordon Murcia MD Normalizer Dermatology 11/04/20 documented as of this encounter
--- OUTSIDE RECORDS SUMMARY | 2025-01-30 09:33 | XMS_ITS | Encounter Summary ---
Author Organization [facility] Healthcare Address [address] [place] [address] Care Team Providers Care Oil Distributor Name Role Phone Sanjiv Alvarez MD Unavailable [phone] Marco Chong MD Unavailable Shilo Benitez DO Unavailable [phone] Jordon Murcia MD Unavailable [phone] Hugo Lara MD Primary Care Provider [phone] Encounter Details Date Type Department Care Team (Late st Contact Info) Description 07/07/2020 Telephone [facility] [address] [place], [place] [id number] Elodia [place], RT Social History Tobacco Use Types Packs/Day Years Used Date Smoking Tobacco: Never Smokeless Tobacco: Never Alcohol Use Standard Drinks/Week Comments Yes 5 (1 standard drink = 0.6 oz pur e alcohol) Sex and Gender Information Value Date Recorded Sex Assigned at Not on file 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 Gender Identity Not on file Sexual Orientation Not on file documented as of this encounter Plan of Treatment Not on file documented as of this encounter Visit Diagnoses Not on filedocumented in this encounter Care Teams Oil Distributor Relationship Specialty Start Date End Date Hugo Lara MD [address] [place] [address] [place] [address] PCP - General Family Medicine 06/05/24 Sanjiv Alvarez MD [address] [place] [address] Referring Physician Plastic Surgery 10/29/19 06/04/24 Marco Chong MD [address] [place] [address] Medical Oncologist/Dining Room Maid Medical Oncology 03/03/20 11/03/20 Shilo Benitez DO [address] [place] [address] Medical Oncologist/Dining Room Maid Hematology and Oncology 09/16/20 Jordon Murcia MD [address] [place] [address] Purse Maker Dermatology 11/04/20 documented as of this encounter
--- OUTSIDE RECORDS SUMMARY | 2025-01-30 09:33 | XMS_ITS | Patient Health Record ---
Author Organization [facility] [employer] Address [address] [facility] [address] [place] [address] Care Team Providers Care Diesel Technician Name Role Phone Jersey Cisse Unavailable [phone] Allergies No Known Allergies Reason For Referral No Information Medications Medication SIG (Take, Route, Frequency, Duration) Notes Start Date End Date Status Mektovi 15 MG Tablet Oral; Duration: 30 Days Active Levothyroxine Sodium 125 MCG Tablet Oral; Duration: 90 Days Active Acyclovir 400 MG Tablet Oral; Duration: 30 Days Not-Taking Potassium Chloride ER 20 MEQ Tablet Extended Release Oral; Duration: 30 Days Active Morphine Sulfate ER 15 MG Tablet Extended Release Oral; Duration: 5 Days Not-Taking Olmesartan Medoxomil 40 MG Tablet Oral; Duration: 90 Days Active Braftovi 75 MG Capsule Oral; Duration: 3 0 Days Active clonazePAM 0.5 MG Tablet Oral; Duration: 45 Days Active Mekinist 2 MG Tablet Oral; Duration: 30 Days Not-Taking buPROPion HCl ER (XL) 300 MG Tablet Extended Release 24 Hour 1 tablet in the morning Orally Once a day; Duration: 90 days 01/25/2025 Active Tafinlar 75 MG Capsule Oral; Duration: 3 0 Days Active Pantoprazole Sodium 40 MG Tablet Delayed Release TAKE 1 TABLET EVERY MORNING Oral; Duration: 90 Days Active predniSONE 10 MG Tablet 1 tablet with fo od or milk Oral Once a day; Duration: 30 days Active Spironolactone 25 MG Tablet Oral; Duration: 30 Days Active Tadalafil 5 MG Tablet TAKE 1 TABLET BY M OUTH ONCE DAILY Oral; Duration: 90 Days Active Social History Tobacco Use: Social History Observation Description Date Details (start date - stop date) Never Smoker NA - NA Sex Assigned At : Social History Observation Description Sex Assigned At Male Social History Tobacco Use: Social Info Question Answer Notes Tobacco Control (Standard) Tobacco use: Nonsmoker Section Notes: 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 , 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, 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 , 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, 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 Problems Problem Type SNOMED Code ICD Code Onset Dates Problem Status W/U Status Risk Notes Problem Malignant melanoma of skin (57782936) Malignant melanoma of skin, unspecified (C43.9) Active confirmed Problem Anemia (280420534) Anemia, unspecified (D64.9) Active confirmed Problem Thrombocytopenic purpura (disorder) (864569723) Immune thrombocytopenic purpura (D69.3) Active confirmed Problem Hypothyroidism (43430068) Hypothyroidism, unspecified (E03.9) Active confirmed Problem Hypoglycemia (254960979) Hypoglycemia, unspecified (E16.2) Active confirmed Problem Severe recurrent major depression without psychotic features (13831831) Major depressive disorder, recurrent severe without psychotic features (F33.2) Active confirmed Problem Anxiety disorder (623757777) Anxiety disorder, unspecified (F41.9) Active confirmed Problem Insomnia (587890908) Insomnia, unspecified (G47.00) Active confirmed Problem Pain due to neoplastic disease (02193035218730) 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) Active confirmed Problem Lymphedema (498375654) Lymphedema, not elsewhere classified (I89.0) Active confirmed Vital Signs Heart Rate 69 /min 01/25/2025 Blood pressure diastolic 110 mm Hg 01/25/2025 Weight-kg 92.08 kg 01/25/2025 Blood pressure systolic 160 mm Hg 01/25/2025 Weight 203 lbs 01/25/2025 Encounters Encounter Location Date Provider Diagnosis [employer] [address] [facility] [address] [address] 12/21/2024 Jersey Cisse Major depressive disorder, recurrent severe without psychotic features F33.2 ; Malignant melanoma of skin, unspecified C43.9 ; Immune thrombocytopenic purpura D69.3 ; Hypothyroidism, unspecified E03.9 ; Hypoglycemia, unspecified E16.2 ; Generalized skin eruption due to drugs and medicaments L27.0 ; Neoplasm related pain (acute) (chronic) G89.3 and Anemia, unspecified D64.9 [facility] [employer] [address] [facility] [address] [address] 01/04/2025 Jersey Cisse Major depressive disorder, recurrent severe without psychotic features F33.2 and Insomnia, unspecified G47.00 [facility] [employer] [facility] [address] [place] [address] 01/25/2025 Jersey Cisse Major depressive disorder, recurrent severe without psychotic features F33.2 ; Insomnia, unspecified G47.00 ; Malignant melanoma of skin, unspecified C43.9 ; Anxiety disorder, unspecified F41.9 and Lymphedema, not elsewhere classified I89.0 Assessments Encounter Date Diagnosis (ICD Code) Assessment [...] results negative. Care coordinated locally and at [facility]. - Continue immunotherapy as previously prescribed. - Continue Prednisone, dose recently reduced. - Monitor with CBC and CMP. - Colonoscopy performed for evaluation of colon spots. - Referral to Oncology (Dr. Benitez) for ongoing management. - Imaging with ultrasound, CT chest with contrast, and PET scan for mass evaluation. 01/25/2025 Major depressive disorder, recurrent severe without psychotic features (ICD-10 - F33.2) 01/25/2025 Insomnia, unspecified (ICD-10 - G47.00) Patient reports sleep difficulty, recently improved with nightly Benadryl. Initial trial of clonazepam was ineffective for sleep. - Continue Benadryl at 9 PM as part of bedtime routine 12/21/2024 Immune thrombocytopenic purpura (ICD-10 - D69.3) Platelet count dropped to zero during immunotherapy. Platelet levels monitored and normalized recently. - Monitor platelet count with CBC. 01/25/2025 Malignant melanoma of skin, unspecified (ICD-10 - C43.9) Mass previously deemed unresectable due to size and involvement with artery, vein, and brachial plexus. Recent scans suggest the mass is responding and shrinking. Patient is scheduled for evaluation by surgeon to determine resectability. Patient is anxious about treatment decisions and duration of current medications. - Referral to Surgery (Dr. Canas) for evaluation of mass resectability 12/21/2024 Hypothyroidism, unspecified (ICD-10 - E03.9) Thyroid function dropped during steroid therapy. Started on Synthroid for management. - Continue Synthroid as prescribed. 01/25/2025 Anxiety disorder, unspecified (ICD-10 - F41.9) Patient reports increased anxiety related to uncertainty of scan results and treatment decisions. Anxiety is compounded by anticipation of surgical evaluation and possible changes in therapy. - Continue clonazepam 0.5 mg, 1-2 as needed at bedtime 01/25/2025 Lymphedema, not elsewhere classified (ICD-10 - I89.0) Patient reports persistent hand swelling, worsened after spironolactone dose reduced from twice daily to once daily. Swelling is present throughout the day and worsens as the day progresses. Patient suspects lymphedema due to lymphatic involvement from mass, denies heart failure symptoms. - Continue spironolactone at reduced dose (once daily) 12/21/2024 Hypoglycemia, unspecified (ICD-10 - E16.2) Prednisone [...] Prednisone in 4 weeks for adrenal study. 01/25/2025 Other Patient describes improving numbness, tingling, and strength in hand, especially in two fingers. Symptoms have improved over the past week or two. Plan Of Treatment Next Appt Details Provider Name:Jersey Cisse , 02/22/2025 05:00:00 PM, [address] [facility] [address], [place], [address], Insurance Providers Payer Name Payer Address Payer Phone Subscriber Number Group Number Insured Name Patient Relationship to Insured Coverage Start Date Coverage End Date [facility] [address] [address] [place] [address] [id number] Matt Bean Self - patient is the insured Medical (General) History Medical History History ICD Code Major depressive disorder Sleep disturbance Long-term steroid use Malignant melanoma Ulnar nerve symptoms Lymphedema
--- OUTSIDE RECORDS SUMMARY | 2025-01-30 09:33 | XMS_ITS | Encounter Summary ---
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 Gender Identity Not on file Sexual [...] on filedocumented in this encounter Care Teams Dairy Bacteriologist Relationship Specialty Start Date End Date Hugo Lara MD [address] [address] PCP - General Family Medicine 06/05/24 Sanjiv Alvarez MD [address] [place] [address] Referring Physician Plastic Surgery 10/29/19 06/04/24 Marco Chong MD [address] [place] [address] Medical Oncologist/Electrical Machinist Medical Oncology 03/03/20 11/03/20 Shilo Benitez DO [address] [place] [address] Medical Oncologist/Electrical Machinist Hematology and Oncology 09/16/20 Jordon Murcia MD [address] [place] [address] Wood Preparation Supervisor Dermatology 11/04/20 documented as of this encounter
--- OUTSIDE RECORDS SUMMARY | 2025-01-30 09:33 | XMS_ITS | Encounter Summary ---
Author Organization [facility] of [facility] Address [address] [place] [address] Phone Care Team Providers Care Animal Physiologist Name Role Phone Shilo Benitez DO Unavailable [phone] Jordon Murcia MD Unavailable [phone] Hugo Lara MD Primary Care Provider [phone] Encounter Details Date Type Department Care Team (Late st Contact Info) Description 01/06/2025 Results Follow-Up [facility] Medicine Physicians [facility] Oncology [address] [facility] [address] [place] [phone] Radha Hallman RN T4, free, TSH, [...] file 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 Gender Identity Not on file Sexual Orientation Not on file documented as of this encounter Functional Status * BP Location Answer Date of Assessment Author Right arm 01/08/2025 7:39 AM MANAGER VISUAL Ai Carvajal MA * BP Location Answer Date of Assessment Author Right arm 01/08/2025 7:39 AM MANAGER VISUAL Ai Carvajal MA documented as of this encounter Plan of Treatment Not on file documented as of this encounter Visit Diagnoses Not on filedocumented in this encounter Care Teams Animal Physiologist Relationship Specialty Start Date End Date Hugo Lara MD [address] [place] [address] PCP - General Family Medicine 06/05/24 Shilo Benitez DO Medical Oncologist/Corrosion Control Specialist Hematology and Oncology 09/16/20 Jordon Murcia MD Soliciting Freight Agent Dermatology 11/04/20 documented as of this encounter
--- OUTSIDE RECORDS SUMMARY | 2025-01-30 09:33 | XMS_ITS | Encounter Summary ---
Author Organization [facility] Address [address] [place] [address] Phone Care Team Providers Care Grove Worker Name Role Phone Shilo Benitez DO Unavailable [phone] Jordon Murcia MD Unavailable [phone] Hugo Lara MD Primary Care Provider [phone] Encounter Details Date Type Department Care Team (Late st Contact Info) Description 12/21/2024 Results Follow-Up [facility] Medicine Physicians [facility] Oncology [address] [facility] [address] [place] [phone] Radha Hallman RN CBC with auto [...] on file 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 Gender Identity Not on file Sexual Orientation Not on file documented as of this encounter Functional Status documented as of this encounter Plan of Treatment Not on file documented as of this encounter Visit Diagnoses Not on filedocumented in this encounter Care Teams Grove Worker Relationship Specialty Start Date End Date Hugo Lara MD [address] [place] [address] PCP - General Family Medicine 06/05/24 Shilo Benitez DO Medical Oncologist/Sieve Maker Hematology and Oncology 09/16/20 Jordon Murcia MD Wildlife Enforcement Major Dermatology 11/04/20 documented as of this encounter
--- OUTSIDE RECORDS SUMMARY | 2025-01-30 09:33 | XMS_ITS | Encounter Summary ---
Author Organization [facility] of [facility] Address [address] [place] [address] Phone Care Team Providers Care Snowmobile Mechanic Name Role Phone Shilo Benitez DO Unavailable [phone] Jordon Murcia MD Unavailable [phone] Hugo Lara MD Primary Care Provider [phone] Encounter Details Date Type Department Care Team (Late st Contact Info) Description 12/02/2024 Results Follow-Up [facility] Medicine Physicians [facility] Oncology [address] [facility] [address] [place] [phone] Radha Hallman, AMY Transthoracic Echo (TTE) [...] on file 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
--- OUTSIDE RECORDS SUMMARY | 2025-01-30 09:33 | XMS_ITS ---
Author Organization [facility] [address] Address [address] [place] [address] Care Team Providers Care Laborer [place] Name Role Phone Shilo Benitez DO Unavailable [phone] Jordon Murcia MD Unavailable [phone] Hugo Lara MD Primary Care Provider [phone] Active Problems Problem Noted Date Diagnosed Date [...] back (HCC) Treatment Medications No medications scheduled. Hydration Therapy Plan* Plan Start Date:11/26/2024 Plan Provider:Shilo Benitez DO Linked Problems Melanoma of back (HCC) Treatment Medications No medications scheduled. Other Current Plans Immune Globulin (GAMMAGARD S-D) [...] (ITP) (HCC) Treatment Medications Current Day (Day 2 2, Cycle 1 - Planned for 01/27/2025) Next Day (Day 1, Cycle 2 - Planned for 02/17/2025) No medications scheduled. No medications schedul ed. No medications scheduled. Past Treatment and Therapy Plans Oncology Chemotherapy Treatment Plan Name Start Date Discontinue Date Treatment Medications Discontinue Reason Plan Provider Cycles Nivolumab 1 mg/kg / Ipilimumab 3 mg/kg 21 Day Cycles 10/23/2024 01/13/2025 ipilimumab (YERVOY)ipilimu mab (YERVOY) IVPB in 250 mLnivolumab (OPDIVO)nivolum ab (OPDIVO) in 50 mL IVPB Protocol Amendment/Yoana Shilo Howard DO 2 of 4 cycles started Pembrolizumab 21 Day Cycles 12/14/19 20 01/20/2021 pembrolizumab (KEYTRUDA)pembr olizumab (KEYTRUDA) IVPB in 100 mL Therapy Complete Shilo Benitez DO 18 of 24 cycles started Oncology Supportive Care Therapy Plan Plan Name Start Date Discontinue Date Treatment Medications Discontinue Reason Plan Provider IV Maintenance Therapy Plan 0 04/30/2023 No medications scheduled. Automatic discontinuation of dormant plans Marco Chong MD Oncology Treatment (2) Plan Name Start Date Discontinue Date Treatment Medications Discontinue Reason Plan Provider Cycles Dabrafenib PO BID / Trametinib PO QD 28 Day Cycles 01/13/2025 daBRAfenib (TAFINLAR)tram etinib dimethyl sulfoxide (MEKINIST) Provider Discretion Shilo Benitez DO 1 of 6 cycles started Lifetime Dose Tracking * Chemical Lifetime Dose Automatic Entry Manual Entr y DLP 430 mGycm 430 mGycm 0 mGycm
--- OUTSIDE RECORDS SUMMARY | 2025-01-30 09:33 | XMS_ITS | Clinical Summary ---
Author Organization [facility] [address] Address [address] [place] [address] Care Team Providers Care Claims Vice President Name Role Phone Hadley Benitez DO Unavailable [phone] Jordon Murcia MD Unavailable [phone] Hugo Lara MD Primary Care Provider [phone] Allergies Active Allergy Reactions Criticality Noted Date Comments Ipilimumab Other (See comments),Fever,Chills Medium Rigors Minocycline Rash Medium 02/02/2019 Medications olmesartan (BENICAR) 40 mg tabletIndication s:hypertension Take 1 tablet (40 mg total) by mouth daily before breakfast 5 12/06/[address] (PROTONIX) 20 mg EC tabletIndication s:Treatment of Non-Bleeding Gastric Disorder Take 1 tablet (20 mg total) by mouth daily before breakfast 3 12/03/19 19 Active BUPROPION HCL ORALIndications: Anxiety with Depression Take 300 mg by mouth every morning 3 12/03/19 19 Active amLODIPine (NORVASC) 5 mg tabletIndication s:Essential hypertension Take 1 tablet (5 mg total) by mouth daily 30 tablet 11 02/23/19 20 Active tadalafiL (CIALIS) 5 mg tablet Take 1 tablet (5 mg total) by mouth daily 07/25/19 23 Active oxyCODONE (ROXICODONE) 5 mg immediate release tablet Take 1 tablet (5 mg total) by mouth every 4 (four) hours as needed for pain 10/30/19 25 Active trametinib dimethyl sulfoxide (MEKINIST) 2 mg tabletIndication s: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 Do not place tablets in a pill box. Keep in the original bottle with desiccant. 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 Do not open, crush, or break. 120 capsule 2 12/01/19 25 Active Additional Information Patient not taking.Reported on 01/13/2025 ondansetron (ZOFRAN) 4 mg tablet Take 1 tablet (4 mg total) by mouth every 6 (six) hours as needed for nausea or vomiting 30 tablet 12/08/19 25 Active predniSONE (DELTASONE) 10 mg tablet Take by mouth Active UNABLE TO FIND [employer] Activ e binimetinib (MEKTOVI ORAL) Take 75 mg by mouth 2 (two) times a day Active encorafenib (BRAFTOVI) 75 mg capsule Take 6 capsules (450 mg total) by mouth daily 12/09/19 25 Active spironolactone (ALDACTONE) 25 mg tablet Take 1 tablet (25 mg total) by mouth daily Active nebivoloL (BYSTOLIC) 20 mg tabletIndication s:Essential hypertension Take 1 tablet (20 mg total) by mouth daily 90 tablet 3 01/30/20 25 026 Active nebivolol (BYSTOLIC) 10 mg tabletIndication s:Essential hypertension Take 1 tablet (10 mg total) by mouth daily 30 tablet 11 02/03/20 19 025 Discontin ued(Thera py completed ) clobetasoL (CLOBEX) 0.05 % lotionIndication s:Contact Dermatitis Apply topically 2 (two) times a day 59 mL 2 11/27/19 25 025 Discontin ued(Thera py completed ) spironolactone (ALDACTONE) 25 mg tablet Take 1 tablet (25 mg total) by mouth 2 (two) times a day 60 tablet 12/05/19 25 025 Discontin ued(Patie nt Reported) morphine ER (MS CONTIN) 15 mg 12 hr tablet Take 1 tablet (15 mg total) by mouth every 12 (twelve) hours 60 tablet 12/08/19 25 025 Discontin ued(Thera py completed ) potassium chloride ER (KLOR-CON) 20 mEq CR tablet Take 1 tablet (20 mEq total) by mouth daily 30 tablet 12/08/19 25 025 Discontin ued(Thera py completed ) predniSONE (DELTASONE) 20 mg tablet Take 4 tablets (80 mg) by mouth daily 120 tablet 12/08/19 25 025 Discontin ued(Thera py completed ) Active Problems [...] Encounters Date Type Department Care Team Description 01/29/2025 7:45 AM FUR BLOWING MACHINE OPERATOR Office Visit [facility] [address] [facility] [address] [place] [address] Damir Canas MD Essential hypertension (Primary Dx); Idiopathic thrombocytopenic purpura (ITP) (HCC); GERD without esophagitis; Hyperkalemia; Melanoma of back (HCC) 01/27/2025 8:15 AM FUR BLOWING MACHINE OPERATOR Infusion [facility] at [address] [place] [phone] Idiopathic thrombocytopenic purpura (ITP) (HCC) 01/27/2025 7:45 AM FUR BLOWING MACHINE OPERATOR Lab [facility] at [address] [address] Idiopathic thrombocytopenic purpura (ITP) (HCC); Hyperkalemia 01/26/2025 Orders Only [facility] [address] [place] [address] [address] [place] [address] Hadley Benitez DO 01/20/2025 12:15 PM FUR BLOWING MACHINE OPERATOR Infusion [facility] at [address] [place] [address] Idiopathic thrombocytopenic purpura (ITP) (HCC) (Primary Dx) 01/20/2025 11:45 AM FUR BLOWING MACHINE OPERATOR Lab [facility] at [address] [address] Idiopathic thrombocytopenic purpura (ITP) (HCC) 01/19/2025 Orders Only [facility] [address] [place] [address] [place] [phone] Hadley Benitez DO 01/13/2025 12:15 PM FUR BLOWING MACHINE OPERATOR Infusion [facility] at [address] [place] [phone] Idiopathic thrombocytopenic purpura (ITP) (HCC) (Primary Dx) 01/13/2025 11:45 AM FUR BLOWING MACHINE OPERATOR Office Visit [facility] [address] [place] [phone] Hadley Benitez DO Melanoma of back (HCC) (Primary Dx); Idiopathic thrombocytopenic purpura (ITP) (HCC) 01/13/2025 11:15 AM FUR BLOWING MACHINE OPERATOR Lab [facility] at [address] [address] Idiopathic thrombocytopenic purpura (ITP) (HCC) 01/12/2025 8:45 AM FUR BLOWING MACHINE OPERATOR Clinical Support [address] 1st [place] [address] Elle Cheung, PhD 01/08/2025 8:00 AM FUR BLOWING MACHINE OPERATOR Office Visit [facility] [address] [facility] [address] [place] [phone] Damir Canas MD Hyperkalemia (Primary Dx); Essential hypertension; Idiopathic thrombocytopenic purpura (ITP) (HCC); Melanoma of back (HCC); 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); GERD without esophagitis; Lipid screening 01/08/2025 Orders Only [facility] [address] [place] [address] ProviderBetito MD 01/06/2025 8:00 AM FUR BLOWING MACHINE OPERATOR Lab [facility] at [address] [address] Idiopathic thrombocytopenic purpura (ITP) (HCC); Anemia, unspecified type; Melanoma of back (HCC) 01/06/2025 Results Follow-Up [facility] Oncology [address] [place] [phone] Radha Hallman RN T4, free, TSH, Comprehensive metabolic panel, Additional followed-up results: 3 12/31/2024 8:45 AM FUR BLOWING MACHINE OPERATOR Clinical Support [address] [phone] Elle Cheung, PhD Melanoma of back (HCC); Idiopathic thrombocytopenic purpura (ITP) (HCC); 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) 12/30/2024 12:30 PM FUR BLOWING MACHINE OPERATOR Infusion [facility] at [address] [place] [address] Idiopathic thrombocytopenic purpura (ITP) (HCC) 12/30/2024 12:00 PM FUR BLOWING MACHINE OPERATOR Lab [facility] at [address] [address] Idiopathic thrombocytopenic purpura (ITP) (HCC) 12/30/[address] [phone] Maxine Cook 12/29/2024 Orders Only [facility] [place] [facility] [address] [place] [address] [address] [place] [phone] Hadley Benitez, DO 12/23/2024 10:45 AM FUR BLOWING MACHINE OPERATOR Infusion [facility] at [address] [place] [address] Idiopathic thrombocytopenic purpura (ITP) (HCC) (Primary Dx) 12/23/2024 10:15 AM FUR BLOWING MACHINE OPERATOR Lab [address] [address] Idiopathic thrombocytopenic purpura (ITP) (HCC) 12/23/2024 Orders Only [facility] [address] [place] [address] [address] [place] [address] Hadley Benitez, DO 12/23/2024 Orders Only [facility] [address] [place] [address] [address] [place] [phone] Hadley Benitez, DO 12/22/2024 Orders Only [facility] [address] [place] [address] [address] [place] [phone] Hadley Benitez, DO 12/22/2024 Orders Only [facility] [address] [place] [address] [address] [place] [phone] Hadley Benitez, DO Idiopathic thrombocytopenic purpura (ITP) (HCC) (Primary Dx) 12/21/2024 10:00 AM FUR BLOWING MACHINE OPERATOR Lab [address] [address] Melanoma of back (HCC) 12/21/2024 Results [facility] [place] [facility] [address] [place] [address] [address] [place] [phone] Radha Hallman, RN CBC with auto differential, Differential, auto, Comprehensive metabolic panel, eGFR 12/21/2024 Orders Only [facility] [place] [facility] [address] [place] [address] [address] [place] [address] Hadley Benitez DO Melanoma of back (HCC) (Primary Dx) 12/18/2024 Orders Only [facility] [address] [place] [phone] Hadley Benitez DO Melanoma of back (HCC) (Primary Dx); Idiopathic thrombocytopenic purpura (ITP) (HCC) 12/10/2024 Results Follow-Up [facility] [address] [place] [phone] Damir Canas MD Pro B-type natriuretic peptide, Magnesium 12/07/2024 Documentation [facility] [address] [place] [phone] Hadley Benitez DO 12/04/2024 10:30 AM CDT - 12/04/2024 11:59 PM CDT Hospital Encounter [facility] Lab [address] [place] [address] Hadley Benitez DO Melanoma of back (HCC); 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); Pain and swelling of left upper extremity Discharge Disposition: Discharge to home or self care 12/04/2024 8:45 AM CDT Office Visit [facility] [address] [place] [phone] Hadley Benitez DO Melanoma of back (HCC) (Primary Dx); 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); Pain and swelling of left upper extremity; Idiopathic thrombocytopenic purpura (ITP) (HCC) 12/04/2024 8:15 AM CDT Lab [facility] at [address] [id number] Melanoma of back (HCC); Edema, unspecified type 12/03/2024 Telephone [facility] [place] [facility] [address] [place] [phone] Lita Mahoney CMA 12/02/2024 10:15 AM CDT Ancillary Procedure [facility] [address] [place] [address] Melanoma of back (HCC); Encounter for antineoplastic chemotherapy 12/02/2024 Telephone [facility] [address] [place] [address] Damir Canas MD 12/02/2024 Results Follow-Up [facility] [place] [facility] [address] [place] [address] [address] [place] [address] Radha Hallman, AMY Transthoracic Echo (TTE) Complete W Doppler/CF 12/02/2024 Orders Only [facility] [address] [place] [address] [address] [place] [address] Hadley Benitez DO 11/30/2024 10:45 AM CDT Infusion [facility] at [address] [place] [address] Melanoma of back (HCC) (Primary Dx); Thrombocytopenia, unspecified 11/30/2024 7:45 AM CDT Lab [address] [address] Melanoma of back (HCC); Thrombocytopenia, unspecified 11/30/2024 Documentation [facility] [address] [facility] [address] [place] [address] Ai Haley CPhT Prior Auth (TAFINLAR) 11/30/2024 Documentation [facility] [address] [facility] [address] 6 [place] [address] Ai Haley CPhT Prior Auth (MEKINIST) 11/30/2024 Orders Only [facility] [address] [place] [address] [address] [place] [address] Hadley Benitez DO Idiopathic thrombocytopenic purpura (ITP) (HCC) (Primary Dx) 11/30/2024 Documentation [facility] [place] [facility] [address] [place] [phone] Hadley Benitez DO 11/27/2024 Orders Only [facility] [address] [place] [address] [address] [place] [phone] Hadley Benitez DO Melanoma of back (HCC) (Primary Dx); Thrombocytopenia, unspecified 11/26/2024 1:45 PM CDT Infusion [facility] at [address] [phone] Melanoma of back (HCC) 11/26/2024 12:00 PM CDT Infusion [facility] at [address] [phone] Melanoma of back (HCC) (Primary Dx) 11/26/2024 9:45 AM CDT Lab [address] [address] Melanoma of back (HCC) 11/26/2024 Orders Only [facility] [address] [place] [phone] Hadley Benitez DO Melanoma of back (HCC) (Primary Dx); Encounter for antineoplastic chemotherapy; 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) 11/26/2024 Results Follow-Up [facility] [place] [facility] [address] [place] [phone] Radha Hallman, AMY CBC with auto differential, ABO / Rh Confirmation Testing, ABO/Rh, Additional followed-up results: 6 11/20/2024 Telephone [facility] [place] [facility] [address] [place] [phone] MaruLita thomas, DIGITAL ANALYST 11/20/2024 Orders Only [facility] [place] [facility] [address] [place] [phone] Candida Guardado, RN 11/19/2024 Orders Only [facility] On[facility] [address] [place] [phone] Betito Thorpe MD 11/17/2024 Orders Only [facility] Medicine Surgery [address] [facility] Floor 6 [place] [phone] Hadley Pace Jr., MD Melanoma of back (HCC) (Primary Dx) 11/13/2024 8:30 AM CDT Infusion [address] [phone] Encounter for adjustment and management of unspecified implanted device (Primary Dx); Melanoma of back (HCC) 11/13/2024 8:00 AM CDT Office Visit [facility] On[facility] [address] [place] [phone] Hadley Benitez DO Melanoma of back (HCC) (Primary Dx) 11/13/2024 7:30 AM CDT Lab [address] [id number] Melanoma of back (HCC) from Last 3 Months Immunizations Immunization Administration [...] on file Legal Sex Male 2:33 PM FUR BLOWING MACHINE OPERATOR Gender Identity Not on file Sexual Orientation Not on file Last Filed Vital Signs Vital Sign Reading Time Taken Comments Blood Pressure 150/90 01/29/2025 7:42 AM FUR BLOWING MACHINE OPERATOR Pulse 96 01/29/2025 7:42 AM FUR BLOWING MACHINE OPERATOR Temperature 36.6 C (97.9 F) 01/13/2025 11:39 AM FUR BLOWING MACHINE OPERATOR Respiratory Rate 16 01/13/2025 11:39 AM FUR BLOWING MACHINE OPERATOR Oxygen Saturation 97% 01/29/2025 7:42 AM FUR BLOWING MACHINE OPERATOR Inhaled Oxygen Concentration - - Weight 94 kg (207 lb 3.2 oz) 01/29/2025 7:42 AM FUR BLOWING MACHINE OPERATOR Height 180.3 cm (5' 11) 01/29/2025 7:42 AM FUR BLOWING MACHINE OPERATOR Body Mass Index 28.9 01/29/2025 7:42 AM FUR BLOWING MACHINE OPERATOR Plan of Treatment Health Maintenance Due Date [...] Name Priority Date/Time Associated Diagnosis Comments EGFR Routine 01/27/2025 8:30 AM FUR BLOWING MACHINE OPERATOR Idiopathic thrombocytopenic purpura (ITP) (HCC) DIFFERENTIAL AUTO STAT 01/27/2025 8:3 0 AM FUR BLOWING MACHINE OPERATOR Idiopathic thrombocytopenic purpura (ITP) (HCC) COMPREHENSIVE METABOLIC PANEL Routine 01/27/2025 8:30 AM FUR BLOWING MACHINE OPERATOR Idiopathic thrombocytopenic purpura (ITP) (HCC) CBC WITH AUTO DIFFERENTIAL STAT 01/27/2025 8:30 AM FUR BLOWING MACHINE OPERATOR Idiopathic thrombocytopenic purpura (ITP) (HCC) DIFFERENTIAL AUTO Routine 01/20/2025 11:53 AM FUR BLOWING MACHINE OPERATOR Idiopathic thrombocytopenic purpura (ITP) (HCC) CBC WITH AUTO DIFFERENTIAL Routine 01/20/2025 11:53 AM FUR BLOWING MACHINE OPERATOR Idiopathic thrombocytopenic purpura (ITP) (HCC) EGFR Routine 01/13/2025 11:33 AM FUR BLOWING MACHINE OPERATOR Idiopathic thrombocytopenic purpura (ITP) (HCC) DIFFERENTIAL AUTO STAT 01/13/2025 11:33 AM FUR BLOWING MACHINE OPERATOR Idiopathic thrombocytopenic purpura (ITP) (HCC) COMPREHENSIVE METABOLIC PANEL Routine 01/13/2025 11:33 AM FUR BLOWING MACHINE OPERATOR Idiopathic thrombocytopenic purpura (ITP) (HCC) CBC WITH AUTO DIFFERENTIAL STAT 01/13/2025 11:33 AM FUR BLOWING MACHINE OPERATOR Idiopathic thrombocytopenic purpura (ITP) (HCC) POCT LIPID PANEL Routine 01/08/2025 7:31 AM FUR BLOWING MACHINE OPERATOR Lipid screening EGFR Routine 01/06/2025 8:25 AM FUR BLOWING MACHINE OPERATOR Melanoma of back (HCC) DIFFERENTIAL AUTO STAT 01/06/2025 8:2 5 AM FUR BLOWING MACHINE OPERATOR Idiopathic thrombocytopenic purpura (ITP) (HCC) CBC WITH AUTO DIFFERENTIAL STAT 01/06/2025 8:25 AM FUR BLOWING MACHINE OPERATOR Idiopathic thrombocytopenic purpura (ITP) (HCC) COMPREHENSIVE METABOLIC PANEL Routine 01/06/2025 8:25 AM FUR BLOWING MACHINE OPERATOR Melanoma of back (HCC) TSH Routine 01/06/2025 8:25 AM FUR BLOWING MACHINE OPERATOR Anemia, unspecified type T4, FREE Routine 01/06/2025 8:25 AM FUR BLOWING MACHINE OPERATOR Anemia, unspecified type DIFFERENTIAL AUTO STAT 12/30/2024 12:11 PM FUR BLOWING MACHINE OPERATOR Idiopathic thrombocytopenic purpura (ITP) (HCC) CBC WITH AUTO DIFFERENTIAL STAT 12/30/2024 12:11 PM FUR BLOWING MACHINE OPERATOR Idiopathic thrombocytopenic purpura (ITP) (HCC) DIFFERENTIAL AUTO STAT 12/23/2024 10:34 AM FUR BLOWING MACHINE OPERATOR Idiopathic thrombocytopenic purpura (ITP) (HCC) CBC WITH AUTO DIFFERENTIAL STAT 12/23/2024 10:34 AM FUR BLOWING MACHINE OPERATOR Idiopathic thrombocytopenic purpura (ITP) (HCC) EGFR Routine 12/21/2024 10:15 AM FUR BLOWING MACHINE OPERATOR Melanoma of back (HCC) COMPREHENSIVE METABOLIC PANEL Routine 12/21/2024 10:15 AM FUR BLOWING MACHINE OPERATOR Melanoma of back (HCC) DIFFERENTIAL AUTO Routine 12/21/2024 10:13 AM FUR BLOWING MACHINE OPERATOR Melanoma of back (HCC) CBC WITH AUTO DIFFERENTIAL Routine 12/21/2024 10:13 AM FUR BLOWING MACHINE OPERATOR Melanoma of back (HCC) ECG 12-LEAD Routine [...] 7:38 AM CDT Melanoma of back (HCC) from Last 3 Months Results * eGFR (01/27/2025 8:30 AM FUR BLOWING MACHINE OPERATOR) eGFR 65 >=60 mL/min/1. 73 m2 Comment: [...] was last reviewed 2020. Testing performed by: [facility], [address] [place] [address], [place]., [address] Blood 01/27/2025 8:30 AM FUR BLOWING MACHINE OPERATOR 01/27/2025 8:35 AM FUR BLOWING MACHINE OPERATOR Hadley Benitez DO LAB BLOOD ORDERABLES Final R esult [facility] [address] Department [place] [address] * (ABNORMAL) Differential, auto (01/27/2025 8:30 AM FUR BLOWING MACHINE OPERATOR) Neutrophil abs 6.89(H) 1.50 - 6.50 K/cumm Comment:Testing performed by : [address] [address] Imm gran abs 0.06 0.00 - 0.10 K/cumm [facility] Comment:Testing performed by : [address], [place]., [address] Lymphocyte abs 0.39(L) 0.80 - 3.30 K/cumm [facility] Comment:Testing performed by : [address] [address] Monocyte abs 0.71 0.20 - 0.80 K/cumm [facility] Comment:Testing performed by : [address] [address] Eosinophil abs 0.20 0.00 - 0.50 K/cumm [facility] Comment:Testing performed by : [address] [address] Basophil abs 0.06 0.00 - 0.10 K/cumm [facility] Comment:Testing performed by : [address] [address] Neutrophil pct 83.0 % [facility] Comment: Interpretive Data Percent cell count reference ranges are not reported, since discordance with absolute values may lead to misinterpretation of CBC data. Current Interpretive Data was last revised on 2017. Testing performed by: [address] [address] Imm gran pct 0.7 % [facility] Comment: Interpretive Data Percent cell count reference ranges are not reported, since discordance with absolute values may lead to misinterpretation of CBC data. Current Interpretive Data was last revised on 2017. Testing performed by: [address] [address] Lymphocyte pct 4.7 % [facility] Comment: Interpretive Data Percent cell count reference ranges are not reported, since discordance with absolute values may lead to misinterpretation of CBC data. Current Interpretive Data was last revised on 2017. Testing performed by: [address] [address] Monocyte pct 8.5 % [facility] Comment: Interpretive Data Percent cell count reference ranges are not reported, since discordance with absolute values may lead to misinterpretation of CBC data. Current Interpretive Data was last revised on 2017. Testing performed by: [address] [address] Eosinophil pct 2.4 % [facility] Comment: Interpretive Data Percent cell count reference ranges are not reported, since discordance with absolute values may lead to misinterpretation of CBC data. Current Interpretive Data was last revised on 2017. Testing performed by: [address] [address] Basophil pct 0.7 % [facility] Comment: Interpretive Data Percent cell count reference ranges are not reported, since discordance with absolute values may lead to misinterpretation of CBC data. Current Interpretive Data was last revised on 2017. Testing performed by: [address] [address] Blood 01/27/2025 8:30 AM FUR BLOWING MACHINE OPERATOR 01/27/2025 8:35 AM FUR BLOWING MACHINE OPERATOR us Hadley Benitez DO LAB BLOOD ORDERABLES Final R esult [facility] [address] [facility] Department [place] [address] * (ABNORMAL) CBC with auto differential (01/27/2025 8:30 AM FUR BLOWING MACHINE OPERATOR) WBC 8.31 3.80 - 9.90 K/cumm Comment:Testing performed by : [address] [address] Hgb 13.3 13.0 - 17.5 g/dL [facility] Comment:Testing performed by : [address] [address] Hct 39.6 38.9 - 50.3 % [facility] Comment:Testing performed by : [address] [address] Plt 253 150 - 400 K/cumm [facility] Comment:Testing performed by : [address] [address] MPV 8.5(L) 9.1 - 12.3 fL [facility] Comment:Testing performed by : [address] [address] RBC 4.54 4.30 - 5.80 M/cumm [facility] Comment:Testing performed by : [address] [address] MCV 87.2 81.3 - 96.4 fL [facility] Comment:Testing performed by : [address] [address] MCH 29.3 27.1 - 33.3 pg [facility] Comment:Testing performed by : [address] [address] MCHC 33.6 32.3 - 35.7 g/dL [facility] Comment:Testing performed by : [address] [address] RDW CV 17.0(H) 11.1 - 14.9 % [facility] Comment:Testing performed by : [address] [address] RDW SD 54.1(H) 35.7 - 48.1 fL [facility] Comment:Testing performed by : [address] [address] NRBC abs 0.00 0.00 - 0.01 K/cumm [facility] Comment:Testing performed by : [address] [address] ANC Prelim 6.89(H) 1.50 - 6.50 K/cumm [facility] Comment: Interpretive Data The rapid ANC is a preliminary automated count and may vary from the final ANC (Neut Abs) reported in the WBC differential that follows. Current interpretive data was last revised 2024. Testing performed by: [address], [address] Blood 01/27/2025 8:30 AM FUR BLOWING MACHINE OPERATOR 01/27/2025 8:35 AM FUR BLOWING MACHINE OPERATOR Hadley Benitez DO LAB BLOOD ORDERABLES Final R esult [facility] [facility] Department [place] [address] * (ABNORMAL) Comprehensive metabolic panel (01/27/2025 8:30 AM FUR BLOWING MACHINE OPERATOR) Sodium 139 135 - 145 mmol/L Comment:Testing performed by : [address] [address] Potassium, pl 4.6 3.3 - 4.9 mmol/L [facility] Comment:Testing performed by : [address] [address] Chloride 108 97 - 110 mmol/L [facility] Comment:Testing performed by : [address] [address] CO2 21(L) 22 - 32 mmol/L [facility] Comment:Testing performed by : [address] [address] Anion gap 10 2 - 15 mmol/L [facility] Comment:Testing performed by : [address] [address] BUN 24 6 - 25 mg/dL [facility] Comment:Testing performed by : [address] [address] Creatinine 1.30 0.80 - 1.30 mg/dL [facility] Comment:Testing performed by : [address] [address] Glucose 131 70 - 199 mg/dL [facility] Comment: Interpretive [...] last revised 2022. Testing performed by: [address] [address] Calcium 9.0 8.5 - 10.3 mg/dL [facility] Comment:Testing performed by : [address] [address] Bilirubin, total 0.2 0.1 - 1.2 mg/dL [facility] Comment:Testing performed by : [address] [address] Protein, pl 6.6 6.5 - 8.5 g/dL [facility] Comment:Testing performed by : [address] [address] Albumin 3.9 3.5 - 5.0 g/dL [facility] Comment:Testing performed by : [address] [address] Alk phos 51 40 - 130 Units/L [facility] Comment:Testing performed by : [address] [address] ALT 13 7 - 55 Units/L [facility] Comment:Testing performed by : [address] [address] AST 18 10 - 50 Units/L [facility] Comment:Testing performed by : [address] [address] Blood 01/27/2025 8:30 AM FUR BLOWING MACHINE OPERATOR 01/27/2025 8:35 AM FUR BLOWING MACHINE OPERATOR us Hadley Benitez DO LAB BLOOD ORDERABLES Final R esult [facility] [address] [facility] Department [place] [address] * (ABNORMAL) Differential, auto (01/20/2025 11:53 AM FUR BLOWING MACHINE OPERATOR) Neutrophil abs 9.32(H) 1.50 - 6.50 K/cumm Comment:Testing performed by : [address] [place] [address] Imm gran abs 0.12(H) 0.00 - 0.10 K/cumm [facility] Comment:Testing performed by : [address] [address] Lymphocyte abs 1.50 0.80 - 3.30 K/cumm [facility] Comment:Testing performed by : [address] [address] Monocyte abs 0.50 0.20 - 0.80 K/cumm [facility] Comment:Testing performed by : [address], [place]., [address] Eosinophil abs 0.34 0.00 - 0.50 K/cumm [facility] Comment:Testing performed by : [address] [address] Basophil abs 0.10 0.00 - 0.10 K/cumm [facility] Comment:Testing performed by : [address] [address] Neutrophil pct 78.5 % [facility] Comment: Interpretive Data Percent cell count reference ranges are not reported, since discordance with absolute values may lead to misinterpretation of CBC data. Current Interpretive Data was last revised on 2017. Testing performed by: [address] [address] Imm gran pct 1.0 % [facility] Comment: Interpretive Data Percent cell count reference ranges are not reported, since discordance with absolute values may lead to misinterpretation of CBC data. Current Interpretive Data was last revised on 2017. Testing performed by: [address] [address] Lymphocyte pct 12.6 % [facility] Comment: Interpretive Data Percent cell count reference ranges are not reported, since discordance with absolute values may lead to misinterpretation of CBC data. Current Interpretive Data was last revised on 2017. Testing performed by: [address] [address] Monocyte pct 4.2 % [facility] Comment: Interpretive Data Percent cell count reference ranges are not reported, since discordance with absolute values may lead to misinterpretation of CBC data. Current Interpretive Data was last revised on 2017. Testing performed by: [address] [address] Eosinophil pct 2.9 % [facility] Comment: Interpretive Data Percent cell count reference ranges are not reported, since discordance with absolute values may lead to misinterpretation of CBC data. Current Interpretive Data was last revised on 2017. Testing performed by: [address] [address] Basophil pct 0.8 % [facility] Comment: Interpretive Data Percent cell count reference ranges are not reported, since discordance with absolute values may lead to misinterpretation of CBC data. Current Interpretive Data was last revised on 2017. Testing performed by: [address] [address] Blood 01/20/2025 11:5 3 AM FUR BLOWING MACHINE OPERATOR 01/20/2025 12:01 PM FUR BLOWING MACHINE OPERATOR Hadley Benitez DO LAB BLOOD ORDERABLES Final R esult [facility] [address] [facility] Department [place] [address] * (ABNORMAL) CBC with auto differential (01/20/2025 11:53 AM FUR BLOWING MACHINE OPERATOR) WBC 11.88(H) 3.80 - 9.90 K/cumm Comment:Testing performed by : [address] [address] Hgb 12.8(L) 13.0 - 17.5 g/dL [facility] Comment:Testing performed by : [address] [address] Hct 38.4(L) 38.9 - 50.3 % [facility] Comment:Testing performed by : [address] [address] Plt 209 150 - 400 K/cumm [facility] Comment:Testing performed by : [address] [address] MPV 9.5 9.1 - 12.3 fL [facility] Comment:Testing performed by : [facility], [address] [place] [address]., [address] RBC 4.33 4.30 - 5.80 M/cumm [facility] Comment:Testing performed by : [address] [address] MCV 88.7 81.3 - 96.4 fL [facility] Comment:Testing performed by : [address] [address] MCH 29.6 27.1 - 33.3 pg [facility] Comment:Testing performed by : [address] [address] MCHC 33.3 32.3 - 35.7 g/dL [facility] Comment:Testing performed by : [address] [address] RDW CV 18.5(H) 11.1 - 14.9 % [facility] Comment:Testing performed by : [address] [address] RDW SD 59.3(H) 35.7 - 48.1 fL [facility] Comment:Testing performed by : [address] [address] NRBC abs 0.00 0.00 - 0.01 K/cumm [facility] Comment:Testing performed by : [address] [address] ANC Prelim 9.32(H) 1.50 - 6.50 K/cumm [facility] Comment: Interpretive Data The rapid ANC is a preliminary automated count and may vary from the final ANC (Neut Abs) reported in the WBC differential that follows. Current interpretive data was last revised 2024. Testing performed by: [address] [address] Blood 01/20/2025 11:5 3 AM FUR BLOWING MACHINE OPERATOR 01/20/2025 12:01 PM FUR BLOWING MACHINE OPERATOR us Hadley Benitez DO LAB BLOOD ORDERABLES Final R esult [facility] [address] [facility] Department [place] [address] * eGFR (01/13/2025 11:33 AM FUR BLOWING MACHINE OPERATOR) eGFR 60 >=60 mL/min/1. 73 m2 Comment: [...] last reviewed 2020. Testing performed by: [address] [address] Blood 01/13/2025 11:3 3 AM FUR BLOWING MACHINE OPERATOR 01/13/2025 11:36 AM FUR BLOWING MACHINE OPERATOR Hadley Benitez DO LAB BLOOD ORDERABLES Final R esult [facility] [address] [facility] Department [place] [address] * (ABNORMAL) Differential, auto (01/13/2025 11:33 AM FUR BLOWING MACHINE OPERATOR) Pathologist [facility] [place] Neutrophil abs 7.75(H) 1.50 - 6.50 K/cumm Comment:Testing performed by : [address] [address] Imm gran abs 0.21(H) 0.00 - 0.10 K/cumm [facility] Comment:Testing performed by : [address] [address] Lymphocyte abs 2.08 0.80 - 3.30 K/cumm [facility] Comment:Testing performed by : [address] [address] Monocyte abs 0.30 0.20 - 0.80 K/cumm [facility] Comment:Testing performed by : [address], [place]., [address] Eosinophil abs 0.13 0.00 - 0.50 K/cumm [facility] Comment:Testing performed by : [address], [place]., [address] Basophil abs 0.11(H) 0.00 - 0.10 K/cumm [facility] Comment:Testing performed by : [address] [address] Neutrophil pct 73.3 % [facility] Comment: Interpretive Data Percent cell count reference ranges are not reported, since discordance with absolute values may lead to misinterpretation of CBC data. Current Interpretive Data was last revised on 2017. Testing performed by: [address] [address] Imm gran pct 2.0 % [facility] Comment: Interpretive Data Percent cell count reference ranges are not reported, since discordance with absolute values may lead to misinterpretation of CBC data. Current Interpretive Data was last revised on 2017. Testing performed by: [address] [address] Lymphocyte pct 19.7 % [facility] Comment: Interpretive Data Percent cell count reference ranges are not reported, since discordance with absolute values may lead to misinterpretation of CBC data. Current Interpretive Data was last revised on 2017. Testing performed by: [address] [address] Monocyte pct 2.8 % [facility] Comment: Interpretive Data Percent cell count reference ranges are not reported, since discordance with absolute values may lead to misinterpretation of CBC data. Current Interpretive Data was last revised on 2017. Testing performed by: [address] [address] Eosinophil pct 1.2 % [facility] Comment: Interpretive Data Percent cell count reference ranges are not reported, since discordance with absolute values may lead to misinterpretation of CBC data. Current Interpretive Data was last revised on 2017. Testing performed by: [address] [address] Basophil pct 1.0 % [facility] Comment: Interpretive Data Percent cell count reference ranges are not reported, since discordance with absolute values may lead to misinterpretation of CBC data. Current Interpretive Data was last revised on 2017. Testing performed by: [address] [address] Blood 01/13/2025 11:3 3 AM FUR BLOWING MACHINE OPERATOR 01/13/2025 11:36 AM FUR BLOWING MACHINE OPERATOR Hadley Benitez DO LAB BLOOD ORDERABLES Final R esult [facility] [address] [facility] Department [place] [address] * (ABNORMAL) CBC with auto differential (01/13/2025 11:33 AM FUR BLOWING MACHINE OPERATOR) WBC 10.58(H) 3.80 - 9.90 K/cumm Comment:Testing performed by : [address] [address] Hgb 12.6(L) 13.0 - 17.5 g/dL [facility] Comment:Testing performed by : [address] [address] Hct 38.1(L) 38.9 - 50.3 % [facility] Comment:Testing performed by : [address] [address] Plt 133(L) 150 - 400 K/cumm [facility] Comment:Testing performed by : [address] [address] MPV 9.2 9.1 - 12.3 fL [facility] Comment:Testing performed by : [address] [address] RBC 4.32 4.30 - 5.80 M/cumm [facility] Comment:Testing performed by : [address] [address] MCV 88.2 81.3 - 96.4 fL [facility] Comment:Testing performed by : [address] [address] MCH 29.2 27.1 - 33.3 pg [facility] Comment:Testing performed by : [address] [address] MCHC 33.1 32.3 - 35.7 g/dL [facility] Comment:Testing performed by : [address] [address] RDW CV 19.0(H) 11.1 - 14.9 % [facility] Comment:Testing performed by : [address] [address] RDW SD 61.6(H) 35.7 - 48.1 fL [facility] Comment:Testing performed by : [address] [address] NRBC abs 0.00 0.00 - 0.01 K/cumm [facility] Comment:Testing performed by : [address] [address] ANC Prelim 7.75(H) 1.50 - 6.50 K/cumm [facility] Comment: Interpretive Data The rapid ANC is a preliminary automated count and may vary from the final ANC (Neut Abs) reported in the WBC differential that follows. Current interpretive data was last revised 2024. Testing performed by: [address] [address] Blood 01/13/2025 11:3 3 AM FUR BLOWING MACHINE OPERATOR 01/13/2025 11:36 AM FUR BLOWING MACHINE OPERATOR us Hadley Benitez DO LAB BLOOD ORDERABLES Final R esult [facility] [address] [facility] Department [place] [address] * (ABNORMAL) Comprehensive metabolic panel (01/13/2025 11:33 AM FUR BLOWING MACHINE OPERATOR) Sodium 140 135 - 145 mmol/L Comment:Testing performed by : [facility], [address] [place] [address], [place]., [address] Potassium, pl 5.3(H) 3.3 - 4.9 mmol/L [facility] Comment:Testing performed by : [address], [place]., [address] Chloride 108 97 - 110 mmol/L [facility] Comment:Testing performed by : [address], [place]., [address] CO2 21(L) 22 - 32 mmol/L [facility] Comment:Testing performed by : [address], [place]., [address] Anion gap 11 2 - 15 mmol/L [facility] Comment:Testing performed by : [address], [place]., [address] BUN 33(H) 6 - 25 mg/dL [facility] Comment:Testing performed by : [address], [place]., [address] Creatinine 1.40(H) 0.80 - 1.30 mg/dL [facility] Comment:Testing performed by : [address], [place]., [address] Glucose 119 70 - 199 mg/dL [facility] Comment: Interpretive Data Fasting glucose >/= 126 [...] last revised 2022. Testing performed by: [address] [address] Calcium 9.3 8.5 - 10.3 mg/dL [facility] Comment:Testing performed by : [address], [place]., [address] Bilirubin, total 0.2 0.1 - 1.2 mg/dL [facility] Comment:Testing performed by : [facility], [address] [place] [address]., [address] Protein, pl 6.7 6.5 - 8.5 g/dL [facility] Comment:Testing performed by : [address] [address] Albumin 4.0 3.5 - 5.0 g/dL [facility] Comment:Testing performed by : [address] [address] Alk phos 52 40 - 130 Units/L [facility] Comment:Testing performed by : [address] [address] ALT 18 7 - 55 Units/L [facility] Comment:Testing performed by : [address] [address] AST 16 10 - 50 Units/L [facility] Comment:Testing performed by : [address], [address] Blood 01/13/2025 11:3 3 AM FUR BLOWING MACHINE OPERATOR 01/13/2025 11:36 AM FUR BLOWING MACHINE OPERATOR us Hadley Benitez DO LAB BLOOD ORDERABLES Final R esult [facility] [address] [facility] Department of Laboratories [place], [place] [id number] * (ABNORMAL) POCT lipid panel (01/08/2025 7:31 AM FUR BLOWING MACHINE OPERATOR) Cholesterol, POC 173 <200 MG/DL HDL, POC 41 >=40 mg/dL Triglycerides, POC 370(A) <=149 mg/dL LDL Cholesterol POC 57 <=129 mg/dL Chol/HDL Ratio, POC 1.4 NONE Non-HDL Cholesterol, POC 131 NONE mg/dL Cholesterol Total, POC 173 30 - 199 mg/dL Capillary blood 01/08/2025 7 :31 AM FUR BLOWING MACHINE OPERATOR us Damir Canas MD POINT OF CARE TEST ORDERA BLES Final Result * eGFR (01/06/2025 8:25 AM FUR BLOWING MACHINE OPERATOR) eGFR 65 >=60 mL/min/1. 73 m2 Comment: [...] last reviewed 2020. Testing performed by: [address] [address] Blood 01/06/2025 8:25 AM FUR BLOWING MACHINE OPERATOR 01/06/2025 8:35 AM FUR BLOWING MACHINE OPERATOR us Hadley Benitez DO LAB BLOOD ORDERABLES Final R esult [facility] [address] [facility] Department [place] [address] * (ABNORMAL) Differential, auto (01/06/2025 8:25 AM FUR BLOWING MACHINE OPERATOR) Neutrophil abs 9.46(H) 1.50 - 6.50 K/cumm Comment:Testing performed by : [address] [address] Imm gran abs 0.48(H) 0.00 - 0.10 K/cumm [facility] Comment:Testing performed by : [address] [address] Lymphocyte abs 1.32 0.80 - 3.30 K/cumm [facility] Comment:Testing performed by : [address], [place]., [address] Monocyte abs 0.81(H) 0.20 - 0.80 K/cumm [facility] Comment:Testing performed by : [address], [place]., [address] Eosinophil abs 0.15 0.00 - 0.50 K/cumm [facility] Comment:Testing performed by : [address], [place]., [address] Basophil abs 0.17(H) 0.00 - 0.10 K/cumm [facility] Comment:Testing performed by : [address] [address] Neutrophil pct 76.3 % [facility] Comment: Interpretive Data Percent cell count reference ranges are not reported, since discordance with absolute values may lead to misinterpretation of CBC data. Current Interpretive Data was last revised on 2017. Testing performed by: [address] [address] Imm gran pct 3.9 % [facility] Comment: Interpretive Data Percent cell count reference ranges are not reported, since discordance with absolute values may lead to misinterpretation of CBC data. Current Interpretive Data was last revised on 2017. Testing performed by: [address] [address] Lymphocyte pct 10.7 % [facility] Comment: Interpretive Data Percent cell count reference ranges are not reported, since discordance with absolute values may lead to misinterpretation of CBC data. Current Interpretive Data was last revised on 2017. Testing performed by: [address] [address] Monocyte pct 6.5 % [facility] Comment: Interpretive Data Percent cell count reference ranges are not reported, since discordance with absolute values may lead to misinterpretation of CBC data. Current Interpretive Data was last revised on 2017. Testing performed by: [address] [address] Eosinophil pct 1.2 % [facility] Comment: Interpretive Data Percent cell count reference ranges are not reported, since discordance with absolute values may lead to misinterpretation of CBC data. Current Interpretive Data was last revised on 2017. Testing performed by: [address] [address] Basophil pct 1.4 % [facility] Comment: Interpretive Data Percent cell count reference ranges are not reported, since discordance with absolute values may lead to misinterpretation of CBC data. Current Interpretive Data was last revised on 2017. Testing performed by: [address] [address] Blood 01/06/2025 8:25 AM FUR BLOWING MACHINE OPERATOR 01/06/2025 8:35 AM FUR BLOWING MACHINE OPERATOR us Hadley Benitez DO LAB BLOOD ORDERABLES Final R esult [facility] Department [place] [address] * (ABNORMAL) CBC with auto differential (01/06/2025 8:25 AM FUR BLOWING MACHINE OPERATOR) WBC 12.39(H) 3.80 - 9.90 K/cumm Comment:Testing performed by : [address] [address] Hgb 12.8(L) 13.0 - 17.5 g/dL [facility] Comment:Testing performed by : [address] [address] Hct 40.0 38.9 - 50.3 % [facility] Comment:Testing performed by : [address] [address] Plt 228 150 - 400 K/cumm [facility] Comment:Testing performed by : [address] [address] MPV 8.8(L) 9.1 - 12.3 fL [facility] Comment:Testing performed by : [address] [address] RBC 4.45 4.30 - 5.80 M/cumm [facility] Comment:Testing performed by : [address] [address] MCV 89.9 81.3 - 96.4 fL [facility] Comment:Testing performed by : [address] [address] MCH 28.8 27.1 - 33.3 pg [facility] Comment:Testing performed by : [address] [address] MCHC 32.0(L) 32.3 - 35.7 g/dL [facility] Comment:Testing performed by : [address] [address] RDW CV 20.1(H) 11.1 - 14.9 % [facility] Comment:Testing performed by : [address] [address] RDW SD 65.5(H) 35.7 - 48.1 fL [facility] Comment:Testing performed by : [address] [address] NRBC abs 0.00 0.00 - 0.01 K/cumm [facility] Comment:Testing performed by : [address] [address] ANC Prelim 9.46(H) 1.50 - 6.50 K/cumm [facility] Comment: Interpretive Data The rapid ANC is a preliminary automated count and may vary from the final ANC (Neut Abs) reported in the WBC differential that follows. Current interpretive data was last revised 2024. Testing performed by: [address] [address] Blood 01/06/2025 8:25 AM FUR BLOWING MACHINE OPERATOR 01/06/2025 8:35 AM FUR BLOWING MACHINE OPERATOR us Hadley Benitez DO LAB BLOOD ORDERABLES Final R esult [facility] [address] [facility] Department [place] [address] * TSH (01/06/2025 8:25 AM FUR BLOWING MACHINE OPERATOR) Thyroid Stimulating Hormone 0.50 0.30 - 4.20 mcIUnit/mL Comment:Testing performed by : [address] [address] Blood 01/06/2025 8:25 AM FUR BLOWING MACHINE OPERATOR 01/06/2025 9:45 AM FUR BLOWING MACHINE OPERATOR Hadley Benitez DO LAB BLOOD ORDERABLES Final R esult Performing Organization Address [facility] Co de Phone Number [address] [address] * T4, free (01/06/2025 8:25 AM FUR BLOWING MACHINE OPERATOR) Pathologist [facility] [place] Free T4 1.25 0.90 - 1.70 ng/dL Comment:Testing performed by : [address] [address] Blood 01/06/2025 8:25 AM FUR BLOWING MACHINE OPERATOR 01/06/2025 9:45 AM FUR BLOWING MACHINE OPERATOR Hadley Benitez LAB BLOOD ORDERABLES Final R esult Performing Organization Address [facility] Co de Phone Number [address] [address] * (ABNORMAL) Comprehensive metabolic panel (01/06/2025 8:25 AM FUR BLOWING MACHINE OPERATOR) [facility] Sodium 141 135 - 145 mmol/L Comment:Testing performed by : [address] [address] Potassium, pl 5.3(H) 3.3 - 4.9 mmol/L [facility] Comment:Testing performed by : [address] [address] Chloride 109 97 - 110 mmol/L [facility] Comment:Testing performed by : [address] [address] CO2 22 22 - 32 mmol/L [facility] Comment:Testing performed by : [address] [address] Anion gap 10 2 - 15 mmol/L [facility] Comment:Testing performed by : [address] [address] BUN 30(H) 6 - 25 mg/dL [facility] Comment:Testing performed by : [address] [address] Creatinine 1.30 0.80 - 1.30 mg/dL [facility] Comment:Testing performed by : [address] [address] Glucose 128 70 - 199 mg/dL [facility] Comment: Interpretive Data Fasting glucose >/= 126 [...] last revised 2022. Testing performed by: [address] [address] Calcium 9.0 8.5 - 10.3 mg/dL [facility] Comment:Testing performed by : [address] [address] Bilirubin, total 0.2 0.1 - 1.2 mg/dL [facility] Comment:Testing performed by : [address] [address] Protein, pl 6.3(L) 6.5 - 8.5 g/dL [facility] Comment:Testing performed by : [address] [address] Albumin 3.6 3.5 - 5.0 g/dL [facility] Comment:Testing performed by : [address] [address] Alk phos 67 40 - 130 Units/L [facility] Comment:Testing performed by : [address] [address] ALT 16 7 - 55 Units/L [facility] Comment:Testing performed by : [address] [address] AST 13 10 - 50 Units/L [facility] Comment:Testing performed by : [address] [address] Blood 01/06/2025 8:25 AM FUR BLOWING MACHINE OPERATOR 01/06/2025 8:35 AM FUR BLOWING MACHINE OPERATOR us Hadley Benitez DO LAB BLOOD ORDERABLES Final R esult [facility] [address] [facility] Department [place] [address] * (ABNORMAL) Differential, auto (12/30/2024 12:11 PM FUR BLOWING MACHINE OPERATOR) Neutrophil abs 8.52(H) 1.50 - 6.50 K/cumm Comment:Testing performed by : [address] [address] Imm gran abs 0.44(H) 0.00 - 0.10 K/cumm [facility] Comment:Testing performed by : [address] [address] Lymphocyte abs 2.03 0.80 - 3.30 K/cumm [facility] Comment:Testing performed by : [address] [address] Monocyte abs 0.75 0.20 - 0.80 K/cumm [facility] Comment:Testing performed by : [address] [address] Eosinophil abs 0.19 0.00 - 0.50 K/cumm [facility] Comment:Testing performed by : [address] [address] Basophil abs 0.14(H) 0.00 - 0.10 K/cumm [facility] Comment:Testing performed by : [address] [address] Neutrophil pct 70.6 % [facility] Comment: Interpretive Data Percent cell count reference ranges are not reported, since discordance with absolute values may lead to misinterpretation of CBC data. Current Interpretive Data was last revised on 2017. Testing performed by: [address] [address] Imm gran pct 3.6 % [facility] Comment: Interpretive Data Percent cell count reference ranges are not reported, since discordance with absolute values may lead to misinterpretation of CBC data. Current Interpretive Data was last revised on 2017. Testing performed by: [address] [address] Lymphocyte pct 16.8 % [facility] Comment: Interpretive Data Percent cell count reference ranges are not reported, since discordance with absolute values may lead to misinterpretation of CBC data. Current Interpretive Data was last revised on 2017. Testing performed by: [address] [address] Monocyte pct 6.2 % [facility] Comment: Interpretive Data Percent cell count reference ranges are not reported, since discordance with absolute values may lead to misinterpretation of CBC data. Current Interpretive Data was last revised on 2017. Testing performed by: [address] [address] Eosinophil pct 1.6 % [facility] Comment: Interpretive Data Percent cell count reference ranges are not reported, since discordance with absolute values may lead to misinterpretation of CBC data. Current Interpretive Data was last revised on 2017. Testing performed by: [address] [address] Basophil pct 1.2 % [facility] Comment: Interpretive Data Percent cell count reference ranges are not reported, since discordance with absolute values may lead to misinterpretation of CBC data. Current Interpretive Data was last revised on 2017. Testing performed by: [address] [address] Blood 12/30/2024 12:1 1 PM FUR BLOWING MACHINE OPERATOR 12/30/2024 12:12 PM FUR BLOWING MACHINE OPERATOR us Hadley Benitez DO LAB BLOOD ORDERABLES Final R esult [facility] [address] [facility] Department [place] [address] * (ABNORMAL) CBC with auto differential (12/30/2024 12:11 PM FUR BLOWING MACHINE OPERATOR) [employer] Signature WBC 12.07(H) 3.80 - 9.90 K/cumm Comment:Testing performed by : [address] [address] Hgb 12.2(L) 13.0 - 17.5 g/dL [facility] Comment:Testing performed by : [address], [address] Hct 40.3 38.9 - 50.3 % [facility] Comment:Testing performed by : [address] [address] Plt 413(H) 150 - 400 K/cumm [facility] Comment:Testing performed by : [address], [address] MPV 9.6 9.1 - 12.3 fL [facility] Comment:Testing performed by : [address], [address] RBC 4.39 4.30 - 5.80 M/cumm [facility] Comment:Testing performed by : [address] [address] MCV 91.8 81.3 - 96.4 fL [facility] Comment:Testing performed by : [address], [address] MCH 27.8 27.1 - 33.3 pg [facility] Comment:Testing performed by : [address], [address] MCHC 30.3(L) 32.3 - 35.7 g/dL [facility] Comment:Testing performed by : [address] [address] RDW CV 21.3(H) 11.1 - 14.9 % [facility] Comment:Testing performed by : [address], [address] RDW SD 72.1(H) 35.7 - 48.1 fL [facility] Comment:Testing performed by : [address], [address] NRBC abs 0.00 0.00 - 0.01 K/cumm [facility] Comment:Testing performed by : [address] [address] ANC Prelim 8.52(H) 1.50 - 6.50 K/cumm [facility] Comment: Interpretive Data The rapid ANC is a preliminary automated count and may vary from the final ANC (Neut Abs) reported in the WBC differential that follows. Current interpretive data was last revised 2024. Testing performed by: [address] [address] Blood 12/30/2024 12:1 1 PM FUR BLOWING MACHINE OPERATOR 12/30/2024 12:12 PM FUR BLOWING MACHINE OPERATOR Hadley Benitez DO LAB BLOOD ORDERABLES Final R esult [facility] [address] [facility] Department [place] [address] * (ABNORMAL) Differential, auto (12/23/2024 10:34 AM FUR BLOWING MACHINE OPERATOR) Neutrophil abs 8.73(H) 1.50 - 6.50 K/cumm Comment:Testing performed by : [address] [address] Imm gran abs 0.24(H) 0.00 - 0.10 K/cumm [facility] Comment:Testing performed by : [address] [address] Lymphocyte abs 1.16 0.80 - 3.30 K/cumm [facility] Comment:Testing performed by : [address] [address] Monocyte abs 0.32 0.20 - 0.80 K/cumm [facility] Comment:Testing performed by : [address] [address] Eosinophil abs 0.05 0.00 - 0.50 K/cumm [facility] Comment:Testing performed by : [address] [address] Basophil abs 0.04 0.00 - 0.10 K/cumm [facility] Comment:Testing performed by : [address] [address] Neutrophil pct 82.8 % [facility] Comment: Interpretive Data Percent cell count reference ranges are not reported, since discordance with absolute values may lead to misinterpretation of CBC data. Current Interpretive Data was last revised on 2017. Testing performed by: [address] [address] Imm gran pct 2.3 % [facility] Comment: Interpretive Data Percent cell count reference ranges are not reported, since discordance with absolute values may lead to misinterpretation of CBC data. Current Interpretive Data was last revised on 2017. Testing performed by: [address] [address] Lymphocyte pct 11.0 % [facility] Comment: Interpretive Data Percent cell count reference ranges are not reported, since discordance with absolute values may lead to misinterpretation of CBC data. Current Interpretive Data was last revised on 2017. Testing performed by: [address] [address] Monocyte pct 3.0 % [facility] Comment: Interpretive Data Percent cell count reference ranges are not reported, since discordance with absolute values may lead to misinterpretation of CBC data. Current Interpretive Data was last revised on 2017. Testing performed by: [address] [address] Eosinophil pct 0.5 % [facility] Comment: Interpretive Data Percent cell count reference ranges are not reported, since discordance with absolute values may lead to misinterpretation of CBC data. Current Interpretive Data was last revised on 2017. Testing performed by: [address] [address] Basophil pct 0.4 % [facility] Comment: Interpretive Data Percent cell count reference ranges are not reported, since discordance with absolute values may lead to misinterpretation of CBC data. Current Interpretive Data was last revised on 2017. Testing performed by: [address] [address] Blood 12/23/2024 10:3 4 AM FUR BLOWING MACHINE OPERATOR 12/23/2024 10:35 AM FUR BLOWING MACHINE OPERATOR Hadley Benitez DO LAB BLOOD ORDERABLES Final R esult [facility] [address] [facility] Department [place] [address] * (ABNORMAL) CBC with auto differential (12/23/2024 10:34 AM FUR BLOWING MACHINE OPERATOR) WBC 10.54(H) 3.80 - 9.90 K/cumm Comment:Testing performed by : [address] [address] Hgb 10.1(L) 13.0 - 17.5 g/dL [facility] Comment:Testing performed by : [address] [address] Hct 32.2(L) 38.9 - 50.3 % [facility] Comment:Testing performed by : [address] [address] Plt 237 150 - 400 K/cumm [facility] Comment:Testing performed by : [address] [address] MPV 11.4 9.1 - 12.3 fL [facility] Comment:Testing performed by : [address] [address] RBC 3.60(L) 4.30 - 5.80 M/cumm [facility] Comment:Testing performed by : [address] [address] MCV 89.4 81.3 - 96.4 fL [facility] Comment:Testing performed by : [address] [address] MCH 28.1 27.1 - 33.3 pg [facility] Comment:Testing performed by : [address] [address] MCHC 31.4(L) 32.3 - 35.7 g/dL [facility] Comment:Testing performed by : [address] [address] RDW CV 22.8(H) 11.1 - 14.9 % [facility] Comment:Testing performed by : [address] [address] RDW SD 73.6(H) 35.7 - 48.1 fL [facility] Comment:Testing performed by : [address] [address] NRBC abs 0.00 0.00 - 0.01 K/cumm [facility] Comment:Testing performed by : [address] [address] ANC Prelim 8.73(H) 1.50 - 6.50 K/cumm [facility] Comment: Interpretive Data The rapid ANC is a preliminary automated count and may vary from the final ANC (Neut Abs) reported in the WBC differential that follows. Current interpretive data was last revised 2024. Testing performed by: [address] [address] Blood 12/23/2024 10:3 4 AM FUR BLOWING MACHINE OPERATOR 12/23/2024 10:35 AM FUR BLOWING MACHINE OPERATOR us Hadley Benitez DO LAB BLOOD ORDERABLES Final R esult [facility] [address] [facility] Department [place] [address] * eGFR (12/21/2024 10:15 AM FUR BLOWING MACHINE OPERATOR) eGFR 65 >=60 mL/min/1. 73 m2 Comment: [...] last reviewed 2020. Testing performed by: [address] [address] Blood 12/21/2024 10:1 5 AM FUR BLOWING MACHINE OPERATOR 12/21/2024 12:33 PM FUR BLOWING MACHINE OPERATOR Hadley Benitez DO LAB BLOOD ORDERABLES Final R esult [facility] [address] [facility] Department [place] [address] * (ABNORMAL) Comprehensive metabolic panel (12/21/2024 10:15 AM FUR BLOWING MACHINE OPERATOR) Sodium 140 135 - 145 mmol/L Comment:Testing performed by : [address] [address] Potassium, pl 4.5 3.3 - 4.9 mmol/L [facility] Comment:Testing performed by : [address] [address] Chloride 109 97 - 110 mmol/L [facility] Comment:Testing performed by : [address] [address] CO2 21(L) 22 - 32 mmol/L [facility] Comment:Testing performed by : [address] [address] Anion gap 10 2 - 15 mmol/L [facility] Comment:Testing performed by : [address] [address] BUN 17 6 - 25 mg/dL [facility] Comment:Testing performed by : [address] [address] Creatinine 1.30 0.80 - 1.30 mg/dL [facility] Comment:Testing performed by : [address] [address] Glucose 127 70 - 199 mg/dL [facility] Comment: Interpretive [...] last revised 2022. Testing performed by: [address] [address] Calcium 8.1(L) 8.5 - 10.3 mg/dL [facility] Comment:Testing performed by : [address] [address] Bilirubin, total 0.2 0.1 - 1.2 mg/dL [facility] Comment:Testing performed by : [address] [address] Protein, pl 6.0(L) 6.5 - 8.5 g/dL [facility] Comment:Testing performed by : [address] [address] Albumin 2.9(L) 3.5 - 5.0 g/dL [facility] Comment:Testing performed by : [address] [address] Alk phos 98 40 - 130 Units/L [facility] Comment:Testing performed by : [address] [address] ALT 22 7 - 55 Units/L [facility] Comment:Testing performed by : [address] [address] AST 24 10 - 50 Units/L [facility] Comment:Testing performed by : [address] [address] Blood 12/21/2024 10:1 5 AM FUR BLOWING MACHINE OPERATOR 12/21/2024 12:33 PM FUR BLOWING MACHINE OPERATOR us Hadley Benitez DO LAB BLOOD ORDERABLES Final R esult [facility] [address] [facility] Department [place] [address] * (ABNORMAL) Differential, auto (12/21/2024 10:13 AM FUR BLOWING MACHINE OPERATOR) Neutrophil abs 8.67(H) 1.50 - 6.50 K/cumm Comment:Testing performed by : [address] [address] Imm gran abs 0.30(H) 0.00 - 0.10 K/cumm [facility] Comment:Testing performed by : [address] [address] Lymphocyte abs 0.90 0.80 - 3.30 K/cumm [facility] Comment:Testing performed by : [address] [address] Monocyte abs 0.40 0.20 - 0.80 K/cumm [facility] Comment:Testing performed by : [address] [address] Eosinophil abs 0.05 0.00 - 0.50 K/cumm [facility] Comment:Testing performed by : [address] [address] Basophil abs 0.02 0.00 - 0.10 K/cumm [facility] Comment:Testing performed by : [address] [address] Neutrophil pct 83.8 % [facility] Comment: Interpretive Data Percent cell count reference ranges are not reported, since discordance with absolute values may lead to misinterpretation of CBC data. Current Interpretive Data was last revised on 2017. Testing performed by: [address] [address] Imm gran pct 2.9 % [facility] Comment: Interpretive Data Percent cell count reference ranges are not reported, since discordance with absolute values may lead to misinterpretation of CBC data. Current Interpretive Data was last revised on 2017. Testing performed by: [address] [address] Lymphocyte pct 8.7 % [facility] Comment: Interpretive Data Percent cell count reference ranges are not reported, since discordance with absolute values may lead to misinterpretation of CBC data. Current Interpretive Data was last revised on 2017. Testing performed by: [address] [address] Monocyte pct 3.9 % [facility] Comment: Interpretive Data Percent cell count reference ranges are not reported, since discordance with absolute values may lead to misinterpretation of CBC data. Current Interpretive Data was last revised on 2017. Testing performed by: [address] [address] Eosinophil pct 0.5 % [facility] Comment: Interpretive Data Percent cell count reference ranges are not reported, since discordance with absolute values may lead to misinterpretation of CBC data. Current Interpretive Data was last revised on 2017. Testing performed by: [address] [address] Basophil pct 0.2 % [facility] Comment: Interpretive Data Percent cell count reference ranges are not reported, since discordance with absolute values may lead to misinterpretation of CBC data. Current Interpretive Data was last revised on 2017. Testing performed by: [address] [address] Blood 12/21/2024 10:1 3 AM FUR BLOWING MACHINE OPERATOR 12/21/2024 10:18 AM FUR BLOWING MACHINE OPERATOR us Hadley Benitez DO LAB BLOOD ORDERABLES Final R esult [facility] [address] [facility] Department [place] [address] * (ABNORMAL) CBC with auto differential (12/21/2024 10:13 AM FUR BLOWING MACHINE OPERATOR) WBC 10.34(H) 3.80 - 9.90 K/cumm Comment:Testing performed by : [address] [address] Hgb 9.6(L) 13.0 - 17.5 g/dL [facility] Comment:Testing performed by : [address] [address] Hct 31.0(L) 38.9 - 50.3 % [facility] Comment:Testing performed by : [address] [address] Plt 162 150 - 400 K/cumm [facility] Comment:Testing performed by : [address] [address] MPV 11.0 9.1 - 12.3 fL [facility] Comment:Testing performed by : [address] [address] RBC 3.47(L) 4.30 - 5.80 M/cumm [facility] Comment:Testing performed by : [address] [address] MCV 89.3 81.3 - 96.4 fL [facility] Comment:Testing performed by : [address] [address] MCH 27.7 27.1 - 33.3 pg [facility] Comment:Testing performed by : [address] [address] MCHC 31.0(L) 32.3 - 35.7 g/dL [facility] Comment:Testing performed by : [address] [address] RDW CV 23.4(H) 11.1 - 14.9 % [facility] Comment:Testing performed by : [address] [address] RDW SD 74.1(H) 35.7 - 48.1 fL [facility] Comment:Testing performed by : [address] [address] NRBC abs 0.00 0.00 - 0.01 K/cumm [facility] Comment:Testing performed by : [address] [address] ANC Prelim 8.67(H) 1.50 - 6.50 K/cumm [facility] Comment: Interpretive Data The rapid ANC is a preliminary automated count and may vary from the final ANC (Neut Abs) reported in the WBC differential that follows. Current interpretive data was last revised 2024. Testing performed by: [address] [place]., [address] Blood 12/21/2024 10:1 3 AM FUR BLOWING MACHINE OPERATOR 12/21/2024 10:18 AM FUR BLOWING MACHINE OPERATOR Hadley Benitez DO LAB BLOOD ORDERABLES Final R esult [facility] [address] [facility] Department [place] [address] * ECG 12 lead (12/11/2024 11:53 AM CDT) us Historical Provider MD ECG ORDERABLES Final Res ult * US Vein Duplex Upper Extremity Left Limited (12/04/2024 11:16 AM CDT) Anatomical Region Laterality Modality Vascular Left Ultrasound 12/04/2024 10:5 2 AM CDT Narrative 12/05/2024 11:07 AM CDT Upper Extremity Venous Ultrasound Report Patient Name: MATT SPANGLER E : 1970 (53y 11m) Sex: M Study Date: 12/04/2024 10:52:04 AM Compensation Adjuster: Ai Triana RDMS,Estefani Order Provider: HADLEY BENITEZ Quality: Adequate Ref [...] Sex: M Study Date: 12/04/2024 10:52:04 AM Compensation Adjuster: Ai Triana RDMS,RVT Order Provider: HADLEY BENITEZ [...] RBC Indicies Comment:Testing performed by : [address] [address] Anisocytosis Slight(A) [facility] Comment:Testing performed by : [address] [address] Platelet estimate Decreased(A) [facility] Comment:Testing performed by : [address] [address] Blood 12/04/2024 8:08 AM CDT 12/04/2024 8:12 AM CDT us Hadley Benitez DO LAB BLOOD ORDERABLES Final R esult [facility] [address] [facility] Department [place] [address] * (ABNORMAL) eGFR (12/04/2024 8:08 [...] last reviewed 2020. Testing performed by: [address] [address] Blood 12/04/2024 8:08 AM CDT 12/04/2024 8:12 AM CDT us Hadley Benitez DO LAB BLOOD ORDERABLES Final R esult [facility] [address] [facility] Department [place] [address] * (ABNORMAL) Differential, auto (12/04/2024 8:08 AM CDT) Neutrophil abs 24.96(H) 1.50 - 6.50 K/cumm Comment:Testing performed by : [address] [address] Imm gran abs 0.31(H) 0.00 - 0.10 K/cumm [facility] Comment:Testing performed by : [address] [address] Lymphocyte abs 1.71 0.80 - 3.30 K/cumm [facility] Comment:Testing performed by : [address] [address] Monocyte abs 2.22(H) 0.20 - 0.80 K/cumm [facility] Comment:Testing performed by : [address] [address] Eosinophil abs 0.01 0.00 - 0.50 K/cumm [facility] Comment:Testing performed by : [address] [address] Basophil abs 0.04 0.00 - 0.10 K/cumm [facility] Comment:Testing performed by : [address] [address] Neutrophil pct 85.4 % [facility] Comment: Interpretive Data Percent cell count reference ranges are not reported, since discordance with absolute values may lead to misinterpretation of CBC data. Current Interpretive Data was last revised on 2017. Testing performed by: [address] [address] Imm gran pct 1.1 % [facility] Comment: Interpretive Data Percent cell count reference ranges are not reported, since discordance with absolute values may lead to misinterpretation of CBC data. Current Interpretive Data was last revised on 2017. Testing performed by: [address] [address] Lymphocyte pct 5.8 % [facility] Comment: Interpretive Data Percent cell count reference ranges are not reported, since discordance with absolute values may lead to misinterpretation of CBC data. Current Interpretive Data was last revised on 2017. Testing performed by: [address] [address] Monocyte pct 7.6 % [facility] Comment: Interpretive Data Percent cell count reference ranges are not reported, since discordance with absolute values may lead to misinterpretation of CBC data. Current Interpretive Data was last revised on 2017. Testing performed by: [address] [address] Eosinophil pct 0.0 % [facility] Comment: Interpretive Data Percent cell count reference ranges are not reported, since discordance with absolute values may lead to misinterpretation of CBC data. Current Interpretive Data was last revised on 2017. Testing performed by: [address] [address] Basophil pct 0.1 % [facility] Comment: Interpretive Data Percent cell count reference ranges are not reported, since discordance with absolute values may lead to misinterpretation of CBC data. Current Interpretive Data was last revised on 2017. Testing performed by: [address] [address] Blood 12/04/2024 8:08 AM CDT 12/04/2024 8:12 AM CDT Hadley Benitez DO LAB BLOOD ORDERABLES Final R esult [facility] [address] [facility] Department [place] [address] * (ABNORMAL) Pro B-type natriuretic [...] et.al. Eur Heart J. 2006:27:330-337. 2. Solo RW, Gisela ESTEVES. J. AM Ginger Cardiol: Cardiovasc Imag. 2009;2: 216- 225. Interpretive Data Last Revised Date: 2017. Testing performed by: [address] [address] Blood 12/04/2024 8:08 AM CDT 12/04/2024 9:28 AM CDT Damir Canas MD LAB BLOOD ORDERABLES Heather l Result [facility] [address] [facility] Department [place] [address] * (ABNORMAL) CBC with auto differential (12/04/2024 8:08 AM CDT) WBC 29.25(H) 3.80 - 9.90 K/cumm Comment:Testing performed by : [address] [address] Hgb 11.7(L) 13.0 - 17.5 g/dL [facility] Comment:Testing performed by : [address] [address] Hct 35.4(L) 38.9 - 50.3 % [facility] Comment:Testing performed by : [address] [address] Plt 58(L) 150 - 400 K/cumm [facility] Comment:Testing performed by : [address] [address] MPV Not Measured 9.1 - 12.3 fL [facility] Comment:Testing performed by : [address], [address] RBC 4.37 4.30 - 5.80 M/cumm [facility] Comment:Testing performed by : [address] [address] MCV 81.0(L) 81.3 - 96.4 fL [facility] Comment:Testing performed by : [address] [address] MCH 26.8(L) 27.1 - 33.3 pg [facility] Comment:Testing performed by : [address] [address] MCHC 33.1 32.3 - 35.7 g/dL [facility] Comment:Testing performed by : [address] [address] RDW CV 20.5(H) 11.1 - 14.9 % [facility] Comment:Testing performed by : [address], [address] RDW SD 57.1(H) 35.7 - 48.1 fL [facility] Comment:Testing performed by : [address] [address] NRBC abs 0.02(H) 0.00 - 0.01 K/cumm [facility] Comment:Testing performed by : [address] [address] ANC Prelim 24.96(H) 1.50 - 6.50 K/cumm [facility] Comment: Interpretive Data The rapid ANC is a preliminary automated count and may vary from the final ANC (Neut Abs) reported in the WBC differential that follows. Current interpretive data was last revised 2024. Testing performed by: [address] [address] Blood 12/04/2024 8:08 AM CDT 12/04/2024 8:12 AM CDT Hadley Benitez DO LAB BLOOD ORDERABLES Edited Result - Final Performing Organization Address [facility] Co de Phone Number [address] [place] [address] * Magnesium (12/04/2024 8:08 AM CDT) Pathologist [facility] [place] Magnesium 1.7 1.4 - 2.5 mg/dL Comment:Testing performed by : [address] [address] Blood 12/04/2024 8:08 AM CDT 12/04/2024 8:12 AM CDT Damir Canas MD LAB BLOOD ORDERABLES Heather l Result Performing Organization Address [facility] de Phone Number [address] [place] [address] * (ABNORMAL) Comprehensive metabolic panel (12/04/2024 8:08 AM CDT) Pathologist [facility] Sodium 148(H) 135 - 145 mmol/L Comment:Testing performed by : [address] [address] Potassium, pl 2.9(L) 3.3 - 4.9 mmol/L [facility] Comment:Testing performed by : [address] [address] Chloride 112(H) 97 - 110 mmol/L [facility] Comment:Testing performed by : [address] [address] CO2 25 22 - 32 mmol/L [facility] Comment:Testing performed by : [address] [address] Anion gap 11 2 - 15 mmol/L [facility] Comment:Testing performed by : [address] [address] BUN 31(H) 6 - 25 mg/dL [facility] Comment:Testing performed by : [address] [address] Creatinine 1.60(H) 0.80 - 1.30 mg/dL [facility] Comment:Testing performed by : [address] [address] Glucose 143 70 - 199 mg/dL [facility] Comment: Interpretive Data Fasting glucose >/= 126 [...] last revised 2022. Testing performed by: [address] [address] Calcium 8.2(L) 8.5 - 10.3 mg/dL [facility] Comment:Testing performed by : [address] [address] Bilirubin, total 0.6 0.1 - 1.2 mg/dL [facility] Comment:Testing performed by : [address] [address] Protein, pl 5.5(L) 6.5 - 8.5 g/dL [facility] Comment:Testing performed by : [address] [address] Albumin 2.5(L) 3.5 - 5.0 g/dL [facility] Comment:Testing performed by : [address] [address] Alk phos 127 40 - 130 Units/L [facility] Comment:Testing performed by : [address] [address] ALT 21 7 - 55 Units/L [facility] Comment:Testing performed by : [facility], [address] [place] [address]., [address] AST 22 10 - 50 Units/L [facility] Comment:Testing performed by : [facility], [address] [place] [address]., [address] Blood 12/04/2024 8:08 AM CDT 12/04/2024 8:12 AM CDT us Hadley Benitez DO LAB BLOOD ORDERABLES Final R esult [facility] [address] [facility] [place] [address] * TRANSTHORACIC ECHO (TTE) COMPLETE W DOPPLER/CF WO CONTRAST (12/02/2024 11:24 AM CDT) EF Mod BP 65 % CONS SCIMAGE Anatomical Region Laterality Modality Ultrasound 12/02/2024 10:4 0 AM CDT Narrative 12/02/2024 12:42 PM CDT [facility] [address] [facility] [address] [address] [address] [address], [place] [address] P:[phone] P:[phone] Echocardiographic Report Patient Name: MATT SPANGLER E : 1970 Study Date: 12/02/2024 10:40:33 AM Sex: M Compensation Adjuster: Judy Ortega)(CT), [facility] Location: [place] Ref Provider: HADLEY BENITEZ Height(Cm): 178 BSA: [...] FINDINGS: Interpretation Site: Exam was interpreted at [facility]. Left Ventricle: Normal left ventricular size. [...] jet. Electronically Signed By: Venancio Kevin MD, [facility] 12/02/2024 12:41:36 PM CDT Procedure Note Venancio Kevin MD - 12/02/2024 [facility] [address] [facility] [address] [address] [address] [facility] [address], [place] [address] P:[phone] P:[phone] Echocardiographic Report Patient Name: ANÍBAL Hubert CAR[place] : 1970 Study Date: 12/02/2024 10:40:33 AM Sex: M Compensation Adjuster: Judy Ortega)(CT), [facility] Location: [facility] Provider: HADLEY BENITEZ Height(Cm): 178 BSA: [...] FINDINGS: Interpretation Site: Exam was interpreted at [facility]. Left Ventricle: Normal left ventricular size. [...] jet. Electronically Signed By: Venancio Kevin MD, [facility] 12/02/2024 12:41:36 PM CDT Hadley Benitez DO CV ECHO PROCEDURES Final Res ult * Transfuse platelets (11/30/2024 11:49 AM CDT) Blood Hadley Benitez DO BLOOD TRANSFUSION ORDERABLES Final Result * Prepare platelets: 1 Units (11/30/2024 9:27 AM CDT) Platelets # of units / Ready 1 Comment:Testing performed by : [address], [address] Platelets # of units / Ready Ready FRANSICO Comment:Testing performed by : [address] [address] Unit Number [id number] Product code [id number] [facility] Blood Expiration Date [id number] [facility] Product Blood Type (for scanning) 5100 [facility] Product Blood Type OPOS [facility] Dispense Status DISPENSED [facility] Blood Venous blood specimen / Unknown 11/30/2024 9:27 AM CDT 11/30/2024 9:27 AM CDT Hadley Benitez DO BLOOD BANK PRODUCT ORDERABLE S Final Result [facility] [address] [facility] Department [place] [address] * (ABNORMAL) Immature platelet fraction (11/30/2024 8:07 AM CDT) IPF 21.2(H) 1.6 - 10.1 % Comment:Testing performed by : [address] [address] Blood 11/30/2024 8:07 AM CDT 11/30/2024 8:10 AM CDT Hadley WagnerPedro Benitez LAB BLOOD ORDERABLES Final R esult Performing Organization Address [facility] de Phone Number FRANSICO [address] [address] * (ABNORMAL) Blood smear review (11/30/2024 8:07 AM CDT) RBC morphology Consistent with RBC Indicies Comment:Testing performed by : [address] [address] Anisocytosis Slight(A) FRANSICO Comment:Testing performed by : [address] [address] Platelet estimate Decreased(A) FRANSICO Comment:Testing performed by : [address] [address] Blood 11/30/2024 8:07 AM CDT 11/30/2024 8:10 AM CDT Hadley Benitez DO LAB BLOOD ORDERABLES Final R esult Performing Organization Address [facility] de Phone Number FRANSICO [address] [address] * (ABNORMAL) eGFR (11/30/2024 8:07 AM CDT) [...] of Race in Diagnosing Kidney Disease, JASN 202). The CKD-EPI equation should not be used for patients with unstable renal function and has not been validated in children and those over 70. Current interpretive data was last reviewed 2020. Testing performed by: [facility], [address] [place] [address]., [address] Blood 11/30/2024 8:07 AM CDT 11/30/2024 8:10 AM CDT us Hadley Benitez DO LAB BLOOD ORDERABLES Final R esult FRANSICO [address] [facility] Department [place] [address] * (ABNORMAL) Differential, auto (11/30/2024 8:07 AM CDT) Neutrophil abs 18.85(H) 1.50 - 6.50 K/cumm Comment:Testing performed by : [address] [address] Imm gran abs 0.90(H) 0.00 - 0.10 K/cumm FRANSICO Comment:Testing performed by : [address] [address] Lymphocyte abs 2.18 0.80 - 3.30 K/cumm FRANSICO Comment:Testing performed by : [address] [address] Monocyte abs 1.80(H) 0.20 - 0.80 K/cumm FRANSICO Comment:Testing performed by : [address] [address] Eosinophil abs 0.00 0.00 - 0.50 K/cumm FRANSICO Comment:Testing performed by : [address] [address] Basophil abs 0.05 0.00 - 0.10 K/cumm FRANSICO Comment:Testing performed by : [address] [address] Neutrophil pct 79.2 % [facility] Comment: Interpretive Data Percent cell count reference ranges are not reported, since discordance with absolute values may lead to misinterpretation of CBC data. Current Interpretive Data was last revised on 2017. Testing performed by: [address] [address] Imm gran pct 3.8 % [facility] Comment: Interpretive Data Percent cell count reference ranges are not reported, since discordance with absolute values may lead to misinterpretation of CBC data. Current Interpretive Data was last revised on 2017. Testing performed by: [address] [address] Lymphocyte pct 9.2 % [facility] Comment: Interpretive Data Percent cell count reference ranges are not reported, since discordance with absolute values may lead to misinterpretation of CBC data. Current Interpretive Data was last revised on 2017. Testing performed by: [address] [address] Monocyte pct 7.6 % [facility] Comment: Interpretive Data Percent cell count reference ranges are not reported, since discordance with absolute values may lead to misinterpretation of CBC data. Current Interpretive Data was last revised on 2017. Testing performed by: [address] [address] Eosinophil pct 0.0 % [facility] Comment: Interpretive Data Percent cell count reference ranges are not reported, since discordance with absolute values may lead to misinterpretation of CBC data. Current Interpretive Data was last revised on 2017. Testing performed by: [address] [address] Basophil pct 0.2 % [facility] Comment: Interpretive Data Percent cell count reference ranges are not reported, since discordance with absolute values may lead to misinterpretation of CBC data. Current Interpretive Data was last revised on 2017. Testing performed by: [address] [address] Blood 11/30/2024 8:07 AM CDT 11/30/2024 8:10 AM CDT us Hadley Benitez DO LAB BLOOD ORDERABLES Final R esult [facility] [address] [facility] Department of Laboratories [place], [place] [id number] * (ABNORMAL) CBC with auto differential (11/30/2024 8:07 AM CDT) WBC 24.14(H) 3.80 - 9.90 K/cumm Comment:Testing performed by : [address] [address] Hgb 11.7(L) 13.0 - 17.5 g/dL FRANSICO Comment:Testing performed by : [address] [address] Hct 34.2(L) 38.9 - 50.3 % FRANSICO Comment:Testing performed by : [address] [address] Plt 2(C) 150 - 400 K/cumm FRANSICO Comment: This result has been called to Linda Corona RN by [id number] on 11/30/2024 08:50:04, and has been read back. Testing performed by: [address] [address] MPV Not Measured 9.1 - 12.3 fL FRANSICO Comment:Testing performed by : [address] [address] RBC 4.38 4.30 - 5.80 M/cumm FRANSICO SIMMONS Comment:Testing performed by : [address] [address] MCV 78.1(L) 81.3 - 96.4 fL FRANSICO Comment:Testing performed by : [address] [address] MCH 26.7(L) 27.1 - 33.3 pg FRANSICO SIMMONS Comment:Testing performed by : [address] [address] MCHC 34.2 32.3 - 35.7 g/dL FRANSICO Comment:Testing performed by : [address] [address] RDW CV 18.6(H) 11.1 - 14.9 % FRNASICO SIMMONS Comment:Testing performed by : [address] [address] RDW SD 48.5(H) 35.7 - 48.1 fL FRANSICO SIMMONS Comment:Testing performed by : [address] [address] NRBC abs 0.07(H) 0.00 - 0.01 K/cumm FRANSICO Comment:Testing performed by : [address] [address] ANC Prelim 18.85(H) 1.50 - 6.50 K/cumm FRANSICO SIMMONS Comment: Interpretive Data The rapid ANC is a preliminary automated count and may vary from the final ANC (Neut Abs) reported in the WBC differential that follows. Current interpretive data was last revised 2024. Testing performed by: [address] [address] Blood 11/30/2024 8:07 AM CDT 11/30/2024 8:10 AM CDT us Hadley Benitez DO LAB BLOOD ORDERABLES Edited Result - Final FRANSICO [address] [facility] Department of Laboratories [place], [place] [id number] * (ABNORMAL) Comprehensive metabolic panel (11/30/2024 8:07 AM CDT) Sodium 145 135 - 145 mmol/L Comment:Testing performed by : [address] [address] Potassium, pl 2.8(L) 3.3 - 4.9 mmol/L FRANSICO SIMMONS Comment:Testing performed by : [address] [address] Chloride 111(H) 97 - 110 mmol/L FRANSICO SIMMONS Comment:Testing performed by : [address] [address] CO2 23 22 - 32 mmol/L FRNASICO SIMMONS Comment:Testing performed by : [address] [address] Anion gap 11 2 - 15 mmol/L FRANSICO Comment:Testing performed by : [address] [address] BUN 30(H) 6 - 25 mg/dL FRANSICO Comment:Testing performed by : [address] [address] Creatinine 1.50(H) 0.80 - 1.30 mg/dL FRANSICO Comment:Testing performed by : [address] [address] Glucose 204(H) 70 - 199 mg/dL [facility] Comment: Interpretive Data Fasting glucose >/= 126 [...] last revised 2022. Testing performed by: [address] [address] Calcium 8.3(L) 8.5 - 10.3 mg/dL [facility] Comment:Testing performed by : [address] [address] Bilirubin, total 0.5 0.1 - 1.2 mg/dL FRANSICO Comment:Testing performed by : [address] [address] Protein, pl 5.5(L) 6.5 - 8.5 g/dL FRANSICO Comment:Testing performed by : [address] [address] Albumin 2.3(L) 3.5 - 5.0 g/dL [facility] Comment:Testing performed by : [address] [address] Alk phos 131(H) 40 - 130 Units/L FRANSICO Comment:Testing performed by : [address] [address] ALT 21 7 - 55 Units/L FRANSICO SIMMONS Comment:Testing performed by : [address] [address] AST 25 10 - 50 Units/L FRANSICO Comment:Testing performed by : [address] [address] Blood 11/30/2024 8:07 AM CDT 11/30/2024 8:10 AM CDT Hadley Benitez DO LAB BLOOD ORDERABLES Final R esult Performing Organization Address City/[facility]/ZIP Co de Phone Number CESAR[address] [place] [address] * Immature platelet fraction (11/26/2024 2:04 PM CDT) Pathologist [facility] IPF 2.2 1.6 - 10.1 % Comment:Testing performed by : [address], [address] Blood 11/26/2024 2:04 PM CDT 11/26/2024 2:06 PM CDT Hadley Benitez DO LAB BLOOD ORDERABLES Final R esult Performing Organization Address [facility] Co de Phone Number [address] [address] * (ABNORMAL) Platelet count (11/26/2024 2:04 PM CDT) Pathologist [facility] Plt 1(C) 150 - 400 K/cumm Comment: This result has been called to Jimmy Hallman RN by [id number] on 11/26/2024 14:23:49, and has been read back. Testing performed by: [address] [address] Morphologic Screen Results confirmed by manual morphology review. FRANSICO SIMMONS Comment:Testing performed by : [address] [address] Blood 11/26/2024 2:04 PM CDT 11/26/2024 2:06 PM CDT Hadley WagnerPedro Lewisfrooly [facility] BLOOD ORDERABLES Edited Result - Final Performing Organization Address [facility] Co de Phone Number FRANSICO [address] [address] * Antibody Identification SO (11/26/2024 2:00 PM CDT) Antibody ID Reference Lab/Send Out ARC Comment:Testing performed by : [address] [address] Antibody ID Reference Lab/Send Out Cold Autoantibody FRANSICO SIMMONS Comment:Testing performed by : [address] [address] Blood 11/26/2024 2:00 PM CDT 11/26/2024 3:23 PM CDT Hadley Benitez [employer] [facility] BLOOD BANK TEST ORDERABL ES Final Result Performing Organization Address [facility] de Phone Number FRANSICO [address] [place] [address] * RBC Antigen Serologic Phenotyping (11/26/2024 2:00 PM CDT) Erythrocyte ag c Positive Comment:Testing performed by : [address] [address] Erythrocyte ag E Negative FRANSICO SIMMONS Comment:Testing performed by : [address] [address] Erythrocyte ag C Positive FRANSICO SIMMONS Comment:Testing performed by : [address] [address] Erythrocyte ag e Positive FRANSICO Comment:Testing performed by : [address] [address] Blood 11/26/2024 2:00 PM CDT 11/28/2024 4:13 PM CDT Hadley Benitez DO LAB BLOOD BANK TEST ORDERABL ES Final Result Performing Organization Address [facility] Co de Phone Number FRANSICO [address] [facility] [place] [address] * Transfuse platelets (11/26/2024 1:03 PM CDT) Blood Hadley Benitez DO BLOOD TRANSFUSION ORDERABLES Final Result * Prepare platelets: 1 Units (11/26/2024 11:29 AM CDT) Platelets # of units / Ready 1 Comment:Testing performed by : [address] [address] Platelets # of units / Ready Ready [facility] Comment:Testing performed by : [address] [address] Unit Number [id number] Product code [id number] [facility] Blood Expiration Date [id number] [facility] Product Blood Type (for scanning) 5100 [facility] Product Blood Type OPOS [facility] Dispense Status DISPENSED [facility] Blood Venous blood specimen / Unknown 11/26/2024 11:29 AM CDT 11/26/2024 11:29 AM CDT Hadley Benitez DO BLOOD BANK PRODUCT ORDERABLE S Final Result Performing Organization Address [facility] Co de Phone Number FRANSICO [address] [facility] [place] [address] * ABO / Rh Confirmation Testing (11/26/2024 10:08 AM CDT) ABO/Rh Confirmation A Positive [facility]HB Comment:Testing performed by : [address] [address] Blood 11/26/2024 10:0 8 AM CDT 11/26/2024 10:45 AM CDT Hadley WagnerPedro Eli DO LAB BLOOD ORDERABLES Final R esult Performing Organization Address [facility] Co de Phone Number FRANSICO [address] [place] [address] MHB * (ABNORMAL) Immature platelet fraction (11/26/2024 10:07 AM CDT) IPF 14.3(H) 1.6 - 10.1 % Comment:Testing performed by : [address] [address] Blood 11/26/2024 10:0 7 AM CDT 11/26/2024 10:10 AM CDT Hadley WagnerPedro Eli DO LAB BLOOD ORDERABLES Final R esult Performing Organization Address [facility] de Phone Number FRANSICO [address] [address] * (ABNORMAL) Blood smear review (11/26/2024 10:07 AM CDT) [facility] RBC morphology Consistent with RBC Indicies Comment:Testing performed by : [address] [address] RBC Agglutination 1 FRANSICO Comment:Testing performed by : [address] [address] Platelet estimate Decreased(A) FRANSICO Comment:Testing performed by : [address] [address] Blood 11/26/2024 10:0 7 AM CDT 11/26/2024 10:10 AM CDT Hadley WagnerPedro Eli DO LAB BLOOD ORDERABLES Final R esult Performing Organization Address [facility] Co de Phone Number FRANSICO [address] [address] * (ABNORMAL) Differential, auto (11/26/2024 10:07 AM CDT) Pathologist [facility] Neutrophil abs 16.03(H) 1.50 - 6.50 K/cumm Comment:Testing performed by : [address] [address] Imm gran abs 0.19(H) 0.00 - 0.10 K/cumm FRANSICO Comment:Testing performed by : [address], [place]., [address] Lymphocyte abs 1.79 0.80 - 3.30 K/cumm [facility] Comment:Testing performed by : [address], [place]., [address] Monocyte abs 1.54(H) 0.20 - 0.80 K/cumm [facility] Comment:Testing performed by : [address] [address] Eosinophil abs 0.27 0.00 - 0.50 K/cumm [facility] Comment:Testing performed by : [address] [address] Basophil abs 0.07 0.00 - 0.10 K/cumm [facility] Comment:Testing performed by : [address] [address] Neutrophil pct 80.5 % [facility] Comment: Interpretive Data Percent cell count reference ranges are not reported, since discordance with absolute values may lead to misinterpretation of CBC data. Current Interpretive Data was last revised on 2017. Testing performed by: [address] [address] Imm gran pct 1.0 % [facility] Comment: Interpretive Data Percent cell count reference ranges are not reported, since discordance with absolute values may lead to misinterpretation of CBC data. Current Interpretive Data was last revised on 2017. Testing performed by: [address] [address] Lymphocyte pct 9.0 % [facility] Comment: Interpretive Data Percent cell count reference ranges are not reported, since discordance with absolute values may lead to misinterpretation of CBC data. Current Interpretive Data was last revised on 2017. Testing performed by: [address] [address] Monocyte pct 7.7 % FRANSICO Comment: Interpretive Data Percent cell count reference ranges are not reported, since discordance with absolute values may lead to misinterpretation of CBC data. Current Interpretive Data was last revised on 2017. Testing performed by: [address] [address] Eosinophil pct 1.4 % FRANSICO Comment: Interpretive Data Percent cell count reference ranges are not reported, since discordance with absolute values may lead to misinterpretation of CBC data. Current Interpretive Data was last revised on 2017. Testing performed by: [address] [address] Basophil pct 0.4 % FRANSICO Comment: Interpretive Data Percent cell count reference ranges are not reported, since discordance with absolute values may lead to misinterpretation of CBC data. Current Interpretive Data was last revised on 2017. Testing performed by: [address] [address] Blood 11/26/2024 10:0 7 AM CDT 11/26/2024 10:10 AM CDT us Hadley Benitez DO LAB BLOOD ORDERABLES Final R esult FRANS[facility] [address] [facility] Department of Laboratories [place], [place] [id number] * (ABNORMAL) CBC with auto differential (11/26/2024 10:07 AM CDT) WBC 19.96(H) 3.80 - 9.90 K/cumm Comment:Testing performed by : [address] [address] Hgb 11.9(L) 13.0 - 17.5 g/dL FRANSICO SIMMONS Comment:Testing performed by : [address] [address] Hct 35.4(L) 38.9 - 50.3 % FRANSICO Comment:Testing performed by : [address] [address] Plt 1(C) 150 - 400 K/cumm FRANSICO Comment: This result has been called to Jimmy Hallman RN by [id number] on 11/26/2024 10:26:15, and has been read back. Testing performed by: [address] [address] MPV Not Measured 9.1 - 12.3 fL FRANSICO Comment:Testing performed by : [address] [address] RBC 4.50 4.30 - 5.80 M/cumm FRANSICO Comment:Testing performed by : [address] [address] MCV 78.7(L) 81.3 - 96.4 fL FRANSICO Comment:Testing performed by : [address] [address] MCH 26.4(L) 27.1 - 33.3 pg FRANSICO Comment:Testing performed by : [address] [address] MCHC 33.6 32.3 - 35.7 g/dL FARNSICO Comment:Testing performed by : [address] [address] RDW CV 18.1(H) 11.1 - 14.9 % FRANSICO Comment:Testing performed by : [address] [address] RDW SD 47.7 35.7 - 48.1 fL FRANSICO Comment:Testing performed by : [address] [address] NRBC abs 0.02(H) 0.00 - 0.01 K/cumm FRANSICO Comment:Testing performed by : [address] [address] ANC Prelim 16.03(H) 1.50 - 6.50 K/cumm FRANSICO Comment: Interpretive Data The rapid ANC is a preliminary automated count and may vary from the final ANC (Neut Abs) reported in the WBC differential that follows. Current interpretive data was last revised 2024. Testing performed by: [address] [place] [address] Blood 11/26/2024 10:0 7 AM CDT 11/26/2024 10:10 AM CDT us Hadley Benitez DO LAB BLOOD ORDERABLES Edited Result - Final Performing Organization Address [facility] Co de Phone Number CESAR[address] [address] * ABO/Rh (11/26/2024 10:07 AM CDT) ABO/Rh A Positive Comment:Testing performed by : [address] [address] Blood 11/26/2024 10:0 7 AM CDT 11/26/2024 10:45 AM CDT Narrative FRANSICO - 11/26/2024 11:27 AM CDT Has the patient had Daratumumab or Isatuximab in the past 6 months?->No Hadley Benitez [employer] LAB BLOOD BANK TEST ORDERABL ES Final Result Performing Organization Address [facility] de Phone Number [address] [address] * (ABNORMAL) Antibody screen (11/26/2024 10:07 AM CDT) Rehana, indirect, Gel Interpretation Positive( A) Comment:Testing performed by : [address] [address] Blood 11/26/2024 10:0 7 AM CDT 11/26/2024 10:45 AM CDT Narrative FRANSICO - 11/26/2024 11:47 AM CDT Has the patient had Daratumumab or Isatuximab in the past 6 months?->No Hadley Benitez DO LAB BLOOD BANK TEST ORDERABL ES Final Result Performing Organization Address [facility] Co de Phone Number CER[address] [place] [place] [address] * CMP (11/19/2024 11:25 AM CDT) Historical Provider LAB BLOOD ORDERABLES Heather l Result * CBC with auto differential (11/19/2024 11:25 AM CDT) Blood Historical Provider LAB BLOOD [...] was last reviewed 2020. Testing performed by: [facility], [address] [place] [address]., [address] Blood 11/13/2024 7:38 AM CDT 11/13/2024 7:41 AM CDT Hadley Benitez DO LAB BLOOD ORDERABLES Final R esult FRANSICO [address] [facility] Department [place] [address] * (ABNORMAL) Differential, auto (11/13/2024 7:38 AM CDT) Neutrophil abs 16.89(H) 1.50 - 6.50 K/cumm Comment:Testing performed by : [address] [address] Imm gran abs 0.11(H) 0.00 - 0.10 K/cumm FRANSICO Comment:Testing performed by : [address] [address] Lymphocyte abs 1.44 0.80 - 3.30 K/cumm [facility] Comment:Testing performed by : [address] [address] Monocyte abs 1.76(H) 0.20 - 0.80 K/cumm [facility] Comment:Testing performed by : [address] [address] Eosinophil abs 0.07 0.00 - 0.50 K/cumm [facility] Comment:Testing performed by : [address] [address] Basophil abs 0.03 0.00 - 0.10 K/cumm [facility] Comment:Testing performed by : [address] [address] Neutrophil pct 83.3 % [facility] Comment: Interpretive Data Percent cell count reference ranges are not reported, since discordance with absolute values may lead to misinterpretation of CBC data. Current Interpretive Data was last revised on 2017. Testing performed by: [address] [address] Imm gran pct 0.5 % [facility] Comment: Interpretive Data Percent cell count reference ranges are not reported, since discordance with absolute values may lead to misinterpretation of CBC data. Current Interpretive Data was last revised on 2017. Testing performed by: [address] [address] Lymphocyte pct 7.1 % [facility] Comment: Interpretive Data Percent cell count reference ranges are not reported, since discordance with absolute values may lead to misinterpretation of CBC data. Current Interpretive Data was last revised on 2017. Testing performed by: [address] [address] Monocyte pct 8.7 % FRANSICO Comment: Interpretive Data Percent cell count reference ranges are not reported, since discordance with absolute values may lead to misinterpretation of CBC data. Current Interpretive Data was last revised on 2017. Testing performed by: [address] [address] Eosinophil pct 0.3 % [facility] Comment: Interpretive Data Percent cell count reference ranges are not reported, since discordance with absolute values may lead to misinterpretation of CBC data. Current Interpretive Data was last revised on 2017. Testing performed by: [address] [address] Basophil pct 0.1 % [facility] Comment: Interpretive Data Percent cell count reference ranges are not reported, since discordance with absolute values may lead to misinterpretation of CBC data. Current Interpretive Data was last revised on 2017. Testing performed by: [address] [address] Blood 11/13/2024 7:38 AM CDT 11/13/2024 7:41 AM CDT Hadley Benitez DO LAB BLOOD ORDERABLES Final R esult [facility] [address] [facility] Department of Laboratories [place], [place] [id number] * (ABNORMAL) CBC with auto differential (11/13/2024 7:38 AM CDT) WBC 20.30(H) 3.80 - 9.90 K/cumm Comment:Testing performed by : [address] [address] Hgb 13.9 13.0 - 17.5 g/dL [facility] Comment:Testing performed by : [address] [address] Hct 40.6 38.9 - 50.3 % [facility] Comment:Testing performed by : [address] [address] Plt 292 150 - 400 K/cumm [facility] Comment:Testing performed by : [address] [address] MPV 9.7 9.1 - 12.3 fL [facility] Comment:Testing performed by : [address] [address] RBC 5.24 4.30 - 5.80 M/cumm [facility] Comment:Testing performed by : [address] [address] MCV 77.5(L) 81.3 - 96.4 fL [facility] Comment:Testing performed by : [address] [address] MCH 26.5(L) 27.1 - 33.3 pg [facility] Comment:Testing performed by : [address] [address] MCHC 34.2 32.3 - 35.7 g/dL [facility] Comment:Testing performed by : [address] [address] RDW CV 15.4(H) 11.1 - 14.9 % [facility] Comment:Testing performed by : [address] [address] RDW SD 41.3 35.7 - 48.1 fL [facility] Comment:Testing performed by : [address] [address] NRBC abs 0.00 0.00 - 0.01 K/cumm [facility] Comment:Testing performed by : [address] [address] ANC Prelim 16.89(H) 1.50 - 6.50 K/cumm [facility] Comment: Interpretive Data The rapid ANC is a preliminary automated count and may vary from the final ANC (Neut Abs) reported in the WBC differential that follows. Current interpretive data was last revised 2024. Testing performed by: [address] [address] Blood 11/13/2024 7:38 AM CDT 11/13/2024 7:41 AM CDT Hadley Benitez DO LAB BLOOD ORDERABLES Final R esult [facility] [address] [facility] Department [place] [address] * (ABNORMAL) Comprehensive metabolic panel (11/13/2024 7:38 AM CDT) Sodium 138 135 - 145 mmol/L Comment:Testing performed by : [address] [address] Potassium, pl 3.3 3.3 - 4.9 mmol/L [facility] Comment:Testing performed by : [address] [address] Chloride 106 97 - 110 mmol/L [facility] Comment:Testing performed by : [address] [address] CO2 20(L) 22 - 32 mmol/L [facility] Comment:Testing performed by : [address] [address] Anion gap 12 2 - 15 mmol/L [facility] Comment:Testing performed by : [address] [address] BUN 21 6 - 25 mg/dL [facility] Comment:Testing performed by : [address] [address] Creatinine 1.80(H) 0.80 - 1.30 mg/dL [facility] Comment:Testing performed by : [address] [address] Glucose 154 70 - 199 mg/dL [facility] Comment: Interpretive [...] last revised 2022. Testing performed by: [address] [address] Calcium 8.0(L) 8.5 - 10.3 mg/dL [facility] Comment:Testing performed by : [address] [address] Bilirubin, total 0.5 0.1 - 1.2 mg/dL [facility] Comment:Testing performed by : [address] [address] Protein, pl 6.5 6.5 - 8.5 g/dL [facility] Comment:Testing performed by : [address] [address] Albumin 2.6(L) 3.5 - 5.0 g/dL [facility] Comment:Testing performed by : [address] [address] Alk phos 101 40 - 130 Units/L [facility] Comment:Testing performed by : [address] [address] ALT 25 7 - 55 Units/L [facility] Comment:Testing performed by : [address] [address] AST 22 10 - 50 Units/L [facility] Comment:Testing performed by : [address] [address] Blood 11/13/2024 7:38 AM CDT 11/13/2024 7:41 AM CDT us Hadley Benitez DO LAB BLOOD ORDERABLES Final R esult [facility] [address] [facility] Department [place] [address] from Last 3 Months Insurance [facility] Care Teams Claims Vice President Relationship Specialty Start Date End Date Hugo Lara MD [address] [place] [address] PCP - General Family Medicine 06/05/24 Hadley Benitez DO Medical Oncologist/[employer] Hematology and Oncology 09/16/20 Jordon Murcia MD Loss Prevention Specialist Dermatology 11/04/20
[2025-01-30 10:32] LABS: Influenza A QL RT-PCR Negative (Negative); Influenza B QL RT-PCR Negative (Negative); RSV RNA, RT-PCR Negative (Negative); SARS-CoV-2 RNA PCR Negative (Negative)
== END 2025-01-30 09:28 | disposition home or self-care (01) ==
LOC: ANHLAB 09:30
PROVIDERS: PCP Family Medicine; Visit Provider Family Medicine
DX: Z20.822 Contact with and (suspected) exposure to COVID-19 (principal); R50.9 Fever, unspecified
CPT/HCPCS: 87637